=== PATIENT | female | born 1970 | race Caucasian/White ===

== ENCOUNTER 2016-06-03 08:39 | Emergency (ER) | payer OTHER ==
[~2016-06-03] VITALS: Ht 152.4 cm; Wt 54.0 kg
[~2016-06-03 08:39] MED LIST: ANAS1TAB6 PO; CTP/1 PO; CYAN10002; MUPI2OIN9 TOP; ONDA8TAB7 SL; OXYC-57 PO; OXYC20TA50 PO; PANT40TA PO; SALI0.6510; ZOLP10TA PO
[2016-06-03 08:48] VITALS: TEMP 36.5
[2016-06-03] MEDS ORDERED: HYDROmorphone INJ 1 MG/ML SYR IV STA (09:03)
[2016-06-03] MEDS ORDERED: MORP15TA19 PO (09:07)
[2016-06-03 09:31] VITALS: Ht 152.4 cm; Wt 54.0 kg
[2016-06-03 09:32] LABS: BASO % 0.3 %; BASO ABS # 0.02 K/uL (0-0.2); COMPLETE YES; EOS % 3.3 %; HEMATOCRIT 31.1 % (37-47); IG% 0.1 %; LYMPH % 30.5 %; LYMPH ABS # 2.11 K/uL (1.2-3.4); MEAN CELL VOLUME 91.2 fL (80-100); MEAN CORPUSCULAR HEMOGLOBIN 30.5 pg (25-34); MEAN CORPUSCULAR HGB CONC 33.4 g/dl (32-36); MEAN PLATELET VOLUME 9.8 fL (7.4-10.4); MONO % 8.4 %; NEUT % 57.4 %; PLATELET COUNT 196 K/uL (130-400); RED BLOOD COUNT 3.41 M/uL (4.2-5.4); WHITE BLOOD COUNT 6.92 K/uL (4.8-10.8)
[2016-06-03] MEDS ORDERED: ONDANSETRON INJ 2 MG/ML 2 ML VIAL IV STA (09:33)
[2016-06-03] MEDS ORDERED: MAGIC MOUTHWASH PO STA (09:36)
[2016-06-03 09:59] LABS: ALT/SGPT 22 U/L (12-78); BLOOD UREA NITROGEN 18 mg/dl (7-18); BUN/CREATININE RATIO 27.3 (10-20); C-REACTIVE PROTEIN < 0.29 mg/dl (0-0.29); CALCIUM 8.5 mg/dl (8.5-10.1); CARBON DIOXIDE 24 mmol/L (21-32); CHLORIDE 108 mmol/L (98-107); CREATININE 0.64 mg/dl (0.60-1.20); GLUCOSE 96 mg/dl (70-99); POTASSIUM 3.9 mmol/L (3.5-5.1); SODIUM 141 mmol/L (136-145)
[2016-06-03] MEDS ORDERED: DEXAMETHASONE CONC SOLN 0.078 MG, NYSTATIN SUSP 0.625 ML, DiphenhydrAMINE HCL SYRUP 6.2... PO ONE ×5 (10:00)
[2016-06-03 10:09] LABS: ALKALINE PHOSPHATASE 106 U/L (45-117); AST/SGOT 20 U/L (15-37); CKMB/CK RATIO 0.8 (0-3.0)
--- NOTE | 2016-06-03 10:27 | DIAGNOSTIC IMAGING REPORT ---
PA CHEST RADIOGRAPH AND UPRIGHT AND SUPINE AP RADIOGRAPHS OF THE ABDOMEN CLINICAL HISTORY: Abdominal pain. Sore throat. COMPARISON STUDY: Chest radiograph September 24, [address] of the abdomen and pelvis October 20, 2015. FINDINGS: A right sided [id number] is in place. There is no pneumothorax or pleural effusion. No consolidation is identified. A nodular density projecting over the right lower lung likely reflects a nipple shadow. Pulmonary vascularity is normal. Cardiac size is normal. Mediastinal contours are normal. The left breast may be surgically absent. There are cholecystectomy clips. There is no free air. Gas pattern is normal. There is a moderate amount of stool within the colon and rectum. IMPRESSION: 1. No free air or evidence of bowel obstruction. 2. Moderate amount of stool within the colon and rectum. 3. No acute cardiopulmonary findings. Electronically signed by: Radu Cardona M.D. 06/03/2016 10:25 AM Dictated Date/Time: 06/03/2016 10:16 AM
[2016-06-03 11:04] VITALS: O2SAT 100
[2016-06-03] MEDS ORDERED: SODIUM CHLORIDE 0.9% 1000ML 1,000 ML IV STA (11:04)
[2016-06-03 11:15] LABS: INFLUENZA A PCR Neg for Influ A (NEG); INFLUENZA B PCR Neg for Influ B (NEG)
[2016-06-03] MEDS ORDERED: SOAP SUDS ENEMA PR STA (11:24)
[2016-06-03] MEDS ORDERED: MAGNESIUM CITRATE 296 ML/BTL PO STA (11:24)
[2016-06-03] MEDS ORDERED: DiphenhydrAMINE HCL 50 MG/ML VIAL IV STA ×2 (11:24→14:17)
[2016-06-03] MEDS ORDERED: METOCLOPRAMIDE HCL INJ 5 MG/ML 2 ML VIAL IV STA (14:17)
[2016-06-03] MEDS ORDERED: FENTANYL CITRATE INJ 50 MCG/1 ML 2 ML VIAL IV STA (14:17)
--- NOTE | 2016-06-03 14:46 | DIAGNOSTIC IMAGING REPORT ---
CT OF THE ABDOMEN AND PELVIS WITH ORAL CONTRAST CT DOSE: 416.08 mGy.cm CLINICAL HISTORY: Diffuse abdominal pain. TECHNIQUE: Axial images of the abdomen and pelvis were obtained without IV contrast. Oral contrast was administered. COMPARISON STUDY: CT of the abdomen and pelvis October 20, 2015 and abdominal ultrasound May 24, 2015. FINDINGS: There are findings suggestive of a left mastectomy which are partially imaged on this examination. No pneumatosis, free air or portal venous gas is present. There is no biliary ductal dilatation status post cholecystectomy. There is no peripancreatic infiltration. No renal, ureteral or bladder calculi are identified. There is no hydronephrosis. Moderate distention of the bladder is noted. Unenhanced images of liver, spleen, adrenal glands and pancreas are unremarkable. There is a moderate amount of stool within the colon. There is no evidence for a bowel obstruction. The appendix is not visualized. IMPRESSION: 1. No acute process within the abdomen or pelvis on unenhanced exam. 2. No urinary calculi or hydronephrosis. 3. No bowel obstruction. Moderate amount of stool within the colon. 4. Moderate distention of the bladder. Electronically signed by: Radu Cardona M.D. 06/03/2016 2:45 PM Dictated Date/Time: 06/03/2016 2:41 PM
[2016-06-03] MEDS ORDERED: FLUC100T4 PO (15:37)
[2016-06-03 17:06] VITALS: BP 111/80; PULSE 76; O2SAT 98
--- NOTE | 2016-06-04 19:24 | EMERGENCY ROOM VISIT NOTE ---
History Report prepared by Joyce: Shireen Tyson Under the Supervision of: Dr. Bienvenido Houser M.D. First contact with patient: 08:40 Chief Complaint: THROAT PAIN/INJURY Stated Complaint: SORETHROAT History of Present Illness The patient is a 46 year old female who presents to the Emergency Room with complaints of a worsening sore throat over the past 5 days. Currently, she states that the back of her throat feels raw, and she rates her discomfort as a 5/10, which increases with attempts of swallowing. As the patient's throat began hurting, and she also developed diaphoresis and fevers reaching 101F, she visited [facility] 2 days ago and was swabbed for strep throat, but it was negative at that time. She also states that she had her blood pressure taken and she was told that it was low, but she does not note receiving any medications or treatments. Since returning home, the patient's throat pain has become worse, and she states that it has now become consistent with her history of thrush, which she states she usually develops when she gets sick. The patient also states that she passed out two times last evening, collapsing to the floor. She denies hitting her head or suffering injuries secondary to the episodes. However, she does note headache. Patient has a history of breast cancer and recently had a left mastectomy on April 21. She states that she experienced several episodes of diarrhea leading up to the surgery, but she has only been able to move her bowels twice since the surgery was completed. Patient was previously treated with chemotherapy (last treatment in September), but has been in remission since November. Source of History: patient Onset: past 5 days Position: throat Symptom Intensity: 5/10 Quality: other ("Raw") Timing: worsening Modifying Factors (Worsening): other (swallowing) Associated Symptoms: + LOC, + diaphoresis, + fevers, + headache Note: Patient had low BP at her appointment with [facility] Monday. Patient is constipated. Review of Systems See HPI for pertinent positives & negatives. A total of 10 systems reviewed and were otherwise negative. Past Medical & Surgical Medical Problems: (1) Breast cancer (2) Alice esophagitis (3) Diarrhea (4) GI (gastrointestinal bleed) (5) Hypothyroid (6) Hypothyroidism (7) Migraines (8) Pre-syncope (9) Weakness Surgical Problems: (1) History of lumpectomy Family History Diabetes mellitus FHx: cancer FHx: gallbladder disease Hypertension Social History Smoking Status: Never Smoker Alcohol Use: none Drug Use: none Marital Status: Housing Status: lives alone Occupation Status: disabled Current/Historical Medications Scheduled Anastrozole (Anastrozole), 1 MG PO DAILY Cyanocobalamin (Vitamin B-12 Inj), 1 INJ MONTHLY Fluconazole (Diflucan), 1 TAB PO QID Levothyroxine Sodium (Levothyroxine Sodium), 50 MCG PO DAILY Morphine Cont Rel (Ms Contin), 15 MG PO Q12 Pantoprazole (Protonix), 40 MG PO DAILY Saline (Aurelia Nasal Arnot), 2 SPRAYS NA Q3HWA Zolpidem Tartrate (Ambien), 10 MG PO HS Scheduled PRN Ondansetron Tab (Zofran), 8 MG SL Q8 PRN for Nausea Allergies Coded Allergies: Iodinated Diagnostic Agents (Verified Allergy, Severe, Throat swells - IV contrast, 06/03/16) Adhesives (Verified Allergy, Intermediate, TAPE- HIVES, 06/03/16) Cephalexin (Verified Allergy, Intermediate, Hives, 06/03/16) Codeine (Verified Allergy, Intermediate, Hives, 06/03/16) Latex1 -Allergic Contact Dermititis (Verified Allergy, Intermediate, SWELLS AND HIVES, 06/03/16) Penicillins (Verified Allergy, Intermediate, HIVES, 06/03/16) [place] (Verified Allergy, Intermediate, HIVES, 06/03/16) Sulfa Antibiotics (Verified Allergy, Intermediate, Hives, 06/03/16) Vancomycin (Verified Allergy, Intermediate, HIVES, 06/03/16) Loratadine (Verified Allergy, Mild, Hives, 06/03/16) Morphine (Verified Allergy, Mild, Hives, 10/15/15) Tramadol (Verified Allergy, Mild, Hives, 06/03/16) Physical Exam Vital Signs Date Time Temp Pulse Resp B/P Pulse Ox O2 Delivery O2 Flow Rate FiO2 06/03/16 17:06 76 14 111/80 98 06/03/16 15:13 81 12 116/76 100 Room Air 06/03/16 13:46 69 13 110/65 100 Room Air 06/03/16 13:45 74 06/03/16 11:47 88 18 117/78 100 Room Air 06/03/16 11:04 100 Room Air 06/03/16 10:58 84 14 85/61 100 Room Air 94 102/71 105 88/72 06/03/16 09:51 88 19 112/75 96 06/03/16 08:48 96 06/03/16 08:48 36.5 93 20 120/85 96 Room Air 06/03/16 08:45 95 Room Air Physical Exam GENERAL: Patient is a healthy-appearing well-nourished 46 year old female. HEAD: Normocephalic atraumatic EYES: Ocular movements intact pupils equal and react to light OROPHARYNX mucous membranes are moist no exudates present no erythema or edema present NECK: Supple no nuchal rigidity CHEST: Good equal expansion LUNGS: Clear and equal to auscultation CARDIAC: Normal S1 and S2 ABDOMEN: Soft nontender no guarding BACK: No CVA tenderness EXTREMITIES: No pain upon palpation normal muscle strength in all groups no clubbing cyanosis or edema NEURO: Patient is following commands is answering questions appropriately. Alert and oriented x3 Cranial Nerves 2-12 grossly intact Medical Decision & Procedures ER Provider Diagnostic Interpretation: X-ray results as stated below per interpretation by me and the radiologist: CT results as stated below per my review and radiologist interpretation: PA CHEST RADIOGRAPH AND UPRIGHT AND SUPINE AP RADIOGRAPHS OF THE ABDOMEN CLINICAL HISTORY: Abdominal pain. Sore throat. COMPARISON STUDY: Chest radiograph September 24, [address] of the abdomen and pelvis October 20, 2015. FINDINGS: A right sided [id number] is in place. There is no pneumothorax or pleural effusion. No consolidation is identified. A nodular density projecting over the right lower lung likely reflects a nipple shadow. Pulmonary vascularity is normal. Cardiac size is normal. Mediastinal contours are normal. The left breast may be surgically absent. There are cholecystectomy clips. There is no free air. Gas pattern is normal. There is a moderate amount of stool within the colon and rectum. IMPRESSION: 1. No free air or evidence of bowel obstruction. 2. Moderate amount of stool within the colon and rectum. 3. No acute cardiopulmonary findings. Electronically signed by: Radu Cardona M.D. 06/03/2016 10:25 AM Dictated Date/Time: 06/03/2016 10:[address] OF THE ABDOMEN AND PELVIS WITH ORAL CONTRAST CT DOSE: 416.08 mGy.cm CLINICAL HISTORY: Diffuse abdominal pain. TECHNIQUE: Axial images of the abdomen and pelvis were obtained without IV contrast. Oral contrast was administered. COMPARISON STUDY: CT of the abdomen and pelvis October 20, 2015 and abdominal ultrasound May 24, 2015. FINDINGS: There are findings suggestive of a left mastectomy which are partially imaged on this examination. No pneumatosis, free air or portal venous gas is present. There is no biliary ductal dilatation status post cholecystectomy. There is no peripancreatic infiltration. No renal, ureteral or bladder calculi are identified. There is no hydronephrosis. Moderate distention of the bladder is noted. Unenhanced images of liver, spleen, adrenal glands and pancreas are unremarkable. There is a moderate amount of stool within the colon. There is no evidence for a bowel obstruction. The appendix is not visualized. IMPRESSION: 1. No acute process within the abdomen or pelvis on unenhanced exam. 2. No urinary calculi or hydronephrosis. 3. No bowel obstruction. Moderate amount of stool within the colon. 4. Moderate distention of the bladder. Electronically signed by: Radu Cardona M.D. 06/03/2016 2:45 PM Dictated Date/Time: 06/03/2016 2:41 PM Laboratory Results 06/03/16 09:20 Red Blood Count 3.41, Mean Corpuscular Volume 91.2, Mean Corpuscular Hemoglobin 30.5, Mean Corpuscular Hemoglobin Concent 33.4, Mean Platelet Volume 9.8, Neutrophils (%) (Auto) 57.4, Lymphocytes (%) (Auto) 30.5, Monocytes (%) (Auto) 8.4, Eosinophils (%) (Auto) 3.3, Basophils (%) (Auto) 0.3, Neutrophils # (Auto) 3.97, Lymphocytes # (Auto) 2.11, Monocytes # (Auto) 0.58, Eosinophils # (Auto) 0.23, Basophils # (Auto) 0.02 06/03/16 09:20 Test 06/03/16 09:20 06/03/16 09:37 06/03/16 09:40 White Blood Count 6.92 K/uL (4.8-10.8) Red Blood Count 3.41 M/uL (4.2-5.4) Hemoglobin 10.4 g/dL (12.0-16.0) Hematocrit 31.1 % (37-47) Mean Corpuscular Volume 91.2 fL (80-100) Mean Corpuscular Hemoglobin 30.5 pg (25-34) Mean Corpuscular Hemoglobin Concent 33.4 g/dl (32-36) Platelet Count 196 K/uL (130-400) Mean Platelet Volume 9.8 fL (7.4-10.4) Neutrophils (%) (Auto) 57.4 % Lymphocytes (%) (Auto) 30.5 % Monocytes (%) (Auto) 8.4 % Eosinophils (%) (Auto) 3.3 % Basophils (%) (Auto) 0.3 % Neutrophils # (Auto) 3.97 K/uL (1.4-6.5) Lymphocytes # (Auto) 2.11 K/uL (1.2-3.4) Monocytes # (Auto) 0.58 K/uL (0.11-0.59) Eosinophils # (Auto) 0.23 K/uL (0-0.5) Basophils # (Auto) 0.02 K/uL (0-0.2) RDW Standard Deviation 42.8 fL (36.4-46.3) RDW Coefficient of Variation 12.8 % (11.5-14.5) Immature Granulocyte % (Auto) 0.1 % Immature Granulocyte # (Auto) 0.01 K/uL (0.00-0.02) Erythrocyte Sedimentation Rate 2 mm/hr (0-21) Anion Gap 9.0 mmol/L (3-11) Est Creatinine Clear Calc Drug Dose 79.7 ml/min Estimated GFR () 124.9 Estimated GFR (Non- 107.8 BUN/Creatinine Ratio 27.3 (10-20) Calcium Level 8.5 mg/dl (8.5-10.1) Total Bilirubin 0.1 mg/dl (0.2-1) Direct Bilirubin < 0.1 mg/dl (0-0.2) Aspartate Amino Transf (AST/SGOT) 20 U/L (15-37) Alanine Aminotransferase (ALT/SGPT) 22 U/L (12-78) Alkaline Phosphatase 106 U/L (45-117) Total Creatine Kinase 124 U/L (26-192) Creatine Kinase MB 1.0 ng/ml (0.5-3.6) Creatine Kinase MB Ratio 0.8 (0-3.0) Troponin I < 0.015 ng/ml (0-0.045) C-Reactive Protein < 0.29 mg/dl (0-0.29) Total Protein 6.3 gm/dl (6.4-8.2) Albumin 3.4 gm/dl (3.4-5.0) Thyroid Stimulating Hormone (TSH) 1.950 uIu/ml (0.300-4.500) Bedside Glucose 99 mg/dl (70-90) Influenza Type A (RT-PCR) Neg for Influ A (NEG) Influenza Type B (RT-PCR) Neg for Influ B (NEG) Labs reviewed by ED physician. Medications Administered Medications (Trade) Dose Ordered Sig/Landon Route Start Time Stop Time Status Last Admin Dose Admin Hydromorphone HCl (Dilaudid Inj) 1 mg NOW STAT IV 06/03/16 09:03 06/03/16 09:06 DC 06/03/16 09:46 1 MG Ondansetron HCl 4 mg NOW STAT IV 06/03/16 09:33 06/03/16 09:37 DC 06/03/16 09:48 4 MG Dexamethasone 0.078 mg/Nystatin 0.625 ml/ Diphenhydramine HCl 6.25 mg/ Sucrose 0.938 ml/ Microcrystalline Cellulose 0.938 ml/Barcode 1 ea TODAY@1000 ONCE PO 06/03/16 10:00 06/03/16 10:01 DC 06/03/16 10:00 5 ML Sodium Chloride (Nss 1000ml) 1,000 ml @ 999 mls/hr Q1H1M STAT IV 06/03/16 11:04 06/03/16 12:04 DC 06/03/16 11:17 999 MLS/HR Magnesium Citrate (Citrate Of Magnesia Soln) 150 ml NOW STAT PO 06/03/16 11:24 06/03/16 11:26 DC 06/03/16 11:43 150 ML Diphenhydramine HCl (Benadryl Inj) 25 mg NOW STAT IV 06/03/16 11:24 06/03/16 11:26 DC 06/03/16 11:43 25 MG Miscellaneous (Soap Suds Enema) [address] 06/03/16 11:24 06/03/16 11:26 DC 06/03/16 11:24 1 EA Fentanyl Citrate (Fentanyl Inj) 50 mcg NOW STAT IV 06/03/16 14:17 06/03/16 14:18 DC 06/03/16 15:07 50 MCG Diphenhydramine HCl (Benadryl Inj) 25 mg NOW STAT IV 06/03/16 14:17 06/03/16 14:18 DC 06/03/16 15:07 25 MG Metoclopramide HCl (Reglan Inj) 10 mg NOW STAT IV 06/03/16 14:17 06/03/16 14:18 DC 06/03/16 15:09 10 MG Heparin Sodium (Porcine) (Heparin 100 Unit/ml 5ml Flush) 5 ml STK-MED ONCE .ROUTE 06/03/16 16:52 06/03/16 16:53 DC 06/03/16 16:59 5 ML ECG Indication: syncope Rate (beats per minute): 90 Rhythm: normal sinus Findings: no acute ischemic change, no ectopy ED Course 0835: Past medical records reviewed. The patient was evaluated in room B11. A complete history and physical examination was performed. 0903: Dilaudid 1 mg IV was ordered. 0933: Zofran 4 mg IV was ordered. 1000: Dexamethasone/Nystatin/Diphenhydramine HCL/Sucrose/Microcrystalline Cellulose rinse was ordered. 1104: NSS bolus IV was ordered. 1124: Upon reevaluation, the patient was feeling improved, however, she stated that she wants to be admitted because she has not been able to move her bowels, and she thinks that she may be "obstructed". Soap Suds Enema [address], Benadryl 25 mg IV and Magnesium Citrate 150 ml PO was ordered. 1200: Patient did not have relief after given the enema. She will go to CT for further imaging studies. 1417: Patient has returned from CT. The results are pending. She was still unable to move her bowels, and was having increased discomfort. Reglan 10 mg IV , Benadryl 25 mg IV and Fentanyl 50 mcg IV were ordered. 1520: I reevaluated the patient at this time and updated her on the results of her radiology reports and lab tests. Patient is being discharged but is refusing to leave because she states that she doesn't want to leave. I have offered to call a taxi or her family but she refused. Medical Decision Differential diagnosis: Etiologies such as viral syndrome, tonsillitis, streptococcal pharyngitis, mononucleosis, peritonsillar abscess, retropharyngeal abscess, otitis, pneumonia , influenza, as well as others were entertained. This is a 46-year-old female who comes to the emergency Department with a number of complaints. The patient was just seen at [facility] and took an ambulatory [facility] to the emergency department. Upon arrival to the emergency department the patient states that she has a history of thrush and this is what her throat feels like when she gets thrush. For this reason the patient was given Magic mouthwash here in the emergency department. She has a very benign abdominal examination and was originally sent for x-rays of her abdomen and chest read the x-rays are only concerning for constipation. I was going to give the patient magnesium citrate cleanout and she has a normal CBC normal renal profile normal liver profile. However the patient is stating that she cannot be discharged home as she does not have a ride back to [facility]. She wants to be admitted to the hospital as her insurance is covered admissions in the past. I stated to the patient that she does not have any reason to be admitted to the hospital however I would get a CAT scan of the abdomen pelvis as she is had a history of obstruction in the past that did not show up on x-ray. Serial abdominal examinations however were performed on the patient while she was in the emergency department and at no time did she exhibit abdominal tenderness. The patient was requesting pain medication in the emergency department and did receive Dilaudid as well as Benadryl. Repeat examination revealed improvement patient's symptoms. The patient was able swallow the contrast easily for the CAT scan. This again did not show any evidence of bowel obstruction. I then discussed how the patient was able to get home along with case management. Again the patient stated that she did not have a ride home. I offered her both shelters as well as hotels in the [place] area however the patient is refusing to do this. Case management along with the charge nurse were able to convince the patient to call for a ride home. I am going to place patient on a magnesium citrate cleanout. Impression Primary Impression: Throat pain Additional Impression: Constipation Scribe Attestation The scribe's documentation has been prepared under my direction and personally reviewed by me in its entirety. I confirm that the note above accurately reflects all work, treatment, procedures, and medical decision making performed by me. Departure Information Dispostion Home / Self-Care Prescriptions Fluconazole (DIFLUCAN) 100 Mg Tab 1 TAB PO QID for 10 Days, #40 TAB Prov: Bienvenido Houser MD 06/03/16 Forms HOME CARE DOCUMENTATION FORM, IMPORTANT VISIT INFORMATION Patient Instructions My [facility] Additional Instructions Take 1/2 bottle of Mag Citrate Repeat second half in six hours Clear liquid diet for next 48 hours You have been examined and treated today on an emergency basis only. This is not a substitute for, or an effort to provide, complete comprehensive medical care. It is impossible to recognize and treat all injuries or illnesses in a single emergency department visit. It is therefore important that you follow up closely with Dr Jurado. Call as soon as possible for an appointment. Thank you for your time and consideration. I look forward to speaking with you again soon. Please don't hesitate to call us if you have any questions. Problem Qualifiers Additional Impression: Constipation Constipation type: unspecified constipation type Qualified Codes: K59.00 - Constipation, unspecified
[2016-09-06] MEDS ORDERED: LEVO50TA6 PO (02:26)
[2017-01-26] MEDS ORDERED: ALPR1TAB3 PO (10:43)
[2017-01-31] MEDS ORDERED: OXYC-57 PO (08:41)
== END 2016-06-03 17:09 | disposition home or self-care (01) ==
LOC: EDBD 08:39 → C.EDB 08:40
DX: R07.0 Pain in throat (principal); K59.00 Constipation, unspecified; E03.9 Hypothyroidism, unspecified; C50.919 Malignant neoplasm of unspecified site of unspecified female breast; Z79.899 Other long term (current) drug therapy; Z79.811 Long term (current) use of aromatase inhibitors; Z79.891 Long term (current) use of opiate analgesic; Z86.19 Personal history of other infectious and parasitic diseases; Z83.3 Family history of diabetes mellitus; Z82.49 Family history of ischemic heart disease and other diseases of the circulatory system; Z83.79 Family history of other diseases of the digestive system; Z80.9 Family history of malignant neoplasm, unspecified

== ENCOUNTER 2016-09-06 18:26 | Emergency (ER) | payer OTHER ==
[~2016-09-06] VITALS: Ht 154.9 cm; Wt 54.1 kg
[~2016-09-06 18:26] MED LIST changes: -CTP/1 PO; +LEVO50TA6 PO; +MORP15TA19 PO; -MUPI2OIN9 TOP; -OXYC-57 PO; -OXYC20TA50 PO
[2016-09-06 18:29] VITALS: TEMP 36.7; Ht 154.9 cm; Wt 54.1 kg
[2016-09-06] MEDS ORDERED: SODIUM CHLORIDE 0.9% 1000ML 1,000 ML IV STA (18:41)
[2016-09-06] MEDS ORDERED: PROCHLORPERAZINE 5 MG/ML 2 ML VIAL IV STA (18:41)
[2016-09-06] MEDS ORDERED: DiphenhydrAMINE HCL 50 MG/ML VIAL IV STA ×2 (18:41→20:31)
[2016-09-06] MEDS ORDERED: CYNI1000 IM (19:12)
[2016-09-06] MEDS ORDERED: KLN5X PO (19:12)
[2016-09-06] MEDS ORDERED: ZOLP10TA6 PO (19:12)
[2016-09-06] MEDS ORDERED: ROPI0.5T PO (19:12)
[2016-09-06] MEDS ORDERED: ONDA8TAB62 SL (19:12)
[2016-09-06] MEDS ORDERED: MOME6000 NAE (19:12)
[2016-09-06] MEDS ORDERED: MORP1TAB12 PO (19:12)
--- NOTE | 2016-09-06 19:59 | DIAGNOSTIC IMAGING REPORT ---
CT SCAN OF THE BRAIN WITHOUT IV CONTRAST CLINICAL HISTORY: Syncope. Headache. COMPARISON STUDY: CT of the brain dated 09/24/2015. TECHNIQUE: Unenhanced axial CT scan of the brain is performed from the vertex to the skull base. Automated dose control exposure was utilized. CT DOSE: 1422.79 mGy.cm FINDINGS: Brain parenchyma: The brain parenchyma is normal in appearance. There is no hemorrhage, mass effect, or evidence of acute territorial ischemia by CT criteria. Forbes-white matter is preserved. No extra-axial fluid collection is seen. Ventricles, sulci, cisterns: Normal in configuration. Intracranial vasculature: The visualized intracranial vasculature at the skull base is normal in appearance. Calvarium: There is no depressed calvarial fracture. Sinuses and mastoids: The visualized paranasal sinuses are clear. The mastoid air cells are well pneumatized. Orbits: The bony orbits are grossly intact. IMPRESSION: No acute intracranial abnormality. Electronically signed by: Remy Valencia M.D. 09/06/2016 7:57 PM Dictated Date/Time: 09/06/2016 7:55 PM
[2016-09-06 20:00] LABS: BASO % 0.4 %; BASO ABS # 0.03 K/uL (0-0.2); COMPLETE YES; EOS % 0.5 %; HEMATOCRIT 36.8 % (37-47); IG% 0.1 %; LYMPH % 24.4 %; LYMPH ABS # 2.06 K/uL (1.2-3.4); MEAN CELL VOLUME 89.5 fL (80-100); MEAN CORPUSCULAR HEMOGLOBIN 29.2 pg (25-34); MEAN CORPUSCULAR HGB CONC 32.6 g/dl (32-36); NEUT % 68.6 %; PLATELET COUNT 255 K/uL (130-400); RED BLOOD COUNT 4.11 M/uL (4.2-5.4); WHITE BLOOD COUNT 8.45 K/uL (4.8-10.8)
[2016-09-06 20:07] LABS: URINE APPEARANCE CLEAR (CLEAR); URINE BILIRUBIN NEG (NEG); URINE COLOR YELLOW; URINE EPITHELIAL CELL AUTO >30 /lpf (0-5); URINE NITRITE NEG (NEG); URINE SPECIFIC GRAVITY 1.022 (1.000-1.030); UROBILINOGEN NEG (NEG)
--- NOTE | 2016-09-06 20:07 | DIAGNOSTIC IMAGING REPORT ---
CT SCAN OF THE FACIAL BONES WITHOUT IV CONTRAST CLINICAL HISTORY: Syncope. Facial injury. COMPARISON STUDY: CT of the brain performed concurrently on 09/06/2016. TECHNIQUE: High-resolution CT scan of the facial bones is performed. Images are reviewed in the axial, sagittal, and coronal planes. IV contrast was not administered for this examination. CT DOSE: Reported separately under the concurrently performed CT scan of the brain. FINDINGS: The skeletal structures are well mineralized. There is no evidence of facial bone fracture. The bony orbits are intact and the orbital contents are within normal limits. The zygomatic arches, nasal bones, and pterygoid plates are preserved. The maxilla and mandible are intact. There are no layering blood products within the paranasal sinuses. The sinuses and mastoids are clear. The visualized calvarium and upper cervical spine are maintained. Fusion hardware is noted in the cervical spine. Partially imaged brain parenchyma is within normal limits. IMPRESSION: There is no evidence of facial bone fracture. Electronically signed by: Remy Valencia M.D. 09/06/2016 8:05 PM Dictated Date/Time: 09/06/2016 7:55 PM
[2016-09-06 20:10] LABS: MANUAL MICROSCOPIC REQUIRED? NO; REVIEW REQ? NO
[2016-09-06] MEDS ORDERED: METHYLPREDNISOLONE 125 MG VIAL IV STA (20:11)
[2016-09-06 20:17] LABS: ALT/SGPT 29 U/L (12-78); AST/SGOT 17 U/L (15-37); BLOOD UREA NITROGEN 23 mg/dl (7-18); BUN/CREATININE RATIO 27.1 (10-20); CALCIUM 8.8 mg/dl (8.5-10.1); CARBON DIOXIDE 28 mmol/L (21-32); CHLORIDE 108 mmol/L (98-107); CREATININE 0.83 mg/dl (0.60-1.20); GLUCOSE 94 mg/dl (70-99); POTASSIUM 3.7 mmol/L (3.5-5.1); SODIUM 143 mmol/L (136-145)
[2016-09-06 20:21] LABS: PARTIAL THROMBOPLASTIN RATIO 1.7; PROTHROMBIN TIME (PATIENT) 10.3 SECONDS (9.0-12.0)
[2016-09-06 20:28] LABS: ALKALINE PHOSPHATASE 133 U/L (45-117)
[2016-09-06 20:34] LABS: BENZODIAZEPINE, URINE POS (NEG); COCAINE,URINE NEG (NEG); PHENCYCLIDINE, URINE NEG (NEG)
--- NOTE | 2016-09-06 21:04 | DIAGNOSTIC IMAGING REPORT ---
AP CHEST WITH ABDOMINAL SERIES CLINICAL HISTORY: Generalized abdominal pain. FINDINGS: An AP chest radiograph is compared to study dated 06/03/2016. The examination is degraded by patient rotation. A right subclavian central venous infusion port is unchanged in position. The cardiomediastinal silhouette is unremarkable. The lungs and pleural spaces are clear. No pneumothorax is seen. The bony thorax is grossly intact. Supine and decubitus abdominal radiographs are compared to abdominal x-ray and abdominal CT dated 06/03/2016. Cholecystectomy clips are identified in the right upper quadrant. There is a nonobstructed abdominal bowel gas pattern. No evidence of intraperitoneal free air is seen. Large phleboliths are again seen in the right pelvis. The lumbosacral spine and bony pelvis appear intact. IMPRESSION: 1. No active disease in the chest. 2. Nonobstructed abdominal bowel gas pattern. Electronically signed by: Remy Valencia M.D. 09/06/2016 9:02 PM Dictated Date/Time: 09/06/2016 8:59 PM
[2016-09-06] MEDS ORDERED: OPTIRAY 320 IV PRN (21:30)
[2016-09-06] MEDS ORDERED: HYDROmorphone INJ 1 MG/ML SYR IV STA (21:36)
--- NOTE | 2016-09-06 21:48 | DIAGNOSTIC IMAGING REPORT ---
CT ANGIOGRAM OF THE CHEST CLINICAL HISTORY: Atypical chest pain. Syncope. History of breast cancer. COMPARISON STUDY: Chest x-ray dated 09/06/2016. TECHNIQUE: Following the IV administration of 89 cc of Optiray 320, CT angiogram of the chest was performed from the upper abdomen to the thoracic inlet utilizing the pulmonary embolus protocol. Images are reviewed in the axial, sagittal, and coronal planes. 3-D MIPS images are created and assessed. The patient was premedicated for a reported history of contrast allergy. IV contrast was administered without complication. CT DOSE: 177.33 mGy.cm FINDINGS: Thyroid: Imaged portions of the thyroid gland are normal in size and attenuation. Thoracic aorta: The thoracic aorta is normal in caliber and demonstrates standard 3-vessel arch anatomy. No dissection is seen. A right subclavian central venous infusion port is in place. Pulmonary vasculature: The pulmonary trunk is normal in caliber. There are no filling defects identified in main, lobar, or segmental pulmonary branches to suggest pulmonary embolus. Heart: The heart is normal in size and configuration, and without pericardial effusion. Lungs and pleural spaces: Evaluation of the lung parenchyma is degraded by respiratory motion artifact. No airspace consolidation or pleural effusion is seen. The trachea and central airways are clear. Mediastinum: There is no mediastinal lymphadenopathy. Celeste: Clear. Axillae: There is no axillary lymphadenopathy. Upper abdomen: Cholecystectomy clips are noted. A tiny hiatal hernia is observed. Partially visualized upper abdominal viscera is otherwise within normal limits. Skeletal structures: No lytic or blastic bony lesions are seen. Soft tissues: The left breast is surgically absent. IMPRESSION: 1. There is no evidence of pulmonary embolus in the main, lobar, or segmental pulmonary arteries. 2. The lungs are clear. Electronically signed by: Remy Valencia M.D. 09/06/2016 9:46 PM Dictated Date/Time: 09/06/2016 9:42 PM
[2016-09-06 22:24] VITALS: BP 134/98; PULSE 75; O2SAT 99
--- NOTE | 2016-09-07 01:58 | EMERGENCY ROOM VISIT NOTE ---
History Report prepared by Joyce: Dana Diego Under the Supervision of: Dr. Rinku Ramon M.D. First contact with patient: 18:30 Chief Complaint: ABDOMINAL PAIN Stated Complaint: BELLY PAIN, MIGRAINES, BREAST CA, PASSING OUT History of Present Illness The patient is a 46 year old female who presents to the Emergency Room with complaints of worsening migraine beginning a 4 days prior to arrival. The patient has a history of migraine headaches since she was very young. She states that the headaches have gotten worse since she was diagnosed with cancer. She states the headache is diffuse. The other day she noticed tingling in her fingers. She also complains of vomiting and diarrhea for the past several days. She does state that she is placed on Levaquin a week ago but did not take it because of side effects. She does complain of some abdominal pain. She also states that she has been having episodes of passing out. This has been happening since last year. She passes out frequently and noted that she passed out several times at her doctor's office 2 weeks ago. She states that the nurse later down on the bed at the time. She is scheduled for an outpatient MRI. She has seen neurology for these episodes in the past. She does state that she has passed out every day for the past 3 days as well. She thinks she may have hit her head at one point. The patient denies any chance of as she has had a hysterectomy. She has appointment with neurology on October 25. She states that October 2015 was her last chemotherapy for breast cancer and she has a history of mastectomy. 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 Facial pain. Review of Systems See HPI for pertinent positives & negatives. A total of 10 systems reviewed and were otherwise negative. Past Medical & Surgical Medical Problems: (1) Breast cancer (2) Alice esophagitis (3) Diarrhea (4) GI (gastrointestinal bleed) (5) Hypothyroid (6) Hypothyroidism (7) Migraines (8) Pre-syncope (9) Weakness Surgical Problems: (1) History of lumpectomy Family History Diabetes mellitus FHx: cancer FHx: gallbladder disease Hypertension Social History Smoking Status: Never Smoker Alcohol Use: none Drug Use: none Marital Status: Housing Status: lives alone Occupation Status: disabled Current/Historical Medications Scheduled Cyanocobalamin (Cyanocobalamin), 1,000 MCG IM MONTHLY Levothyroxine Sodium (Levothyroxine Sodium), 50 MCG PO DAILY Mometasone Furoate (Nasal) (Mometasone Furoate), 2 SPRAYS ALANIS DAILY Morphine Sulfate (Morphine Sulfate Er), 30 MG PO BID Zolpidem Tartrate (Zolpidem Tartrate), 10 MG PO HS Scheduled PRN Clonazepam (Clonazepam), 0.5 MG PO BID PRN for Anxiety Ondansetron Odt (Zofran Odt), 8 MG SL Q8 PRN for Nausea Ropinirole Hydrochloride (Requip), 0.5 MG PO HS PRN for Restless Leg Allergies Coded Allergies: Iodinated Diagnostic Agents (Verified Allergy, Severe, Throat swells - IV contrast, 06/03/16) Adhesives (Verified Allergy, Intermediate, TAPE- HIVES, 06/03/16) Cephalexin (Verified Allergy, Intermediate, Hives, 06/03/16) Codeine (Verified Allergy, Intermediate, Hives, 06/03/16) Latex1 -Allergic Contact Dermititis (Verified Allergy, Intermediate, SWELLS AND HIVES, 06/03/16) Penicillins (Verified Allergy, Intermediate, HIVES, 06/03/16) [place] (Verified Allergy, Intermediate, HIVES, 06/03/16) Sulfa Antibiotics (Verified Allergy, Intermediate, Hives, 06/03/16) Vancomycin (Verified Allergy, Intermediate, HIVES, 06/03/16) Loratadine (Verified Allergy, Mild, Hives, 06/03/16) Morphine (Verified Allergy, Mild, Hives, 10/15/15) Tramadol (Verified Allergy, Mild, Hives, 06/03/16) Physical Exam Vital Signs Date Time Temp Pulse Resp B/P Pulse Ox O2 Delivery O2 Flow Rate FiO2 09/06/16 22:24 75 18 134/98 99 Room Air 09/06/16 21:22 76 16 146/106 96 Room Air 09/06/16 20:25 75 18 118/74 98 Room Air 09/06/16 19:31 110/79 124/79 119/84 09/06/16 19:23 85 09/06/16 18:29 36.7 104 16 121/87 100 Room Air Physical Exam Constitutional: Vital signs reviewed. Eyes: Pupils are equal round reactive to light. Conjunctiva are noninjected. ENT: Pharynx is clear without erythema or exudate. Mucous membranes are moist. Neck supple without meningeal signs. Respiratory: Clear to auscultation bilaterally. Breath sounds are equal bilaterally. Cardiovascular: Regular rate and rhythm. No rubs or gallops. GI: Soft, nondistended and nontender. Bowel sounds are present. Musculoskeletal: No peripheral edema. No lower extremity tenderness. Integumentary: No cyanosis. Neurologic: The patient is awake and alert. Cranial nerves II-XII are intact. Motor is 5 out of 5 all extremities. Sensation is intact to light touch all extremities. Normal speech. No pronator drift. Psychiatric: Normal affect. Medical Decision & Procedures ER Provider Diagnostic Interpretation: Radiology results as stated below per my review and the radiologist's interpretation: CT SCAN OF THE FACIAL BONES WITHOUT IV CONTRAST CLINICAL HISTORY: Syncope. Facial injury. COMPARISON STUDY: CT of the brain performed concurrently on 09/06/2016. TECHNIQUE: High-resolution CT scan of the facial bones is performed. Images are reviewed in the axial, sagittal, and coronal planes. IV contrast was not administered for this examination. CT DOSE: Reported separately under the concurrently performed CT scan of the brain. FINDINGS: The skeletal structures are well mineralized. There is no evidence of facial bone fracture. The bony orbits are intact and the orbital contents are within normal limits. The zygomatic arches, nasal bones, and pterygoid plates are preserved. The maxilla and mandible are intact. There are no layering blood products within the paranasal sinuses. The sinuses and mastoids are clear. The visualized calvarium and upper cervical spine are maintained. Fusion hardware is noted in the cervical spine. Partially imaged brain parenchyma is within normal limits. IMPRESSION: There is no evidence of facial bone fracture. Electronically signed by: Remy Valencia M.D. 09/06/2016 8:05 PM Dictated Date/Time: 09/06/2016 7:55 PM AP CHEST WITH ABDOMINAL SERIES CLINICAL HISTORY: Generalized abdominal pain. FINDINGS: An AP chest radiograph is compared to study dated 06/03/2016. The examination is degraded by patient rotation. A right subclavian central venous infusion port is unchanged in position. The cardiomediastinal silhouette is unremarkable. The lungs and pleural spaces are clear. No pneumothorax is seen. The bony thorax is grossly intact. Supine and decubitus abdominal radiographs are compared to abdominal x-ray and abdominal CT dated 06/03/2016. Cholecystectomy clips are identified in the right upper quadrant. There is a nonobstructed abdominal bowel gas pattern. No evidence of intraperitoneal free air is seen. Large phleboliths are again seen in the right pelvis. The lumbosacral spine and bony pelvis appear intact. IMPRESSION: 1. No active disease in the chest. 2. Nonobstructed abdominal bowel gas pattern. Electronically signed by: Remy Valencia M.D. 09/06/2016 9:02 PM Dictated Date/Time: 09/06/2016 8:[address] SCAN OF THE BRAIN WITHOUT IV CONTRAST CLINICAL HISTORY: Syncope. Headache. COMPARISON STUDY: CT of the brain dated 09/24/2015. TECHNIQUE: Unenhanced axial CT scan of the brain is performed from the vertex to the skull base. Automated dose control exposure was utilized. CT DOSE: 1422.79 mGy.cm FINDINGS: Brain parenchyma: The brain parenchyma is normal in appearance. There is no hemorrhage, mass effect, or evidence of acute territorial ischemia by CT criteria. Forbes-white matter is preserved. No extra-axial fluid collection is seen. Ventricles, sulci, cisterns: Normal in configuration. Intracranial vasculature: The visualized intracranial vasculature at the skull base is normal in appearance. Calvarium: There is no depressed calvarial fracture. Sinuses and mastoids: The visualized paranasal sinuses are clear. The mastoid air cells are well pneumatized. Orbits: The bony orbits are grossly intact. IMPRESSION: No acute intracranial abnormality. Electronically signed by: Remy Valencia M.D. 09/06/2016 7:57 PM Dictated Date/Time: 09/06/2016 7:[address] ANGIOGRAM OF THE CHEST CLINICAL HISTORY: Atypical chest pain. Syncope. History of breast cancer. COMPARISON STUDY: Chest x-ray dated 09/06/2016. TECHNIQUE: Following the IV administration of 89 cc of Optiray 320, CT angiogram of the chest was performed from the upper abdomen to the thoracic inlet utilizing the pulmonary embolus protocol. Images are reviewed in the axial, sagittal, and coronal planes. 3-D MIPS images are created and assessed. The patient was premedicated for a reported history of contrast allergy. IV contrast was administered without complication. CT DOSE: 177.33 mGy.cm FINDINGS: Thyroid: Imaged portions of the thyroid gland are normal in size and attenuation. Thoracic aorta: The thoracic aorta is normal in caliber and demonstrates standard 3-vessel arch anatomy. No dissection is seen. A right subclavian central venous infusion port is in place. Pulmonary vasculature: The pulmonary trunk is normal in caliber. There are no filling defects identified in main, lobar, or segmental pulmonary branches to suggest pulmonary embolus. Heart: The heart is normal in size and configuration, and without pericardial effusion. Lungs and pleural spaces: Evaluation of the lung parenchyma is degraded by respiratory motion artifact. No airspace consolidation or pleural effusion is seen. The trachea and central airways are clear. Mediastinum: There is no mediastinal lymphadenopathy. Celeste: Clear. Axillae: There is no axillary lymphadenopathy. Upper abdomen: Cholecystectomy clips are noted. A tiny hiatal hernia is observed. Partially visualized upper abdominal viscera is otherwise within normal limits. Skeletal structures: No lytic or blastic bony lesions are seen. Soft tissues: The left breast is surgically absent. IMPRESSION: 1. There is no evidence of pulmonary embolus in the main, lobar, or segmental pulmonary arteries. 2. The lungs are clear. Electronically signed by: Remy Valencia M.D. 09/06/2016 9:46 PM Dictated Date/Time: 09/06/2016 9:42 PM Laboratory Results 09/06/16 19:20 Red Blood Count 4.11, Mean Corpuscular Volume 89.5, Mean Corpuscular Hemoglobin 29.2, Mean Corpuscular Hemoglobin Concent 32.6, Mean Platelet Volume 10.0, Neutrophils (%) (Auto) 68.6, Lymphocytes (%) (Auto) 24.4, Monocytes (%) (Auto) 6.0, Eosinophils (%) (Auto) 0.5, Basophils (%) (Auto) 0.4, Neutrophils # (Auto) 5.80, Lymphocytes # (Auto) 2.06, Monocytes # (Auto) 0.51, Eosinophils # (Auto) 0.04, Basophils # (Auto) 0.03 09/06/16 19:20 Test 09/06/16 19:20 09/06/16 19:27 09/06/16 19:48 White Blood Count 8.45 K/uL (4.8-10.8) Red Blood Count 4.11 M/uL (4.2-5.4) Hemoglobin 12.0 g/dL (12.0-16.0) Hematocrit 36.8 % (37-47) Mean Corpuscular Volume 89.5 fL (80-100) Mean Corpuscular Hemoglobin 29.2 pg (25-34) Mean Corpuscular Hemoglobin Concent 32.6 g/dl (32-36) Platelet Count 255 K/uL (130-400) Mean Platelet Volume 10.0 fL (7.4-10.4) Neutrophils (%) (Auto) 68.6 % Lymphocytes (%) (Auto) 24.4 % Monocytes (%) (Auto) 6.0 % Eosinophils (%) (Auto) 0.5 % Basophils (%) (Auto) 0.4 % Neutrophils # (Auto) 5.80 K/uL (1.4-6.5) Lymphocytes # (Auto) 2.06 K/uL (1.2-3.4) Monocytes # (Auto) 0.51 K/uL (0.11-0.59) Eosinophils # (Auto) 0.04 K/uL (0-0.5) Basophils # (Auto) 0.03 K/uL (0-0.2) RDW Standard Deviation 40.4 fL (36.4-46.3) RDW Coefficient of Variation 12.5 % (11.5-14.5) Immature Granulocyte % (Auto) 0.1 % Immature Granulocyte # (Auto) 0.01 K/uL (0.00-0.02) Prothrombin Time 10.3 SECONDS (9.0-12.0) Prothromb Time International Ratio 1.0 (0.9-1.1) Activated Partial Thromboplast Time 43.7 SECONDS (21.0-31.0) Partial Thromboplastin Ratio 1.7 Anion Gap 7.0 mmol/L (3-11) Est Creatinine Clear Calc Drug Dose 64.5 ml/min Estimated GFR () 98.7 Estimated GFR (Non- 85.2 BUN/Creatinine Ratio 27.1 (10-20) Calcium Level 8.8 mg/dl (8.5-10.1) Total Bilirubin 0.3 mg/dl (0.2-1) Direct Bilirubin < 0.1 mg/dl (0-0.2) Aspartate Amino Transf (AST/SGOT) 17 U/L (15-37) Alanine Aminotransferase (ALT/SGPT) 29 U/L (12-78) Alkaline Phosphatase 133 U/L (45-117) Total Protein 7.4 gm/dl (6.4-8.2) Albumin 4.0 gm/dl (3.4-5.0) Lipase 248 U/L (73-393) Thyroid Stimulating Hormone (TSH) 2.100 uIu/ml (0.300-4.500) Free Thyroxine 1.08 ng/dl (0.80-1.60) Bedside D-Dimer > 450 ng/mlFEU (0-450) Bedside Troponin I 0.000 ng/ml (0-0.045) Urine Color YELLOW Urine Appearance CLEAR (CLEAR) Urine pH 5.0 (4.5-7.5) Urine Specific [place] 1.022 (1.000-1.030) Urine Protein NEG (NEG) Urine Glucose (UA) NEG (NEG) Urine Ketones NEG (NEG) Urine Occult Blood NEG (NEG) Urine Nitrite NEG (NEG) Urine Bilirubin NEG (NEG) Urine Urobilinogen NEG (NEG) Urine Leukocyte Esterase SMALL (NEG) Urine WBC (Auto) 10-30 /hpf (0-5) Urine RBC (Auto) 0-4 /hpf (0-4) Urine Hyaline Casts (Auto) 1-5 /lpf (0-5) Urine Epithelial Cells (Auto) >30 /lpf (0-5) Urine Bacteria (Auto) NEG (NEG) Urine Opiates Screen POS (NEG) Urine Methadone, Qualitative NEG (NEG) Urine Barbiturates NEG (NEG) Urine Phencyclidine (PCP) Level NEG (NEG) Ur Amphetamine/Methamphetamine NEG (NEG) MDMA (Ecstasy) Screen NEG (NEG) Urine Benzodiazepines Screen POS (NEG) Urine Cocaine Metabolite NEG (NEG) Urine Marijuana (THC) NEG (NEG) Laboratory results as reviewed by me. Medications Administered Medications (Trade) Dose Ordered Sig/Landon Route Start Time Stop Time Status Last Admin Dose Admin Sodium Chloride (Nss 1000ml) 1,000 ml @ 999 mls/hr Q1H1M STAT IV 09/06/16 18:41 09/06/16 19:41 DC 09/06/16 19:16 999 MLS/HR Prochlorperazine Edisylate (Compazine Inj) 10 mg NOW STAT IV 09/06/16 18:41 09/06/16 18:45 DC 09/06/16 19:16 10 MG Diphenhydramine HCl (Benadryl Inj) 50 mg NOW STAT IV 09/06/16 18:41 09/06/16 18:45 DC 09/06/16 19:16 50 MG Methylprednisolone Sodium Succinate (Solu-Medrol IV) 125 mg NOW STAT IV 09/06/16 20:11 09/06/16 20:12 DC 09/06/16 20:42 125 MG Diphenhydramine HCl (Benadryl Inj) 25 mg NOW STAT IV 09/06/16 20:31 09/06/16 20:33 DC 09/06/16 20:42 25 MG Hydromorphone HCl (Dilaudid Inj) 0.5 mg NOW STAT IV 09/06/16 21:36 09/06/16 21:37 DC 09/06/16 22:09 0.5 MG Heparin Sodium (Porcine) (Heparin 100 Unit/ml 5ml Flush) 5 ml STK-MED ONCE .ROUTE 09/06/16 22:26 09/06/16 22:27 DC 09/06/16 22:22 5 ML ECG Indication: other (migraine) Rate (beats per minute): 80 Rhythm: normal sinus Findings: RBBB (incomplete), no acute ischemic change, no ectopy ED Course 1832: The patient was evaluated in room A11. A complete history and physical exam was performed. 1840: Benadryl Inj 50 mg IV, Compazine Inj 10 mg IV, Sodium Chloride 1,000 ml @ 999 mls/hr IV. 2007: I discussed test results with the patient. She says she can have CT with dye if given Benadryl before. She already got Benadryl and will be given Solu- Medrol in addition. 2010: Solu-Medrol IV 125 mg IV. 2030: Benadryl Inj 25 mg IV. 2133: The patient is having no allergic reaction symptoms to the contrast. She is still complaining of a headache and is requesting Dilaudid which is what she is normally given. I discussed the draw backs of giving narcotics for a headache. She says that this is the only medication that works to relieve her headache. I discussed the test results with her. 2135: Dilaudid Inj 0.5mg IV. 2207: I discussed the CT results with the patient. 2213: Upon reevaluation, the patient appeared to have improvement of her symptoms. I discussed tonight's findings with her. She verbalized agreement of the treatment plan. She was discharged home. Medical Decision This is a 46-year-old female who presents with headache, vomiting, diarrhea and syncope. Differential diagnosis includes migraine headache, intracranial hemorrhage, gastroenteritis, dehydration, orthostatic hypotension, vasovagal reaction, C. difficile. I did perform a limited focused review of portions of the patient's old chart on the electronic medical record. The patient was seen in the ED June 04 for multiple complaints including abdominal pain. She had an unremarkable CT of the abdomen and pelvis other than constipation. The patient was hospitalized November 2015 for syncope, migraine, and upper GI bleed. Unremarkable MRI of brain at that time. Syncope is thought to be due to orthostasis and dehydration. She was noted to have had a prior history of multiple episodes of syncope. She was also noted to be frequently asking for Dilaudid for migraine. I did evaluate the patient as noted above. On my examination the patient is very well-appearing. Her vital signs are remarkable she appears quite comfortable. She is neurologically intact and has no evidence of trauma despite her multiple episodes of syncope. As noted above she was noted to have had multiple episodes of syncope in the past. This may have been exacerbated by her vomiting and diarrhea. IV access was established. The patient was placed on a continuous athletic monitor. I did treat her with Compazine and Benadryl IV. She was also given normal saline IV. I did order and personally review the patient's 12-lead EKG and abdominal/chest x-rays as described above. I did order and review the patient's blood work as noted in the electronic medical record. Because of her headache and fall, I did order a CT of the head and facial bones. I did review the images myself as well as the radiology report as described above. There is no evidence of fracture or intracranial hemorrhage. The patient's d-dimer came back positive. She states that she is allergic to IV dye but if she gets Benadryl prior to the scan and she is able to tolerate it without any reaction. I did give her an additional dose of 25 mg Benadryl IV and Solu-Medrol IV. She did have a CT of the chest with IV dye and there was no evidence of pulmonary embolism. I did reassess the patient. I did discuss the test results with her. She is complaining of persistent headache and requested Dilaudid for pain. I did treat her with Dilaudid 0.5 mg IV. She was advised follow closely with her doctor for evaluation of her symptoms. She likely had a syncopal episode secondary to her vomiting and diarrhea and dehydration. She was advised to keep herself hydrated as much possible and to call her doctor soon as possible for further workup. She was discharged in good condition. Impression Primary Impression: Headache Additional Impressions: Syncope Vomiting and diarrhea Scribe Attestation The scribe's documentation has been prepared under my direct and personally reviewed by me in its entirety. I confirm that the note above accurately reflects all work, treatment, procedures, and medical decision making performed by me. Departure Information Dispostion Home / Self-Care Referrals Juan Jurado D.O. (PCP) Forms Call Back Authorization, HOME CARE DOCUMENTATION FORM, IMPORTANT VISIT INFORMATION Patient Instructions Headache Pain, My [facility], Syncope Additional Instructions You have been examined and treated today on an emergency basis only. This is not a substitute for, or an effort to provide, complete comprehensive medical care. It is impossible to recognize and treat all injuries or illnesses in a single emergency department visit. It is therefore important that you follow up closely with your physician. Call as soon as possible for an appointment. Return for worsening symptoms or if you develop chest pain, shortness of breath fever, loss of sensation or weakness on one side of your body, difficulties with your speech or walking, or any other concerning symptoms. Do not engage in any activity that may put yourself or others at risk should you pass out again. This includes, but is not limited to, driving, taking a bath, climbing heights, swimming or operating heavy machinery Problem Qualifiers Primary Impression: Headache Headache type: unspecified Headache chronicity pattern: episodic headache Intractability: not intractable Qualified Codes: R51 - Headache Additional Impressions: Syncope Syncope type: unspecified Qualified Codes: R55 - Syncope and collapse
[2016-09-09 11:38] LABS: COD UR NEGATIVE NG/ML (CUTOFF=50); HYDROCOD UR 97 NG/ML (CUTOFF=50); HYDROMOR UR 71 NG/ML (CUTOFF=50); HYDROXYETHYLFLURAZEPAM CONF NEGATIVE NG/ML (CUTOFF=50); HYDROXYMIDAZOLAM NEGATIVE NG/ML (CUTOFF=50); HYDROXYTRIAZOLAM CONF NEGATIVE NG/ML (CUTOFF=50); MORPHINE UR NEGATIVE NG/ML (CUTOFF=50); NORHYDROCODONE CONF UR 815 NG/ML (CUTOFF=50); OXYMORPH UR NEGATIVE NG/ML (CUTOFF=50); TEMAZEPAM CONF NEGATIVE NG/ML (CUTOFF=50)
[2017-01-26] MEDS ORDERED: ALPR1TAB3 PO (10:43)
[2017-01-31] MEDS ORDERED: OXYC-57 PO (08:41)
[2017-03-23] MEDS ORDERED: PANT1TAB48 PO (15:23)
[2017-03-26] MEDS ORDERED: CLC150 PO (13:09)
[2017-03-26] MEDS ORDERED: LCTX PO (13:09)
== END 2016-09-06 22:33 | disposition home or self-care (01) ==
LOC: C.EDB 18:28 → C.EDA 22:33
DX: R51 Headache (principal); R55 Syncope and collapse; R11.10 Vomiting, unspecified; R19.7 Diarrhea, unspecified; E03.9 Hypothyroidism, unspecified; Z83.3 Family history of diabetes mellitus; Z82.49 Family history of ischemic heart disease and other diseases of the circulatory system; Z79.899 Other long term (current) drug therapy

== ENCOUNTER 2016-10-09 07:57 | Emergency (ER) | payer OTHER ==
[~2016-10-09] VITALS: Ht 154.9 cm; Wt 52.5 kg
[~2016-10-09 07:57] MED LIST changes: -ANAS1TAB6 PO; -CYAN10002; +CYNI1000 IM; +KLN5X PO; +MOME6000 NAE; -MORP15TA19 PO; +MORP1TAB12 PO; +ONDA8TAB62 SL; -ONDA8TAB7 SL; -PANT40TA PO; +ROPI0.5T PO; -SALI0.6510; -ZOLP10TA PO; +ZOLP10TA6 PO
[2016-10-09 08:00] VITALS: TEMP 37.1; Ht 154.9 cm; Wt 52.5 kg
[2016-10-09] MEDS ORDERED: PROCHLORPERAZINE 5 MG/ML 2 ML VIAL IV STA (08:14)
[2016-10-09] MEDS ORDERED: SODIUM CHLORIDE 0.9% 1000ML 1,000 ML IV STA (08:14)
[2016-10-09 08:43] LABS: BASO % 0.2 %; BASO ABS # 0.02 K/uL (0-0.2); COMPLETE YES; HEMATOCRIT 40.5 % (37-47); IG% 0.2 %; LYMPH % 14.1 %; LYMPH ABS # 1.54 K/uL (1.2-3.4); MEAN CELL VOLUME 87.1 fL (80-100); MEAN CORPUSCULAR HEMOGLOBIN 28.4 pg (25-34); MEAN CORPUSCULAR HGB CONC 32.6 g/dl (32-36); MEAN PLATELET VOLUME 9.4 fL (7.4-10.4); MONO % 6.4 %; NEUT % 79.1 %; PLATELET COUNT 335 K/uL (130-400); RED BLOOD COUNT 4.65 M/uL (4.2-5.4); WHITE BLOOD COUNT 10.93 K/uL (4.8-10.8)
[2016-10-09 09:00] LABS: BUN/CREATININE RATIO 30.1 (10-20); CREATININE 0.9 mg/dl (0.60-1.20); POTASSIUM 3.9 mmol/L (3.5-5.1)
[2016-10-09] MEDS ORDERED: KETOROLAC TROMETHAMINE 15 MG/ML VIAL IV ONE (09:00)
[2016-10-09 09:01] LABS: CALCIUM 9.4 mg/dl (8.5-10.1)
[2016-10-09] MEDS ORDERED: KETOROLAC TROMETHAMINE 30 MG/ML VIAL ONE (09:02)
[2016-10-09 09:03] LABS: ALB/GLOB RATIO 1.1 (0.9-2)
[2016-10-09 09:37] LABS: MANUAL MICROSCOPIC REQUIRED? YES; URINE APPEARANCE CLEAR (CLEAR); URINE COLOR YELLOW; URINE NITRITE NEG (NEG); URINE PH 5.5 (4.5-7.5); URINE SPECIFIC GRAVITY >= 1.030 (1.000-1.030); UROBILINOGEN NEG (NEG)
[2016-10-09 09:39] LABS: REVIEW REQ? NO
[2016-10-09 09:40] LABS: URINE BILIRUBIN NEG (NEG)
[2016-10-09 09:47] LABS: URINE MUCUS PRESENT (NONE PRSENT); URINE RBC 0-4 /hpf (0-4)
[2016-10-09 09:48] LABS: URINE BACTERIA 1+ (NEG)
[2016-10-09] MEDS ORDERED: DiphenhydrAMINE HCL 50 MG/ML VIAL IV STA (10:03)
[2016-10-09] MEDS ORDERED: SODIUM CHLORIDE 0.9% 500ML 500 ML IV SCH (10:30)
[2016-10-09 11:08] VITALS: BP 124/81; PULSE 105; O2SAT 100
[2016-10-09] MEDS ORDERED: KETOROLAC TROMETHAMINE 15 MG/ML VIAL IV. ONE (11:15)
--- NOTE | 2016-10-09 17:45 | EMERGENCY ROOM VISIT NOTE ---
History First contact with patient: 08:07 Chief Complaint: VOMITING Stated Complaint: VOMITING,DIARRHEA,CHILLS Nursing Triage Summary: Pt states Monday she started vomiting and is also having diarrhea. "I'm weak and I'm probably dehydrated". Pt has port. Hx breast ca (left) History of Present Illness The patient is a 46 year old white female who presents to the Emergency Room with a multitude of complaints. Her primary complaint is of nausea, vomiting, and diarrhea. She thinks she is dehydrated. She is well-known to the ED for dehydration and pain control issues. She complains of some mild burning in her urine. She also complains of cramping in both of her legs. There is a history of breast cancer on the left. She had a mastectomy. She currently has a port. Nausea, vomiting, and diarrhea started on Monday. She and her ate at [employer] on Monday evening and symptoms developed shortly after. She last had diarrhea last night. Nausea and vomiting were present this morning. She denies any fevers, chills, sweats, or back pain. Review of Systems REVIEW OF SYSTEM: HEENT: No visual problems, hearing loss, or tinnitus. There is no difficulty swallowing and no oral lesions are present. LYMPH: No adenopathy. PULMONARY: No cough, shortness of breath, sputum production or hemoptysis. CARDIOVASCULAR: No chest pain, palpitations, shortness of breath or peripheral edema. GASTROINTESTINAL: Positive diarrhea, nausea, vomiting, and lower abdominal discomfort. GENITOURINARY: No dysuria, frequency, urgency or nocturia. NEUROLOGIC: No weakness, muscle tenderness, epilepsy or history of neurological problems. Positive history of chronic headaches. MUSCULOSKELETAL: No history of joint tenderness/swelling. No history of arthritis or arthralgias. SKIN: No rashes or lesions. PSYCHIATRIC: No history of depression or mental illness. ENDOCRINE: No history of diabetes or abnormal hair growth. Past Medical/Surgical History Medical Problems: (1) Breast cancer (2) Alice esophagitis (3) Diarrhea (4) GI (gastrointestinal bleed) (5) Hypothyroid (6) Hypothyroidism (7) Migraines (8) Pre-syncope (9) Weakness Surgical Problems: (1) History of lumpectomy Family History Diabetes mellitus FHx: cancer FHx: gallbladder disease Hypertension Social History Smoking Status: Never Smoker Smokeless Tobacco Use: No Alcohol Use: none Drug Use: none Marital Status: Housing Status: lives alone Occupation Status: disabled Current/Historical Medications Scheduled Cyanocobalamin (Cyanocobalamin), 1,000 MCG IM MONTHLY Levothyroxine Sodium (Levothyroxine Sodium), 50 MCG PO DAILY Mometasone Furoate (Nasal) (Mometasone Furoate), 2 SPRAYS ALANIS DAILY Morphine Sulfate (Morphine Sulfate Er), 30 MG PO BID Zolpidem Tartrate (Zolpidem Tartrate), 10 MG PO HS Scheduled PRN Clonazepam (Clonazepam), 0.5 MG PO BID PRN for Anxiety Ondansetron Odt (Zofran Odt), 8 MG SL Q8 PRN for Nausea Ropinirole Hydrochloride (Requip), 0.5 MG PO HS PRN for Restless Leg Allergies Coded Allergies: Iodinated Diagnostic Agents (Verified Allergy, Severe, Throat swells - IV contrast, 06/03/16) Adhesives (Verified Allergy, Intermediate, TAPE- HIVES, 06/03/16) Cephalexin (Verified Allergy, Intermediate, Hives, 06/03/16) Codeine (Verified Allergy, Intermediate, Hives, 06/03/16) Latex1 -Allergic Contact Dermititis (Verified Allergy, Intermediate, SWELLS AND HIVES, 06/03/16) Penicillins (Verified Allergy, Intermediate, HIVES, 06/03/16) [place] (Verified Allergy, Intermediate, HIVES, 06/03/16) Sulfa Antibiotics (Verified Allergy, Intermediate, Hives, 06/03/16) Vancomycin (Verified Allergy, Intermediate, HIVES, 06/03/16) Loratadine (Verified Allergy, Mild, Hives, 06/03/16) Morphine (Verified Allergy, Mild, Hives, 10/15/15) Tramadol (Verified Allergy, Mild, Hives, 06/03/16) Physical Exam Vital Signs Date Time Temp Pulse Resp B/P Pulse Ox O2 Delivery O2 Flow Rate FiO2 10/09/16 11:08 105 18 124/81 100 Room Air 10/09/16 09:56 95 18 113/95 100 Room Air 10/09/16 08:00 37.1 139 20 114/80 99 Room Air Pain Rating (0-10): 2.0 Physical Exam Gen.: Well-developed, well-nourished, middle-aged white female, in no acute distress. Laying on a bed. Alert and oriented. She is not currently dry heaving and looks quite well. Skin:Warm and dry with good turgor. No rashes or lesions. No ecchymosis or erythema. The patient is not diaphoretic. No abrasions. Multiple tattoos. HEENT: Normocephalic atraumatic. Eyes PERRLA, EOMI. No conjunctiva or scleral injection. Ears TMs intact bilaterally with good light reflexes. No erythema or bulging. No hemotympanum. Canals are patent. Nares patent bilaterally without turbinate enlargement. No significant drainage. No epistaxis. Oropharynx without erythema or exudate. Uvula midline, oral mucosa moist. No lesions present. Lymphatics are palpated without anterior or posterior chain enlargement or tenderness. Heart: Heart tachycardic with a regular rhythm. No MGR. peripheral pulses are 2+. Lungs: Lungs are clear to auscultation. No crackles rhonchi or wheezing. Good air movement. The patient is able to take a deep breath. Abdomen: Abdomen was inspected, auscultated, and palpated. Bowel sounds present x 4. Soft, mild suprapubic discomfort to palpation. No hepato- splenomegaly. No masses noted. No rebound. No CVA tenderness. Musculoskeletal: Gross motor function of the upper and lower extremities is intact and unremarkable. She complains of some discomfort with palpation over her calves diffusely, but there is no peripheral edema. Full range of motion of her knees and ankles. Neurologic: Gross sensation is intact across the upper and lower extremities by soft touch. Medical Decision & Procedures Laboratory Results 10/09/16 08:30 Red Blood Count 4.65, Mean Corpuscular Volume 87.1, Mean Corpuscular Hemoglobin 28.4, Mean Corpuscular Hemoglobin Concent 32.6, Mean Platelet Volume 9.4, Neutrophils (%) (Auto) 79.1, Lymphocytes (%) (Auto) 14.1, Monocytes (%) (Auto) 6.4, Eosinophils (%) (Auto) 0.0, Basophils (%) (Auto) 0.2, Neutrophils # (Auto) 8.65, Lymphocytes # (Auto) 1.54, Monocytes # (Auto) 0.70, Eosinophils # (Auto) 0.00, Basophils # (Auto) 0.02 10/09/16 08:30 Test 10/09/16 08:25 10/09/16 08:30 Urine Color YELLOW Urine Appearance CLEAR (CLEAR) Urine pH 5.5 (4.5-7.5) Urine Specific [place] >= 1.030 (1.000-1.030) Urine Protein 1+ (NEG) Urine Glucose (UA) NEG (NEG) Urine Ketones 3+ (NEG) Urine Occult Blood TRACE (NEG) Urine Nitrite NEG (NEG) Urine Bilirubin NEG (NEG) Urine Urobilinogen NEG (NEG) Urine Leukocyte Esterase NEG (NEG) Urine RBC 0-4 /hpf (0-4) Urine WBC 1-5 /hpf (0-5) Urine Epithelial Cells 10-20 /lpf (0-5) Urine Bacteria 1+ (NEG) Urine Mucus PRESENT (NONE PRSENT) White Blood Count 10.93 K/uL (4.8-10.8) Red Blood Count 4.65 M/uL (4.2-5.4) Hemoglobin 13.2 g/dL (12.0-16.0) Hematocrit 40.5 % (37-47) Mean Corpuscular Volume 87.1 fL (80-100) Mean Corpuscular Hemoglobin 28.4 pg (25-34) Mean Corpuscular Hemoglobin Concent 32.6 g/dl (32-36) Platelet Count 335 K/uL (130-400) Mean Platelet Volume 9.4 fL (7.4-10.4) Neutrophils (%) (Auto) 79.1 % Lymphocytes (%) (Auto) 14.1 % Monocytes (%) (Auto) 6.4 % Eosinophils (%) (Auto) 0.0 % Basophils (%) (Auto) 0.2 % Neutrophils # (Auto) 8.65 K/uL (1.4-6.5) Lymphocytes # (Auto) 1.54 K/uL (1.2-3.4) Monocytes # (Auto) 0.70 K/uL (0.11-0.59) Eosinophils # (Auto) 0.00 K/uL (0-0.5) Basophils # (Auto) 0.02 K/uL (0-0.2) RDW Standard Deviation 40.0 fL (36.4-46.3) RDW Coefficient of Variation 12.5 % (11.5-14.5) Immature Granulocyte % (Auto) 0.2 % Immature Granulocyte # (Auto) 0.02 K/uL (0.00-0.02) Anion Gap 14.0 mmol/L (3-11) Est Creatinine Clear Calc Drug Dose 59.5 ml/min Estimated GFR () 89.5 Estimated GFR (Non- 77.2 BUN/Creatinine Ratio 30.1 (10-20) Calcium Level 9.4 mg/dl (8.5-10.1) Total Bilirubin 0.6 mg/dl (0.2-1) Aspartate Amino Transf (AST/SGOT) 22 U/L (15-37) Alanine Aminotransferase (ALT/SGPT) 23 U/L (12-78) Alkaline Phosphatase 143 U/L (45-117) Total Protein 8.1 gm/dl (6.4-8.2) Albumin 4.3 gm/dl (3.4-5.0) Globulin 3.8 gm/dl (2.5-4.0) Albumin/Globulin Ratio 1.1 (0.9-2) CBC, chem panel, and UA with culture were obtained. BUN is mildly elevated with normal creatinine. Urine has 3+ ketones. Medications Administered Medications (Trade) Dose Ordered Sig/Landon Route Start Time Stop Time Status Last Admin Dose Admin Sodium Chloride (Nss 1000ml) 1,000 ml @ 999 mls/hr Q1H1M STAT IV 10/09/16 08:14 10/09/16 09:14 DC 10/09/16 08:39 999 MLS/HR Prochlorperazine Edisylate (Compazine Inj) 5 mg NOW STAT IV 10/09/16 08:14 10/09/16 08:17 DC 10/09/16 08:39 5 MG Ketorolac Tromethamine (Toradol Inj) 15 mg NOW ONCE IV 10/09/16 09:00 10/09/16 09:01 DC 10/09/16 09:00 15 MG Diphenhydramine HCl 50 mg 50 mg NOW STAT IV 10/09/16 10:03 10/09/16 10:04 DC 10/09/16 10:07 50 MG Sodium Chloride (Nss 500ml) 500 ml @ 999 mls/hr Q31M IV 10/09/16 10:30 10/09/16 11:45 DC 10/09/16 10:30 999 MLS/HR Ketorolac Tromethamine (Toradol Inj) 15 mg NOW ONCE IV. 10/09/16 11:15 10/09/16 11:16 DC 10/09/16 11:07 15 MG Heparin Sodium (Porcine) (Heparin 100 Unit/ml 5ml Flush) 5 ml STK-MED ONCE .ROUTE 10/09/16 11:06 10/09/16 11:07 DC 10/09/16 11:06 5 ML 1.5 L normal sterile saline IV bolus, Toradol 15 mg IV 2, Benadryl 50 mg IV, Compazine 5 mg IV ED Course Patient was educated regarding today's findings. Conservative care measures were discussed. IV was established. Labs were obtained. She was hydrated with 1 L normal sterile saline IV bolus. She was given a second bolus of 500 mL. She was given Compazine 5 mg IV for her nausea and vomiting. She had no further episodes of vomiting while in the ED. She did request Benadryl 50 mg IV to quiet her stomach. This is consistent with previous ER visits. It was ordered. She complained of leg cramping. I suspect this is from her dehydration. She was given Toradol 50 mg IV for the cramping. It improved somewhat. She was given a second dose of 15 mg IV. Patient was able to walk out of the department without difficulty. Importance of maintaining her hydration was discussed with her. She may use Imodium after every loose stool if desired. Return to the ED for any acute changes or worsening of symptoms. Urine will be sent for culture and she'll be notified if it is positive. Medical Decision Possibility of electrolyte abnormality, viral infection, food poisoning, bowel obstruction, UTI, sepsis, and restless legs syndrome were considered among others. Impression Primary Impression: Nausea & vomiting Additional Impression: dehydration Departure Information Dispostion Home / Self-Care Condition GOOD Forms DIET INSTRUCTION CL LIQUIDS, HOME CARE DOCUMENTATION FORM, IMPORTANT VISIT INFORMATION Patient Instructions [facility] Additional Instructions Maintain hydration Continue your usual home medications as needed for pain/nausea Follow-up with your PCP as needed Return to the ED for any other acute concerns Bosque diet-advance as tolerated Problem Qualifiers
[2017-01-26] MEDS ORDERED: ALPR1TAB3 PO (10:43)
[2017-01-31] MEDS ORDERED: OXYC-57 PO (08:41)
[2017-03-23] MEDS ORDERED: PANT1TAB48 PO (15:23)
[2017-03-26] MEDS ORDERED: CLC150 PO (13:09)
[2017-03-26] MEDS ORDERED: LCTX PO (13:09)
== END 2016-10-09 11:20 | disposition home or self-care (01) ==
LOC: C.EDB 07:58
DX: R11.2 Nausea with vomiting, unspecified (principal); E86.0 Dehydration; E03.9 Hypothyroidism, unspecified; B37.81 Candidal esophagitis; Z87.19 Personal history of other diseases of the digestive system; Z85.3 Personal history of malignant neoplasm of breast; Z79.899 Other long term (current) drug therapy; Z88.0 Allergy status to penicillin; Z88.2 Allergy status to sulfonamides; Z88.3 Allergy status to other anti-infective agents; Z88.5 Allergy status to narcotic agent; Z88.8 Allergy status to other drugs, medicaments and biological substances; Z91.040 Latex allergy status; Z91.041 Radiographic dye allergy status; Z91.09 Other allergy status, other than to drugs and biological substances; Z83.3 Family history of diabetes mellitus; Z80.9 Family history of malignant neoplasm, unspecified; Z83.79 Family history of other diseases of the digestive system; Z82.49 Family history of ischemic heart disease and other diseases of the circulatory system

== ENCOUNTER 2016-11-01 00:04 | Emergency (ER) | payer OTHER ==
[~2016-11-01] VITALS: Ht 152.4 cm; Wt 55.6 kg
[2016-11-01 00:09] VITALS: TEMP 37.8; Ht 152.4 cm; Wt 55.6 kg
[2016-11-01] MEDS ORDERED: DiphenhydrAMINE HCL 50 MG/ML VIAL IM STA (00:19)
[2016-11-01] MEDS ORDERED: HYDROmorphone INJ 2 MG/ML SYR/VIAL IM STA (00:19)
[2016-11-01] MEDS ORDERED: PROMETHAZINE HCL INJ 25 MG/ML 1 ML VIAL IM STA (00:19)
--- NOTE | 2016-11-01 00:36 | EMERGENCY ROOM VISIT NOTE ---
History First contact with patient: 00:12 Chief Complaint: HEADACHE Stated Complaint: MIGRAINE FOR 3 DAYS PAIN LEVEL 12 History of Present Illness The patient is a 46 year old female who presents to the Emergency Room with complaints of headache for the past 3 days described as throbbing, ranging in severity 8 at 10 throughout the frontal region similar to prior. Patient has a long-standing history of migraines. Nothing makes it better or worse. Patient denies fever, chills, cough, congestion, chest pain, dyspnea, abdominal pain, numbness, tingling, weakness, localized weakness, confusion, neck stiffness, sore throat. Patient signed by mouth fluids and food. Patient states she's had some loose stool but does not want any workup for this. He states she's an appointment next week with her neurologist. Normal imaging in the past. Patient has a history of breast carcinoma and has had imaging on her brain since then and has all been unremarkable per patient. Review of Systems See HPI for pertinent positives & negatives. A total of 10 systems reviewed and were otherwise negative. Past Medical/Surgical History Medical Problems: (1) Breast cancer (2) Alice esophagitis (3) Diarrhea (4) GI (gastrointestinal bleed) (5) Hypothyroid (6) Hypothyroidism (7) Migraines (8) Pre-syncope (9) Weakness Surgical Problems: (1) History of lumpectomy Family History Diabetes mellitus FHx: cancer FHx: gallbladder disease Hypertension Social History Smoking Status: Never Smoker Alcohol Use: none Drug Use: none Marital Status: Housing Status: lives alone Occupation Status: disabled Current/Historical Medications Scheduled Cyanocobalamin (Cyanocobalamin), 1,000 MCG IM MONTHLY Levothyroxine Sodium (Levothyroxine Sodium), 50 MCG PO DAILY Mometasone Furoate (Nasal) (Mometasone Furoate), 2 SPRAYS ALANIS DAILY Morphine Sulfate (Morphine Sulfate Er), 30 MG PO BID Zolpidem Tartrate (Zolpidem Tartrate), 10 MG PO HS Scheduled PRN Clonazepam (Clonazepam), 0.5 MG PO BID PRN for Anxiety Ondansetron Odt (Zofran Odt), 8 MG SL Q8 PRN for Nausea Ropinirole Hydrochloride (Requip), 0.5 MG PO HS PRN for Restless Leg Allergies Coded Allergies: Iodinated Diagnostic Agents (Verified Allergy, Severe, Throat swells - IV contrast, 06/03/16) Adhesives (Verified Allergy, Intermediate, TAPE- HIVES, 06/03/16) Cephalexin (Verified Allergy, Intermediate, Hives, 06/03/16) Codeine (Verified Allergy, Intermediate, Hives, 06/03/16) Latex1 -Allergic Contact Dermititis (Verified Allergy, Intermediate, SWELLS AND HIVES, 06/03/16) Penicillins (Verified Allergy, Intermediate, HIVES, 06/03/16) [place] (Verified Allergy, Intermediate, HIVES, 06/03/16) Sulfa Antibiotics (Verified Allergy, Intermediate, Hives, 06/03/16) Vancomycin (Verified Allergy, Intermediate, HIVES, 06/03/16) Loratadine (Verified Allergy, Mild, Hives, 06/03/16) Morphine (Verified Allergy, Mild, Hives, 10/15/15) Tramadol (Verified Allergy, Mild, Hives, 06/03/16) Physical Exam Vital Signs Date Time Temp Pulse Resp B/P (MAP) Pulse Ox O2 Delivery O2 Flow Rate FiO2 11/01/16 00:09 37.8 103 18 109/70 97 Room Air Physical Exam VITALS: Vitals are noted on the nurse's note and reviewed by myself. Vital signs stable. GENERAL: Pleasant female, in no acute distress, nondiaphoretic, well-developed well-nourished. SKIN: The skin was without rashes, erythema, edema, or bruising. There is no tenting of the skin. Capillary reflex less than 2 seconds. HEAD: Normocephalic atraumatic. EARS: External auditory canals clear, tympanic membranes pearly aceves without erythema or effusion bilaterally. EYES: Pupils equal round and reactive to light and accommodation. Conjunctivae without injection, sclerae without icterus. Extraocular movements intact. NOSE: Patent, turbinates without inflammation or discharge. No sinus tenderness. MOUTH: Mucous membranes moist. Pharynx without erythema or exudate. Uvula midline. Airway patent. Tongue does not deviate. NECK: Supple without nuchal rigidity. No lymphadenopathy. No thyromegaly. Cervical spine is nontender. No JVD. No meningeal signs HEART: Regular rate and rhythm without murmurs gallops or rubs. LUNGS: Clear to auscultation bilaterally without wheezes, rales or rhonchi. No dullness to percussion. No retractions or accessory muscle use. ABDOMEN: Positive bowel sounds x 4. Normal tympanic percussion. Soft, nontender, without masses or organomegaly. Jaimes sign negative. No guarding or rebound tenderness. MUSCULOSKELETAL: No muscle atrophy, erythema, or edema noted. NEURO: Patient was alert and oriented to person place and time. Normal sensation to light and sharp touch. No focal neurological deficits. Cranial nerves II through XII grossly intact. No pronator drift. Cerebellar exam intact Medical Decision & Procedures ED Course Prior records/ancillary studies reviewed. Triage Nursing notes reviewed. The patient's history was concerning for headache. Differential diagnosis: Etiologies such as migraine headache, meningitis, sinusitis, CO exposure, ICH, SAH, infection, tumor, headache, sinus thrombosis, arterial dissection, as well as others were entertained. Physical examination findings: As above. Non-focal. ER treatment provided: Dilaudid, Phenergan and Benadryl per patient standard protocol On reassessment the patient felt better. Diagnostics interpreted by me: Deferred This appears to be consistent with headache. Patient is a long-standing history of this and symptoms feel similar. No signs of meningitis. No sinus pain. She was not coughing. No sore throat. She is advised to follow-up as scheduled with his neurologist or here in the ER sooner for headache, fevers, neck stiffness, worsening signs or symptoms or as needed. Patient was neurovascularly and neurologic intact. She was well-appearing. She was not septic appearing. She was offered further workup for her loose stool and declined. By the evaluation outlined above emergent etiologies such as meningitis, sinusitis, CO exposure, ICH, SAH, infection, temporal arteritis, tumor, sinus thrombosis, arterial dissection, as well as others were deemed relatively unlikely. The pt informed about the findings as listed above. All questions were answered and pleased with the treatment. Return instructions were outlined and the patient was discharged in stable condition. Referral: The patient was referred back to their primary care physician for follow-up in 2 to 3 days for a recheck of the current condition. Medical Decision As above Impression Primary Impression: Headache Departure Information Dispostion Home / Self-Care Condition GOOD Referrals No Doctor, Assigned (PCP) Forms HOME CARE DOCUMENTATION FORM, IMPORTANT VISIT INFORMATION Patient Instructions [facility] Additional Instructions DO NOT drive, drink alcohol, operate machinery, or perform dangerous activities today. You were given medications in the ER that can affect your ability to safely function or operate a vehicle. Rest today in a quiet, peaceful, dark environment and get a full 8-10 hrs of sleep tonight. Avoid loud noises, smoke/smoking, alcohol, bright lights, stress, or physical exertion today to minimize the chance the headache may return. Continue current medications. Ibuprofen(Motrin, Advil) may be used for fever or pain. Use 600mg every six hours as needed. Take with food. Avoid using more than 2400mg in a 24 hour period. Do not use 2400mg per day for more than three consecutive days without physician direction. Prolonged inappropriate use can lead to stomach upset or ulcers. (AND/OR) Acetaminophen(Tylenol) may be used for fever or pain. Use 1000mg every six hours as needed. Avoid using more than 3000mg in a 24 hour period. Return to the ER for passing out, worsening headache, vision problems, neck stiffness/pain, fevers, vomiting, worsening of your condition, or as needed. Follow up with your primary physician and/or a neurologist in 2-3 days for a recheck of your current condition. Problem Qualifiers Primary Impression: Headache Headache type: unspecified Headache chronicity pattern: episodic headache Intractability: not intractable Qualified Codes: R51 - Headache
[2016-11-01 00:39] VITALS: BP 96/67; PULSE 94; O2SAT 95
[2017-01-26] MEDS ORDERED: ALPR1TAB3 PO (10:43)
[2017-01-31] MEDS ORDERED: OXYC-57 PO (08:41)
[2017-03-23] MEDS ORDERED: PANT1TAB48 PO (15:23)
[2017-03-26] MEDS ORDERED: LCTX PO (13:09)
[2017-03-26] MEDS ORDERED: CLC150 PO (13:09)
== END 2016-11-01 00:48 | disposition home or self-care (01) ==
LOC: C.EDB 00:06 → C.EDA 00:48
DX: R51 Headache (principal); E03.9 Hypothyroidism, unspecified; B37.81 Candidal esophagitis; Z87.19 Personal history of other diseases of the digestive system; Z85.3 Personal history of malignant neoplasm of breast; Z79.899 Other long term (current) drug therapy; Z88.0 Allergy status to penicillin; Z88.2 Allergy status to sulfonamides; Z88.3 Allergy status to other anti-infective agents; Z88.5 Allergy status to narcotic agent; Z88.8 Allergy status to other drugs, medicaments and biological substances; Z91.018 Allergy to other foods; Z91.040 Latex allergy status; Z91.041 Radiographic dye allergy status; Z91.09 Other allergy status, other than to drugs and biological substances; Z83.3 Family history of diabetes mellitus; Z80.9 Family history of malignant neoplasm, unspecified; Z83.79 Family history of other diseases of the digestive system; Z82.49 Family history of ischemic heart disease and other diseases of the circulatory system

== ENCOUNTER 2016-11-17 08:03 | Emergency (ER) | payer OTHER ==
[~2016-11-17] VITALS: Ht 154.9 cm; Wt 51.0 kg
[2016-11-17 08:05] VITALS: TEMP 36.6; Ht 154.9 cm; Wt 51.0 kg
[2016-11-17] MEDS ORDERED: SODIUM CHLORIDE 0.9% 1000ML 1,000 ML IV STA (08:29)
[2016-11-17] MEDS ORDERED: OXYC20TA50 PO (08:38)
[2016-11-17] MEDS ORDERED: PROCHLORPERAZINE 5 MG/ML 2 ML VIAL IV STA (08:39)
[2016-11-17] MEDS ORDERED: DiphenhydrAMINE HCL 50 MG/ML VIAL IV STA (08:39)
[2016-11-17] MEDS ORDERED: KETOROLAC TROMETHAMINE 30 MG/ML VIAL IV STA (08:39)
--- NOTE | 2016-11-17 09:00 | EMERGENCY ROOM VISIT NOTE ---
ED Visit Note First contact with patient: 08:08 Resident Physician Supervision Note: I interviewed and examined the patient. Discussed with Dr. Cuevas and agree with findings and plan as documented in the note. Any exceptions or clarifications are listed here: [None] Documented By: Rajesh Rodriguez
--- NOTE | 2016-11-17 09:39 | EMERGENCY ROOM VISIT NOTE ---
History First contact with patient: 08:08 Chief Complaint: HEADACHE Stated Complaint: MIGRAINE-PAIN SCALE OF 8 History of Present Illness The patient is a 46 year old female who presents to the Emergency Room with complaints of headache. She feels this is the same as her usual migraine and requested her usual regimen of Dilaudid, Benadryl, Phenergan and "something for her stomach". She has had her current headache for the past 3 days. Currently severity 8/10. Starts in the back of her neck and between her shoulder blades and radiates to the front of her head. It is bilateral. It is a sharp and constantly there, not pulsating. She has associated light sensitivity. She is usually on Topamax but says this doesn't work, last took it last night. Review of Systems See HPI for pertinent positives & negatives. A total of 10 systems reviewed and were otherwise negative. Past Medical/Surgical History Medical Problems: (1) Breast cancer (2) [place] esophagitis (3) Diarrhea (4) GI (gastrointestinal bleed) (5) Hypothyroid (6) Hypothyroidism (7) Migraines (8) Pre-syncope (9) Weakness Surgical Problems: (1) History of lumpectomy Family History Diabetes mellitus FHx: cancer FHx: gallbladder disease Hypertension Social History Smoking Status: Never Smoker Alcohol Use: none Drug Use: none Marital Status: Housing Status: lives alone Occupation Status: disabled Current/Historical Medications Scheduled Cyanocobalamin (Cyanocobalamin), 1,000 MCG IM MONTHLY Levothyroxine Sodium (Levothyroxine Sodium), 50 MCG PO DAILY Mometasone Furoate (Nasal) (Mometasone Furoate), 2 SPRAYS ALANIS DAILY Oxycodone Hcl (Oxycontin), 20 MG PO Q12 Zolpidem Tartrate (Zolpidem Tartrate), 10 MG PO HS Scheduled PRN Ondansetron Odt (Zofran Odt), 8 MG SL Q8 PRN for Nausea Ropinirole Hydrochloride (Requip), 0.5 MG PO HS PRN for Restless Leg Allergies Coded Allergies: Iodinated Diagnostic Agents (Verified Allergy, Severe, Throat swells - IV contrast, 11/17/16) Adhesives (Verified Allergy, Intermediate, TAPE- HIVES, 11/17/16) Cephalexin (Verified Allergy, Intermediate, Hives, 11/17/16) Codeine (Verified Allergy, Intermediate, Hives, 11/17/16) Latex1 -Allergic Contact Dermititis (Verified Allergy, Intermediate, SWELLS AND HIVES, 11/17/16) Penicillins (Verified Allergy, Intermediate, HIVES, 11/17/16) [place] (Verified Allergy, Intermediate, HIVES, 11/17/16) Sulfa Antibiotics (Verified Allergy, Intermediate, Hives, 11/17/16) Vancomycin (Verified Allergy, Intermediate, HIVES, 11/17/16) Loratadine (Verified Allergy, Mild, Hives, 11/17/16) Morphine (Verified Allergy, Mild, Hives, 11/17/16) Tramadol (Verified Allergy, Mild, Hives, 11/17/16) Physical Exam Vital Signs Date Time Temp Pulse Resp B/P (MAP) Pulse Ox O2 Delivery O2 Flow Rate FiO2 11/17/16 10:18 89 18 128/90 98 Room Air 11/17/16 08:05 36.6 103 16 117/83 99 Room Air Physical Exam VITAL SIGNS: were reviewed as above GENERAL: sitting on edge of the bed, mild distress from pain SKIN: Warm dry and pink, no rashes HEAD: Normocephalic and atraumatic EYES: extraocular muscles intact (light sensitivity), pupils equal and reactive to light OROPHARYNX: non erythematous, clear and moist NECK: Supple, no adenopathy or meningismus LUNGS: No respiratory distress, clear to auscultation, no accessory muscle use HEART: Regular rate and rhythm, heart sounds 1+2, no murmurs EXTREMITIES: Warm and well perfused, no calf tenderness/swelling, no pedal edema. NEUROLOGICALLY: Awake alert and oriented without acute lateralizing focal motor or sensory deficit (she notes mild generalized right sided upper limb numbness but this is not acute). Cranial nerves 2-12 intact. Cerebellar testing is within normal limits. There is no nystagmus. There is no facial droop. Speech is clear. Vision is grossly normal. MUSCULOSKELETAL: Good muscle tone. No evidence of trauma Medical Decision & Procedures Medications Administered Medications (Trade) Dose Ordered Sig/Landon Route Start Time Stop Time Status Last Admin Dose Admin Sodium Chloride 1,000 ml @ 999 mls/hr Q1H1M STAT IV 11/17/16 08:29 11/17/16 09:29 DC 11/17/16 09:09 999 MLS/HR Diphenhydramine HCl (Benadryl Inj) 50 mg NOW STAT IV 11/17/16 08:39 11/17/16 08:47 DC 11/17/16 09:09 50 MG Prochlorperazine Edisylate (Compazine Inj) 10 mg NOW STAT IV 11/17/16 08:39 11/17/16 08:47 DC 11/17/16 09:09 10 MG Ketorolac Tromethamine (Toradol Inj) 30 mg NOW STAT IV 11/17/16 08:39 11/17/16 08:47 DC 11/17/16 09:09 30 MG Heparin Sodium (Porcine) (Heparin 100 Unit/ml 5ml Flush) 5 ml STK-MED ONCE .ROUTE 11/17/16 10:04 11/17/16 10:05 DC 11/17/16 10:04 5 ML Promethazine HCl (Phenergan Inj) 25 mg NOW STAT IM 11/17/16 10:18 11/17/16 10:21 DC 11/17/16 10:26 25 MG ED Course 8:22 Complete history and physical performed 8:[address] Rodriguez who separately performed history and physical 9:45 The patient was reassessed and her headache had improved from 8/10 to 7/10. Medical Decision Prior records/ancillary studies reviewed. Additional history obtained from the patient. Triage Nursing notes reviewed. The patient's history was concerning for headache. Differential diagnosis: Etiologies such as migraine headache, meningitis, sinusitis, CO exposure, ICH, SAH, infection, tumor, headache, sinus thrombosis, arterial dissection, as well as others were entertained. Physical examination findings: As above. No acute focal findings. ER treatment provided: NSS 1L, Toradol 30mg IV, Compazine 10mg IV (patient refused decadron due to previous bad reactions to this) On reassessment the patient headache severity improved from 8/10 to 7/10. She requested Phenergan and Dilaudid. Given the lack of evidence regarding and chronic opiate use by this patient her request of Dilaudid was not prescribed. She requested her port not be used therefore the Phenergan was prescribed IM. This appears to be consistent with her normal migraine therefore further imaging or lab testing was not deemed appropriate. By the evaluation outlined above emergent etiologies such as meningitis, sinusitis, CO exposure, ICH, SAH, infection, temporal arteritis, tumor, sinus thrombosis, arterial dissection, as well as others were deemed relatively unlikely. The patient informed about the findings as listed above. All questions were answered. Return instructions were outlined and the patient was discharged in stable condition. Referral: The patient was referred back to their primary care physician for follow-up in 2 to 3 days for a recheck of the current condition. Impression Primary Impression: Headache Departure Information Dispostion Home / Self-Care Condition FAIR Referrals No Doctor, Assigned (PCP) Patient Instructions My [facility] Additional Instructions HEADACHE INSTRUCTIONS: DO NOT drive, drink alcohol, operate machinery, or perform dangerous activities today. You were given medications in the ER that can affect your ability to safely function or operate a vehicle. Rest today in a quiet, peaceful, dark environment and get a full 8-10 hrs of sleep tonight. Avoid loud noises, smoke/smoking, alcohol, bright lights, stress, or physical exertion today to minimize the chance the headache may return. Continue current medications. Ibuprofen(Motrin, Advil) may be used for fever or pain. Use 600mg every six hours as needed. Take with food. Avoid using more than 2400mg in a 24 hour period. Do not use 2400mg per day for more than three consecutive days without physician direction. Prolonged inappropriate use can lead to stomach upset or ulcers. This is available over the counter and typically comes in 200mg tablets. (AND/OR) Acetaminophen(Tylenol) may be used for fever or pain. Use 1000mg every eight hours as needed. Avoid using more than 3000mg in a 24 hour period. This is available over the counter. Read all the package inserts or medication information paperwork provided. If you have any questions or concerns call your primary provider, pharmacist or the ER for assistance. Return to the ER for passing out, worsening headache, vision problems, neck stiffness/pain, fevers, vomiting, feeling lethargic, worsening of your condition , or as needed. Follow up with your primary physician in 2-3 days for a recheck of your current condition Resident Tracking Resident Involvement: Resident Care Provided Care Provided: Adult ED Problem Qualifiers Primary Impression: Headache Headache type: unspecified Headache chronicity pattern: episodic headache Intractability: intractable Qualified Codes: R51 - Headache
[2016-11-17 10:18] VITALS: BP 128/90; PULSE 89; O2SAT 98
[2016-11-17] MEDS ORDERED: PROMETHAZINE HCL INJ 25 MG/ML 1 ML VIAL IM STA (10:18)
[2017-01-26] MEDS ORDERED: ALPR1TAB3 PO (10:43)
[2017-01-31] MEDS ORDERED: OXYC-57 PO (08:41)
== END 2016-11-17 10:37 | disposition home or self-care (01) ==
LOC: C.EDB 08:04
DX: G43.909 Migraine, unspecified, not intractable, without status migrainosus (principal); E03.9 Hypothyroidism, unspecified; Z85.3 Personal history of malignant neoplasm of breast; Z83.3 Family history of diabetes mellitus; Z82.49 Family history of ischemic heart disease and other diseases of the circulatory system

== ENCOUNTER → 2017-01-31 | Day surgery (SDC) | payer OTHER ==
[2017-01-26 10:43] VITALS: Ht 154.9 cm; Wt 53.2 kg
[~2017-01-31] VITALS: Ht 154.9 cm; Wt 53.2 kg
[~2017-01-31] MED LIST changes: +ALPR1TAB3 PO; +ATROPINE SULFATE 0.1 MG/ML 5ML SYR IV PRN; +CIPROFLOXACIN 400MG / 200ML D5W IV STA; +CIPROFLOXACIN 400MG / 200ML D5W ONE; +CLINDAMYCIN PHOS 150 MG/ML 2 ML VIAL IV SCH; -CYNI1000 IM; +EpHEDrine SULFATE INJ 50 MG/ML AMP IV PRN; +FENTANYL CITRATE INJ 50 MCG/1 ML 2 ML VIAL ONE; -KLN5X PO; +LACTATED RINGER'S 1000ML 1,000 ML IV SCH; +LIDOCAINE HCL 1% 20 ML VIAL ONE; +LIDOCAINE HCL 2% 2 ML VIAL (20MG/ML) ONE; +MIDAZOLAM HCL 1 MG/ML 2ML VIAL ONE; -MORP1TAB12 PO; +OXYC-57 PO; +OXYCODONE/ACETAMINOPHEN 5-325 TAB ONE; +OXYCODONE/ACETAMINOPHEN 5-325 TAB PO PRN; +PROPOFOL IV EMULSION 10 MG/ML 20 ML VIAL IV ONE; +SODIUM CHLORIDE 0.9% 1000ML 1,000 ML IV SCH
--- NOTE | 2017-01-31 08:33 | History & Physical Bridge - SC ---
H&P Re-Evaluation Bridge Note: I have examined the patient, reviewed the History & Physical and in the interval since the performance of the History & Physical I have noted the following changes of clinical significance: No changes noted
--- NOTE | 2017-01-31 08:35 | Discharge Instructions-SurgCtr ---
Discharge Instructions Date of Service Jan 31, 2017. Visit Reason for Visit: Port A Cath In Place Discharge Discharge Diagnosis / Problem: port in place Discharge Goals Goal(s): Decrease discomfort, Improve function Activity Recommendations Activity Limitations: as noted below Lifting Limitations: no more than 10 pounds (for 2 weeks) Exercise/Sports Limitations: until after follow-up appointment May Resume Sexual Activity: when tolerated Shower/Bathe: tomorrow Driving or Machine Use: resume 1 day after discharge SPECIAL CARE INSTRUCTIONS: * Cover incisions and change daily for comfort/drainage. * May use ibuprofen for pain as tolerated. * Expect some swelling and bruising. Call your doctor if: * Temperature above 101 degrees * Pain not relieved by pain medicine ordered * There is increased drainage or redness from any incision * You have any unanswered questions or concerns [phone]. FOLLOW UP VISIT: If not already scheduled, please call the office for a follow-up visit. for 2 weeks- suture removal OFFICE PHONE NUMBER: Dr. Salmon Office Anesthesia . Post Anesthesia Instructions: If you have had General Anesthesia or IV Sedation: * Do not drive today. * Resume driving when surgeon permits. * Do not make important decisions or sign legal documents today. * Call surgeon for: 1. Temperature elevations greater than 101 degrees F. 2. Uncontrollable pain. 3. Excessive bleeding. 4. Persistent nausea and vomiting. 5. Medication intolerance (nausea, vomiting or rash). * For nausea and vomiting use only clear liquids such as: tea, soda, bouillon until nausea subsides, then gradually increase diet as tolerated. * If you have any concerns or questions, call your surgeon's office. If physician is unavailable and it is an emergency, call 911 or go to the nearest emergency room. . Diet Recommendations Home Diet: resume previous diet Pending Studies Studies pending at discharge: no Medical Emergencies . Who to Call and When: Medical Emergencies: If at any time you feel your situation is an emergency, please call 911 immediately. . Non-Emergent Contact Non-Emergency issues call your: Primary Care Provider, Surgeon . . "Provider Documentation" section prepared by Mal Salmon. .
--- NOTE | 2017-01-31 09:42 | [facility] Operative Report ---
Operative Report Operative Date Jan 31, 2017. Pre-Operative Diagnosis Access Port in place Post-Operative Diagnosis same Procedure(s) Performed Infusaport Removal Surgeon Dr. Diana Salmon Insurance Clerk Surgeon(s) CESARIO Harris Estimated Blood Loss 5cc Findings Rt chest port Specimens A.Infusaport Anesthesia local/ sedation Complication(s) None Disposition Recovery Room / PACU I attest to the content of the Intraoperative Record and any orders documented therein. Any exceptions are noted below.
[2017-01-31 09:46] VITALS: TEMP 36.3
--- NOTE | 2017-01-31 10:05 | OPERATIVE REPORT ---
DATE OF OPERATION: 01/31/2017 PREOPERATIVE DIAGNOSIS: History of breast cancer and port in place. POSTOPERATIVE DIAGNOSIS: Same. NAME OF OPERATION: Port removal. STAFF SURGEON: Dr. Salmon. ANESTHESIA: 1% plain lidocaine with sedation. PROCEDURE: The patient was brought in the operating room and placed on the operating table in supine position. Her right chest was prepped and draped in usual fashion. 1% plain lidocaine was used to anesthetize the scar which was just above the port in the right chest. Incision made carrying dissection down identifying the port, dissecting it from the pocket and then removing the A-port catheter. Tunnel was oversewn using 2-0 chromic catgut suture and then the skin reapproximated using 4-0 nylon suture. Dressing was applied and the patient transferred to recovery room in stable condition. I attest to the content of the Intraoperative Record and any orders documented therein. Any exception s are noted below.
--- NOTE | 2017-01-31 10:12 | Anesthesia Progress Nt - [facility] ---
Anesthesia Post Op Note Date & Time Jan 31, 2017 at 10:11 Vital Signs Pain Intensity: 6.0 Vital Signs Past 12 Hours Date Time Temp Pulse Resp B/P (MAP) Pulse Ox O2 Delivery O2 Flow Rate FiO2 01/31/17 09:46 36.3 77 16 97/65 (76) 98 Room Air 01/31/17 07:55 36.6 91 16 113/79 (90) 98 Room Air Notes Mental Status: alert / awake / arousable, participated in evaluation Pt Amnestic to Procedure: Yes Nausea / Vomiting: adequately controlled Pain: adequately controlled Airway Patency, RR, SpO2: stable & adequate BP & HR: stable & adequate Hydration State: stable & adequate Anesthetic Complications: no major complications apparent
[2017-01-31 10:15] VITALS: BP 114/76; PULSE 76; O2SAT 100
== END | disposition home or self-care (01) ==
LOC: X.SURG 07:46
PROVIDERS: ATTEND Surgery
DX: Z95.828 Presence of other vascular implants and grafts (principal); Z85.3 Personal history of malignant neoplasm of breast; K21.9 Gastro-esophageal reflux disease without esophagitis; E03.9 Hypothyroidism, unspecified; K58.9 Irritable bowel syndrome, unspecified; Z86.61 Personal history of infections of the central nervous system; Z90.89 Acquired absence of other organs; Z90.49 Acquired absence of other specified parts of digestive tract; Z90.710 Acquired absence of both cervix and uterus; Z98.51 Tubal ligation status; Z83.3 Family history of diabetes mellitus; Z82.49 Family history of ischemic heart disease and other diseases of the circulatory system; Z80.49 Family history of malignant neoplasm of other genital organs; Z80.3 Family history of malignant neoplasm of breast; F41.9 Anxiety disorder, unspecified

== ENCOUNTER 2017-03-23 10:10 | Inpatient (IN) | payer OTHER ==
[~2017-03-23] VITALS: Ht 154.9 cm; Wt 53.3 kg
[~2017-03-23 10:10] MED LIST changes: -ATROPINE SULFATE 0.1 MG/ML 5ML SYR IV PRN; -CIPROFLOXACIN 400MG / 200ML D5W IV STA; -CIPROFLOXACIN 400MG / 200ML D5W ONE; -CLINDAMYCIN PHOS 150 MG/ML 2 ML VIAL IV SCH; -EpHEDrine SULFATE INJ 50 MG/ML AMP IV PRN; -FENTANYL CITRATE INJ 50 MCG/1 ML 2 ML VIAL ONE; -LACTATED RINGER'S 1000ML 1,000 ML IV SCH; -LIDOCAINE HCL 1% 20 ML VIAL ONE; -LIDOCAINE HCL 2% 2 ML VIAL (20MG/ML) ONE; -MIDAZOLAM HCL 1 MG/ML 2ML VIAL ONE; -OXYCODONE/ACETAMINOPHEN 5-325 TAB ONE; -OXYCODONE/ACETAMINOPHEN 5-325 TAB PO PRN; -PROPOFOL IV EMULSION 10 MG/ML 20 ML VIAL IV ONE; -SODIUM CHLORIDE 0.9% 1000ML 1,000 ML IV SCH
[2017-03-23] MEDS ORDERED: KETOROLAC TROMETHAMINE 30 MG/ML VIAL IV STA (10:46)
[2017-03-23] MEDS ORDERED: PROCHLORPERAZINE 5 MG/ML 2 ML VIAL IV STA (10:46)
[2017-03-23] MEDS ORDERED: DiphenhydrAMINE HCL 50 MG/ML VIAL IV STA ×2 (10:46→21:31)
[2017-03-23] MEDS ORDERED: SODIUM CHLORIDE 0.9% 1000ML 1,000 ML IV ONE (11:00)
[2017-03-23] MEDS ORDERED: ONDANSETRON INJ 2 MG/ML 2 ML VIAL IV STA (11:34)
[2017-03-23] MEDS ORDERED: ACETAMINOPHEN IV 100 ML IV ONE (11:45)
[2017-03-23 11:52] LABS: BASO % 0.5 %; BASO ABS # 0.03 K/uL (0-0.2); COMPLETE YES; EOS % 2.7 %; HEMATOCRIT 33.9 % (37-47); IG% 0.2 %; LYMPH % 33.2 %; LYMPH ABS # 1.95 K/uL (1.2-3.4); MEAN CELL VOLUME 90.4 fL (80-100); MEAN CORPUSCULAR HEMOGLOBIN 29.9 pg (25-34); MEAN PLATELET VOLUME 10.5 fL (7.4-10.4); NEUT % 54.4 %; PLATELET COUNT 195 K/uL (130-400); RED BLOOD COUNT 3.75 M/uL (4.2-5.4); WHITE BLOOD COUNT 5.88 K/uL (4.8-10.8)
[2017-03-23 12:12] LABS: ALT/SGPT 23 U/L (12-78); AST/SGOT 34 U/L (15-37); BLOOD UREA NITROGEN 20 mg/dl (7-18); BUN/CREATININE RATIO 29.2 (10-20); CARBON DIOXIDE 31 mmol/L (21-32); CHLORIDE 105 mmol/L (98-107); GLUCOSE 85 mg/dl (70-99); POTASSIUM 3.7 mmol/L (3.5-5.1); SODIUM 139 mmol/L (136-145)
[2017-03-23 12:14] LABS: ALKALINE PHOSPHATASE 112 U/L (45-117)
--- NOTE | 2017-03-23 12:16 | DIAGNOSTIC IMAGING REPORT ---
CHEST 2 VIEWS ROUTINE HISTORY: 47 years-old Female R a-port removed, pus like drainage status post removal of right subclavian [id number] catheter COMPARISON: Chest radiograph 09/06/2016 TECHNIQUE: Frontal and lateral views of the chest FINDINGS: Cardiomediastinal and hilar silhouettes are within normal limits. No pneumothorax, pleural effusion, focal airspace consolidation or overt pulmonary edema. There has been interval removal of the previously noted right subclavian Vlvkuo-a-[id number] catheter. Partially imaged fusion hardware of the lower cervical spine. Cholecystectomy clips noted. Bones appear grossly intact. IMPRESSION: Status post removal of previously noted right subclavian [id number]-q-[id number] catheter. No pneumothorax or acute cardiopulmonary process. The above report was generated using voice recognition software. It may contain grammatical, syntax or spelling errors. Electronically signed by: Chung Zuleta M.D. 03/23/2017 12:14 PM Dictated Date/Time: 03/23/2017 12:13 PM
--- NOTE | 2017-03-23 12:24 | DIAGNOSTIC IMAGING REPORT ---
R EXTREMITY NONVASCULAR LIMITED HISTORY: 47 years-old Female R aport drainage swelling of the right upper extremity with recent port removal. COMPARISON: None available TECHNIQUE: Multiple real-time sonographic images of the right upper extremity at area of concern were obtained assessing grayscale appearance and color flow FINDINGS: There is a complex ovoid superficial hypoechoic collection measuring 2.5 x 0.8 x 0.8 cm with a linear hypoechoic portion extending towards the skin surface. No increased vascularity identified. Areas of increased echogenicity centrally within the collection without shadowing may reflect proteinaceous material, or less likely air. IMPRESSION: Complex ovoid hypoechoic collection at the area of concern measures up to 2.5 cm extending towards the skin surface, suspicious for small phlegmon or developing abscess. The above report was generated using voice recognition software. It may contain grammatical, syntax or spelling errors. Electronically signed by: Chung Zuleta M.D. 03/23/2017 12:22 PM Dictated Date/Time: 03/23/2017 12:20 PM
[2017-03-23] MEDS ORDERED: PROMETHAZINE HCL INJ 25 MG in SODIUM CHLORIDE 0.9% 50ML 50 ML IV STA (12:40)
[2017-03-23] MEDS ORDERED: MIRT1TAB27 PO (13:50)
--- NOTE | 2017-03-23 14:20 | Surgery Consultation ---
Consultation Date of Consultation: Mar 23, 2017. Attending Physician: History of Present Illness pt is a 47 year old female who presents to ER for 3 weeks drainage pus on right chest wall, pt had a port removed by other surgeon on 02/01/2017. since then pt had some drainage from right chest wall incision, pt had left breast cancer 2 years ago, pt denies fever, pt had U/S study today- possible with 2.5cm abscess. pt has some diarrhea for last 2 days, Past Medical/Surgical History Medical Problems: (1) Abdominal pain Status: Acute (2) Abdominal pain, diffuse Status: Acute (3) Constipation Status: Acute (4) Dehydration Status: Acute (5) Headache Status: Acute (6) History of breast cancer Status: Acute (7) Intractable pain Status: Acute (8) Migraine Status: Acute (9) Migraine Status: Acute (10) Nausea & vomiting Status: Acute (11) Oral thrush Status: Acute (12) Throat pain Status: Acute (13) Vomiting Status: Acute Social History Problems: (1) Status post chemotherapy Status: Acute Family History Diabetes mellitus FHx: cancer FHx: gallbladder disease Hypertension Social History Smoking Status: Never Smoker Smokeless Tobacco Use: No Alcohol Use: none Drug Use: none Marital Status: Housing Status: lives alone Occupation Status: disabled Allergies Coded Allergies: Iodinated Diagnostic Agents (Verified Allergy, Severe, Throat swells - IV contrast, 03/23/17) Adhesives (Verified Allergy, Intermediate, TAPE- HIVES, 03/23/17) Cephalexin (Verified Allergy, Intermediate, Hives, throat swelling, ) Codeine (Verified Allergy, Intermediate, Hives, 03/23/17) Latex1 -Allergic Contact Dermititis (Verified Allergy, Intermediate, SWELLS AND HIVES, 03/23/17) Penicillins (Verified Allergy, Intermediate, HIVES, THROAT SWELLING, ) [place] (Verified Allergy, Intermediate, HIVES, 03/23/17) Sulfa Antibiotics (Verified Allergy, Intermediate, Hives, 03/23/17) Vancomycin (Verified Allergy, Intermediate, HIVES, 03/23/17) Loratadine (Verified Allergy, Mild, Hives, 03/23/17) Morphine (Verified Allergy, Mild, Hives, 03/23/17) Tramadol (Verified Allergy, Mild, Hives, 03/23/17) Home Medications Scheduled Levothyroxine Sodium (Levothyroxine Sodium), 50 MCG PO QAM Mirtazapine (Mirtazapine), 1 TAB PO PRN Mometasone Furoate (Nasal) (Mometasone Furoate), 2 SPRAYS ALANIS DAILY Zolpidem Tartrate (Zolpidem Tartrate), 10 MG PO HS Scheduled PRN Alprazolam (Xanax), 1 MG PO TID PRN for Anxiety Ondansetron Odt (Zofran Odt), 8 MG SL Q8 PRN for Nausea Current Inpatient Medications Current Inpatient Medications Medications (Trade) Dose Ordered Sig/Landon Route Start Time Stop Time Status Last Admin Dose Admin Sodium Chloride 1,000 ml @ 200 mls/hr Q5H ONCE IV 03/23/17 11:00 03/23/17 15:59 03/23/17 11:34 200 MLS/HR Review of Systems Constitutional: No fever, No chills, No sweats, No weight loss, No weakness, No fatigue, No problem reported Eyes: No worsening of vision, No eye pain, No redness, No discharge, No diplopia, No problem reported ENT: No hearing loss, No unusual epistaxis, No nasal symptoms, No sore throat, No tinnitus, No dental problems, No trouble swallowing, No problem reported Respiratory: No cough, No sputum, No wheezing, No shortness of breath, No dyspnea on exertion, No dyspnea at rest, No hemoptysis, No problem reported Cardiovascular: No chest pain, No orthopnea, No PND, No edema, No claudication , No palpitations, No problem reported Abdomen: + diarrhea, No pain, No nausea, No vomiting, No constipation, No GI bleeding, No problem reported Musculoskeletal: No joint pain, No muscle pain, No swelling, No calf pain, No problem reported Genitourinary - Female: No dysuria, No urinary frequency, No urinary urgency, No urinary incontinence, No urinary retention, No hematuria, No dysmenorrhea, No menorrhagia, No metrorrhagia, No rash, No vaginal bleeding, No vaginal discharge, No vaginal itching, No vulvodynia, No , No problem reported Neurologic: No memory loss, No paralysis, No weakness, No numbness/tingling, No vertigo, No balance problems, No problem reported Psychiatric: No depression symptoms, No anhedonism, No anxiety, No insomnia, No substance abuse, No problem reported Endocrine: No fatigue, No excessive thirst, No excessive urination, No problem reported Hematologic / Lymphatic: + problem reported (Immune deficiency), No abnormal bleeding/bruising, No clotting problems, No swollen lymph nodes, No night sweats Physical Exam Date Time Temp Pulse Resp B/P (MAP) Pulse Ox O2 Delivery O2 Flow Rate FiO2 03/23/17 12:22 54 18 106/73 98 Room Air 03/23/17 10:17 36.5 59 16 117/65 99 Room Air General Appearance: WD/WN, no apparent distress Head: normocephalic Eyes: normal inspection ENT: normal ENT inspection Neck: supple, no adenopathy, no JVD Respiratory/Chest: chest non-tender, lungs clear, normal breath sounds, no respiratory distress (some pus drainage from right chest wall incision, some redmess, tenderness, with edema, ) Cardiovascular: regular rate, rhythm, no edema, no gallop, no JVD, no murmur Abdomen/GI: normal bowel sounds, non tender, soft, no organomegaly Extremities/Musculoskelatal: normal inspection, no calf tenderness, normal capillary refill Neurologic/Psych: no motor/sensory deficits, alert Skin: normal color, warm/dry, no rash Laboratory Results Last 24 Hours Test 03/23/17 11:29 White Blood Count 5.88 K/uL Red Blood Count 3.75 M/uL Hemoglobin 11.2 g/dL Hematocrit 33.9 % Mean Corpuscular Volume 90.4 fL Mean Corpuscular Hemoglobin 29.9 pg Mean Corpuscular Hemoglobin Concent 33.0 g/dl Platelet Count 195 K/uL Mean Platelet Volume 10.5 fL Neutrophils (%) (Auto) 54.4 % Lymphocytes (%) (Auto) 33.2 % Monocytes (%) (Auto) 9.0 % Eosinophils (%) (Auto) 2.7 % Basophils (%) (Auto) 0.5 % Neutrophils # (Auto) 3.20 K/uL Lymphocytes # (Auto) 1.95 K/uL Monocytes # (Auto) 0.53 K/uL Eosinophils # (Auto) 0.16 K/uL Basophils # (Auto) 0.03 K/uL RDW Standard Deviation 41.4 fL RDW Coefficient of Variation 12.5 % Immature Granulocyte % (Auto) 0.2 % Immature Granulocyte # (Auto) 0.01 K/uL Sodium Level 139 mmol/L Potassium Level 3.7 mmol/L Chloride Level 105 mmol/L Carbon Dioxide Level 31 mmol/L Anion Gap 3.0 mmol/L Blood Urea Nitrogen 20 mg/dl Creatinine 0.70 mg/dl Est Creatinine Clear Calc Drug Dose 75.7 ml/min Estimated GFR () 120.4 Estimated GFR (Non- 103.9 BUN/Creatinine Ratio 29.2 Random Glucose 85 mg/dl Calcium Level 9.0 mg/dl Total Bilirubin 0.3 mg/dl Direct Bilirubin < 0.1 mg/dl Aspartate Amino Transf (AST/SGOT) 34 U/L Alanine Aminotransferase (ALT/SGPT) 23 U/L Alkaline Phosphatase 112 U/L Total Protein 7.2 gm/dl Albumin 3.7 gm/dl Assessment & Plan pt is a 47 year old female who had left breast cancer , and port removed by other surgeon on 02/01/2017. since then some drainage from incision, pt had U/S study today- possible 2.5cm abscess, Plan, Hospitalist will admit pt to hospital for diarrhea and dehydration and iv antibiotic, pt will have I/D right side chest wall abscess tomorrow, NPO from [place] D/W benefits, risks and alternatives of the procedure, the risks- infection, bleeding, scar, unhealing wound, pt understood, she agrees with the plan, i answered all questions, D/W ER attending.
[2017-03-23] MEDS ORDERED: DAPTOMYCIN CONSULT ACTIVE PRN ×2 (15:02)
[2017-03-23] MEDS ORDERED: AZTREONAM CONSULT ACTIVE PRN ×2 (15:15)
[2017-03-23] MEDS ORDERED: CLOT10TR PO (15:23)
[2017-03-23] MEDS ORDERED: ROPI1TAB PO (15:23)
[2017-03-23] MEDS ORDERED: MONT1TAB5 PO (15:23)
[2017-03-23] MEDS ORDERED: ESCI1TAB18 PO (15:23)
[2017-03-23] MEDS ORDERED: PANT1TAB3 PO (15:23)
[2017-03-23] MEDS ORDERED: BUTALBITAL/ACETAMIN/CAFFEINE TAB PO PRN (15:45)
[2017-03-23 16:25] VITALS: BP 113/63; PULSE 53; TEMP 36.5; O2SAT 97
[2017-03-23 16:31] VITALS: O2SAT 100; Ht 154.9 cm; Wt 53.3 kg
[2017-03-23] MEDS: ALPRAZOLAM 0.5 MG TAB PO PRN (17:10)
--- NOTE | 2017-03-23 17:46 | History and Physical ---
History & Physical Date & Time of Service: Mar 23, 2017 ~ 14:15 Chief Complaint: Drainage From Previous Port Site Primary Care Physician: Deysi Wynn D.O. History of Present Illness 47 year old female who presents to the ED with drainage from a previous port site. Patient had a right chest port placed about 2 years ago due for treatments for breast cancer. Port was no longer needed so it was removed on . Patient reports sutures were removed about 2 weeks following. Shortly after the sutures were removed, patient reports the incision opened back up and she has had persistent drainage. Patient was seen at [facility] ED as well as per PCPs office however no signs of infection were suspected. Patient reports large amounts of purulent and bloody drainage about twice a day. She has felt chilled but denies fever. She reports diarrhea and a couple of episodes of vomiting the past 2 days. She denies BRBPR, dark tarry stools, hematemesis, or coffee ground emesis. No abdominal pain. She denies chest pain, shortness of breath, lightheadedness, dizziness, diaphoresis, or syncopal events. No urinary symptoms. She reports she gets frequent migraines and has had one for the past two days. In the ED, she received IV Tylenol, IV Benadryl, IV Phenergan, IV Zofran, and IVF. Patient reports headache is still present. Toradol was offered to the patient however she reports that it "makes my throat close shut." Noted that prior to myself walking into the room, the patient was using her cell phone in no acute distress. US was preformed in the ED of the prior port site that showed a 2.5cm abscess. Past Medical/Surgical History Medical Problems: (1) Breast cancer Permanent Comment: STAGING: Left breast, invasive ductal carcinoma, grade 2, ER/ Her2 positive, GA negative, [id number], stage IA TREATMENT: 1. Lumpectom/SLN - 04/03/2015 2. Re-excision to obtain negative margins - 12/11/2015 3. Partial course of chemotherapy - Taxotere/Carboplatin/Herceptin - 5 cycles. Patient has refused further treatment including Herceptin. Status: Chronic (2) Depression with anxiety Status: Chronic (3) Hypothyroidism Status: Chronic (4) Migraines Status: Chronic Surgical Problems: (1) History of lumpectomy Status: Resolved Family History FH: breast cancer MOTHER Social History Smoking Status: Never Smoker Alcohol Use: none Immunizations History of Influenza Vaccine: Yes Influenza Vaccine Date: Mar 07, 2017 History of Tetanus Vaccine?: Yes Tetanus Immunization Date: Mar 07, 2011 History of Pneumococcal: No Pneumococcal Date: May 17, 2013 Allergies Coded Allergies: Iodinated Diagnostic Agents (Verified Allergy, Severe, Throat swells - IV contrast, 03/23/17) Adhesives (Verified Allergy, Intermediate, TAPE- HIVES, 03/23/17) Cephalexin (Verified Allergy, Intermediate, Hives, throat swelling, ) Codeine (Verified Allergy, Intermediate, Hives, 03/23/17) Latex1 -Allergic Contact Dermititis (Verified Allergy, Intermediate, SWELLS AND HIVES, 03/23/17) Penicillins (Verified Allergy, Intermediate, HIVES, THROAT SWELLING, ) [place] (Verified Allergy, Intermediate, HIVES, 03/23/17) Sulfa Antibiotics (Verified Allergy, Intermediate, Hives, 03/23/17) Vancomycin (Verified Allergy, Intermediate, HIVES, 03/23/17) Loratadine (Verified Allergy, Mild, Hives, 03/23/17) Morphine (Verified Allergy, Mild, Hives, 03/23/17) Tramadol (Verified Allergy, Mild, Hives, 03/23/17) Home Medications Scheduled Escitalopram Oxalate (Lexapro), 1 TAB PO DAILY Levothyroxine Sodium (Levothyroxine Sodium), 50 MCG PO QAM Mometasone Furoate (Nasal) (Mometasone Furoate), 2 SPRAYS ALANIS DAILY Pantoprazole (Protonix), 40 MG PO DAILY Ropinirole Hydrochloride (Requip), 1 TAB PO HS Scheduled PRN Alprazolam (Xanax), 1 MG PO TID PRN for Anxiety Clotrimazole (Mycelex), 10 MG PO TID PRN for thrush Montelukast Sodium (Montelukast Sodium), 1 TAB PO DAILY PRN for allergies Ondansetron Odt (Zofran Odt), 8 MG SL Q8 PRN for Nausea Zolpidem Tartrate (Zolpidem Tartrate), 10 MG PO HS PRN for Insomnia Review of Systems ROS per HPI, all other systems reviewed and negative Physical Exam Vital Signs Date Time Temp Pulse Resp B/P (MAP) Pulse Ox O2 Delivery O2 Flow Rate FiO2 03/23/17 16:31 100 Room Air 03/23/17 16:25 36.5 53 18 113/63 (80) 97 Room Air 03/23/17 15:49 60 16 109/75 100 Room Air 03/23/17 14:06 60 18 116/80 100 Room Air 03/23/17 12:22 54 18 106/73 98 Room Air 03/23/17 10:17 36.5 59 16 117/65 99 Room Air General Appearance: WD/WN, no apparent distress Head: normocephalic, atraumatic Eyes: normal inspection, EOMI, sclerae normal ENT: hearing grossly normal, + pertinent finding (mucous membranes moist) Neck: supple, no JVD, trachea midline Respiratory/Chest: lungs clear, normal breath sounds, no respiratory distress Cardiovascular: regular rate, rhythm, no edema, normal peripheral pulses Abdomen/GI: normal bowel sounds, non tender, soft, no organomegaly Extremities/Musculoskelatal: normal inspection, no calf tenderness, normal capillary refill Neurologic/Psych: no motor/sensory deficits, alert, normal mood/affect, oriented x 3 Skin: + pertinent finding (incision site from prior port noted on the right chest; minimal redness noted, no drainage) Diagnostics Laboratory Results Results Past 24 Hours Test 03/23/17 11:29 Range/Units White Blood Count 5.88 4.8-10.8 K/uL Red Blood Count 3.75 4.2-5.4 M/uL Hemoglobin 11.2 12.0-16.0 g/dL Hematocrit 33.9 37-47 % Mean Corpuscular Volume 90.4 80-100 fL Mean Corpuscular Hemoglobin 29.9 25-34 pg Mean Corpuscular Hemoglobin Concent 33.0 32-36 g/dl Platelet Count 195 130-400 K/uL Mean Platelet Volume 10.5 7.4-10.4 fL Neutrophils (%) (Auto) 54.4 % Lymphocytes (%) (Auto) 33.2 % Monocytes (%) (Auto) 9.0 % Eosinophils (%) (Auto) 2.7 % Basophils (%) (Auto) 0.5 % Neutrophils # (Auto) 3.20 1.4-6.5 K/uL Lymphocytes # (Auto) 1.95 1.2-3.4 K/uL Monocytes # (Auto) 0.53 0.11-0.59 K/uL Eosinophils # (Auto) 0.16 0-0.5 K/uL Basophils # (Auto) 0.03 0-0.2 K/uL RDW Standard Deviation 41.4 36.4-46.3 fL RDW Coefficient of Variation 12.5 11.5-14.5 % Immature Granulocyte % (Auto) 0.2 % Immature Granulocyte # (Auto) 0.01 0.00-0.02 K/uL Sodium Level 139 136-145 mmol/L Potassium Level 3.7 3.5-5.1 mmol/L Chloride Level 105 98-107 mmol/L Carbon Dioxide Level 31 21-32 mmol/L Anion Gap 3.0 3-11 mmol/L Blood Urea Nitrogen 20 7-18 mg/dl Creatinine 0.70 0.60-1.20 mg/dl Est Creatinine Clear Calc Drug Dose 75.7 ml/min Estimated GFR () 120.4 Estimated GFR (Non- 103.9 BUN/Creatinine Ratio 29.2 10-20 Random Glucose 85 70-99 mg/dl Calcium Level 9.0 8.5-10.1 mg/dl Total Bilirubin 0.3 0.2-1 mg/dl Direct Bilirubin < 0.1 0-0.2 mg/dl Aspartate Amino Transf (AST/SGOT) 34 15-37 U/L Alanine Aminotransferase (ALT/SGPT) 23 12-78 U/L Alkaline Phosphatase 112 45-117 U/L Total Protein 7.2 6.4-8.2 gm/dl Albumin 3.7 3.4-5.0 gm/dl Microbiology Results 03/23/17 Blood Culture, Received Pending 03/23/17 Blood Culture, Received Pending 03/23/17 Gram Stain, Received Pending 03/23/17 Wound Culture, Received Pending Diagnostic Radiology SOFT TISSUE US IMPRESSION: Complex ovoid hypoechoic collection at the area of concern measures up to 2.5 cm extending towards the skin surface, suspicious for small phlegmon or developing abscess. CXR IMPRESSION: Status post removal of previously noted right subclavian [id number] catheter. No pneumothorax or acute cardiopulmonary process. Impression Assessment and Plan ABSCESS - admit to med/surg - patient presenting with drainage from prior port site; US in the ED showing 2.5cm abscess - port was in place for prior breast cancer treatments which have been completed ; s/p removal 01/31 - no signs of sepsis - surgery consulted; planned for OR tomorrow for I&D - blood and wound cultures - due to patient's several allergies, she will be placed on Daptomycin and Aztreonam for now and adjust per culture results DIARRHEA - check stool studies HEADACHE - patient reports history of migraines - in the ED she received IV Tylenol, IV Benadryl, IV Phenergan, IV Zofran, and IVF - patient requesting narcotics for migraine - discussed with patient that narcotics are not indicated for migraines and can make the headaches worse - offered patient Toradol however she reports anaphylaxis to it in the past; after review of prior records patient has received Toradol in the past without any documented adverse reactions - will try Fioricet HYPOTHYROIDISM - continue levothyroxine ANXIETY, DEPRESSION - continue escitalopram and PRN Xanax DVT PROPHYLAXIS - SCDs in light of planned surgical procedure DISPO - In my clinical judgment this beneficiary meets acute admission criteria, established by [facility], that includes being hospitalized through two midnights. ATTENDING ADDENDUM: pt seen and examined , in agreement with above H&P by Angeline SANTAMARIA 47 yo F , hx of breast CA on remission had rt sided subclavian port removed approx 6 weeks back pt mentions she thinks she is allergic to stitches, after the surgical sutures are removed 14 days post procedure , her wound never healed she will have intermittent pus draining form the incision site was treated with PO Clindamycin by her family physician , no improvement in the ER -noted to have pus drainage form the port removal site USG of chest wall shows abscess pt is afebrile , normal white count , no evidence of sepsis will be admitted to medical floor, surgery evaluated pt , plan for I&D tomorrow pt will be continued with empiric Abx with Daptomycin and Azactam ( allergic to multiple agents ) ID eval requested Shirley Becerril MD Advanced Directives Existing Living Will: No Existing Power of Relief Master: No VTE Prophylaxis VTE Risk Assessment Done? Y/N: Yes Risk Level: Moderate
--- NOTE | 2017-03-23 17:51 | EMERGENCY ROOM VISIT NOTE ---
ED Visit Note First contact with patient: 10:22 Chief Complaint: I think I have a wound infection. History of Present Illness: Ms. Huizar is a 47-year-old white female who ambulates into the ED complaining of a possible infection in the area of a recently removed a port. Patient reports that she had an 8 port removed on January 31 following chemotherapy for breast cancer. 2 weeks after removal of the port she had suture removal from her surgical site on her left breast. She was given prophylactic antibiotic; tetracycline, after removal of the stitches. Patient reports since having her port removed and her stitches removed she is just not been feeling her normal self she reports that she is feeling tired and fatigued, she is having chills but no joselito fevers, she has been having intermittent nausea with 2 episodes of vomiting, she has been having multiple episodes of diarrhea over the last 3 days and just does not feel her normal self. She reports last week she noted that her area where the port was removed started draining blood and purulent material. Since that time she is seen purulent material every day but not blood. She reports she attempted to follow- up with the surgeon who removed the port but has not been able to be seen. Additionally she reports 2 days ago she started developing her normal migraine headache. She describes her headache as a pressure sensation that starts in the occipital area and radiates to the top of the head and into the bifrontal area. She rates this discomfort 8/10. This is similar and not worse than her previous migraines. This is not the worst headache of her life. She has not identified any alleviating factors related to the headache. She has not taken any medications for her headaches prior to arrival at the hospital. Associated with her headache she has noted a mild increase in nausea but she has not vomited. Use previously noted patient denies fevers, sweats, skin eruptions, skin color changes, recent head trauma, recent dental work, upper respiratory tract symptoms, cough, wheezing, shortness of breath, sore throats, nasal congestion, sinus pressure, hearing changes, visual changes, difficulty speaking, difficulty swallowing, difficulty ambulating/coordinating body movements, neck pain/stiffness, back pain, chest pain, shortness of breath, abdominal pain, return of diarrhea, black/tarry stools, urinary symptoms, hematuria, joint pains , extremity weakness/numbness/tingling. Review of Systems: As noted above in history of present illness. All body systems were reviewed and found to be negative as noted above. Past Medical History: (1) Breast cancer (2) Depression with anxiety (3) Hypothyroidism (4) Migraines Surgical Problems: (1) History of lumpectomy Current Medications: Medications Dose Route/Sig Max Daily Dose Days Date Category Requip (Ropinirole Hydrochloride) 1 Mg Tab 1 Tab PO HS 30 03/23/17 Reported Mycelex (Clotrimazole) 10 Mg Tro 10 Mg PO TID PRN 7 03/23/17 Reported Protonix (Pantoprazole) 40 Mg Tab 40 Mg PO DAILY 03/23/17 Reported Montelukast Sodium 10 Mg Tab 1 Tab PO DAILY PRN 30 03/23/17 Reported Lexapro (Escitalopram Oxalate) 20 Mg Tab 1 Tab PO DAILY 90 03/23/17 Reported Xanax (Alprazolam) 1 Mg Tab 1 Mg PO TID PRN 01/26/17 Reported Zolpidem Tartrate 10 Mg Tab 10 Mg PO HS PRN 09/06/16 Reported Mometasone Furoate (Mometasone Furoate (Nasal)) 50 Mcg/Act Spr 2 Sprays ALANIS DAILY 09/06/16 Reported Zofran Odt (Ondansetron HCl) 8 Mg Soltab 8 Mg SL Q8 PRN 09/06/16 Reported Levothyroxine Sodium 50 Mcg Tab 50 Mcg PO QAM 09/24/15 Reported Allergies to Medications: Latex, cephalexin, codeine, morphine, vancomycin, loratadine, tramadol, penicillin, sulfa, IV contrast. Social History: Patient is not currently employed, she is on disability, she feels safe in her home environment; she denies tobacco and alcohol use. Physical Examination: Vital Signs: Date Time Temp Pulse Resp B/P (MAP) Pulse Ox O2 Delivery O2 Flow Rate FiO2 03/23/17 14:06 60 18 116/80 100 Room Air 03/23/17 12:22 54 18 106/73 98 Room Air 03/23/17 10:17 36.5 59 16 117/65 99 Room Air GENERAL: 47-year-old female in mild to moderate distress due to pain, nontoxic- appearing, afebrile and hemodynamically stable. NEUROLOGICAL: Awake, alert and oriented to person, place and time. Answering questions appropriately and following commands. Normal gait. Good hand eye coordination. SKIN: Warm, dry and pink. No soft tissue eruptions or trauma noted. HEENT: Atraumatic and normocephalic. No erythema or tenderness over the frontal Sinuses. External ears are nontender. Auditory canals are pink and patent. Tympanic membranes appear normal without bulging or erythema. PERRLA. EOMI. Sclera white and conjunctiva pink. No drainage from naris. Oral cavity moist and pink. Pharynx is nonerythematous or edematous. Airway is patent. Speech normal. No lymphadenopathy. Trachea midline. No jugular venous distention. BACK: No tenderness over the bony cervical, thoracic and lumbar spine. No nuchal rigidity or meningismus. Full range of motion of the cervical spine. No CVA tenderness. THORAX: Lungs sounds are clear to auscultation and equal bilaterally with symmetrical chest wall. No wheezing, rales or rhonchi. No crepitus, tenderness , subcutaneous air or deformities noted. In the right subclavian area patient' s surgical wound from her a port is clean dry and intact. There is no local erythema or edema. When the area is palpated there is a small amount of purulent material that is expressed. No active bleeding. HEART: Regular rate and rhythm. No gallops, rubs or murmurs are appreciated. ABDOMEN: Flat, soft and nontender. Positive bowel sounds in all quadrants. No guarding, rigidity or organomegaly. EXTREMITIES: Moves all extremities well on command and with purpose. All distal neurovascular statuses are intact and equal bilaterally. No calf tenderness or cords. ED Course: Patient is assessed as noted above. Patient's medication list was reviewed. Laboratory Testing: Test 03/23/17 11:29 Range/Units White Blood Count 5.88 4.8-10.8 K/uL Red Blood Count 3.75 4.2-5.4 M/uL Hemoglobin 11.2 12.0-16.0 g/dL Hematocrit 33.9 37-47 % Mean Corpuscular Volume 90.4 80-100 fL Mean Corpuscular Hemoglobin 29.9 25-34 pg Mean Corpuscular Hemoglobin Concent 33.0 32-36 g/dl Platelet Count 195 130-400 K/uL Mean Platelet Volume 10.5 7.4-10.4 fL Neutrophils (%) (Auto) 54.4 % Lymphocytes (%) (Auto) 33.2 % Monocytes (%) (Auto) 9.0 % Eosinophils (%) (Auto) 2.7 % Basophils (%) (Auto) 0.5 % Neutrophils # (Auto) 3.20 1.4-6.5 K/uL Lymphocytes # (Auto) 1.95 1.2-3.4 K/uL Monocytes # (Auto) 0.53 0.11-0.59 K/uL Eosinophils # (Auto) 0.16 0-0.5 K/uL Basophils # (Auto) 0.03 0-0.2 K/uL RDW Standard Deviation 41.4 36.4-46.3 fL RDW Coefficient of Variation 12.5 11.5-14.5 % Immature Granulocyte % (Auto) 0.2 % Immature Granulocyte # (Auto) 0.01 0.00-0.02 K/uL Sodium Level 139 136-145 mmol/L Potassium Level 3.7 3.5-5.1 mmol/L Chloride Level 105 98-107 mmol/L Carbon Dioxide Level 31 21-32 mmol/L Anion Gap 3.0 3-11 mmol/L Blood Urea Nitrogen 20 7-18 mg/dl Creatinine 0.70 0.60-1.20 mg/dl Est Creatinine Clear Calc Drug Dose 75.7 ml/min Estimated GFR () 120.4 Estimated GFR (Non- 103.9 BUN/Creatinine Ratio 29.2 10-20 Random Glucose 85 70-99 mg/dl Calcium Level 9.0 8.5-10.1 mg/dl Total Bilirubin 0.3 0.2-1 mg/dl Direct Bilirubin < 0.1 0-0.2 mg/dl Aspartate Amino Transf (AST/SGOT) 34 15-37 U/L Alanine Aminotransferase (ALT/SGPT) 23 12-78 U/L Alkaline Phosphatase 112 45-117 U/L Total Protein 7.2 6.4-8.2 gm/dl Albumin 3.7 3.4-5.0 gm/dl Blood Cultures: Pending. Gram Stain and Culture: Pending. Chest X-Rays: Were read by myself and the radiologist showing no acute infiltrates, effusions or pneumothorax. Normal heart silhouette and bony anatomy. Chest Ultrasound: Was reviewed by myself and read by the radiologist showing a complex ovoid hypoechoic collection measuring up to 2.5 cm and extending towards the skin surface suspicious for a small phlegmon or developing abscess. Patient was hydrated with normal saline and she was given 1 g of acetaminophen IV for pain, 4 mg of Zofran IV for nausea and 2 mg of Benadryl for her migraine headache. On reassessment patient reports she was still nauseated and request Phenergan so she was ordered 25 mg of Phenergan IV. Patient was reassessed multiple times during her stay in the emergency department. Patient's case was consulted with case management and Dr. Ordoñez, [facility] surgery; Dr. Ordoñez did come see the patient and he felt she needed surgical drainage of this area and admission to the hospital for antibiotic therapy. At his request I did talk to the [facility] hospitalist, Dr. Bradley, who evaluated patient for hospital observation/admission. Patient's case was reviewed with ; he agreed on diagnostic approach, treatment, disposition and plan per Patient was educated about today's findings. Clinical Impression: Right chest abscess. Migraine headache. Disposition and Plan: Patient be brought into the hospital by the [facility] hospitalist; please see their notes and orders for final disposition and plan.
[2017-03-23] MEDS ORDERED: DiphenhydrAMINE INJ 25 MG in SYRINGE 0 ML IV ONE (18:00)
[2017-03-23] MEDS ORDERED: DiphenhydrAMINE HCL 50 MG/ML VIAL IV ONE (18:15)
[2017-03-23] MEDS: AZTREONAM IV 1,000 MG in DEXTROSE 5% 100ML IV SCH (18:24)
[2017-03-23] MEDS: DAPTOmycin IV 225 MG in SYRINGE 0 ML IV SCH (18:24)
[2017-03-23] MEDS ORDERED: PROMETHAZINE HCL INJ 12.5 MG in SODIUM CHLORIDE 0.9% 50ML 50 ML IV ONE (18:30)
[2017-03-23] MEDS: ROPINIROLE HCL 1 MG TAB PO SCH (21:10)
[2017-03-23 22:32] LABS: URINE APPEARANCE CLEAR (CLEAR); URINE BILIRUBIN NEG (NEG); URINE COLOR YELLOW; URINE NITRITE NEG (NEG); URINE SPECIFIC GRAVITY 1.016 (1.000-1.030); UROBILINOGEN NEG (NEG)
[2017-03-23 22:41] LABS: MANUAL MICROSCOPIC REQUIRED? NO; REVIEW REQ? NO
[2017-03-23 23:12] VITALS: BP 104/65; PULSE 57; TEMP 36.6; O2SAT 98
[2017-03-23] MEDS: SODIUM CHLORIDE 0.9% 1000ML 1,000 ML IV SCH (23:22)
[2017-03-23] MEDS: ACETAMINOPHEN 325 MG TAB PO PRN (23:47)
[2017-03-24] VITALS (8 sets, daily range): BP systolic 82–104; BP diastolic 54–66; PULSE 55–77; TEMP 36.3–36.7; O2SAT 95–99
[2017-03-24] MEDS: ALPRAZOLAM 0.5 MG TAB PO PRN ×2 (01:16→09:54)
[2017-03-24] MEDS: ZOLPIDEM TARTRATE 10 MG TAB PO PRN (01:16)
[2017-03-24] MEDS: AZTREONAM IV 1,000 MG in DEXTROSE 5% 100ML IV SCH ×3 (02:06→17:30)
[2017-03-24] MEDS: ACETAMINOPHEN 325 MG TAB PO PRN (03:59)
[2017-03-24] MEDS: LEVOTHYROXINE 50 MCG TAB PO SCH (05:36)
[2017-03-24 07:42] LABS: HEMATOCRIT 30.9 % (37-47); MEAN CELL VOLUME 91.2 fL (80-100); MEAN CORPUSCULAR HEMOGLOBIN 29.5 pg (25-34); MEAN CORPUSCULAR HGB CONC 32.4 g/dl (32-36); MEAN PLATELET VOLUME 10.1 fL (7.4-10.4); PLATELET COUNT 176 K/uL (130-400); RED BLOOD COUNT 3.39 M/uL (4.2-5.4); WHITE BLOOD COUNT 5.53 K/uL (4.8-10.8)
[2017-03-24 07:55] LABS: INR 0.9 (0.9-1.1); PROTHROMBIN TIME (PATIENT) 9.7 SECONDS (9.0-12.0)
[2017-03-24 08:15] LABS: BUN/CREATININE RATIO 21.5 (10-20); CALCIUM 8.4 mg/dl (8.5-10.1); CREATININE 0.69 mg/dl (0.60-1.20); POTASSIUM 3.8 mmol/L (3.5-5.1)
[2017-03-24] MEDS ORDERED: EpHEDrine SULFATE INJ 50 MG/ML AMP IV PRN (09:45)
[2017-03-24] MEDS ORDERED: ATROPINE SULFATE 0.1 MG/ML 5ML SYR IV PRN (09:45)
[2017-03-24] MEDS ORDERED: FENTANYL CITRATE INJ 50 MCG/1 ML 2 ML VIAL IV PRN (09:45)
[2017-03-24] MEDS: ESCITALOPRAM OXALATE 20 MG TAB PO SCH (09:55)
[2017-03-24] MEDS: PANTOprazole SOD 40 MG TAB PO SCH (09:55)
--- NOTE | 2017-03-24 10:25 | Surgery Progress Note ---
Surgery Progress Note Date of Service Mar 24, 2017. Subjective Post OP Day: HD # 1 + headache, "has had one for the past 4 days" requesting Benadryl and Phenergan still some drainage from incision, no spreading redness or increasing pain. No fevers or chills. Objective Vital Signs: Date Time Temp Pulse Resp B/P (MAP) Pulse Ox O2 Delivery O2 Flow Rate FiO2 03/24/17 08:16 99 Room Air 03/24/17 08:03 36.4 59 14 104/64 (77) 99 Room Air 03/23/17 23:20 Room Air 03/23/17 23:12 36.6 57 16 104/65 (78) 98 Room Air 03/23/17 16:31 100 Room Air 03/23/17 16:25 36.5 53 18 113/63 (80) 97 Room Air 03/23/17 15:49 60 16 109/75 100 Room Air 03/23/17 14:06 60 18 116/80 100 Room Air 03/23/17 12:22 54 18 106/73 98 Room Air General Appearance: WD/WN, no apparent distress Head: normocephalic, atraumatic Neck: trachea midline Respiratory/Chest: no respiratory distress, no accessory muscle use, + pertinent finding (right upper chest incision that is healed and intact, no current drainge, no pain on palpation, no surrounding erythema or fluctuance.) Laboratory Results: Results Past 24 Hours Test 03/23/17 11:29 03/23/17 22:00 03/24/17 07:19 Range/Units White Blood Count 5.88 5.53 4.8-10.8 K/uL Red Blood Count 3.75 3.39 4.2-5.4 M/uL Hemoglobin 11.2 10.0 12.0-16.0 g/dL Hematocrit 33.9 30.9 37-47 % Mean Corpuscular Volume 90.4 91.2 80-100 fL Mean Corpuscular Hemoglobin 29.9 29.5 25-34 pg Mean Corpuscular Hemoglobin Concent 33.0 32.4 32-36 g/dl Platelet Count 195 176 130-400 K/uL Mean Platelet Volume 10.5 10.1 7.4-10.4 fL Neutrophils (%) (Auto) 54.4 % Lymphocytes (%) (Auto) 33.2 % Monocytes (%) (Auto) 9.0 % Eosinophils (%) (Auto) 2.7 % Basophils (%) (Auto) 0.5 % Neutrophils # (Auto) 3.20 1.4-6.5 K/uL Lymphocytes # (Auto) 1.95 1.2-3.4 K/uL Monocytes # (Auto) 0.53 0.11-0.59 K/uL Eosinophils # (Auto) 0.16 0-0.5 K/uL Basophils # (Auto) 0.03 0-0.2 K/uL RDW Standard Deviation 41.4 42.4 36.4-46.3 fL RDW Coefficient of Variation 12.5 12.8 11.5-14.5 % Immature Granulocyte % (Auto) 0.2 % Immature Granulocyte # (Auto) 0.01 0.00-0.02 K/uL Sodium Level 139 142 136-145 mmol/L Potassium Level 3.7 3.8 3.5-5.1 mmol/L Chloride Level 105 110 98-107 mmol/L Carbon Dioxide Level 31 27 21-32 mmol/L Anion Gap 3.0 5.0 3-11 mmol/L Blood Urea Nitrogen 20 15 7-18 mg/dl Creatinine 0.70 0.69 0.60-1.20 mg/dl Est Creatinine Clear Calc Drug Dose 75.7 76.8 ml/min Estimated GFR () 120.4 121.0 Estimated GFR (Non- 103.9 104.4 BUN/Creatinine Ratio 29.2 21.5 10-20 Random Glucose 85 100 70-99 mg/dl Calcium Level 9.0 8.4 8.5-10.1 mg/dl Total Bilirubin 0.3 0.2-1 mg/dl Direct Bilirubin < 0.1 0-0.2 mg/dl Aspartate Amino Transf (AST/SGOT) 34 15-37 U/L Alanine Aminotransferase (ALT/SGPT) 23 12-78 U/L Alkaline Phosphatase 112 45-117 U/L Total Protein 7.2 6.4-8.2 gm/dl Albumin 3.7 3.4-5.0 gm/dl Urine Color YELLOW Urine Appearance CLEAR CLEAR Urine pH 6.0 4.5-7.5 Urine Specific [place] 1.016 1.000-1.030 Urine Protein NEG NEG Urine Glucose (UA) NEG NEG Urine Ketones NEG NEG Urine Occult Blood NEG NEG Urine Nitrite NEG NEG Urine Bilirubin NEG NEG Urine Urobilinogen NEG NEG Urine Leukocyte Esterase NEG NEG Prothrombin Time 9.7 9.0-12.0 SECONDS Prothromb Time International Ratio 0.9 0.9-1.1 Microbiology Results 03/23/17 Blood Culture, Received Pending 03/23/17 Blood Culture, Received Pending 03/23/17 Gram Stain - Final, Resulted 03/23/17 Wound Culture - Preliminary, Resulted Staphylococcus Aureus Coag Neg Staphylococcus Assessment & Plan 47 year-old female with right sided chest wall abscess measuring 2.5 cm s/p aport removal on 01/31/17. History of breast cancer s/p treatment with port. Diarrhea and chills for the past 2 days. No fever. Vital signs stable, no leukocytosis, afebrile, no erythema or streaking to suggest cellulitis. Wound culture showing staph aureus and caog neg staphylococcus Plan: Plan for OR today for incision and drainage Keep NPO Continue IV abx, await sensitivities Continue current medical management
[2017-03-24] MEDS ORDERED: FENTANYL CITRATE INJ 50 MCG/1 ML 2 ML VIAL ONE (10:57)
[2017-03-24] MEDS ORDERED: MIDAZOLAM HCL 1 MG/ML 2ML VIAL ONE ×2 (10:57→11:44)
[2017-03-24] MEDS ORDERED: BUPIVACAINE/EPINEPHRINE 0.5% MPF 1:200,000 30 ML VIAL ONE (11:09)
[2017-03-24] MEDS ORDERED: CIPROFLOXACIN 400MG / 200ML D5W IV SCH (11:30)
[2017-03-24] MEDS ORDERED: LIDOCAINE HCL 1% 20 ML VIAL ONE (11:31)
[2017-03-24] MEDS ORDERED: BUPIVACAINE 0.5 % 5 MG/1 ML MPF 30ML VIAL ONE (11:31)
[2017-03-24] MEDS ORDERED: CIPROFLOXACIN 400MG / 200ML D5W ONE (11:34)
[2017-03-24] MEDS ORDERED: LIDOCAINE HCL 2% 2 ML VIAL (20MG/ML) ONE (11:58)
[2017-03-24] MEDS ORDERED: PROPOFOL IV EMULSION 10 MG/ML 20 ML VIAL IV ONE (11:58)
--- NOTE | 2017-03-24 12:16 | [facility] Post Operative Brief Note ---
Immediate Operative Summary Operative Date Mar 24, 2017. Pre-Operative Diagnosis abscess on right chest wall Post-Operative Diagnosis same Procedure(s) Performed incision and drainage abscess on right chest wall Surgeon Jess Ordoñez MD Web Production Manager Surgeon(s) rn surgical Estimated Blood Loss 5ml Findings abscess on right chest wall Fluids (cc crystalloids) 600ml Specimens abscess with scar Drains yes, Anesthesia sedation + local Complication(s) None Disposition Recovery Room / PACU
[2017-03-24] MEDS ORDERED: OXYCODONE/ACETAMINOPHEN 5-325 TAB PO PRN (12:30)
--- NOTE | 2017-03-24 12:38 | Anesthesiology Progress Note ---
Anesthesia Post Op Note Date & Time Mar 24, 2017 at 12:37 Vital Signs Pain Intensity: 0 Vital Signs Past 12 Hours Date Time Temp Pulse Resp B/P (MAP) Pulse Ox O2 Delivery O2 Flow Rate FiO2 03/24/17 12:30 61 16 102/70 97 Room Air 03/24/17 12:21 36.3 66 18 110/72 99 Room Air 03/24/17 08:16 99 Room Air 03/24/17 08:03 36.4 59 14 104/64 (77) 99 Room Air Notes Mental Status: alert / awake / arousable, participated in evaluation Pt Amnestic to Procedure: Yes Nausea / Vomiting: adequately controlled Pain: adequately controlled Airway Patency, RR, SpO2: stable & adequate BP & HR: stable & adequate Hydration State: stable & adequate Anesthetic Complications: no major complications apparent
[2017-03-24] MEDS: HYDROmorphone INJ 0.5 MG/0.5 ML SYR IV PRN ×3 (12:40→22:12)
[2017-03-24] MEDS: PROMETHAZINE HCL INJ 12.5 MG in SODIUM CHLORIDE 0.9% 50ML 50 ML IV PRN (14:55)
--- NOTE | 2017-03-24 15:19 | Progress Note ---
Progress Note Date of Service Mar 24, 2017. Progress Note ID Consult Dictated #[id number] A/P: 1. Chest wall abscess - S. aureus -Continue dapto for now, multiple allergies -If no gnr found, can stop aztreonam and cipro -Hopefully, can transition to po abx if blood culture negative, pending -Will likely need 14-21days total -thank you
--- NOTE | 2017-03-24 16:22 | Progress Note ---
Internal Med Progress Note Date of Service: Mar 24, 2017. Provider Documentation: SUBJECTIVE: The patient was seen and examined S/P I&D of the right upper anterior port abscess Complains of local pain and Migraine OBJECTIVE: Vital Signs-as noted below Exam: General-NO distress ta brest Eyes-normal ENT-normal Neck-supple Lungs-Clear to ausucltate bilaterally Heart-Regular,no murmur appreciated Abdomen-Benign,no masses,bowel sound present Extremities-NO edema Neuro-AAOx3 Lab data as noted below. ASSESSMENT & PLAN: ABSCESS AT THE RIGHT UPPER ANTERIOR CHEST PORT SITE - patient presenting with drainage from prior port site; US in the ED showing 2.5cm abscess - port was in place for prior breast cancer treatments which have been completed ; s/p removal 01/31 - no signs of sepsis - surgery consulted;APPRECIATE iNPUT -S/P I&D - blood and wound cultures - due to patient's several allergies, she will be placed on Daptomycin and Aztreonam for now and adjust per culture results -ID consulted DIARRHEA - check stool studies -pending -seems improved HEADACHE - patient reports history of migraines - in the ED she received IV Tylenol, IV Benadryl, IV Phenergan, IV Zofran, and IVF - patient requesting narcotics for migraine - discussed with patient that narcotics are not indicated for migraines and can make the headaches worse - offered patient Toradol however she reports anaphylaxis to it in the past; after review of prior records patient has received Toradol in the past without any documented adverse reactions - will try Fioricet -IV Phenergan and Oral Benadryl PRN HYPOTHYROIDISM - continue levothyroxine ANXIETY, DEPRESSION - continue escitalopram and PRN Xanax DVT PROPHYLAXIS - SCDs in light of planned surgical procedure DISPO Await C/S Vital Signs: Date Time Temp Pulse Resp B/P (MAP) Pulse Ox O2 Delivery O2 Flow Rate FiO2 03/24/17 14:00 36.3 65 14 102/66 (78) 96 Room Air 03/24/17 13:34 36.4 62 13 104/59 (74) 95 Room Air 03/24/17 13:00 36.4 59 16 97/64 (75) 95 Room Air 03/24/17 13:00 95 Room Air 03/24/17 13:00 95 Room Air 03/24/17 12:40 36.4 63 19 105/65 96 Room Air 03/24/17 12:30 61 16 102/70 97 Room Air 03/24/17 12:21 36.3 66 18 110/72 99 Room Air 03/24/17 08:16 99 Room Air 03/24/17 08:03 36.4 59 14 104/64 (77) 99 Room Air 03/24/17 08:00 Room Air 03/23/17 23:20 Room Air 03/23/17 23:12 36.6 57 16 104/65 (78) 98 Room Air 03/23/17 16:31 100 Room Air 03/23/17 16:25 36.5 53 18 113/63 (80) 97 Room Air Lab Results: Results Past 24 Hours Test 03/23/17 22:00 03/24/17 07:19 Range/Units Urine Color YELLOW Urine Appearance CLEAR CLEAR Urine pH 6.0 4.5-7.5 Urine Specific [place] 1.016 1.000-1.030 Urine Protein NEG NEG Urine Glucose (UA) NEG NEG Urine Ketones NEG NEG Urine Occult Blood NEG NEG Urine Nitrite NEG NEG Urine Bilirubin NEG NEG Urine Urobilinogen NEG NEG Urine Leukocyte Esterase NEG NEG White Blood Count 5.53 4.8-10.8 K/uL Red Blood Count 3.39 4.2-5.4 M/uL Hemoglobin 10.0 12.0-16.0 g/dL Hematocrit 30.9 37-47 % Mean Corpuscular Volume 91.2 80-100 fL Mean Corpuscular Hemoglobin 29.5 25-34 pg Mean Corpuscular Hemoglobin Concent 32.4 32-36 g/dl RDW Standard Deviation 42.4 36.4-46.3 fL RDW Coefficient of Variation 12.8 11.5-14.5 % Platelet Count 176 130-400 K/uL Mean Platelet Volume 10.1 7.4-10.4 fL Prothrombin Time 9.7 9.0-12.0 SECONDS Prothromb Time International Ratio 0.9 0.9-1.1 Sodium Level 142 136-145 mmol/L Potassium Level 3.8 3.5-5.1 mmol/L Chloride Level 110 98-107 mmol/L Carbon Dioxide Level 27 21-32 mmol/L Anion Gap 5.0 3-11 mmol/L Blood Urea Nitrogen 15 7-18 mg/dl Creatinine 0.69 0.60-1.20 mg/dl Est Creatinine Clear Calc Drug Dose 76.8 ml/min Estimated GFR () 121.0 Estimated GFR (Non- 104.4 BUN/Creatinine Ratio 21.5 10-20 Random Glucose 100 70-99 mg/dl Calcium Level 8.4 8.5-10.1 mg/dl Microbiology Results 03/24/17 MRSA DNA Surveillance Screen, Received Pending 03/24/17 Gram Stain, Received Pending 03/24/17 Bacterial Culture, Received Pending
[2017-03-24] MEDS: DAPTOmycin IV 225 MG in SYRINGE 0 ML IV SCH (17:14)
[2017-03-24] MEDS: SODIUM CHLORIDE 0.9% 1000ML 1,000 ML IV SCH (17:27)
--- NOTE | 2017-03-24 19:05 | INFECT. DISEASE CONSULTATION ---
DATE OF CONSULTATION: 03/24/2017 REQUESTING PHYSICIAN: Dr. Arias. HISTORY OF PRESENT ILLNESS: This is a 47-year-old female who was admitted on the 2nd secondary to persistent drainage from her previous port site. She states that this was placed 2 years ago for chemotherapy for breast cancer. She is in remission for breast cancer, but maintained her port for ease of IV access and occasional need for treatment of migraine headaches. She noticed sometime ago that she was having pain and the catheter had shifted and was subsequently removed. Since she had removal 3 weeks ago, she had a complication of wound dehiscence. She had significant pain in this area and general feeling not well. She denies any specific fevers or chills. She did have her sutures removed 2 weeks ago. After her sutures were removed, she further wound dehiscence and significant purulent drainage. She was seen by her surgeon and primary care physician in the [place] area and was placed on an unknown antibiotic. She is unable to tell me the name for how many days she was on this antibiotic, but she believes it was erythromycin. She had no improvement with her symptoms and subsequently came to [facility] yesterday. At that time, it was noted that she had significant drainage and cultures were obtained. They are growing a Staph species. She was taken to the operating room earlier today for debridement. She tolerated this well. She has been afebrile since admission to the hospital. She was placed on broad spectrum antibiotics consisting of daptomycin, Cipro and aztreonam. She is tolerating these medications well. She is currently afebrile. She denies any pain. Her white blood cell count is within normal limits. Blood cultures were obtained and are pending. All remaining review of systems is reviewed and is unremarkable. PAST MEDICAL HISTORY: Significant for breast cancer. She also has depression, hypothyroidism, and migraine headaches. PAST SURGICAL HISTORY: Significant for lumpectomy. FAMILY HISTORY: Noncontributory. SOCIAL HISTORY: Negative for drug use, alcohol use or tobacco use. ALLERGIES: SHE HAS MULTIPLE ALLERGIES INCLUDING IODINE, ADHESIVE TAPES, CEPHALEXIN, CODEINE, LATEX, PENICILLIN, SULFA, VANCOMYCIN, MORPHINE AND TRAMADOL. CURRENT MEDICATIONS: Benadryl, Dilaudid, Percocet, Cipro, Lexapro, Protonix, Synthroid, Requip, aztreonam, daptomycin, Xanax, Ambien, Fioricet, Tylenol and Zofran. PHYSICAL EXAMINATION: VITAL SIGNS: She is afebrile, pulse 65, respiratory rate is 14, blood pressure 102/66. Oxygen saturation is 96% on room air. GENERAL: She is awake, alert and oriented x3. She is in no acute distress. HEENT: Mucous membranes are moist. Extraocular muscles are intact. HEART: Regular. LUNGS: Clear bilaterally. ABDOMEN: Soft and nondistended. EXTREMITIES: There is no lower extremity edema. SKIN: Without rash. Examination of the surgical site reveals a surgical dressing got minimal drainage. There is minimal surrounding tenderness. There is no erythema, induration, fluctuance or warmth. LABORATORY STUDIES: CBC reveals a white blood cell count of 5.5, hemoglobin 10, platelets are 176. Chemistry panel reveals a sodium of 142, potassium 3.8, chloride 110, bicarbonate 15, creatinine 0.6, and glucose is 100. LFTs were normal. In the ER, UA was negative. Again, cultures are superficial from the chest wall abscess are growing Staph aureus, sensitivities are pending. Blood cultures are pending and OR culture is pending as well. IMAGING DATA: Chest x-ray was within normal limits, an ultrasound done in the ER did show fluid collection measuring 2.5 x 0.8 x 0.8 cm. ASSESSMENT AND PLAN: Chest wall abscess with Staphylococcus aureus, so she will continue on daptomycin if no gram negatives are identified by tomorrow. Aztreonam and Cipro can be discontinued. She has multiple drug allergies and we will await final sensitivities. She likely will need a minimum of 14-21 days of antibiotics post-discharge from the hospital. Blood cultures are pending. We will follow along with you. Thank you for this consultation.
[2017-03-24] MEDS: ROPINIROLE HCL 1 MG TAB PO SCH (20:52)
[2017-03-24] MEDS: ONDANSETRON INJ 2 MG/ML 2 ML VIAL IV PRN (22:12)
[2017-03-25] MEDS: PROMETHAZINE HCL INJ 12.5 MG in SODIUM CHLORIDE 0.9% 50ML 50 ML IV PRN ×2 (00:05→10:23)
[2017-03-25] MEDS: AZTREONAM IV 1,000 MG in DEXTROSE 5% 100ML IV SCH ×3 (01:13→18:05)
[2017-03-25] MEDS: SODIUM CHLORIDE 0.9% 1000ML 1,000 ML IV SCH (01:13)
[2017-03-25] MEDS: HYDROmorphone INJ 0.5 MG/0.5 ML SYR IV PRN ×2 (02:23→07:05)
[2017-03-25] MEDS: LEVOTHYROXINE 50 MCG TAB PO SCH (05:30)
[2017-03-25 07:11] VITALS: BP 99/67; PULSE 55; TEMP 36.5; O2SAT 98
[2017-03-25] MEDS: ALPRAZOLAM 0.5 MG TAB PO PRN ×2 (07:16→18:36)
--- NOTE | 2017-03-25 08:15 | Surgery Progress Note ---
Surgery Progress Note Date of Service Mar 25, 2017. Subjective Post OP Day: 1 + feeling well pt is doing better, the wound is dry, the packing is removed, wound culture- STAPHYLOCOCCUS AUREUS Objective Vital Signs: Date Time Temp Pulse Resp B/P (MAP) Pulse Ox O2 Delivery O2 Flow Rate FiO2 03/25/17 07:25 Room Air 03/25/17 07:11 36.5 55 16 99/67 (78) 98 Room Air 03/24/17 23:50 Room Air 03/24/17 22:50 36.7 55 16 99/65 (76) 96 Room Air 03/24/17 19:00 36.6 58 18 92/60 (71) 96 Room Air 03/24/17 17:00 Room Air 03/24/17 16:14 36.4 77 14 82/54 (63) 99 Room Air 03/24/17 14:00 36.3 65 14 102/66 (78) 96 Room Air 03/24/17 13:34 36.4 62 13 104/59 (74) 95 Room Air 03/24/17 13:00 36.4 59 16 97/64 (75) 95 Room Air 03/24/17 13:00 95 Room Air 03/24/17 13:00 95 Room Air 03/24/17 12:40 36.4 63 19 105/65 96 Room Air 03/24/17 12:30 61 16 102/70 97 Room Air 03/24/17 12:21 36.3 66 18 110/72 99 Room Air 03/24/17 08:16 99 Room Air General Appearance: WD/WN, no apparent distress Head: normocephalic Neck: supple, no JVD Respiratory/Chest: chest non-tender, lungs clear Cardiovascular: regular rate, rhythm, no edema, no gallop, no JVD Incision(s): clean, dry, intact, no erythema Extremities: normal range of motion, non-tender, normal inspection Laboratory Results: Results Past 24 Hours Test 03/25/17 04:44 Range/Units Microbiology Results 03/24/17 MRSA DNA Surveillance Screen - Final, Complete Specimen Negative for MRSA by DNA Probe 03/24/17 Gram Stain, Received Pending 03/24/17 Bacterial Culture, Received Pending Assessment & Plan F/U S/P I/D abscess on right chest wall, pt is doing fine, pt can discharged home today cipro 500mg po BID x 5 days, stop IV dilaudid F/U me on 03/29/2017,
[2017-03-25 08:34] LABS: HEMATOCRIT 30.8 % (37-47); MEAN CELL VOLUME 91.4 fL (80-100); MEAN CORPUSCULAR HEMOGLOBIN 29.1 pg (25-34); MEAN CORPUSCULAR HGB CONC 31.8 g/dl (32-36); MEAN PLATELET VOLUME 10.2 fL (7.4-10.4); PLATELET COUNT 178 K/uL (130-400); RED BLOOD COUNT 3.37 M/uL (4.2-5.4)
[2017-03-25 09:12] LABS: BUN/CREATININE RATIO 14.1 (10-20); CALCIUM 8.5 mg/dl (8.5-10.1); CREATININE 0.75 mg/dl (0.60-1.20); PHOSPHORUS 3.8 mg/dl (2.5-4.9); POTASSIUM 4.1 mmol/L (3.5-5.1)
[2017-03-25] MEDS: PANTOprazole SOD 40 MG TAB PO SCH (09:52)
[2017-03-25] MEDS: ESCITALOPRAM OXALATE 20 MG TAB PO SCH (09:52)
[2017-03-25 11:17] VITALS: BP 75/48; PULSE 61; TEMP 36.6; O2SAT 95
[2017-03-25] MEDS ORDERED: DiphenhydrAMINE INJ 12.5 MG in SYRINGE 0 ML IV SCH (12:30)
[2017-03-25] MEDS ORDERED: DiphenhydrAMINE HCL 50 MG/ML VIAL IV STA (12:43)
--- NOTE | 2017-03-25 12:44 | Progress Note ---
Internal Med Progress Note Date of Service: Mar 25, 2017. Provider Documentation: SUBJECTIVE: The patient was seen and examined S/P I&D of the right upper anterior port abscess Complains of local pain and Migraine Complains of Headache and lack of sleep No Fever,chills No nausea and or vomiting OBJECTIVE: Vital Signs-as noted below Exam: General-NO distress at rest Eyes-normal ENT-normal Neck-supple Lungs-Clear to ausucltate bilaterally Heart-Regular,no murmur appreciated Abdomen-Benign,no masses,bowel sound present Extremities-NO edema Neuro-AAOx3 Lab data as noted below. ASSESSMENT & PLAN: ABSCESS AT THE RIGHT UPPER ANTERIOR CHEST PORT SITE - patient presenting with drainage from prior port site; US in the ED showing 2.5cm abscess - port was in place for prior breast cancer treatments which have been completed ; s/p removal 01/31 - no signs of sepsis - surgery consulted;Appreciate Input -S/P I&D - blood culture-negative MRSA screen-negative Wound cultures-pending - due to patient's several allergies, she will be placed on Daptomycin and Aztreonam for now and adjust per culture results -ID consulted -appreciate input DIARRHEA - check stool studies -pending -seems improved HEADACHE - patient reports history of migraines - in the ED she received IV Tylenol, IV Benadryl, IV Phenergan, IV Zofran, and IVF - patient requesting narcotics for migraine - discussed with patient that narcotics are not indicated for migraines and can make the headaches worse - offered patient Toradol however she reports anaphylaxis to it in the past; after review of prior records patient has received Toradol in the past without any documented adverse reactions - will try Fioricet -IV Phenergan and Oral Benadryl PRN -Headache is worse-karen try small dose of IV Benadryl -No Dilaudid HYPOTHYROIDISM - continue levothyroxine ANXIETY, DEPRESSION - continue escitalopram and PRN Xanax DVT PROPHYLAXIS - SCDs in light of planned surgical procedure DISPO Await C/S Likely discharge tomorrow Vital Signs: Date Time Temp Pulse Resp B/P (MAP) Pulse Ox O2 Delivery O2 Flow Rate FiO2 03/25/17 11:17 36.6 61 18 75/48 (57) 95 Room Air 03/25/17 07:25 Room Air 03/25/17 07:11 36.5 55 16 99/67 (78) 98 Room Air 03/24/17 23:50 Room Air 03/24/17 22:50 36.7 55 16 99/65 (76) 96 Room Air 03/24/17 19:00 36.6 58 18 92/60 (71) 96 Room Air 03/24/17 17:00 Room Air 03/24/17 16:14 36.4 77 14 82/54 (63) 99 Room Air 03/24/17 14:00 36.3 65 14 102/66 (78) 96 Room Air 03/24/17 13:34 36.4 62 13 104/59 (74) 95 Room Air 03/24/17 13:00 36.4 59 16 97/64 (75) 95 Room Air 03/24/17 13:00 95 Room Air 03/24/17 13:00 95 Room Air 03/24/17 12:40 36.4 63 19 105/65 96 Room Air Lab Results: Results Past 24 Hours Test 03/25/17 08:18 Range/Units White Blood Count 5.60 4.8-10.8 K/uL Red Blood Count 3.37 4.2-5.4 M/uL Hemoglobin 9.8 12.0-16.0 g/dL Hematocrit 30.8 37-47 % Mean Corpuscular Volume 91.4 80-100 fL Mean Corpuscular Hemoglobin 29.1 25-34 pg Mean Corpuscular Hemoglobin Concent 31.8 32-36 g/dl RDW Standard Deviation 42.3 36.4-46.3 fL RDW Coefficient of Variation 12.7 11.5-14.5 % Platelet Count 178 130-400 K/uL Mean Platelet Volume 10.2 7.4-10.4 fL Sodium Level 140 136-145 mmol/L Potassium Level 4.1 3.5-5.1 mmol/L Chloride Level 104 98-107 mmol/L Carbon Dioxide Level 29 21-32 mmol/L Anion Gap 7.0 3-11 mmol/L Blood Urea Nitrogen 11 7-18 mg/dl Creatinine 0.75 0.60-1.20 mg/dl Est Creatinine Clear Calc Drug Dose 70.7 ml/min Estimated GFR () 110.8 Estimated GFR (Non- 95.6 BUN/Creatinine Ratio 14.1 10-20 Random Glucose 108 70-99 mg/dl Calcium Level 8.5 8.5-10.1 mg/dl Phosphorus Level 3.8 2.5-4.9 mg/dl Magnesium Level 2.0 1.8-2.4 mg/dl Microbiology Results 03/24/17 MRSA DNA Surveillance Screen - Final, Complete Specimen Negative for MRSA by DNA Probe
[2017-03-25 16:12] VITALS: BP 85/61; PULSE 62; TEMP 36.7; O2SAT 96
[2017-03-25] MEDS: DAPTOmycin IV 225 MG in SYRINGE 0 ML IV SCH (18:04)
[2017-03-25] MEDS: ROPINIROLE HCL 1 MG TAB PO SCH (21:29)
[2017-03-25] MEDS: ZOLPIDEM TARTRATE 10 MG TAB PO PRN (22:41)
[2017-03-25 23:05] VITALS: BP 99/64; PULSE 62; TEMP 36.4; O2SAT 96
[2017-03-26] MEDS: PROMETHAZINE HCL INJ 12.5 MG in SODIUM CHLORIDE 0.9% 50ML 50 ML IV PRN (00:11)
[2017-03-26] MEDS: AZTREONAM IV 1,000 MG in DEXTROSE 5% 100ML IV SCH ×2 (01:30→10:12)
[2017-03-26] MEDS: LEVOTHYROXINE 50 MCG TAB PO SCH (05:32)
[2017-03-26 07:21] VITALS: BP 101/66; PULSE 57; TEMP 36.5; O2SAT 98
[2017-03-26] MEDS: ONDANSETRON INJ 2 MG/ML 2 ML VIAL IV PRN (07:37)
[2017-03-26] MEDS: PANTOprazole SOD 40 MG TAB PO SCH (07:38)
[2017-03-26] MEDS: ESCITALOPRAM OXALATE 20 MG TAB PO SCH (07:38)
--- NOTE | 2017-03-26 11:55 | Progress Note ---
Internal Med Progress Note Date of Service: Mar 26, 2017. Provider Documentation: SUBJECTIVE: The patient was seen and examined S/P I&D of the right upper anterior port abscess Complains of local pain and Migraine Remains stable Generally weak otherwise OK OBJECTIVE: Vital Signs-as noted below Exam: General-No distress at rest Eyes-normal ENT-normal Neck-supple Lungs-Clear to ausucltate bilaterally Heart-Regular,no murmur appreciated Abdomen-Benign,no masses,bowel sound present Extremities-NO edema Neuro-AAOx3 Lab data as noted below. ASSESSMENT & PLAN: ABSCESS AT THE RIGHT UPPER ANTERIOR CHEST PORT SITE - patient presenting with drainage from prior port site; US in the ED showing 2.5cm abscess - port was in place for prior breast cancer treatments which have been completed ; s/p removal 01/31 - no signs of sepsis - surgery consulted;Appreciate Input -S/P I&D - blood culture-negative MRSA screen-negative Wound cultures-Staph Aureus and Coagulase Neg Staph:sensitive to Clinda and Oxacillin - due to patient's several allergies, she will be placed on Daptomycin and Aztreonam for now and adjust per culture results -Discussed with ID and Surgery -will start Clindamycin for 14 days DIARRHEA - check stool studies -pending -seems improved -will give Lactinex HEADACHE - patient reports history of migraines - in the ED she received IV Tylenol, IV Benadryl, IV Phenergan, IV Zofran, and IVF - patient requesting narcotics for migraine - discussed with patient that narcotics are not indicated for migraines and can make the headaches worse - offered patient Toradol however she reports anaphylaxis to it in the past; after review of prior records patient has received Toradol in the past without any documented adverse reactions - will try Fioricet -IV Phenergan and Oral Benadryl PRN -Headache is worse-will try small dose of IV Benadryl -No Dilaudid HYPOTHYROIDISM - continue levothyroxine ANXIETY, DEPRESSION - continue escitalopram and PRN Xanax DVT PROPHYLAXIS - SCDs in light of planned surgical procedure DISPO Await C/S Discharge today Vital Signs: Date Time Temp Pulse Resp B/P (MAP) Pulse Ox O2 Delivery O2 Flow Rate FiO2 03/26/17 07:30 Room Air 03/26/17 07:21 36.5 57 17 101/66 (78) 98 Room Air 03/25/17 23:55 Room Air 03/25/17 23:05 36.4 62 16 99/64 (76) 96 Room Air 03/25/17 16:12 36.7 62 16 85/61 (69) 96 Room Air 03/25/17 15:35 Room Air
[2017-03-26] MEDS ORDERED: CLINDAMYCIN HCL 150 MG CAP PO SCH (12:00)
[2017-03-26] MEDS ORDERED: LACTOBACILLUS ACIDOPHILUS (FLORANEX) TAB PO SCH (12:30)
[2017-03-26] MEDS ORDERED: LCTX PO (13:09)
[2017-03-26] MEDS ORDERED: CLC150 PO (13:09)
--- NOTE | 2017-03-26 13:13 | Discharge Instructions ---
Discharge Instructions Date of Service Mar 26, 2017. Admission Reason for Admission: Abscess Discharge Discharge Diagnosis / Problem: Rt upper ant chest wall (Port)Abscess s/p I&D Discharge Goals Goal(s): Prevent Disease Progression Activity Recommendations Activity Limitations: resume your previous activity . Instructions / Follow-Up Instructions / Follow-Up Dr Wynn on 03/30/17 at 10:25 AM.Keep appointment with the surgeon.Dry dressing ith 4X4 Gauge daily and keep it dry. Current Hospital Diet Patient's current hospital diet: Regular Diet Discharge Diet Recommended Diet: Regular Diet Procedures Procedures Performed: Right Chest Wall Abscess Incision and Drainage Pending Studies Studies pending at discharge: no Medical Emergencies . Who to Call and When: Medical Emergencies: If at any time you feel your situation is an emergency, please call 911 immediately. . Non-Emergent Contact Non-Emergency issues call your: Primary Care Provider . Past History Medical & Surgical History: (1) Chest wall abscess (2) Hypothyroidism (3) Migraines (4) Depression with anxiety (5) Breast cancer (6) History of lumpectomy . "Provider Documentation" section prepared by Juan C Arias. . VTE Core Measure Inpt VTE Proph given/why not?: SCD's
[2017-03-26 13:27] VITALS: BP 101/66; PULSE 57; TEMP 36.5; O2SAT 98
--- NOTE | 2017-03-27 06:58 | OPERATIVE REPORT ---
DATE OF OPERATION: 03/24/2017 PREOPERATIVE DIAGNOSIS: Abscess on the right chest wall. POSTOPERATIVE DIAGNOSIS: Same. PROCEDURE: I&D abscess on the right chest wall. SURGEON: Jess Ordoñez MD. ANESTHESIA: Sedation plus local. ESTIMATED BLOOD LOSS: About 5 mL IV FLUIDS: 600 mL FINDING: Abscess on the right chest wall. COMPLICATIONS: None. INDICATION FOR THE PROCEDURE: This is a 47-year-old female who presented to the ED with 3-week history of right chest wall incision and drainage after the patient had a port removed about 3 weeks ago. The patient had an ultrasound showing possible abscess on the right chest wall. The patient will be required to do I&D abscess on the right chest wall. I did talk to the patient about the benefit and risk, alternate procedure. I indicated the risks may include but not limited such as bleeding, infection, scar, cosmetic deformation, nonhealing wound. The patient understands, she signed informed consent and she agreed to proceed with the procedure. I answered all her questions. DETAILS OF PROCEDURE: We brought the patient to the OR, put the patient in supine position. The patient received SCD on bilateral legs to prevent DVT. Also, the patient received 400 mg of Cipro IV for prophylactic antibiotic. The patient received conscious sedation by anesthesiology. Right-sided chest wall was appropriately prepped in routine fashion, and then we injected local anesthesia around the incision site of the right chest wall by using 1% lidocaine mixed with 0.5% Marcaine. The patient had about a 3 cm incision on the right chest wall. In the center, there was one opening and there was some pus coming out. We did send this for wound culture and also I used a 15 blade and removed the old scar and used Bovie to take down the whole abscess cavity, and based on the patient had 18-month history, port insertion site to form the scar. So we removed the old scar with abscess. Hemostasis was obtained. Then, I put 1 drainage in the wound, and based on the patient had history of immunodeficiency, I closed the wound with interrupted 3-0 Vicryl loosely. We put the dressing on. The patient tolerated the procedure well, and after the procedure, the patient transferred to recovery room in stable condition. After the procedure, I did talk to the patient the OR finding and procedure we did, the patient understood. The patient will stay in the hospital overnight, may send home tomorrow. I attest to the content of the Intraoperative Record and any orders documented therein. Any exceptions are noted below. MTDD
--- NOTE | 2017-03-27 07:42 | Discharge Summary ---
Discharge Summary Date of Service Mar 27, 2017. Discharge Summary Admission Date: Mar 23, 2017 at 14:38 Discharge Date: Mar 26, 2017 Discharge Disposition: Home Principal Diagnosis: Rt upper ant chest wall (Port)Abscess s/p I&D Secondary Diagnoses/Problems: Please see H&P and Hospital progress note Procedures: I&D of Port Abscess Consultations: Surgery Medication Reconciliation New Medications: Clindamycin HCl (Clindamycin HCl) 150 Mg Cap 300 MG PO Q6HWA for 10 Days, #40 CAP Lactobacillus Acidophilus (Floranex) 1 Tab Tab 4 TAB PO TIDM for 10 Days, #120 TAB Continued Medications: Alprazolam (Xanax) 1 Mg Tab 1 MG PO TID PRN for Anxiety, TAB Clotrimazole (Mycelex) 10 Mg Tro 10 MG PO TID PRN for thrush for 7 Days, #35 TAB Escitalopram Oxalate (Lexapro) 20 Mg Tab 1 TAB PO DAILY for 90 Days, #90 TAB 3 Refills Levothyroxine Sodium (Levothyroxine Sodium) 50 Mcg Tab 50 MCG PO QAM, TAB Mometasone Furoate (Nasal) (Mometasone Furoate) 50 Mcg/Act Spr 2 SPRAYS ALANIS DAILY Montelukast Sodium (Montelukast Sodium) 10 Mg Tab 1 TAB PO DAILY PRN for allergies for 30 Days, #30 TAB 5 Refills Ondansetron Odt (Zofran Odt) 8 Mg Soltab 8 MG SL Q8 PRN for Nausea, TAB Pantoprazole (Protonix) 40 Mg Tab 40 MG PO DAILY, #30 TAB Ropinirole Hydrochloride (Requip) 1 Mg Tab 1 TAB PO HS for 30 Days, #30 TAB 2 Refills Zolpidem Tartrate (Zolpidem Tartrate) 10 Mg Tab 10 MG PO HS PRN for Insomnia Admission Information HPI (per Admitting provider): 47 year old female who presents to the ED with drainage from a previous port site. Patient had a right chest port placed about 2 years ago due for treatments for breast cancer. Port was no longer needed so it was removed on . Patient reports sutures were removed about 2 weeks following. Shortly after the sutures were removed, patient reports the incision opened back up and she has had persistent drainage. Patient was seen at [facility] ED as well as per PCPs office however no signs of infection were suspected. Patient reports large amounts of purulent and bloody drainage about twice a day. She has felt chilled but denies fever. She reports diarrhea and a couple of episodes of vomiting the past 2 days. She denies BRBPR, dark tarry stools, hematemesis, or coffee ground emesis. No abdominal pain. She denies chest pain, shortness of breath, lightheadedness, dizziness, diaphoresis, or syncopal events. No urinary symptoms. She reports she gets frequent migraines and has had one for the past two days. In the ED, she received IV Tylenol, IV Benadryl, IV Phenergan, IV Zofran, and IVF. Patient reports headache is still present. Toradol was offered to the patient however she reports that it "makes my throat close shut." Noted that prior to myself walking into the room, the patient was using her cell phone in no acute distress. US was preformed in the ED of the prior port site that showed a 2.5cm abscess. Past Medical/Surgical History Medical Problems: (1) Breast cancer Permanent Comment: STAGING: Left breast, invasive ductal carcinoma, grade 2, ER/ Her2 positive, HI negative, [id number], stage IA TREATMENT: 1. Lumpectom/SLN - 04/03/2015 2. Re-excision to obtain negative margins - 12/11/2015 3. Partial course of chemotherapy - Taxotere/Carboplatin/Herceptin - 5 cycles. Patient has refused further treatment including Herceptin. Status: Chronic (2) Depression with anxiety Status: Chronic (3) Hypothyroidism Status: Chronic (4) Migraines Status: Chronic Surgical Problems: (1) History of lumpectomy Status: Resolved Family History FH: breast cancer MOTHER Social History Smoking Status: Never Smoker Alcohol Use: none Immunizations History of Influenza Vaccine: Yes Influenza Vaccine Date: Mar 07, 2017 History of Tetanus Vaccine?: Yes Tetanus Immunization Date: Mar 07, 2011 History of Pneumococcal: No Pneumococcal Date: May 17, 2013 Allergies Coded Allergies: Iodinated Diagnostic Agents (Verified Allergy, Severe, Throat swells - IV contrast, 03/23/17) Adhesives (Verified Allergy, Intermediate, TAPE- HIVES, 03/23/17) Cephalexin (Verified Allergy, Intermediate, Hives, throat swelling, ) Codeine (Verified Allergy, Intermediate, Hives, 03/23/17) Latex1 -Allergic Contact Dermititis (Verified Allergy, Intermediate, SWELLS AND HIVES, 03/23/17) Penicillins (Verified Allergy, Intermediate, HIVES, THROAT SWELLING, ) [place] (Verified Allergy, Intermediate, HIVES, 03/23/17) Sulfa Antibiotics (Verified Allergy, Intermediate, Hives, 03/23/17) Vancomycin (Verified Allergy, Intermediate, HIVES, 03/23/17) Loratadine (Verified Allergy, Mild, Hives, 03/23/17) Morphine (Verified Allergy, Mild, Hives, 03/23/17) Tramadol (Verified Allergy, Mild, Hives, 03/23/17) Home Medications Scheduled Escitalopram Oxalate (Lexapro), 1 TAB PO DAILY Levothyroxine Sodium (Levothyroxine Sodium), 50 MCG PO QAM Mometasone Furoate (Nasal) (Mometasone Furoate), 2 SPRAYS ALANIS DAILY Pantoprazole (Protonix), 40 MG PO DAILY Ropinirole Hydrochloride (Requip), 1 TAB PO HS Scheduled PRN Alprazolam (Xanax), 1 MG PO TID PRN for Anxiety Clotrimazole (Mycelex), 10 MG PO TID PRN for thrush Montelukast Sodium (Montelukast Sodium), 1 TAB PO DAILY PRN for allergies Ondansetron Odt (Zofran Odt), 8 MG SL Q8 PRN for Nausea Zolpidem Tartrate (Zolpidem Tartrate), 10 MG PO HS PRN for Insomnia Review of Systems ROS per HPI, all other systems reviewed and negative Physical Exam Vital Signs Date Time Temp Pulse Resp B/P (MAP) Pulse Ox O2 Delivery O2 Flow Rate FiO2 03/23/17 16:31 100 Room Air 03/23/17 16:25 36.5 53 18 113/63 (80) 97 Room Air 03/23/17 15:49 60 16 109/75 100 Room Air 03/23/17 14:06 60 18 116/80 100 Room Air 03/23/17 12:22 54 18 106/73 98 Room Air 03/23/17 10:17 36.5 59 16 117/65 99 Room Air General Appearance: WD/WN, no apparent distress Head: normocephalic, atraumatic Eyes: normal inspection, EOMI, sclerae normal ENT: hearing grossly normal, + pertinent finding (mucous membranes moist) Neck: supple, no JVD, trachea midline Respiratory/Chest: lungs clear, normal breath sounds, no respiratory distress Cardiovascular: regular rate, rhythm, no edema, normal peripheral pulses Abdomen/GI: normal bowel sounds, non tender, soft, no organomegaly Extremities/Musculoskelatal: normal inspection, no calf tenderness, normal capillary refill Neurologic/Psych: no motor/sensory deficits, alert, normal mood/affect, oriented x 3 Skin: + pertinent finding (incision site from prior port noted on the right chest; minimal redness noted, no drainage) Diagnostics Laboratory Results Results Past 24 Hours Test 03/23/17 11:29 Range/Units White Blood Count 5.88 4.8-10.8 K/uL Red Blood Count 3.75 4.2-5.4 M/uL Hemoglobin 11.2 12.0-16.0 g/dL Hematocrit 33.9 37-47 % Mean Corpuscular Volume 90.4 80-100 fL Mean Corpuscular Hemoglobin 29.9 25-34 pg Mean Corpuscular Hemoglobin Concent 33.0 32-36 g/dl Platelet Count 195 130-400 K/uL Mean Platelet Volume 10.5 7.4-10.4 fL Neutrophils (%) (Auto) 54.4 % Lymphocytes (%) (Auto) 33.2 % Monocytes (%) (Auto) 9.0 % Eosinophils (%) (Auto) 2.7 % Basophils (%) (Auto) 0.5 % Neutrophils # (Auto) 3.20 1.4-6.5 K/uL Lymphocytes # (Auto) 1.95 1.2-3.4 K/uL Monocytes # (Auto) 0.53 0.11-0.59 K/uL Eosinophils # (Auto) 0.16 0-0.5 K/uL Basophils # (Auto) 0.03 0-0.2 K/uL RDW Standard Deviation 41.4 36.4-46.3 fL RDW Coefficient of Variation 12.5 11.5-14.5 % Immature Granulocyte % (Auto) 0.2 % Immature Granulocyte # (Auto) 0.01 0.00-0.02 K/uL Sodium Level 139 136-145 mmol/L Potassium Level 3.7 3.5-5.1 mmol/L Chloride Level 105 98-107 mmol/L Carbon Dioxide Level 31 21-32 mmol/L Anion Gap 3.0 3-11 mmol/L Blood Urea Nitrogen 20 7-18 mg/dl Creatinine 0.70 0.60-1.20 mg/dl Est Creatinine Clear Calc Drug Dose 75.7 ml/min Estimated GFR () 120.4 Estimated GFR (Non- 103.9 BUN/Creatinine Ratio 29.2 10-20 Random Glucose 85 70-99 mg/dl Calcium Level 9.0 8.5-10.1 mg/dl Total Bilirubin 0.3 0.2-1 mg/dl Direct Bilirubin < 0.1 0-0.2 mg/dl Aspartate Amino Transf (AST/SGOT) 34 15-37 U/L Alanine Aminotransferase (ALT/SGPT) 23 12-78 U/L Alkaline Phosphatase 112 45-117 U/L Total Protein 7.2 6.4-8.2 gm/dl Albumin 3.7 3.4-5.0 gm/dl Microbiology Results 03/23/17 Blood Culture, Received Pending 03/23/17 Blood Culture, Received Pending 03/23/17 Gram Stain, Received Pending 03/23/17 Wound Culture, Received Pending Diagnostic Radiology SOFT TISSUE US IMPRESSION: Complex ovoid hypoechoic collection at the area of concern measures up to 2.5 cm extending towards the skin surface, suspicious for small phlegmon or developing abscess. CXR IMPRESSION: Status post removal of previously noted right subclavian [id number] catheter. No pneumothorax or acute cardiopulmonary process. Impression Assessment and Plan ABSCESS - admit to med/surg - patient presenting with drainage from prior port site; US in the ED showing 2.5cm abscess - port was in place for prior breast cancer treatments which have been completed ; s/p removal 01/31 - no signs of sepsis - surgery consulted; planned for OR tomorrow for I&D - blood and wound cultures - due to patient's several allergies, she will be placed on Daptomycin and Aztreonam for now and adjust per culture results DIARRHEA - check stool studies HEADACHE - patient reports history of migraines - in the ED she received IV Tylenol, IV Benadryl, IV Phenergan, IV Zofran, and IVF - patient requesting narcotics for migraine - discussed with patient that narcotics are not indicated for migraines and can make the headaches worse - offered patient Toradol however she reports anaphylaxis to it in the past; after review of prior records patient has received Toradol in the past without any documented adverse reactions - will try Fioricet HYPOTHYROIDISM - continue levothyroxine ANXIETY, DEPRESSION - continue escitalopram and PRN Xanax DVT PROPHYLAXIS - SCDs in light of planned surgical procedure DISPO - In my clinical judgment this beneficiary meets acute admission criteria, established by [facility], that includes being hospitalized through two midnights. ATTENDING ADDENDUM: pt seen and examined , in agreement with above H&P by Angeline SANTAMARIA 47 yo F , hx of breast CA on remission had rt sided subclavian port removed approx 6 weeks back pt mentions she thinks she is allergic to stitches, after the surgical sutures are removed 14 days post procedure , her wound never healed she will have intermittent pus draining form the incision site was treated with PO Clindamycin by her family physician , no improvement in the ER -noted to have pus drainage form the port removal site USG of chest wall shows abscess pt is afebrile , normal white count , no evidence of sepsis will be admitted to medical floor, surgery evaluated pt , plan for I&D tomorrow pt will be continued with empiric Abx with Daptomycin and Azactam ( allergic to multiple agents ) ID eval requested Shirley Becerril MD Advanced Directives Existing Living Will: No Existing Power of Forensic Medical Examiner: No VTE Prophylaxis VTE Risk Assessment Done? Y/N: Yes Risk Level: Moderate Physical Exam (per Admitting): General Appearance: WD/WN, no apparent distress Head: normocephalic, atraumatic Eyes: normal inspection, EOMI, sclerae normal ENT: hearing grossly normal, + pertinent finding (mucous membranes moist) Neck: supple, no JVD, trachea midline Respiratory/Chest: lungs clear, normal breath sounds, no respiratory distress Cardiovascular: regular rate, rhythm, no edema, normal peripheral pulses Abdomen/GI: normal bowel sounds, non tender, soft, no organomegaly Extremities/Musculoskelatal: normal inspection, no calf tenderness, normal capillary refill Neurologic/Psych: no motor/sensory deficits, alert, normal mood/affect, oriented x 3 Skin: + pertinent finding (incision site from prior port noted on the right chest; minimal redness noted, no drainage) Hospital Course ABSCESS AT THE RIGHT UPPER ANTERIOR CHEST PORT SITE - patient presenting with drainage from prior port site; US in the ED showing 2.5cm abscess - port was in place for prior breast cancer treatments which have been completed ; s/p removal 01/31 - no signs of sepsis - surgery consulted;Appreciate Input -S/P I&D - blood culture-negative MRSA screen-negative Wound cultures-Staph Aureus and Coagulase Neg Staph:sensitive to Clinda and Oxacillin - due to patient's several allergies, she will be placed on Daptomycin and Aztreonam for now and adjust per culture results -Discussed with ID and Surgery -will start Clindamycin for 14 days DIARRHEA - check stool studies -pending -seems improved -will give Lactinex HEADACHE - patient reports history of migraines - in the ED she received IV Tylenol, IV Benadryl, IV Phenergan, IV Zofran, and IVF - patient requesting narcotics for migraine - discussed with patient that narcotics are not indicated for migraines and can make the headaches worse - offered patient Toradol however she reports anaphylaxis to it in the past; after review of prior records patient has received Toradol in the past without any documented adverse reactions - will try Fioricet -IV Phenergan and Oral Benadryl PRN -Headache is worse-will try small dose of IV Benadryl -No Dilaudid HYPOTHYROIDISM - continue levothyroxine ANXIETY, DEPRESSION - continue escitalopram and PRN Xanax DVT PROPHYLAXIS - SCDs in light of planned surgical procedure DISPO Await C/S Discharge today Total time spent on discharge = 35 minutes This includes examination of the patient, discharge planning, medication reconciliation, and communication with other providers. Discharge Instructions Date of Service Mar 26, 2017. Admission Reason for Admission: Abscess Discharge Discharge Diagnosis / Problem: Rt upper ant chest wall (Port)Abscess s/p I&D Discharge Goals Goal(s): Prevent Disease Progression Activity Recommendations Activity Limitations: resume your previous activity . Instructions / Follow-Up Instructions / Follow-Up Dr Wynn on 03/30/17 at 10:25 AM.Keep appointment with the surgeon.Dry dressing ith 4X4 Gauge daily and keep it dry. Current Hospital Diet Patient's current hospital diet: Regular Diet Discharge Diet Recommended Diet: Regular Diet Procedures Procedures Performed: Right Chest Wall Abscess Incision and Drainage Pending Studies Studies pending at discharge: no Medical Emergencies . Who to Call and When: Medical Emergencies: If at any time you feel your situation is an emergency, please call 911 immediately. . Non-Emergent Contact Non-Emergency issues call your: Primary Care Provider . Past History Medical & Surgical History: (1) Chest wall abscess (2) Hypothyroidism (3) Migraines (4) Depression with anxiety (5) Breast cancer (6) History of lumpectomy . "Provider Documentation" section prepared by Juan C Arias. . VTE Core Measure Inpt VTE Proph given/why not?: SCD's <Electronically signed by Juan C Arias M.D.> Signed: 03/26/17 1313 Additional Copies To Deysi Wynn D.O.
== END 2017-03-26 13:48 | disposition home or self-care (01) | DRG 863 ==
LOC: C.EDB 10:12 → C.MSN 14:38 → ENRESERV 15:28
PROVIDERS: ADMIT Hospitalist; ATTEND Internal Medicine
PROC: 0J963ZZ Drainage of Chest Subcutaneous Tissue and Fascia, Percutaneous Approach (ICD-10-PCS; principal; 2017-03-24 12:30)
DX: T81.4XXA Infection following a procedure, initial encounter (principal); L02.213 Cutaneous abscess of chest wall; B95.61 Methicillin susceptible Staphylococcus aureus infection as the cause of diseases classified elsewhere; E03.9 Hypothyroidism, unspecified; F32.9 Major depressive disorder, single episode, unspecified; F41.9 Anxiety disorder, unspecified; R19.7 Diarrhea, unspecified; R51 Headache; Z79.899 Other long term (current) drug therapy; Y83.8 Other surgical procedures as the cause of abnormal reaction of the patient, or of later complication, without mention of misadventure at the time of the procedure

== ENCOUNTER 2017-04-18 18:41 | Emergency (ER) | payer OTHER ==
[~2017-04-18] VITALS: Ht 157.5 cm; Wt 51.3 kg
[~2017-04-18 18:41] MED LIST changes: +CLC150 PO; +CLOT10TR PO; +ESCI1TAB18 PO; +LCTX PO; +MONT1TAB5 PO; -OXYC-57 PO; +PANT1TAB48 PO; -ROPI0.5T PO; +ROPI1TAB PO
[2017-04-18 18:51] VITALS: TEMP 36.3; Ht 157.5 cm; Wt 51.3 kg
--- NOTE | 2017-04-18 19:12 | EMERGENCY ROOM VISIT NOTE ---
History Report prepared by Joyce: Sachin Mckeon Under the Supervision of: Dr. Danny Karimi D.O. First contact with patient: 18:55 Chief Complaint: INFECTION Stated Complaint: WAS HERE FOR WOUND INFECTION ON 03/24 History of Present Illness The patient is a 47 year old female who presents to the Emergency Room with complaints of a persistent wound infection that began a couple months ago. The patient has a history of breast cancer that is now in remission. She had a port in her right upper chest to receive medications and treatments. She had this port removed in January. At the end of the month, she had her stitches removed. Since then, she has been having these issues. 25 days ago, she was seen in this hospital to clean the area. At this time, they found that the patient had a Staph infection. Since then, her wound has still not healed and has been draining fluid. She states that when she woke up this morning, her wound was open and draining blood. She is having pain and swelling to the area. She denies any fevers. Source of History: patient Onset: a couple months ago Position: chest (right upper) Symptom Intensity: mild Quality: other (Possible infection) Timing: constant Associated Symptoms: No fevers Note: She is having some pain and swelling to the area. Review of Systems See HPI for pertinent positives & negatives. A total of 10 systems reviewed and were otherwise negative. Past Medical & Surgical Medical Problems: (1) Breast cancer (2) Chest wall abscess (3) Depression with anxiety (4) Hypothyroidism (5) Migraines Surgical Problems: (1) History of lumpectomy Family History FH: breast cancer MOTHER Social History Smoking Status: Never Smoker Smokeless Tobacco Use: No Alcohol Use: none Housing Status: lives alone Current/Historical Medications Scheduled Escitalopram Oxalate (Lexapro), 1 TAB PO DAILY Lactobacillus Acidophilus (Floranex), 4 TAB PO TIDM Levothyroxine Sodium (Levothyroxine Sodium), 50 MCG PO QAM Mometasone Furoate (Nasal) (Mometasone Furoate), 2 SPRAYS ALANIS DAILY Pantoprazole (Protonix), 40 MG PO DAILY Ropinirole Hydrochloride (Requip), 1 TAB PO HS Scheduled PRN Alprazolam (Xanax), 1 MG PO TID PRN for Anxiety Clotrimazole (Mycelex), 10 MG PO TID PRN for thrush Montelukast Sodium (Montelukast Sodium), 1 TAB PO DAILY PRN for allergies Ondansetron Odt (Zofran Odt), 8 MG SL Q8 PRN for Nausea Zolpidem Tartrate (Zolpidem Tartrate), 10 MG PO HS PRN for Insomnia Allergies Coded Allergies: Iodinated Diagnostic Agents (Verified Allergy, Severe, Throat swells - IV contrast, 03/23/17) Adhesives (Verified Allergy, Intermediate, TAPE- HIVES, 03/23/17) Cephalexin (Verified Allergy, Intermediate, Hives, throat swelling, ) Codeine (Verified Allergy, Intermediate, Hives, 03/23/17) Latex1 -Allergic Contact Dermititis (Verified Allergy, Intermediate, SWELLS AND HIVES, 03/23/17) Penicillins (Verified Allergy, Intermediate, HIVES, THROAT SWELLING, ) [place] (Verified Allergy, Intermediate, HIVES, 03/23/17) Sulfa Antibiotics (Verified Allergy, Intermediate, Hives, 03/23/17) Vancomycin (Verified Allergy, Intermediate, HIVES, 03/23/17) Loratadine (Verified Allergy, Mild, Hives, 03/23/17) Morphine (Verified Allergy, Mild, Hives, 03/23/17) Tramadol (Verified Allergy, Mild, Hives, 03/23/17) Physical Exam Vital Signs Date Time Temp Pulse Resp B/P (MAP) Pulse Ox O2 Delivery O2 Flow Rate FiO2 04/18/17 21:59 72 18 104/71 98 04/18/17 21:46 70 17 100 04/18/17 21:31 61 16 104/65 04/18/17 21:16 65 20 100 04/18/17 21:01 71 21 97/74 04/18/17 20:48 96/73 04/18/17 20:46 70 20 100 04/18/17 20:31 67 20 97/63 04/18/17 20:21 91/69 04/18/17 20:16 70 18 100 04/18/17 20:11 65 16 100 04/18/17 20:01 87/66 04/18/17 19:56 68 23 100 04/18/17 19:41 80 19 109/78 100 Room Air 04/18/17 19:26 74 20 04/18/17 19:24 68 04/18/17 18:51 36.3 80 16 107/77 100 Room Air Physical Exam GENERAL: Patient is awake, alert, and in no acute distress. Patient is resting comfortably and showing no signs of anxiety EYES: The conjunctivae are clear. The pupils are round and reactive. EARS, NOSE, MOUTH AND THROAT: The nose is without any evidence of any deformity. Mucous membranes are moist tongue is midline NECK: The neck is nontender and supple. RESPIRATORY: Normal respiratory effort is noted there is no evidence of wheezing rhonchi or rales CARDIOVASCULAR: Regular rate and rhythm noted there no murmurs rubs or gallops normal S1 normal S2 GASTROINTESTINAL: The abdomen is soft. Bowel sounds are present in all quadrants. Abdomen is nontender MUSCULOSKELETAL/EXTREMITIES: There is no evidence of gross deformity full range of motion is noted in the hips and shoulders SKIN: There was a non-healed surgical site on right upper chest wall consistent with a recent port removal and abscess I&D without erythema, drainage, or swelling. There is no obvious evidence of any rash. There are no petechiae, pallor or cyanosis noted. NEUROLOGIC: Patient is awake alert and oriented x3. Medical Decision & Procedures ER Provider Diagnostic Interpretation: Radiology results as stated below per my review and radiologist interpretation: CHEST ONE VIEW PORTABLE CLINICAL HISTORY: infection, RU chest wall pain COMPARISON STUDY: 03/23/2017 FINDINGS: The bones soft tissues and hemidiaphragms are normal. The cardiomediastinal silhouette is normal. The lungs are clear. The pulmonary vasculature is normal. IMPRESSION: Negative chest. The above report was generated using voice recognition software. It may contain grammatical, syntax or spelling errors. Electronically signed by: Blas Gomez M.D. 04/18/2017 8:52 PM Dictated Date/Time: 04/18/2017 8:52 PM Laboratory Results 04/18/17 19:35 Red Blood Count 3.96, Mean Corpuscular Volume 91.7, Mean Corpuscular Hemoglobin 30.1, Mean Corpuscular Hemoglobin Concent 32.8, Mean Platelet Volume 10.1, Neutrophils (%) (Auto) 56.5, Lymphocytes (%) (Auto) 34.4, Monocytes (%) (Auto) 5.7, Eosinophils (%) (Auto) 2.9, Basophils (%) (Auto) 0.4, Neutrophils # (Auto) 4.22, Lymphocytes # (Auto) 2.58, Monocytes # (Auto) 0.43, Eosinophils # (Auto) 0.22, Basophils # (Auto) 0.03 04/18/17 19:35 Test 04/18/17 19:35 White Blood Count 7.49 K/uL (4.8-10.8) Red Blood Count 3.96 M/uL (4.2-5.4) Hemoglobin 11.9 g/dL (12.0-16.0) Hematocrit 36.3 % (37-47) Mean Corpuscular Volume 91.7 fL (80-100) Mean Corpuscular Hemoglobin 30.1 pg (25-34) Mean Corpuscular Hemoglobin Concent 32.8 g/dl (32-36) Platelet Count 250 K/uL (130-400) Mean Platelet Volume 10.1 fL (7.4-10.4) Neutrophils (%) (Auto) 56.5 % Lymphocytes (%) (Auto) 34.4 % Monocytes (%) (Auto) 5.7 % Eosinophils (%) (Auto) 2.9 % Basophils (%) (Auto) 0.4 % Neutrophils # (Auto) 4.22 K/uL (1.4-6.5) Lymphocytes # (Auto) 2.58 K/uL (1.2-3.4) Monocytes # (Auto) 0.43 K/uL (0.11-0.59) Eosinophils # (Auto) 0.22 K/uL (0-0.5) Basophils # (Auto) 0.03 K/uL (0-0.2) RDW Standard Deviation 43.2 fL (36.4-46.3) RDW Coefficient of Variation 12.9 % (11.5-14.5) Immature Granulocyte % (Auto) 0.1 % Immature Granulocyte # (Auto) 0.01 K/uL (0.00-0.02) Erythrocyte Sedimentation Rate 10 mm/hr (0-21) Prothrombin Time 9.4 SECONDS (9.0-12.0) Prothromb Time International Ratio 0.9 (0.9-1.1) Activated Partial Thromboplast Time 25.4 SECONDS (21.0-31.0) Partial Thromboplastin Ratio 1.0 Anion Gap 7.0 mmol/L (3-11) Est Creatinine Clear Calc Drug Dose 61.1 ml/min Estimated GFR () 87.7 Estimated GFR (Non- 75.7 BUN/Creatinine Ratio 25.0 (10-20) Calcium Level 9.0 mg/dl (8.5-10.1) Total Bilirubin 0.2 mg/dl (0.2-1) Direct Bilirubin mg/dl (0-0.2) Aspartate Amino Transf (AST/SGOT) 17 U/L (15-37) Alanine Aminotransferase (ALT/SGPT) 17 U/L (12-78) Alkaline Phosphatase 122 U/L (45-117) C-Reactive Protein < 0.29 mg/dl (0-0.29) Total Protein 7.8 gm/dl (6.4-8.2) Albumin 4.0 gm/dl (3.4-5.0) Chemistry Specimen Hemolysis Laboratory results per my review. Medications Administered Medications (Trade) Dose Ordered Sig/Landon Route Start Time Stop Time Status Last Admin Dose Admin Promethazine HCl 12.5 mg/Sodium Chloride 50.5 ml @ 204 mls/hr NOW STAT IV 04/18/17 19:45 04/18/17 19:59 DC 04/18/17 20:34 204 MLS/HR Sodium Chloride 500 ml @ 999 mls/hr Q31M STAT IV 04/18/17 20:24 04/18/17 20:54 DC 04/18/17 20:34 999 MLS/HR Oxycodone HCl (Roxicodone Immediate Rel 5MG Home Pack) 1 homepack UD ONCE PO 04/18/17 21:15 04/18/17 21:16 DC 04/18/17 21:55 1 HOMEPACK ED Course 1855: The patient was evaluated in room C1. A complete history and physical examination were performed. 1944: Ordered Promethazine HCl 12.5 mg/Sodium Chloride 50.5 ml @ 204 mls/hr IV 2023: Ordered NSS 500 ml @ 999 mls/hr IV 2099: Case management is going to try to get her an appointment with the [facility]. 2114: Ordered Oxycodone HCl 1 homepack PO 2129: Upon reevaluation, the patient is resting. I discussed the results and treatment plan with her. She verbalized agreement of the treatment plan. She was discharged home. Medical Decision Differential diagnosis: Etiologies such as cellulitis, abscess, MRSA infection, DVT, necrotizing fasciitis, dermatitis, drug eruption, as well as others were entertained.. Nursing notes reviewed. Patient's previous electronic medical records were also reviewed. The patient is a 47-year-old female who presented to emergency department for evaluation of a nonhealing postoperative site. The patient had a port in the right side of her chest which was placed for chemotherapy for breast cancer. The patient in the port removed last January. She developed a postoperative wound infection which was treated with incision and drainage at our facility with a general surgeon. Patient returns today with dehiscence of the surgical site. She states that there was some bleeding previously but this time there is no signs of discharge or erythema. I discussed patient's laboratory results with her. I discussed her case with the family caseworker's. They've agreed to attempt to get the patient a follow-up appointment with the wound care center for further management of this wound dehiscence. She was encouraged to return to the emergency department immediately if symptoms change worsen or the need arises otherwise she was encouraged to follow-up with wound care center as soon as possible. Medication Reconcilliation Current Medication List: was personally reviewed by me Blood Pressure Screening Patient's blood pressure: Normal blood pressure Blood pressure disposition: Did not require urgent referral Impression Primary Impression: Wound dehiscence Additional Impression: Status post incision and drainage Scribe Attestation The scribe's documentation has been prepared under my direction and personally reviewed by me in its entirety. I confirm that the note above accurately reflects all work, treatment, procedures, and medical decision making performed by me. Departure Information Dispostion Home / Self-Care Referrals Deysi Wynn D.O. (PCP) Forms HOME CARE DOCUMENTATION FORM, IMPORTANT VISIT INFORMATION, WORK / SCHOOL INSTRUCTIONS Patient Instructions ED Wound Check Post Op No Infec, [facility] L[facility] Additional Instructions Continue all medications as prescribed. Continue to keep the area covered with Band-Aids and triple antibiotic ointment 2-3 times a day. Follow-up with the wound care center soon as possible. Problem Qualifiers
[2017-04-18] MEDS ORDERED: MIRT1TAB27 PO (19:17)
[2017-04-18] MEDS ORDERED: PROMETHAZINE HCL INJ 12.5 MG in SODIUM CHLORIDE 0.9% 50ML 50 ML IV STA (19:45)
[2017-04-18 19:53] LABS: BASO % 0.4 %; BASO ABS # 0.03 K/uL (0-0.2); COMPLETE YES; EOS % 2.9 %; HEMATOCRIT 36.3 % (37-47); IG% 0.1 %; LYMPH % 34.4 %; LYMPH ABS # 2.58 K/uL (1.2-3.4); MEAN CELL VOLUME 91.7 fL (80-100); MEAN CORPUSCULAR HEMOGLOBIN 30.1 pg (25-34); MEAN CORPUSCULAR HGB CONC 32.8 g/dl (32-36); MEAN PLATELET VOLUME 10.1 fL (7.4-10.4); MONO % 5.7 %; NEUT % 56.5 %; PLATELET COUNT 250 K/uL (130-400); RED BLOOD COUNT 3.96 M/uL (4.2-5.4); WHITE BLOOD COUNT 7.49 K/uL (4.8-10.8)
[2017-04-18 20:10] LABS: INR 0.9 (0.9-1.1); PROTHROMBIN TIME (PATIENT) 9.4 SECONDS (9.0-12.0)
[2017-04-18] MEDS ORDERED: SODIUM CHLORIDE 0.9% 500ML 500 ML IV STA (20:24)
[2017-04-18 20:52] LABS: ALKALINE PHOSPHATASE 122 U/L (45-117); ALT/SGPT 17 U/L (12-78); AST/SGOT 17 U/L (15-37); BLOOD UREA NITROGEN 23 mg/dl (7-18); C-REACTIVE PROTEIN < 0.29 mg/dl (0-0.29); CARBON DIOXIDE 28 mmol/L (21-32); CHLORIDE 105 mmol/L (98-107); CREATININE 0.91 mg/dl (0.60-1.20); GLUCOSE 83 mg/dl (70-99); POTASSIUM 4.1 mmol/L (3.5-5.1); SODIUM 140 mmol/L (136-145)
--- NOTE | 2017-04-18 20:54 | DIAGNOSTIC IMAGING REPORT ---
CHEST ONE VIEW PORTABLE CLINICAL HISTORY: infection, RU chest wall pain COMPARISON STUDY: 03/23/2017 FINDINGS: The bones soft tissues and hemidiaphragms are normal. The cardiomediastinal silhouette is normal. The lungs are clear. The pulmonary vasculature is normal. IMPRESSION: Negative chest. The above report was generated using voice recognition software. It may contain grammatical, syntax or spelling errors. Electronically signed by: Blas Gomez M.D. 04/18/2017 8:52 PM Dictated Date/Time: 04/18/2017 8:52 PM
[2017-04-18] MEDS ORDERED: OXYCODONE IR HOME PACK PO ONE (21:15)
[2017-04-18 21:59] VITALS: BP 104/71; PULSE 72; O2SAT 98
== END 2017-04-18 22:03 | disposition home or self-care (01) ==
LOC: C.EDB 18:42 → C.EDC 22:03
DX: T81.30XD Disruption of wound, unspecified, subsequent encounter (principal); X58.XXXA Exposure to other specified factors, initial encounter; Z98.890 Other specified postprocedural states; Z85.3 Personal history of malignant neoplasm of breast; E03.9 Hypothyroidism, unspecified; Z80.3 Family history of malignant neoplasm of breast

== ENCOUNTER 2017-07-31 11:33 | Emergency (ER) | payer OTHER ==
[~2017-07-31] VITALS: Ht 154.9 cm; Wt 56.7 kg
[~2017-07-31 11:33] MED LIST changes: -CLC150 PO; -CLOT10TR PO; -MOME6000 NAE; -MONT1TAB5 PO; -ONDA8TAB62 SL; +PANT1TAB3 PO; -PANT1TAB48 PO; -ROPI1TAB PO; -ZOLP10TA6 PO
[2017-07-31 11:39] VITALS: TEMP 36.7; Ht 154.9 cm; Wt 56.7 kg
[2017-07-31] MEDS ORDERED: SODIUM CHLORIDE 0.9% 1000ML 1,000 ML IV STA (12:09)
[2017-07-31 12:12] VITALS: O2SAT 100
--- NOTE | 2017-07-31 12:13 | EMERGENCY ROOM VISIT NOTE ---
History Report prepared by Joyce: Romina Woods Under the Supervision of: Dr. Danny Karimi D.O. First contact with patient: 12:03 Chief Complaint: HEADACHE Stated Complaint: MIGRAINE SINCE LAST MONTH, VOMITING AND BLOODY NOS History of Present Illness The patient is a 47 year old female who presents to the Emergency Room with complaints of persistent headache for seven days. She notes that she passed out three days ago from the pain. She reports a bloody nose, which has since resolved. She states that she does not normally pass out. She notes chest pain radiating to both arms. She states that she has been eating and drinking well. She has a history of migraines since age 11. She notes this migraine is worse than prior ones. She has history of MRSA. She had a port in her chest that was removed. She was on antibiotics, though she feels that they do not work. She has a history of hysterectomy due to ectopic . Source of History: patient Onset: seven days Position: head Quality: ache Timing: other (persistent) Associated Symptoms: + chest pain Note: She notes passing out and bloody nose. She notes pain in both arms. Review of Systems See HPI for pertinent positives & negatives. A total of 10 systems reviewed and were otherwise negative. Past Medical & Surgical Medical Problems: (1) Breast cancer (2) Chest wall abscess (3) Depression with anxiety (4) Hypothyroidism (5) Migraines Surgical Problems: (1) History of lumpectomy Family History FH: breast cancer MOTHER Social History Smoking Status: Never Smoker Smokeless Tobacco Use: No Alcohol Use: none Drug Use: none Housing Status: lives alone Current/Historical Medications Scheduled Lactobacillus Acidophilus (Floranex), 4 TAB PO TIDM Levothyroxine Sodium (Levothyroxine Sodium), 50 MCG PO QAM Mometasone Furoate (Nasal) (Mometasone Furoate), 2 SPRAYS ALANIS DAILY Ropinirole Hydrochloride (Requip), 1 TAB PO HS Scheduled PRN Alprazolam (Xanax), 1 MG PO TID PRN for Anxiety Clotrimazole (Mycelex), 10 MG PO TID PRN for thrush Montelukast Sodium (Montelukast Sodium), 1 TAB PO DAILY PRN for allergies Ondansetron Odt (Zofran Odt), 8 MG SL Q8 PRN for Nausea Zolpidem Tartrate (Zolpidem Tartrate), 10 MG PO HS PRN for Insomnia Allergies Coded Allergies: Iodinated Diagnostic Agents (Verified Allergy, Severe, Throat swells - IV contrast, 07/31/17) Adhesives (Verified Allergy, Intermediate, TAPE- HIVES, 07/31/17) Cephalexin (Verified Allergy, Intermediate, Hives, throat swelling, ) Codeine (Verified Allergy, Intermediate, Hives, 07/31/17) Latex1 -Allergic Contact Dermititis (Verified Allergy, Intermediate, SWELLS AND HIVES, 07/31/17) Penicillins (Verified Allergy, Intermediate, HIVES, THROAT SWELLING, ) Wann (Verified Allergy, Intermediate, HIVES, 07/31/17) Sulfa Antibiotics (Verified Allergy, Intermediate, Hives, 07/31/17) Vancomycin (Verified Allergy, Intermediate, HIVES, 07/31/17) Loratadine (Verified Allergy, Mild, Hives, 07/31/17) Morphine (Verified Allergy, Mild, Hives, 07/31/17) Tramadol (Verified Allergy, Mild, Hives, 07/31/17) Physical Exam Vital Signs Date Time Temp Pulse Resp B/P (MAP) Pulse Ox O2 Delivery O2 Flow Rate FiO2 07/31/17 15:30 74 16 110/77 100 Room Air 07/31/17 14:30 59 16 98/60 98 Room Air 07/31/17 13:38 60 16 103/66 100 Room Air 07/31/17 13:04 66 18 100/71 99 Room Air 71 109/70 70 105/68 07/31/17 12:46 64 07/31/17 12:12 100 Room Air 07/31/17 11:39 36.7 75 18 102/74 99 Room Air Physical Exam GENERAL: Patient is awake, alert, and in no acute distress. Patient is resting comfortably and showing no signs of anxiety EYES: The conjunctivae are clear. The pupils are round and reactive. EARS, NOSE, MOUTH AND THROAT: The nose is without any evidence of any deformity. Mucous membranes are moist tongue is midline NECK: The neck is nontender and supple. RESPIRATORY: Normal respiratory effort is noted there is no evidence of wheezing rhonchi or rales CARDIOVASCULAR: Regular rate and rhythm noted there no murmurs rubs or gallops normal S1 normal S2 GASTROINTESTINAL: The abdomen is soft. Bowel sounds are present in all quadrants. Abdomen is nontender MUSCULOSKELETAL/EXTREMITIES: There is no evidence of gross deformity full range of motion is noted in the hips and shoulders SKIN: There is no obvious evidence of any rash. There are no petechiae, pallor or cyanosis noted. NEUROLOGIC: Patient is awake alert and oriented x3 strength is symmetric patellar reflexes are 2+ bilaterally Medical Decision & Procedures ER Provider Diagnostic Interpretation: Radiology results as stated below per my review and radiologist interpretation: CHEST ONE VIEW PORTABLE CLINICAL HISTORY: EVALUATE ALTERED MENTAL STATUS/WEAKNESS dyspnea COMPARISON STUDY: 04/18/2017 FINDINGS: The bones soft tissues and hemidiaphragms are normal. The cardiomediastinal silhouette is normal. The lungs are clear. The pulmonary vasculature is normal. IMPRESSION: Negative chest. The above report was generated using voice recognition software. It may contain grammatical, syntax or spelling errors. Electronically signed by: Blas Gomez M.D. 07/31/2017 12:39 PM Dictated Date/Time: 07/31/2017 12:37 PM HEAD WITHOUT CONTRAST (CT) CT DOSE: 537.48 mGy.cm HISTORY: Syncope EVALUATE ALTERED MENTAL STATUS/WEAKNESS TECHNIQUE: Multiaxial CT images of the head were performed without the use of intravenous contrast. A dose lowering technique was utilized adhering to the principles of ALARA. Comparison: 09/06/2016 Findings: The paranasal sinuses and mastoid air cells are clear. The calvarium and skull base are intact. The ventricles and sulci are within normal limits. There is no mass, hematoma, midline shift, or acute infarct. Impression: No acute intracranial abnormality. The above report was generated using voice recognition software. It may contain grammatical, syntax or spelling errors. Electronically signed by: Blas Gomez M.D. 07/31/2017 1:27 PM Dictated Date/Time: 07/31/2017 1:26 PM Laboratory Results 07/31/17 13:15 Red Blood Count 4.24, Mean Corpuscular Volume 89.6, Mean Corpuscular Hemoglobin 30.2, Mean Corpuscular Hemoglobin Concent 33.7, Mean Platelet Volume 9.8, Neutrophils (%) (Auto) 52.7, Lymphocytes (%) (Auto) 34.2, Monocytes (%) (Auto) 9.0, Eosinophils (%) (Auto) 3.3, Basophils (%) (Auto) 0.4, Neutrophils # (Auto) 3.00, Lymphocytes # (Auto) 1.94, Monocytes # (Auto) 0.51, Eosinophils # (Auto) 0.19, Basophils # (Auto) 0.02 07/31/17 13:15 Test 07/31/17 12:30 07/31/17 13:15 07/31/17 13:19 Urine Color YELLOW Urine Appearance CLEAR (CLEAR) Urine pH 5.0 (4.5-7.5) Urine Specific [place] 1.024 (1.000-1.030) Urine Protein NEG (NEG) Urine Glucose (UA) NEG (NEG) Urine Ketones NEG (NEG) Urine Occult Blood NEG (NEG) Urine Nitrite NEG (NEG) Urine Bilirubin NEG (NEG) Urine Urobilinogen NEG (NEG) Urine Leukocyte Esterase SMALL (NEG) Urine WBC (Auto) 5-10 /hpf (0-5) Urine RBC (Auto) 0-4 /hpf (0-4) Urine Hyaline Casts (Auto) 1-5 /lpf (0-5) Urine Epithelial Cells (Auto) 10-20 /lpf (0-5) Urine Bacteria (Auto) NEG (NEG) White Blood Count 5.68 K/uL (4.8-10.8) Red Blood Count 4.24 M/uL (4.2-5.4) Hemoglobin 12.8 g/dL (12.0-16.0) Hematocrit 38.0 % (37-47) Mean Corpuscular Volume 89.6 fL (80-100) Mean Corpuscular Hemoglobin 30.2 pg (25-34) Mean Corpuscular Hemoglobin Concent 33.7 g/dl (32-36) Platelet Count 214 K/uL (130-400) Mean Platelet Volume 9.8 fL (7.4-10.4) Neutrophils (%) (Auto) 52.7 % Lymphocytes (%) (Auto) 34.2 % Monocytes (%) (Auto) 9.0 % Eosinophils (%) (Auto) 3.3 % Basophils (%) (Auto) 0.4 % Neutrophils # (Auto) 3.00 K/uL (1.4-6.5) Lymphocytes # (Auto) 1.94 K/uL (1.2-3.4) Monocytes # (Auto) 0.51 K/uL (0.11-0.59) Eosinophils # (Auto) 0.19 K/uL (0-0.5) Basophils # (Auto) 0.02 K/uL (0-0.2) RDW Standard Deviation 41.4 fL (36.4-46.3) RDW Coefficient of Variation 12.7 % (11.5-14.5) Immature Granulocyte % (Auto) 0.4 % Immature Granulocyte # (Auto) 0.02 K/uL (0.00-0.02) Prothrombin Time 9.1 SECONDS (9.0-12.0) Prothromb Time International Ratio 0.9 (0.9-1.1) Activated Partial Thromboplast Time 24.3 SECONDS (21.0-31.0) Partial Thromboplastin Ratio 0.9 Anion Gap 6.0 mmol/L (3-11) Est Creatinine Clear Calc Drug Dose 66.3 ml/min Estimated GFR () 102.5 Estimated GFR (Non- 88.4 BUN/Creatinine Ratio 23.0 (10-20) Calcium Level 9.1 mg/dl (8.5-10.1) Magnesium Level 2.2 mg/dl (1.8-2.4) Total Bilirubin 0.3 mg/dl (0.2-1) Direct Bilirubin < 0.1 mg/dl (0-0.2) Aspartate Amino Transf (AST/SGOT) 40 U/L (15-37) Alanine Aminotransferase (ALT/SGPT) 22 U/L (12-78) Alkaline Phosphatase 121 U/L (45-117) Troponin I < 0.015 ng/ml (0-0.045) Total Protein 8.0 gm/dl (6.4-8.2) Albumin 4.1 gm/dl (3.4-5.0) Thyroid Stimulating Hormone (TSH) 2.010 uIu/ml (0.300-4.500) Bedside D-Dimer 263 ng/mlFEU (0-450) Laboratory results per my review. Medications Administered Medications (Trade) Dose Ordered Sig/Landon Route Start Time Stop Time Status Last Admin Dose Admin Sodium Chloride 1,000 ml @ 999 mls/hr Q1H1M STAT IV 07/31/17 12:09 07/31/17 13:09 DC 07/31/17 13:01 999 MLS/HR Promethazine HCl 12.5 mg/Sodium Chloride 50.5 ml @ 204 mls/hr NOW STAT IV 07/31/17 14:47 07/31/17 15:01 DC 07/31/17 14:47 204 MLS/HR Diphenhydramine HCl (Benadryl Inj) 25 mg NOW STAT IV 07/31/17 14:47 07/31/17 14:48 DC 07/31/17 14:47 25 MG ECG Per My Interpretation Indication: chest pain Rate (beats per minute): 69 Rhythm: normal sinus Findings: no acute ischemic change, no ectopy (No PVCs) Change: no significant change (when compared to 09/06/2016) ED Course 1208: The patient was evaluated in room B3B. A complete history and physical examination were performed. 1209: Ordered NSS 1,000 ml @ 999 mls/hr IV 1445: I reassessed the patient at this time. She is resting comfortably. I discussed the results and treatment plan with the patient. I answered all pertaining questions that she had. She expressed understanding and verbalized agreement. The patient will be discharged home. 1447: Ordered Benadryl 25 mg IV and Promethazine HCl 12.5 mg/NSS 50.5 ml @ 204 mls/hr IV Medical Decision Prior records/ancillary studies reviewed. Triage Nursing notes reviewed. The patient's history was concerning for headache. Differential diagnosis: Etiologies such as migraine headache, meningitis, sinusitis, CO exposure, ICH, SAH, infection, tumor, headache, sinus thrombosis, arterial dissection, as well as others were entertained. The patient is a 47-year-old female who presented to the emergency department for an evaluation of multiple complaints including syncope chest pain and migraine headache. The patient has had ongoing symptoms for quite some time. The patient had a normal neurologic exam. I discussed the patient's laboratory and radiographic studies with her. I also discussed the limitations of the emergency department workup for chest pain with her. She was encouraged to follow-up with her primary care physician for further evaluation. She was treated with medication for migraine. She was also encouraged to return to the emergency department immediately if symptoms change worsen or the need arises. [place] Drug Monitoring Program Search Results: patient reviewed within database Drug Monitoring Findings: multiple prescriptions, multiple providers Medication Reconcilliation Current Medication List: was personally reviewed by me Blood Pressure Screening Patient's blood pressure: Normal blood pressure Impression Primary Impression: Migraine Additional Impressions: Syncope Chest pain Scribe Attestation The scribe's documentation has been prepared under my direction and personally reviewed by me in its entirety. I confirm that the note above accurately reflects all work, treatment, procedures, and medical decision making performed by me. Departure Information Dispostion Home / Self-Care Referrals No Doctor, Assigned (PCP) Forms HOME CARE DOCUMENTATION FORM, IMPORTANT VISIT INFORMATION Patient Instructions Headache Pain, [facility], Syncope Additional Instructions Continue all medications as prescribed. Call your family doctor to schedule a follow-up appointment. You may require further study such as an echocardiogram or a Holter monitor to further evaluate the cause your symptoms. Problem Qualifiers Primary Impression: Migraine Migraine type: unspecified Status migrainosus presence: without status migrainosus Intractability: not intractable Qualified Codes: G43.909 - Migraine, unspecified, not intractable, without status migrainosus Additional Impressions: Syncope Syncope type: unspecified Qualified Codes: R55 - Syncope and collapse Chest pain Chest pain type: unspecified Qualified Codes: R07.9 - Chest pain, unspecified
--- NOTE | 2017-07-31 12:40 | DIAGNOSTIC IMAGING REPORT ---
CHEST ONE VIEW PORTABLE CLINICAL HISTORY: EVALUATE ALTERED MENTAL STATUS/WEAKNESS dyspnea COMPARISON STUDY: 04/18/2017 FINDINGS: The bones soft tissues and hemidiaphragms are normal. The cardiomediastinal silhouette is normal. The lungs are clear. The pulmonary vasculature is normal. IMPRESSION: Negative chest. The above report was generated using voice recognition software. It may contain grammatical, syntax or spelling errors. Electronically signed by: Blas Gomez M.D. 07/31/2017 12:39 PM Dictated Date/Time: 07/31/2017 12:37 PM
[2017-07-31 13:24] LABS: BASO % 0.4 %; BASO ABS # 0.02 K/uL (0-0.2); EOS % 3.3 %; EOS ABS # 0.19 K/uL (0-0.5); HEMOGLOBIN 12.8 g/dL (12.0-16.0); IG# 0.02 K/uL (0.00-0.02); LYMPH % 34.2 %; LYMPH ABS # 1.94 K/uL (1.2-3.4); MEAN CELL VOLUME 89.6 fL (80-100); MEAN CORPUSCULAR HEMOGLOBIN 30.2 pg (25-34); MEAN CORPUSCULAR HGB CONC 33.7 g/dl (32-36); MEAN PLATELET VOLUME 9.8 fL (7.4-10.4); MONO ABS # 0.51 K/uL (0.11-0.59); NEUT % 52.7 %; PLATELET COUNT 214 K/uL (130-400); RED CELL DISTRIBUTION WIDTH CV 12.7 % (11.5-14.5); RED CELL DISTRIBUTION WIDTH SD 41.4 fL (36.4-46.3); WHITE BLOOD COUNT 5.68 K/uL (4.8-10.8)
--- NOTE | 2017-07-31 13:29 | DIAGNOSTIC IMAGING REPORT ---
HEAD WITHOUT CONTRAST (CT) CT DOSE: 537.48 mGy.cm HISTORY: Syncope EVALUATE ALTERED MENTAL STATUS/WEAKNESS TECHNIQUE: Multiaxial CT images of the head were performed without the use of intravenous contrast. A dose lowering technique was utilized adhering to the principles of ALARA. Comparison: 09/06/2016 Findings: The paranasal sinuses and mastoid air cells are clear. The calvarium and skull base are intact. The ventricles and sulci are within normal limits. There is no mass, hematoma, midline shift, or acute infarct. Impression: No acute intracranial abnormality. The above report was generated using voice recognition software. It may contain grammatical, syntax or spelling errors. Electronically signed by: Blas Gomez M.D. 07/31/2017 1:27 PM Dictated Date/Time: 07/31/2017 1:26 PM
[2017-07-31 13:34] LABS: INR 0.9 (0.9-1.1); PTT PATIENT 24.3 SECONDS (21.0-31.0)
[2017-07-31 13:45] LABS: ALBUMIN 4.1 gm/dl (3.4-5.0); ALT/SGPT 22 U/L (12-78); AST/SGOT 40 U/L (15-37); BLOOD UREA NITROGEN 18 mg/dl (7-18); CALCIUM 9.1 mg/dl (8.5-10.1); CARBON DIOXIDE 27 mmol/L (21-32); GLUCOSE 88 mg/dl (70-99); POTASSIUM 3.9 mmol/L (3.5-5.1); SODIUM 139 mmol/L (136-145)
[2017-07-31 13:56] LABS: ALKALINE PHOSPHATASE 121 U/L (45-117)
[2017-07-31] MEDS ORDERED: PROMETHAZINE HCL INJ 12.5 MG in SODIUM CHLORIDE 0.9% 50ML 50 ML IV STA (14:47)
[2017-07-31] MEDS ORDERED: DiphenhydrAMINE HCL 50 MG/ML VIAL IV STA (14:47)
[2017-07-31] MEDS ORDERED: MONT1TAB5 PO (15:23)
[2017-07-31] MEDS ORDERED: CLOT10TR PO (15:23)
[2017-07-31] MEDS ORDERED: ROPI1TAB PO (15:23)
[2017-07-31 15:30] VITALS: BP 110/77; PULSE 74; O2SAT 100
[2017-07-31] MEDS ORDERED: ZOLP10TA6 PO (19:12)
[2017-07-31] MEDS ORDERED: MOME6000 NAE (19:12)
[2017-07-31] MEDS ORDERED: ONDA8TAB62 SL (19:12)
== END 2017-07-31 15:50 | disposition home or self-care (01) ==
LOC: C.EDB 11:36
DX: G43.909 Migraine, unspecified, not intractable, without status migrainosus (principal); R55 Syncope and collapse; R07.9 Chest pain, unspecified; E03.9 Hypothyroidism, unspecified; Z85.3 Personal history of malignant neoplasm of breast; Z86.59 Personal history of other mental and behavioral disorders; Z80.3 Family history of malignant neoplasm of breast; Z91.041 Radiographic dye allergy status; Z91.048 Other nonmedicinal substance allergy status; Z88.1 Allergy status to other antibiotic agents; Z88.6 Allergy status to analgesic agent; Z91.040 Latex allergy status; Z88.0 Allergy status to penicillin; Z91.018 Allergy to other foods; Z88.2 Allergy status to sulfonamides; Z88.8 Allergy status to other drugs, medicaments and biological substances

== ENCOUNTER 2017-08-31 09:43 | Emergency (ER) | payer OTHER ==
[~2017-08-31] VITALS: Ht 152.4 cm; Wt 57.2 kg
[~2017-08-31 09:43] MED LIST changes: +CLOT10TR PO; -ESCI1TAB18 PO; +MOME6000 NAE; +MONT1TAB5 PO; +ONDA8TAB62 SL; -PANT1TAB3 PO; +ROPI1TAB PO; +ZOLP10TA6 PO
[2017-08-31 09:55] VITALS: TEMP 36.7
[2017-08-31] MEDS: DiphenhydrAMINE HCL 50 MG/ML VIAL IV STA ×2 (10:59→12:09)
[2017-08-31] MEDS ORDERED: SODIUM CHLORIDE 0.9% 1000ML 1,000 ML IV STA (10:59)
[2017-08-31] MEDS ORDERED: PROMETHAZINE HCL INJ 25 MG in SODIUM CHLORIDE 0.9% 50ML 50 ML IV STA ×2 (10:59→12:39)
[2017-08-31] MEDS ORDERED: KETOROLAC TROMETHAMINE 30 MG/ML VIAL IV STA (10:59)
--- NOTE | 2017-08-31 11:29 | DIAGNOSTIC IMAGING REPORT ---
SINGLE VIEW CHEST CLINICAL HISTORY: Atypical chest pain. FINDINGS: An AP, portable, upright chest radiograph is compared to study dated 07/31/2017. The cardiomediastinal silhouette is unremarkable. The lungs and pleural spaces are clear. No pneumothorax is seen. The bony thorax is grossly intact. IMPRESSION: No active disease in the chest. Electronically signed by: Rmey Valencia M.D. 08/31/2017 11:28 AM Dictated Date/Time: 08/31/2017 11:28 AM
[2017-08-31] MEDS ORDERED: MAGNESIUM SULFATE 1GM / D5W 1 GM BAG IV STA (11:31)
[2017-08-31 11:42] VITALS: O2SAT 100
[2017-08-31 11:43] VITALS: Ht 152.4 cm; Wt 57.2 kg
[2017-08-31 11:45] LABS: BASO % 0.3 %; BASO ABS # 0.02 K/uL (0-0.2); EOS % 2.4 %; EOS ABS # 0.14 K/uL (0-0.5); HEMATOCRIT 36.7 % (37-47); HEMOGLOBIN 12.2 g/dL (12.0-16.0); IG# 0.01 K/uL (0.00-0.02); LYMPH % 35.5 %; MEAN CELL VOLUME 89.1 fL (80-100); MEAN CORPUSCULAR HEMOGLOBIN 29.6 pg (25-34); MEAN CORPUSCULAR HGB CONC 33.2 g/dl (32-36); MEAN PLATELET VOLUME 9.8 fL (7.4-10.4); MONO % 9.6 %; MONO ABS # 0.57 K/uL (0.11-0.59); NEUT ABS # 3.08 K/uL (1.4-6.5); PLATELET COUNT 272 K/uL (130-400); RED CELL DISTRIBUTION WIDTH CV 12.9 % (11.5-14.5); RED CELL DISTRIBUTION WIDTH SD 41.9 fL (36.4-46.3); WHITE BLOOD COUNT 5.92 K/uL (4.8-10.8)
--- NOTE | 2017-08-31 11:52 | EMERGENCY ROOM VISIT NOTE ---
History Report prepared by Joyce: Niki Evans Under the Supervision of: Dr. Bienvenido Houser M.D. First contact with patient: 10:32 Chief Complaint: HEADACHE Stated Complaint: HEADACHE, PASSING OUT History of Present Illness The patient is a 47 year old female who presents to the Emergency Room with complaints of a constant headache for the past 3-4 days. The patient states that she has been feeling generally unwell for the past week. She has been passing out intermittently. She reports "trembling" in her extremities and pain in her extremities. She reports chest pain radiating into her arms and legs for the past week. She reports neck pain that is worsened with movement. The patient rates her current pain as an 8/10 in severity. She denies any significant cardiac history. She does have a history of headaches and typically gets Phenergan and Benadryl for her headaches. She also has a history of breast cancer. Source of History: patient Onset: 3-4 days ago Position: head Symptom Intensity: 8/10 Quality: ache Timing: constant Modifying Factors (Worsening): movement Associated Symptoms: + LOC, + neck pain, + chest pain Note: Pt reports "trembling" in extremities. Review of Systems See HPI for pertinent positives & negatives. A total of 10 systems reviewed and were otherwise negative. Past Medical & Surgical Medical Problems: (1) Breast cancer (2) Chest wall abscess (3) Depression with anxiety (4) Hypothyroidism (5) Migraines Surgical Problems: (1) History of lumpectomy Family History FH: breast cancer MOTHER Social History Smoking Status: Never Smoker Alcohol Use: none Drug Use: none Housing Status: lives alone Occupation Status: unemployed Current/Historical Medications Scheduled Levothyroxine Sodium (Levothyroxine Sodium), 1 TAB PO QAM Scheduled PRN Alprazolam (Xanax), 1 MG PO TID PRN for Anxiety Ondansetron Odt (Zofran Odt), 8 MG SL Q8 PRN for Nausea Zolpidem Tartrate (Zolpidem Tartrate), 10 MG PO HS PRN for Insomnia Allergies Coded Allergies: Iodinated Diagnostic Agents (Verified Allergy, Severe, Throat swells - IV contrast, 08/31/17) Adhesives (Verified Allergy, Intermediate, TAPE- HIVES, 08/31/17) Cephalexin (Verified Allergy, Intermediate, Hives, throat swelling, ) Codeine (Verified Allergy, Intermediate, Hives, 08/31/17) Latex1 -Allergic Contact Dermititis (Verified Allergy, Intermediate, SWELLS AND HIVES, 08/31/17) Penicillins (Verified Allergy, Intermediate, HIVES, THROAT SWELLING, ) [place] (Verified Allergy, Intermediate, HIVES, 08/31/17) Sulfa Antibiotics (Verified Allergy, Intermediate, Hives, 08/31/17) Vancomycin (Verified Allergy, Intermediate, HIVES, 08/31/17) Loratadine (Verified Allergy, Mild, Hives, 08/31/17) Morphine (Verified Allergy, Mild, Hives, 08/31/17) Tramadol (Verified Allergy, Mild, Hives, 08/31/17) Physical Exam Vital Signs Date Time Temp Pulse Resp B/P (MAP) Pulse Ox O2 Delivery O2 Flow Rate FiO2 08/31/17 15:44 72 20 121/84 100 Room Air 08/31/17 14:00 71 18 118/79 100 Room Air 08/31/17 12:00 124/85 08/31/17 11:46 112/89 08/31/17 11:45 119/80 112/80 08/31/17 11:45 66 18 119/80 100 Room Air 08/31/17 11:45 119/80 08/31/17 11:43 66 16 118/89 100 08/31/17 11:43 66 08/31/17 11:42 100 Room Air 08/31/17 11:42 100 Room Air 08/31/17 09:55 36.7 91 17 110/79 93 Room Air Physical Exam GENERAL: Awake, alert, well-appearing, in no acute distress HENT: Normocephalic, atraumatic. Oropharynx unremarkable. EYES: Normal conjunctiva. Sclera non-icteric. NECK: Supple. No nuchal rigidity. FROM. No JVD. No evidenced of meningitis or encephalitis on exam. RESPIRATORY: Clear to auscultation. CARDIAC: Regular rate, normal rhythm. Extremities warm and well perfused. Pulses equal. ABDOMEN: Soft, non-distended. No tenderness to palpation. No rebound or guarding. No masses. RECTAL: Deferred. MUSCULOSKELETAL: Chest examination reveals no tenderness. The back is symmetrical on inspection without obvious abnormality. There is no CVA tenderness to palpation. No joint edema. LOWER EXTREMITIES: Calves are equal size bilaterally and non-tender. No edema. Contusion to left knee. NEURO: Normal sensorium. No sensory or motor deficits noted. SKIN: No rash or jaundice noted. Medical Decision & Procedures ER Provider Diagnostic Interpretation: Radiology results as stated below per my review and radiologist interpretation: HEAD WITHOUT CONTRAST (CT) CLINICAL HISTORY: 47 years-old Female with Pt c/o headache. Acute headaches with confusion TECHNIQUE: Multiple axial CT images of the head were obtained without contrast. A dose lowering technique was utilized adhering to the principles of ALARA. CT DOSE: 537.48 mGy.cm COMPARISON: CT head 07/31/2017. FINDINGS: No acute intracranial hemorrhage, midline shift, intracranial mass, hydrocephalus, territorial ischemia or abnormal extra-axial collection. Mild bifrontal cerebral atrophy appears unchanged. The calvarium is intact. The paranasal sinuses, mastoid air cells, and middle ear cavities are clear. Hypoplasia of the frontal sinuses. IMPRESSION: No acute intracranial abnormality. The above report was generated using voice recognition software. It may contain grammatical, syntax or spelling errors. Electronically signed by: Chung Zuleta M.D. 08/31/2017 1:41 PM Dictated Date/Time: 08/31/2017 1:38 PM SINGLE VIEW CHEST CLINICAL HISTORY: Atypical chest pain. FINDINGS: An AP, portable, upright chest radiograph is compared to study dated 07/31/2017. The cardiomediastinal silhouette is unremarkable. The lungs and pleural spaces are clear. No pneumothorax is seen. The bony thorax is grossly intact. IMPRESSION: No active disease in the chest. Electronically signed by: Remy Valencia M.D. 08/31/2017 11:28 AM Dictated Date/Time: 08/31/2017 11:28 AM Laboratory Results 08/31/17 11:36 Red Blood Count 4.12, Mean Corpuscular Volume 89.1, Mean Corpuscular Hemoglobin 29.6, Mean Corpuscular Hemoglobin Concent 33.2, Mean Platelet Volume 9.8, Neutrophils (%) (Auto) 52.0, Lymphocytes (%) (Auto) 35.5, Monocytes (%) (Auto) 9.6, Eosinophils (%) (Auto) 2.4, Basophils (%) (Auto) 0.3, Neutrophils # (Auto) 3.08, Lymphocytes # (Auto) 2.10, Monocytes # (Auto) 0.57, Eosinophils # (Auto) 0.14, Basophils # (Auto) 0.02 08/31/17 11:36 Test 08/31/17 11:36 08/31/17 12:00 08/31/17 12:05 White Blood Count 5.92 K/uL (4.8-10.8) Red Blood Count 4.12 M/uL (4.2-5.4) Hemoglobin 12.2 g/dL (12.0-16.0) Hematocrit 36.7 % (37-47) Mean Corpuscular Volume 89.1 fL (80-100) Mean Corpuscular Hemoglobin 29.6 pg (25-34) Mean Corpuscular Hemoglobin Concent 33.2 g/dl (32-36) Platelet Count 272 K/uL (130-400) Mean Platelet Volume 9.8 fL (7.4-10.4) Neutrophils (%) (Auto) 52.0 % Lymphocytes (%) (Auto) 35.5 % Monocytes (%) (Auto) 9.6 % Eosinophils (%) (Auto) 2.4 % Basophils (%) (Auto) 0.3 % Neutrophils # (Auto) 3.08 K/uL (1.4-6.5) Lymphocytes # (Auto) 2.10 K/uL (1.2-3.4) Monocytes # (Auto) 0.57 K/uL (0.11-0.59) Eosinophils # (Auto) 0.14 K/uL (0-0.5) Basophils # (Auto) 0.02 K/uL (0-0.2) RDW Standard Deviation 41.9 fL (36.4-46.3) RDW Coefficient of Variation 12.9 % (11.5-14.5) Immature Granulocyte % (Auto) 0.2 % Immature Granulocyte # (Auto) 0.01 K/uL (0.00-0.02) Anion Gap 4.0 mmol/L (3-11) Est Creatinine Clear Calc Drug Dose 64.0 ml/min Estimated GFR () 92.6 Estimated GFR (Non- 79.9 BUN/Creatinine Ratio 24.2 (10-20) Calcium Level 9.1 mg/dl (8.5-10.1) Total Bilirubin 0.2 mg/dl (0.2-1) Direct Bilirubin < 0.1 mg/dl (0-0.2) Aspartate Amino Transf (AST/SGOT) 22 U/L (15-37) Alanine Aminotransferase (ALT/SGPT) 26 U/L (12-78) Alkaline Phosphatase 139 U/L (45-117) Total Creatine Kinase 87 U/L (26-192) Creatine Kinase MB 1.0 ng/ml (0.5-3.6) Creatine Kinase MB Ratio 1.1 (0-3.0) Troponin I < 0.015 ng/ml (0-0.045) Total Protein 7.7 gm/dl (6.4-8.2) Albumin 3.7 gm/dl (3.4-5.0) Thyroid Stimulating Hormone (TSH) 3.620 uIu/ml (0.300-4.500) Urine Color DK YELLOW Urine Appearance TURBID (CLEAR) Urine pH 5.0 (4.5-7.5) Urine Specific [place] 1.036 (1.000-1.030) Urine Protein NEG (NEG) Urine Glucose (UA) NEG (NEG) Urine Ketones NEG (NEG) Urine Occult Blood NEG (NEG) Urine Nitrite NEG (NEG) Urine Bilirubin NEG (NEG) Urine Urobilinogen NEG (NEG) Urine Leukocyte Esterase SMALL (NEG) Urine WBC (Auto) 5-10 /hpf (0-5) Urine RBC (Auto) 0-4 /hpf (0-4) Urine Hyaline Casts (Auto) 10-30 /lpf (0-5) Urine Epithelial Cells (Auto) >30 /lpf (0-5) Urine Bacteria (Auto) NEG (NEG) Urine Mucus PRESENT (NONE PRSENT) Influenza Type A Antigen Neg for Influ A (NEG) Influenza Type B Antigen Neg for Influ B (NEG) Labs reviewed by ED physician. Medications Administered Medications (Trade) Dose Ordered Sig/[place] Route Start Time Stop Time Status Last Admin Dose Admin Sodium Chloride 1,000 ml @ 999 mls/hr Q1H1M STAT IV 08/31/17 10:59 08/31/17 11:59 DC 08/31/17 12:10 999 MLS/HR Promethazine HCl 25 mg/Sodium Chloride 51 ml @ 204 mls/hr NOW STAT IV 08/31/17 10:59 4/12/18 11:13 DC 08/31/17 12:09 204 MLS/HR Diphenhydramine HCl (Benadryl Inj) 50 mg NOW STAT IV 08/31/17 10:59 08/31/17 11:07 DC 08/31/17 12:09 50 MG Magnesium Sulfate (Magnesium Sulfate) 1 gm NOW STAT IV 08/31/17 11:31 08/31/17 11:32 DC 08/31/17 12:10 1 GM Valproate Sodium 500 mg/Dextrose 55 ml @ 55 mls/hr NOW STAT IV 08/31/17 12:39 08/31/17 13:38 DC 08/31/17 13:17 55 MLS/HR Promethazine HCl 25 mg/Sodium Chloride 51 ml @ 204 mls/hr NOW STAT IV 08/31/17 12:39 08/31/17 12:53 DC 08/31/17 13:16 204 MLS/HR Ciprofloxacin (Cipro Tab) 500 mg NOW STAT PO 08/31/17 12:47 08/31/17 12:49 DC 08/31/17 13:22 500 MG Ondansetron HCl (Zofran Inj) 4 mg NOW STAT IV 08/31/17 14:13 08/31/17 14:14 DC 08/31/17 14:41 4 MG Acetaminophen 100 ml @ 400 mls/hr NOW STAT IV 08/31/17 14:51 08/31/17 15:12 DC 08/31/17 15:40 400 MLS/HR Dihydroergotamine Mesylate 0.25 mg/ Syringe 0.25 ml @ 0.004 mls/ sec ONE ONCE SQ 08/31/17 15:15 08/31/17 15:16 DC 08/31/17 15:38 0.004 MLS/SEC ED Course 1042: Past medical records reviewed. The patient was evaluated in room B7. A complete history and physical examination was performed. 1059: Benadryl 50 mg IV, Promethazine HCl 25 mg/Sodium Chloride 51 ml @ 204 mls /hr IV, Toradol 30 mg IV, NSS 1000 ml @ 999 mls/hr IV 1131: Magnesium Sulfate 1 gm IV 1236: I updated the patient. She is still complaining of a headache. 1239: Promethazine HCl 25 mg/Sodium Chloride 51 ml @ 204 mls/hr IV, Valproate Sodium 500 mg/Dextrose 55 ml @ 55mls/hr IV 1247: Cipro 500 mg PO 1409: Upon reevaluation the patient was still complaining of a headache. 1411: Sumatriptan Succinate 6 mg SQ Medical Decision Differential diagnosis: Etiologies such as migraine headache, meningitis, sinusitis, CO exposure, ICH, SAH, infection, tumor, headache, sinus thrombosis, arterial dissection, as well as others were entertained. This is a 47-year-old female who presents emergency department with a headache as well as passing out. The patient does not have any evidence of meningitis or encephalitis on examination. She is afebrile and does not have an elevation in her white blood cell count. She was sent for CAT scan of the head which does not show any acute processes sinusitis. The patient is requesting Dilaudid for her headache however I explained to the patient that we no longer treat headaches with narcotics. The patient refused about half of the medications I offered including Toradol saying that Toradol causes her throat to close however reviewing her chart I will note multiple instances in this hospital where the patient received Toradol without having a reaction. The patient also refused Decadron, she also refused triptan. A PDMP surgery reveals the patient to have a very large prescription for Ultram as well as multiple scripts for Xanax. Her doctors appear to be all over the community health including [place] and [place]. I confronted the patient about this, the patient says she received the ultram from a pain management doctor here. I noted that Ultram can cause a sensation of feeling like you are going to pass out and recommended she not mix her narcotics and benzodiazepine medication. The patient says she is not taking Ultram. I am going to recommend this patient for the no narcotics treatment list. She did receive magnesium as well as IV Tylenol, Phenergan and Benadryl. She reports her pain as a 4 on a scale of 1-10. [place] Drug Monitoring Program Search Results: patient reviewed within database, see additional documentation Drug Monitoring Findings: Large amount of Ultram prescribed in past month Large amount of Xanax and Zolpidem Multiple doctors from multiple locations in community health ([facility]) Medication Reconcilliation Current Medication List: was personally reviewed by me Blood Pressure Screening Patient's blood pressure: Normal blood pressure Impression Primary Impression: Headache Scribe Attestation The scribe's documentation has been prepared under my direction and personally reviewed by me in its entirety. I confirm that the note above accurately reflects all work, treatment, procedures, and medical decision making performed by me. Departure Information Dispostion Home / Self-Care Referrals Deysi Wynn D.O. (PCP) Patient Instructions My [facility] Problem Qualifiers Primary Impression: Headache Headache type: unspecified Headache chronicity pattern: unspecified pattern Intractability: not intractable Qualified Codes: R51 - Headache
[2017-08-31 12:03] LABS: ALBUMIN 3.7 gm/dl (3.4-5.0); ALT/SGPT 26 U/L (12-78); AST/SGOT 22 U/L (15-37); BLOOD UREA NITROGEN 21 mg/dl (7-18); CALCIUM 9.1 mg/dl (8.5-10.1); CARBON DIOXIDE 27 mmol/L (21-32); CREATININE 0.87 mg/dl (0.60-1.20); GLUCOSE 100 mg/dl (70-99); POTASSIUM 3.7 mmol/L (3.5-5.1); SODIUM 136 mmol/L (136-145)
[2017-08-31 12:14] LABS: ALKALINE PHOSPHATASE 139 U/L (45-117); TOTAL PROTEIN 7.7 gm/dl (6.4-8.2)
[2017-08-31] MEDS ORDERED: VALPROATE SOD IV 500 MG in DEXTROSE 5% 50ML 50 ML IV STA (12:39)
[2017-08-31] MEDS ORDERED: CIPROFLOXACIN 500 MG TAB PO STA (12:47)
[2017-08-31 12:59] LABS: INFLUENZA B ANTIGEN Neg for Influ B (NEG)
--- NOTE | 2017-08-31 13:42 | DIAGNOSTIC IMAGING REPORT ---
HEAD WITHOUT CONTRAST (CT) CLINICAL HISTORY: 47 years-old Female with Pt c/o headache. Acute headaches with confusion TECHNIQUE: Multiple axial CT images of the head were obtained without contrast. A dose lowering technique was utilized adhering to the principles of ALARA. CT DOSE: 537.48 mGy.cm COMPARISON: CT head 07/31/2017. FINDINGS: No acute intracranial hemorrhage, midline shift, intracranial mass, hydrocephalus, territorial ischemia or abnormal extra-axial collection. Mild bifrontal cerebral atrophy appears unchanged. The calvarium is intact. The paranasal sinuses, mastoid air cells, and middle ear cavities are clear. Hypoplasia of the frontal sinuses. IMPRESSION: No acute intracranial abnormality. The above report was generated using voice recognition software. It may contain grammatical, syntax or spelling errors. Electronically signed by: Chung Zuleta M.D. 08/31/2017 1:41 PM Dictated Date/Time: 08/31/2017 1:38 PM
[2017-08-31] MEDS ORDERED: SUMATRIPTAN SUCCINATE 6 MG/0.5 ML VIAL SQ STA (14:11)
[2017-08-31] MEDS ORDERED: ONDANSETRON INJ 2 MG/ML 2 ML VIAL IV STA (14:13)
[2017-08-31] MEDS ORDERED: ACETAMINOPHEN IV 100 ML IV STA (14:51)
[2017-08-31] MEDS ORDERED: DIHYDROERGOTAMINE MESYLATE SQ ONE (15:15)
[2017-08-31 15:44] VITALS: BP 121/84; PULSE 72; O2SAT 100
== END 2017-08-31 16:22 | disposition home or self-care (01) ==
LOC: C.EDB 09:44
DX: R51 Headache (principal); R55 Syncope and collapse; S80.02XA Contusion of left knee, initial encounter; X58.XXXA Exposure to other specified factors, initial encounter; E03.9 Hypothyroidism, unspecified; Z86.69 Personal history of other diseases of the nervous system and sense organs; Z85.3 Personal history of malignant neoplasm of breast; Z91.041 Radiographic dye allergy status; Z91.048 Other nonmedicinal substance allergy status; Z88.1 Allergy status to other antibiotic agents; Z88.6 Allergy status to analgesic agent; Z91.040 Latex allergy status; Z88.0 Allergy status to penicillin; Z91.018 Allergy to other foods; Z88.2 Allergy status to sulfonamides; Z88.8 Allergy status to other drugs, medicaments and biological substances; Z88.5 Allergy status to narcotic agent

== ENCOUNTER 2017-09-23 07:25 | Emergency (ER) | payer OTHER ==
[~2017-09-23] VITALS: Ht 152.4 cm; Wt 56.6 kg
[~2017-09-23 07:25] MED LIST changes: -CLOT10TR PO; -LCTX PO; -MOME6000 NAE; -MONT1TAB5 PO; -ROPI1TAB PO
[2017-09-23 07:30] VITALS: TEMP 36.6; Ht 152.4 cm; Wt 56.6 kg
[2017-09-23] MEDS ORDERED: DiphenhydrAMINE HCL 50 MG/ML VIAL IV STA (07:39)
[2017-09-23] MEDS ORDERED: SODIUM CHLORIDE 0.9% 1000ML 1,000 ML IV STA (07:39)
[2017-09-23] MEDS ORDERED: ONDANSETRON INJ 2 MG/ML 2 ML VIAL IV STA (07:39)
[2017-09-23] MEDS ORDERED: OPTIRAY 320 IV PRN (07:45)
--- NOTE | 2017-09-23 07:55 | EMERGENCY ROOM VISIT NOTE ---
History Report prepared by Joyce: Rinku Smith Under the Supervision of: Dr. Danny Karimi D.O. First contact with patient: 07:33 Chief Complaint: ILLNESS Stated Complaint: JUST GOT OPERATED ON,NAUSEA History of Present Illness The patient is a 47 year old female who presents to the Emergency Room with complaints of worsening nausea that began last night. Patient states that she had surgery on her right clavicle area yesterday to "cut out a couple pieces" of scar tissue. She states that the surgery was performed by Dr. Oliver in [place]. Patient states that she has not talked to Dr. Oliver about her current symptoms because he is not in the office today. Patient adds that the clavicle area is "really bloody, swollen, and sore". She states that the port was taken out in December. She states that she has multiple revisions to the port site since. She states the hole started out as a "pinhole and got bigger and bigger". Patient states that last night she had a "full blown seizure" and woke up on the floor. She states that had another seizure this morning and woke up shaking. Patient does not know if she has a history of seizures. She adds that she feels weak and has a headache. Patient denies using any blood thinners. She states that she can have contrast dye if she is given Benadryl. Pertinent past surgical history includes a hysterectomy. Patient states that she does not drive or have a license. Source of History: patient Onset: Last night Position: other (Right clavicle area) Timing: worsening Modifying Factors (Relieving): other (None) Associated Symptoms: + headache, + weakness Review of Systems See HPI for pertinent positives & negatives. A total of 10 systems reviewed and were otherwise negative. Past Medical & Surgical Medical Problems: (1) Breast cancer (2) Chest wall abscess (3) Depression with anxiety (4) Hypothyroidism (5) Migraines Surgical Problems: (1) History of lumpectomy Family History FH: breast cancer MOTHER Social History Smoking Status: Never Smoker Alcohol Use: none Drug Use: none Housing Status: lives alone Occupation Status: unemployed Current/Historical Medications Scheduled Levothyroxine Sodium (Levothyroxine Sodium), 25 MCG PO DAILY Promethazine (Phenergan ), 1 TABS PO Q6 Sulfa/Trimethoprim (Bactrim Ds 800MG/160MG), 1 TAB PO BID Scheduled PRN Alprazolam (Xanax), 1 MG PO TID PRN for Anxiety Ondansetron Odt (Zofran Odt), 8 MG SL Q8 PRN for Nausea Zolpidem Tartrate (Zolpidem Tartrate), 10 MG PO HS PRN for Insomnia Allergies Coded Allergies: Iodinated Diagnostic Agents (Verified Allergy, Severe, Throat swells - IV contrast, 09/23/17) Adhesives (Verified Allergy, Intermediate, TAPE- HIVES, 09/23/17) Cephalexin (Verified Allergy, Intermediate, Hives, throat swelling, 09/23/17 ) Codeine (Verified Allergy, Intermediate, Hives, 09/23/17) Latex1 -Allergic Contact Dermititis (Verified Allergy, Intermediate, SWELLS AND HIVES, 09/23/17) Penicillins (Verified Allergy, Intermediate, HIVES, THROAT SWELLING, ) [place] (Verified Allergy, Intermediate, HIVES, 09/23/17) Sulfa Antibiotics (Verified Allergy, Intermediate, Hives, 09/23/17) Vancomycin (Verified Allergy, Intermediate, HIVES, 09/23/17) Loratadine (Verified Allergy, Mild, Hives, 09/23/17) Morphine (Verified Allergy, Mild, Hives, 09/23/17) Tramadol (Verified Allergy, Mild, Hives, 09/23/17) Physical Exam Vital Signs Date Time Temp Pulse Resp B/P (MAP) Pulse Ox O2 Delivery O2 Flow Rate FiO2 09/23/17 11:26 67 18 110/73 100 09/23/17 09:31 127/91 100 09/23/17 09:29 73 16 139/110 100 Room Air 09/23/17 08:44 61 16 111/86 100 09/23/17 08:13 100 Room Air 09/23/17 08:11 57 102/71 100 Room Air 71 111/80 72 111/86 09/23/17 08:10 100 Room Air 09/23/17 08:09 59 09/23/17 07:30 36.6 62 20 114/76 100 Room Air Physical Exam GENERAL: Patient is awake, alert, and in no acute distress. Patient is resting comfortably and showing no signs of anxiety EYES: The conjunctivae are clear. The pupils are round and reactive. EARS, NOSE, MOUTH AND THROAT: The nose is without any evidence of any deformity. Mucous membranes are moist tongue is midline NECK: The neck is nontender and supple. RESPIRATORY: Normal respiratory effort is noted there is no evidence of wheezing rhonchi or rales CARDIOVASCULAR: Regular rate and rhythm noted there no murmurs rubs or gallops normal S1 normal S2 GASTROINTESTINAL: The abdomen is soft. Bowel sounds are present in all quadrants. Abdomen is nontender MUSCULOSKELETAL/EXTREMITIES: There is no evidence of gross deformity full range of motion is noted in the hips and shoulders SKIN: No pedal edema noted. Recent surgical site over right upper chest wall. Wound dressing in place. No active bleeding noted. There is no obvious evidence of any rash. There are no petechiae, pallor or cyanosis noted. NEUROLOGIC: Patient is awake alert and oriented x3 strength is symmetric patellar reflexes are 2+ bilaterally Medical Decision & Procedures ER Provider Diagnostic Interpretation: Radiology results as stated below per my review and radiologist interpretation: CT (CHEST) THORAX WITH CLINICAL HISTORY: 47 years-old Female presenting with right chest wall swelling, recent port removal. TECHNIQUE: Multidetector CT imaging of the chest was performed without the use of intravenous contrast. IV contrast: 81 mL of Optiray 320. A dose lowering technique was used consistent with the principles of ALARA (as low as reasonably achievable). COMPARISON: 09/06/2016. CT DOSE (mGy.cm): The estimated cumulative dose is 202.37 mGy.cm. 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 On soft tissue windows, normal thyroid and thoracic inlet. Along the right anterolateral chest wall is skin thickening and subcutaneous infiltration with a focal irregular fluid collection likely representing the port pocket. This measures 3 cm in diameter. Few foci of gas also noted. Postsurgical changes of left mastectomy. No axillary, supraclavicular, hilar, or mediastinal lymphadenopathy. Normal aorta. Intravascular gas within the left internal jugular vein likely relates to injection technique. Normal heart size. No pericardial or pleural effusion. Mild esophageal wall thickening suggested in the mid to distal esophagus. Upper abdomen normal. On lung windows, minimal dependent changes likely atelectasis. No other focal nodule or infiltrate. Airways patent. On bone windows, normal osseous structures. No destructive osseous lesion. IMPRESSION: 1. Evidence of port removal with inflammatory changes in the right anterolateral chest wall. Fluid within the port pocket could been expected postprocedural finding. Cellulitis and/or superimposed infection cannot be excluded. Correlate clinically. 2. No lymphadenopathy or evidence of intrathoracic metastatic disease. 3. Postsurgical changes of left mastectomy. 4. Mild esophageal wall thickening could suggest esophagitis. Electronically signed by: Alexis Lyon M.D. 09/23/2017 9:40 AM CHEST ONE VIEW PORTABLE CLINICAL HISTORY: 47 years-old Female presenting with EVALUATE ALTERED MENTAL STATUS/WEAKNESS, nausea, surgery yesterday. TECHNIQUE: Portable upright AP view of the chest was obtained. COMPARISON: . FINDINGS: Cardiomediastinal silhouette normal. No focal opacity. No large effusion or pneumothorax. Osseous structures normal. Cholecystectomy clips noted. IMPRESSION: 1. No acute cardiopulmonary disease. Electronically signed by: Alexis Lyon M.D. 09/23/2017 7:59 AM Laboratory Results 09/23/17 08:24 Red Blood Count 3.70, Mean Corpuscular Volume 88.4, Mean Corpuscular Hemoglobin 29.5, Mean Corpuscular Hemoglobin Concent 33.3, Mean Platelet Volume 9.5, Neutrophils (%) (Auto) 55.7, Lymphocytes (%) (Auto) 31.5, Monocytes (%) (Auto) 6.6, Eosinophils (%) (Auto) 5.5, Basophils (%) (Auto) 0.5, Neutrophils # (Auto) 3.54, Lymphocytes # (Auto) 2.00, Monocytes # (Auto) 0.42, Eosinophils # (Auto) 0.35, Basophils # (Auto) 0.03 09/23/17 08:24 Test 09/23/17 07:50 09/23/17 08:24 09/23/17 08:33 Urine Color YELLOW Urine Appearance CLEAR (CLEAR) Urine pH 5.5 (4.5-7.5) Urine Specific [place] 1.023 (1.000-1.030) Urine Protein NEG (NEG) Urine Glucose (UA) NEG (NEG) Urine Ketones NEG (NEG) Urine Occult Blood NEG (NEG) Urine Nitrite NEG (NEG) Urine Bilirubin NEG (NEG) Urine Urobilinogen NEG (NEG) Urine Leukocyte Esterase MODERATE (NEG) Urine WBC (Auto) 10-30 /hpf (0-5) Urine RBC (Auto) 0-4 /hpf (0-4) Urine Hyaline Casts (Auto) 1-5 /lpf (0-5) Urine Epithelial Cells (Auto) >30 /lpf (0-5) Urine Bacteria (Auto) NEG (NEG) Urine Renal Epithelial Cells /lpf (0-5) Urine Mucus PRESENT (NONE PRSENT) White Blood Count 6.35 K/uL (4.8-10.8) Red Blood Count 3.70 M/uL (4.2-5.4) Hemoglobin 10.9 g/dL (12.0-16.0) Hematocrit 32.7 % (37-47) Mean Corpuscular Volume 88.4 fL (80-100) Mean Corpuscular Hemoglobin 29.5 pg (25-34) Mean Corpuscular Hemoglobin Concent 33.3 g/dl (32-36) Platelet Count 291 K/uL (130-400) Mean Platelet Volume 9.5 fL (7.4-10.4) Neutrophils (%) (Auto) 55.7 % Lymphocytes (%) (Auto) 31.5 % Monocytes (%) (Auto) 6.6 % Eosinophils (%) (Auto) 5.5 % Basophils (%) (Auto) 0.5 % Neutrophils # (Auto) 3.54 K/uL (1.4-6.5) Lymphocytes # (Auto) 2.00 K/uL (1.2-3.4) Monocytes # (Auto) 0.42 K/uL (0.11-0.59) Eosinophils # (Auto) 0.35 K/uL (0-0.5) Basophils # (Auto) 0.03 K/uL (0-0.2) RDW Standard Deviation 42.2 fL (36.4-46.3) RDW Coefficient of Variation 13.0 % (11.5-14.5) Immature Granulocyte % (Auto) 0.2 % Immature Granulocyte # (Auto) 0.01 K/uL (0.00-0.02) Prothrombin Time 9.4 SECONDS (9.0-12.0) Prothromb Time International Ratio 0.9 (0.9-1.1) Activated Partial Thromboplast Time 25.5 SECONDS (21.0-31.0) Partial Thromboplastin Ratio 1.0 Est Creatinine Clear Calc Drug Dose 67.6 ml/min Estimated GFR () 99.5 Estimated GFR (Non- 85.8 BUN/Creatinine Ratio 22.7 (10-20) Calcium Level 8.6 mg/dl (8.5-10.1) Magnesium Level 2.1 mg/dl (1.8-2.4) Total Bilirubin 0.2 mg/dl (0.2-1) Direct Bilirubin 0.1 mg/dl (0-0.2) Aspartate Amino Transf (AST/SGOT) 20 U/L (15-37) Alanine Aminotransferase (ALT/SGPT) 16 U/L (12-78) Alkaline Phosphatase 124 U/L (45-117) Total Protein 7.7 gm/dl (6.4-8.2) Albumin 4.0 gm/dl (3.4-5.0) Thyroid Stimulating Hormone (TSH) 1.140 uIu/ml (0.300-4.500) Bedside Hemoglobin 10.5 g/dl (12.0-16.0) Bedside Hematocrit 31 % (37-47) Bedside Sodium 142 mEq/L (135-144) Bedside Potassium 3.7 mEq/L (3.3-5.0) Bedside Chloride 104 mEq/L (101-112) Bedside Total CO2 27 mEq/l (24-31) Anion Gap 15.0 mmol/L (16-25) Bedside Blood Urea Nitrogen 19 mg/dl (7-18) Bedside Creatinine 0.7 mg/dl (0.6-1.3) Bedside Glucose (other) 89 mg/dl (70-99) Bedside Ionized Calcium (Martin) 1.21 mmol/l (1.12-1.32) Medications Administered Medications (Trade) Dose Ordered Sig/Landon Route Start Time Stop Time Status Last Admin Dose Admin Sodium Chloride 1,000 ml @ 999 mls/hr Q1H1M STAT IV 09/23/17 07:39 09/23/17 08:39 DC 09/23/17 08:39 999 MLS/HR Diphenhydramine HCl (Benadryl Inj) 25 mg NOW STAT IV 09/23/17 07:39 09/23/17 07:42 DC 09/23/17 08:40 25 MG Promethazine HCl 25 mg/Sodium Chloride 51 ml @ 204 mls/hr NOW STAT IV 09/23/17 08:44 09/23/17 08:58 DC 09/23/17 08:44 204 MLS/HR ED Course 0734: The patient was evaluated in room B3B. A complete history and physical examination were performed. 0736: Head CT was cancelled because patient has had multiple ones recently. 0739: Benadryl Inj 25mg IV, NSS 1,000 ml @ 999 mls/hr IV, and Zofran Inj 4mg IV. 0745: Ioversol 100ml IV 0844: Promethazine HCl 25mg/NSS 51 ml @ 204 mls/hr IV 0959: I reassessed the patient who is resting comfortably. 1020: Upon reevaluation, the patient is resting comfortably. I discussed the results and treatment plan with her. She verbalized agreement of the treatment plan. She was discharged home. Medical Decision Prior records/ancillary studies reviewed. Triage Nursing notes reviewed. The patient's history was concerning for syncope. Differential diagnosis: Etiologies such as vasovagal event, infection, hypoglycemia, electrolyte abnormalities, cardiac sources, intracerebral event, toxicologic, neurologic, as well as others were entertained. The patient is a 47-year-old female who presented to the emergency department with right-sided chest wall pain. The patient had a recent procedure. She had a history of a port that was placed for chemotherapy. The patient had removal of this port recently but has had problems with swelling and bleeding. The area did not appear to be infected. The patient did not have a fever or high white blood cell count. She was treated with IV fluids and IV anti-medics in the emergency department. She also complained of syncope. I discussed patient' s laboratory and radiographic studies with her. I reviewed the patient's previous electronic medical records. She did appear to have a recent CT the head. The patient's primary surgeon is not here however I discussed her case with the on-call thoracic surgeon. He has reviewed her CT. The patient was encouraged to continue all medications as prescribed and follow-up with her primary surgeon. She was also encouraged to return to the emergency department immediately if symptoms change worsen or the need arises. Medication Reconcilliation Current Medication List: was personally reviewed by me Blood Pressure Screening Patient's blood pressure: Elevated blood pressure Blood pressure disposition: Elevated BP felt to be situational Consults Time Called: 1010 Consulting Physician: Dr. Ortiz - Thoracic Surgery Returned Call: [phone] I discussed the patient's case with Dr. Ortiz. He advises the patient to follow up with their primary surgeon. Impression Primary Impression: Postoperative pain Additional Impressions: Postoperative swellng Nausea & vomiting Syncope Scribe Attestation The scribe's documentation has been prepared under my direction and personally reviewed by me in its entirety. I confirm that the note above accurately reflects all work, treatment, procedures, and medical decision making performed by me. Departure Information Dispostion Home / Self-Care Prescriptions Promethazine (Phenergan ) 12.5 Mg Tab 1 TABS PO Q6, #20 TAB Prov: Danny Karimi, DO 09/23/17 Sulfa/Trimethoprim (Bactrim Ds 800MG/160MG) Tab 1 TAB PO BID, #14 TAB Prov: Danny Karimi, DO 09/23/17 Referrals No Doctor, Assigned (PCP) Forms HOME CARE DOCUMENTATION FORM, IMPORTANT VISIT INFORMATION, WORK / SCHOOL INSTRUCTIONS Patient Instructions My [facility], Post Op Pain Manage Home Meds Additional Instructions Call your primary surgeon to schedule a follow-up appointment. Continue all medications as prescribed. Drink plenty clear liquids. Rest and avoid any strenuous activity. Continue dressing changes as described. Problem Qualifiers Additional Impressions: Nausea & vomiting Vomiting type: unspecified Vomiting Intractability: non-intractable Qualified Codes: R11.2 - Nausea with vomiting, unspecified Syncope Syncope type: unspecified Qualified Codes: R55 - Syncope and collapse
--- NOTE | 2017-09-23 08:01 | DIAGNOSTIC IMAGING REPORT ---
CHEST ONE VIEW PORTABLE CLINICAL HISTORY: 47 years-old Female presenting with EVALUATE ALTERED MENTAL STATUS/WEAKNESS, nausea, surgery yesterday. TECHNIQUE: Portable upright AP view of the chest was obtained. COMPARISON: . FINDINGS: Cardiomediastinal silhouette normal. No focal opacity. No large effusion or pneumothorax. Osseous structures normal. Cholecystectomy clips noted. IMPRESSION: 1. No acute cardiopulmonary disease. Electronically signed by: Alexis Lyon M.D. 09/23/2017 7:59 AM Dictated Date/Time: 09/23/2017 7:59 AM
[2017-09-23 08:13] VITALS: O2SAT 100
[2017-09-23 08:36] LABS: BASO % 0.5 %; BASO ABS # 0.03 K/uL (0-0.2); EOS % 5.5 %; EOS ABS # 0.35 K/uL (0-0.5); HEMATOCRIT 32.7 % (37-47); HEMOGLOBIN 10.9 g/dL (12.0-16.0); IG# 0.01 K/uL (0.00-0.02); LYMPH % 31.5 %; MEAN CELL VOLUME 88.4 fL (80-100); MEAN CORPUSCULAR HEMOGLOBIN 29.5 pg (25-34); MEAN CORPUSCULAR HGB CONC 33.3 g/dl (32-36); MEAN PLATELET VOLUME 9.5 fL (7.4-10.4); MONO % 6.6 %; MONO ABS # 0.42 K/uL (0.11-0.59); NEUT % 55.7 %; NEUT ABS # 3.54 K/uL (1.4-6.5); PLATELET COUNT 291 K/uL (130-400); RED CELL DISTRIBUTION WIDTH SD 42.2 fL (36.4-46.3); WHITE BLOOD COUNT 6.35 K/uL (4.8-10.8)
[2017-09-23] MEDS ORDERED: PROMETHAZINE HCL INJ 25 MG in SODIUM CHLORIDE 0.9% 50ML 50 ML IV STA (08:44)
[2017-09-23 08:47] LABS: ISTAT CREATININE 0.7 mg/dl (0.6-1.3); ISTAT IONIZED CALCIUM 1.21 mmol/l (1.12-1.32); ISTAT POTASSIUM 3.7 mEq/L (3.3-5.0)
[2017-09-23 08:50] LABS: INR 0.9 (0.9-1.1); PTT PATIENT 25.5 SECONDS (21.0-31.0)
[2017-09-23 08:52] LABS: CALCIUM 8.6 mg/dl (8.5-10.1); CREATININE 0.82 mg/dl (0.60-1.20); POTASSIUM 3.6 mmol/L (3.5-5.1)
[2017-09-23] MEDS ORDERED: LEVO25TA5 PO (08:52)
[2017-09-23 09:03] LABS: TOTAL PROTEIN 7.7 gm/dl (6.4-8.2)
--- NOTE | 2017-09-23 09:41 | DIAGNOSTIC IMAGING REPORT ---
CT (CHEST) THORAX WITH CLINICAL HISTORY: 47 years-old Female presenting with right chest wall swelling, recent port removal. TECHNIQUE: Multidetector CT imaging of the chest was performed without the use of intravenous contrast. IV contrast: 81 mL of Optiray 320. A dose lowering technique was used consistent with the principles of ALARA (as low as reasonably achievable). COMPARISON: 09/06/2016. CT DOSE (mGy.cm): The estimated cumulative dose is 202.37 mGy.cm. 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 On soft tissue windows, normal thyroid and thoracic inlet. Along the right anterolateral chest wall is skin thickening and subcutaneous infiltration with a focal irregular fluid collection likely representing the port pocket. This measures 3 cm in diameter. Few foci of gas also noted. Postsurgical changes of left mastectomy. No axillary, supraclavicular, hilar, or mediastinal lymphadenopathy. Normal aorta. Intravascular gas within the left internal jugular vein likely relates to injection technique. Normal heart size. No pericardial or pleural effusion. Mild esophageal wall thickening suggested in the mid to distal esophagus. Upper abdomen normal. On lung windows, minimal dependent changes likely atelectasis. No other focal nodule or infiltrate. Airways patent. On bone windows, normal osseous structures. No destructive osseous lesion. IMPRESSION: 1. Evidence of port removal with inflammatory changes in the right anterolateral chest wall. Fluid within the port pocket could been expected postprocedural finding. Cellulitis and/or superimposed infection cannot be excluded. Correlate clinically. 2. No lymphadenopathy or evidence of intrathoracic metastatic disease. 3. Postsurgical changes of left mastectomy. 4. Mild esophageal wall thickening could suggest esophagitis. Electronically signed by: Alexis Lyon M.D. 09/23/2017 9:40 AM Dictated Date/Time: 09/23/2017 9:34 AM
[2017-09-23] MEDS ORDERED: PROM12.57 PO (10:16)
[2017-09-23] MEDS ORDERED: SULF800T23 PO (10:16)
[2017-09-23 11:26] VITALS: BP 110/73; PULSE 67; O2SAT 100
== END 2017-09-23 11:28 | disposition home or self-care (01) ==
LOC: C.EDB 07:26
DX: G89.18 Other acute postprocedural pain (principal); T81.89XA Other complications of procedures, not elsewhere classified, initial encounter; Y84.8 Other medical procedures as the cause of abnormal reaction of the patient, or of later complication, without mention of misadventure at the time of the procedure; R11.2 Nausea with vomiting, unspecified; R55 Syncope and collapse; R51 Headache; R53.1 Weakness; E03.9 Hypothyroidism, unspecified; Z85.3 Personal history of malignant neoplasm of breast; Z91.041 Radiographic dye allergy status; Z79.899 Other long term (current) drug therapy; Z88.1 Allergy status to other antibiotic agents; Z91.040 Latex allergy status; Z88.0 Allergy status to penicillin; Z80.3 Family history of malignant neoplasm of breast; Z88.8 Allergy status to other drugs, medicaments and biological substances

== ENCOUNTER 2017-09-25 12:30 | Observation (INO) | payer OTHER ==
[~2017-09-25] VITALS: Ht 154.9 cm; Wt 57.4 kg
[~2017-09-25 12:30] MED LIST changes: +LEVO25TA5 PO; -LEVO50TA6 PO; +PROM12.57 PO; +SULF800T23 PO
[2017-09-25] MEDS ORDERED: SODIUM CHLORIDE 0.9% 1000ML 1,000 ML IV STA (12:52)
[2017-09-25] MEDS ORDERED: PROMETHAZINE HCL INJ 25 MG in SODIUM CHLORIDE 0.9% 50ML 50 ML IV STA (12:59)
[2017-09-25] MEDS ORDERED: DiphenhydrAMINE HCL 50 MG/ML VIAL IV STA (12:59)
--- NOTE | 2017-09-25 13:06 | EMERGENCY ROOM VISIT NOTE ---
History Report prepared by Joyce: Bernard Mitchell Under the Supervision of: Dr. Remy Monet M.D. First contact with patient: 12:46 Chief Complaint: SEIZURE Stated Complaint: SEIZURES, THROWING UP, HEADACHE History of Present Illness The patient is a 47 year old female who presents to the Emergency Room with complaints of intermittent seizures for the past 2-3 weeks. The patient notes that this past week she had a seizure last night, 4 nights ago, and 5 nights ago that last for around 2-3 minutes each. The patient states that she can feel them coming on, and she tries to sit on the ground, and then she will have shaking activity for 2-3 minutes. She states that she is able to stand after them, though sometimes she will have another seizure right afterwards. The patient denies any incontinence, tongue biting, urinary symptoms, and diarrhea. She notes that her legs feel tingly, she feels like she is going to pass out, and she has a headache. The patient additionally reports that she vomited last night and the night before. She notes that she has a history of breast cancer, and she stopped treatment for it in September two years ago, though she notes that a few days ago she had an operation to remove her port. The patient states that she is not currently on any new medications or antibiotics, and she states that nothing really triggers her seizures. She reports that she has not seen a neurologist or been worked up for her seizures, and she called her PCP who told her to come to the ED for evaluation. She has no family history of seizures. The patient states that she additionally has a history of a cholecystectomy, appendectomy, and a total hysterectomy. She reports that she is still on thyroid medications. Source of History: patient Onset: the past 2-3 weeks Position: other (generalized) Quality: other (seizure) Timing: intermittent Associated Symptoms: + headache, + vomiting, No diarrhea, No urinary symptoms Note: Associated symptoms: her legs are tingly Review of Systems See HPI for pertinent positives & negatives. A total of 10 systems reviewed and were otherwise negative. Past Medical & Surgical Medical Problems: (1) Allergic rhinitis (2) Breast cancer (3) Chest wall abscess (4) Depression with anxiety (5) Fibromyalgia (6) GERD (gastroesophageal reflux disease) (7) Hypothyroidism (8) Insomnia (9) Migraines (10) Nausea & vomiting (11) Postoperative pain (12) Syncope Surgical Problems: (1) History of lumpectomy (2) Hx of appendectomy (3) Hx of cholecystectomy (4) Hx of hysterectomy Family History FH: breast cancer MOTHER Social History Smoking Status: Never Smoker Alcohol Use: none Drug Use: none Housing Status: lives alone Occupation Status: unemployed Current/Historical Medications Scheduled Fexofenadine Hcl (Ofelia Allergy), 1 TAB PO DAILY Fluticasone Propionate (Nasal) (Flonase Allergy Relief), 2 SPRAYS ALANIS DAILY Levothyroxine Sodium (Levothyroxine Sodium), 25 MCG PO DAILY Montelukast Sodium (Singulair), 10 MG PO HS Pantoprazole Sodium (Protonix), 40 MG PO DAILY Promethazine (Phenergan ), 1 TABS PO Q6 Ropinirole (Requip), 1 MG PO HS Scheduled PRN Alprazolam (Xanax), 1 MG PO TID PRN for Anxiety Ondansetron Odt (Zofran Odt), 8 MG SL Q8 PRN for Nausea Zolpidem Tartrate (Zolpidem Tartrate), 10 MG PO HS PRN for Insomnia Allergies Coded Allergies: Iodinated Diagnostic Agents (Verified Allergy, Severe, Throat swells - IV contrast, 09/25/17) Adhesives (Verified Allergy, Intermediate, TAPE- HIVES, 09/25/17) Cephalexin (Verified Allergy, Intermediate, Hives, throat swelling, 09/25/17 ) Codeine (Verified Allergy, Intermediate, Hives, 09/25/17) Latex1 -Allergic Contact Dermititis (Verified Allergy, Intermediate, SWELLS AND HIVES, 09/25/17) Penicillins (Verified Allergy, Intermediate, HIVES, THROAT SWELLING, ) [place] (Verified Allergy, Intermediate, HIVES, 09/25/17) Sulfa Antibiotics (Verified Allergy, Intermediate, Hives, 09/25/17) Vancomycin (Verified Allergy, Intermediate, HIVES, 09/25/17) Loratadine (Verified Allergy, Mild, Hives, 09/25/17) Morphine (Verified Allergy, Mild, Hives, 09/25/17) Tramadol (Verified Allergy, Mild, Hives, 09/25/17) Physical Exam Vital Signs Date Time Temp Pulse Resp B/P (MAP) Pulse Ox O2 Delivery O2 Flow Rate FiO2 09/25/17 15:03 65 18 131/90 100 09/25/17 14:57 100 Room Air 09/25/17 12:32 36.5 58 18 122/79 100 Room Air Physical Exam GENERAL: Patient is in no acute distress. HEENT: No acute trauma, normocephalic atraumatic, mucous membranes moist, no nasal congestion, no scleral icterus. NECK: No stridor, no adenopathy, no meningismus, trachea is midline. LUNGS: Clear to auscultation bilaterally, no wheeze, no rhonchi, breath sounds equal. HEART: Without murmurs gallops or rubs, regular rate and rhythm. CHEST: Incision healing well across the right chest wall consistent with port removal. Sutures in place. ABDOMEN: Soft, nontender, bowel sounds positive, no hernias, no peritonitis. EXTREMITIES: No cyanosis or edema, full range of motion of all the joints without pain or difficulty, no signs for acute trauma. NEUROLOGIC: Oriented x 3, no acute motor or sensory deficits, no focal weakness. SKIN: No rash, no jaundice, no diaphoresis. Medical Decision & Procedures ER Provider Diagnostic Interpretation: Radiology results as stated below per my review and radiologist interpretation: CHEST ONE VIEW PORTABLE CLINICAL HISTORY: Altered mental status. Weakness. COMPARISON STUDY: No previous studies for comparison. FINDINGS: The cardiac and mediastinal contours are normal. There is no evidence of focal pulmonary consolidation. There is no evidence of failure. No pleural effusions are visualized.[ Postsurgical changes are again evident within the cervical spine. IMPRESSION: No active disease in the chest. Electronically signed by: Myles Lu M.D. 09/25/2017 1:36 PM Dictated Date/Time: 09/25/2017 1:36 PM Laboratory Results 09/25/17 14:35 Red Blood Count 3.85, Mean Corpuscular Volume 88.1, Mean Corpuscular Hemoglobin 29.1, Mean Corpuscular Hemoglobin Concent 33.0, Mean Platelet Volume 9.4, Neutrophils (%) (Auto) 47.6, Lymphocytes (%) (Auto) 39.3, Monocytes (%) (Auto) 5.6, Eosinophils (%) (Auto) 7.1, Basophils (%) (Auto) 0.4, Neutrophils # (Auto) 2.62, Lymphocytes # (Auto) 2.16, Monocytes # (Auto) 0.31, Eosinophils # (Auto) 0.39, Basophils # (Auto) 0.02 09/25/17 14:35 Test 09/25/17 14:35 09/25/17 14:40 White Blood Count 5.50 K/uL (4.8-10.8) Red Blood Count 3.85 M/uL (4.2-5.4) Hemoglobin 11.2 g/dL (12.0-16.0) Hematocrit 33.9 % (37-47) Mean Corpuscular Volume 88.1 fL (80-100) Mean Corpuscular Hemoglobin 29.1 pg (25-34) Mean Corpuscular Hemoglobin Concent 33.0 g/dl (32-36) Platelet Count 291 K/uL (130-400) Mean Platelet Volume 9.4 fL (7.4-10.4) Neutrophils (%) (Auto) 47.6 % Lymphocytes (%) (Auto) 39.3 % Monocytes (%) (Auto) 5.6 % Eosinophils (%) (Auto) 7.1 % Basophils (%) (Auto) 0.4 % Neutrophils # (Auto) 2.62 K/uL (1.4-6.5) Lymphocytes # (Auto) 2.16 K/uL (1.2-3.4) Monocytes # (Auto) 0.31 K/uL (0.11-0.59) Eosinophils # (Auto) 0.39 K/uL (0-0.5) Basophils # (Auto) 0.02 K/uL (0-0.2) RDW Standard Deviation 42.3 fL (36.4-46.3) RDW Coefficient of Variation 13.1 % (11.5-14.5) Immature Granulocyte % (Auto) 0.0 % Immature Granulocyte # (Auto) 0.00 K/uL (0.00-0.02) Anion Gap 5.0 mmol/L (3-11) Est Creatinine Clear Calc Drug Dose 66.3 ml/min Estimated GFR () 102.5 Estimated GFR (Non- 88.4 BUN/Creatinine Ratio 15.9 (10-20) Calcium Level 8.8 mg/dl (8.5-10.1) Magnesium Level 2.1 mg/dl (1.8-2.4) Total Bilirubin 0.2 mg/dl (0.2-1) Aspartate Amino Transf (AST/SGOT) 17 U/L (15-37) Alanine Aminotransferase (ALT/SGPT) 17 U/L (12-78) Alkaline Phosphatase 112 U/L (45-117) Total Creatine Kinase 123 U/L (26-192) Troponin I < 0.015 ng/ml (0-0.045) Total Protein 7.5 gm/dl (6.4-8.2) Albumin 4.0 gm/dl (3.4-5.0) Globulin 3.5 gm/dl (2.5-4.0) Albumin/Globulin Ratio 1.1 (0.9-2) Thyroid Stimulating Hormone (TSH) 1.300 uIu/ml (0.300-4.500) Free Thyroxine 1.01 ng/dl (0.80-1.60) Prothrombin Time 9.8 SECONDS (9.0-12.0) Prothromb Time International Ratio 0.9 (0.9-1.1) Activated Partial Thromboplast Time 26.1 SECONDS (21.0-31.0) Partial Thromboplastin Ratio 1.0 Laboratory results reviewed by me. Medications Administered Medications (Trade) Dose Ordered Sig/Landon Route Start Time Stop Time Status Last Admin Dose Admin Sodium Chloride 1,000 ml @ 999 mls/hr Q1H1M STAT IV 09/25/17 12:52 09/25/17 13:52 DC 09/25/17 14:52 999 MLS/HR Diphenhydramine HCl (Benadryl Inj) 50 mg NOW STAT IV 09/25/17 12:59 09/25/17 13:01 DC 09/25/17 14:56 50 MG Promethazine HCl 25 mg/Sodium Chloride 51 ml @ 204 mls/hr NOW STAT IV 09/25/17 12:59 09/25/17 13:13 DC 09/25/17 14:53 204 MLS/HR ECG Per My Interpretation Indication: other (seizure) Rate (beats per minute): 54 Rhythm: sinus bradycardia Findings: no ectopy, other (No ST elevation or PVCs) ED Course 1246: The patient was evaluated in room C8. A complete history and physical exam was performed. 1252: Sodium Chloride 1000 ml @ 999 mls/hr IV 1259: Promethazine HCl 25mg/ Sodium Chloride 51ml @ 204mls/hr IV, Benadryl 50mg IV 1553: I discussed the patient's case with Dr. Oleg Vizcarra, and she states that the best thing for the patient is to be evaluated by the hospitalist. 1559: I reevaluated the patient, and she is feeling better after getting the medications for her migraine. I discussed the treatment plan with her, and she was agreeable. She will be evaluated by the hospitalist. 1605: Discussed the patient's case with Rochelle Peres PA-C [facility] Hospitalist. The patient will be evaluated for further management. Medical Decision Differential diagnoses include: pseudoseizure, syncope, dehydration, seizures, electrolyte imbalance, anemia, infection, UTI, and dysrhythmia. There is no leukocytosis or concerning anemia. No significant electrolyte abnormality, kidney failure or hepatitis. The patient appears to be in a euthyroid state. Chest film does not show pneumonia, cardiomegaly or pneumothorax. EKG shows a sinus rhythm, no acute ischemia. Cardiac enzyme testing 1 is not consistent with acute cardiac injury. On exam, there were no focal neurologic deficits. The patient was not febrile or toxic. Patient received IV saline, IV Benadryl and IV Phenergan. The Benadryl and Phenergan were given for complaints of headache. Patient presents with described seizure-like activity. She has had multiple episodes in the last few weeks. I discussed the case with neurology. A hospital stay for further workup was felt warranted. At this point, the cause for the presentation is unclear. I am not sure if this is true seizure activity, if this is syncopal seizure-like activity, if this is pseudoseizure. I did speak with case management. The on-call hospitalist was consulted. The patient is aware of her findings, she is resting comfortably. Medication Reconcilliation Current Medication List: was personally reviewed by me Blood Pressure Screening Patient's blood pressure: Normal blood pressure Consults Time Called: 154 Consulting Physician: Dr. Oleg Vizcarra Returned Call: [phone] I discussed the patient's case with Dr. Oleg Vizcarra, and she states that the best thing for the patient is to be evaluated by the hospitalist. Additional Consults: Time Called: 1557 Consulted Physician: Rochelle Vega Hospitalist Returned Call: [phone] Additional Comments: Discussed the patient's case with Rochelle Vega Hospitalist. The patient will be evaluated for further management. Impression Primary Impression: Seizure-like activity Scribe Attestation The scribe's documentation has been prepared under my direction and personally reviewed by me in its entirety. I confirm that the note above accurately reflects all work, treatment, procedures, and medical decision making performed by me. Departure Information Dispostion Being Evaluated By Hospitalist Referrals No Doctor, Assigned (PCP) Patient Instructions [facility]
--- NOTE | 2017-09-25 13:37 | DIAGNOSTIC IMAGING REPORT ---
CHEST ONE VIEW PORTABLE CLINICAL HISTORY: Altered mental status. Weakness. COMPARISON STUDY: No previous studies for comparison. FINDINGS: The cardiac and mediastinal contours are normal. There is no evidence of focal pulmonary consolidation. There is no evidence of failure. No pleural effusions are visualized.[ Postsurgical changes are again evident within the cervical spine. IMPRESSION: No active disease in the chest. Electronically signed by: Myles Lu M.D. 09/25/2017 1:36 PM Dictated Date/Time: 09/25/2017 1:36 PM
[2017-09-25 14:45] LABS: BASO % 0.4 %; BASO ABS # 0.02 K/uL (0-0.2); EOS % 7.1 %; EOS ABS # 0.39 K/uL (0-0.5); HEMATOCRIT 33.9 % (37-47); HEMOGLOBIN 11.2 g/dL (12.0-16.0); LYMPH % 39.3 %; LYMPH ABS # 2.16 K/uL (1.2-3.4); MEAN CELL VOLUME 88.1 fL (80-100); MEAN CORPUSCULAR HEMOGLOBIN 29.1 pg (25-34); MEAN PLATELET VOLUME 9.4 fL (7.4-10.4); MONO % 5.6 %; MONO ABS # 0.31 K/uL (0.11-0.59); NEUT % 47.6 %; NEUT ABS # 2.62 K/uL (1.4-6.5); PLATELET COUNT 291 K/uL (130-400); RED CELL DISTRIBUTION WIDTH CV 13.1 % (11.5-14.5); RED CELL DISTRIBUTION WIDTH SD 42.3 fL (36.4-46.3)
[2017-09-25 15:03] LABS: ALT/SGPT 17 U/L (12-78); AST/SGOT 17 U/L (15-37); BLOOD UREA NITROGEN 13 mg/dl (7-18); CALCIUM 8.8 mg/dl (8.5-10.1); CARBON DIOXIDE 30 mmol/L (21-32); GLUCOSE 80 mg/dl (70-99); POTASSIUM 3.8 mmol/L (3.5-5.1); SODIUM 141 mmol/L (136-145)
[2017-09-25 15:12] LABS: ALKALINE PHOSPHATASE 112 U/L (45-117); TOTAL PROTEIN 7.5 gm/dl (6.4-8.2)
[2017-09-25] MEDS ORDERED: SODIUM CHLORIDE 0.9% 1000ML 1,000 ML IV SCH (16:44)
[2017-09-25] MEDS ORDERED: POLYETHYLENE (MIRALAX) 17 GM PACK PO PRN (16:45)
[2017-09-25] MEDS ORDERED: MAGNESIUM HYDROXIDE SUSP 30 ML UDC PO PRN (16:45)
[2017-09-25] MEDS ORDERED: NITROGLYCERIN 0.4 MG SL PER TAB CHARGE SL PRN (16:45)
[2017-09-25] MEDS ORDERED: ONDANSETRON INJ 2 MG/ML 2 ML VIAL IV PRN (16:45)
[2017-09-25] MEDS ORDERED: ACETAMINOPHEN 325 MG TAB PO PRN (16:45)
[2017-09-25] MEDS ORDERED: ALUMINUM/MAGNESIUM/SIMETH (MAALOX MAX) 30 ML UDC PO PRN (16:45)
[2017-09-25] MEDS ORDERED: FEXO1TAB49 PO (16:59)
[2017-09-25] MEDS ORDERED: MONT1TAB3 PO (16:59)
[2017-09-25] MEDS ORDERED: PANT40TA PO (16:59)
[2017-09-25] MEDS ORDERED: LORAZEPAM 2 MG/ML 1 ML VIAL IV PRN (16:59)
[2017-09-25] MEDS ORDERED: FLUT0.15 NAE (16:59)
[2017-09-25] MEDS ORDERED: ROPI1TAB PO (16:59)
[2017-09-25] MEDS ORDERED: ONDANSETRON 8MG OD TAB SL PRN (17:00)
[2017-09-25 17:11] LABS: INR 0.9 (0.9-1.1); PTT PATIENT 26.1 SECONDS (21.0-31.0)
--- NOTE | 2017-09-25 17:42 | History and Physical ---
History & Physical Date & Time of Service: September 25, 2017 at 17:02 Chief Complaint: Seizures, Throwing Up, Headache Primary Care Physician: Deysi Wynn D.O. History of Present Illness Source: patient, clinic records, hospital records, friend Pt is 47 y/o F with PMH left breast CA S/P left mastectomy, anxiety, insomnia, fibromyalgia, GERD, hypothyroidism, recurrent headaches resented to ER with complaint of possible seizure. Patient initially states that symptoms have been going on for the past 5-6 months however then states symptoms were going on prior to breast cancer diagnosed in 2015. Of note patient with pseudoseizures listed under PMH on outpatient records from 2012. States on a daily basis will have episode of "not feeling right" in which she will need to sit down if she does not sit down she will follow. Patient states that is followed by generalized shaking and then blank stairs. Symptoms have occurred with walking , standing or sitting. Patient states sometimes feels like her heart is racing prior to these episodes and continues after the episodes. She states swelling down and then symptoms resolved. Reports sometimes remembers these episodes and sometimes does not. Denies any tongue biting, loss control of bowels or bladder. Patient reports today her friend witnessed episode. Feels has increased episodes if she is tired or anxious. Patient has not been taking Lexapro. Follows with psychiatrist. Takes Xanax twice daily most days and Ambien and Requip at at bedtime. Denies any other recent changes in her medications. Patient reports history of migraine headaches. States gets diffuse headache with associated photophobia, nausea, vomiting which occurs daily. Patient has had multiple ER visits to [facility] & [facility] ERs for migraines. Patient reports has not followed up with neurology in past. States was on Topamax and possible has not been taking secondary to it being ineffective. Reports history right chest port removed 01/2017. "Scar removal" to right chest on 09/21/17 and still has stitches in place. Denies any surrounding erythema or edema. Patient does not drive and does not work. Patient denies any illicit drug use. Denies fever/chills, diaphoresis, diarrhea , constipation, melena, hematochezia, hematemesis, dizziness, diplopia, vision loss, other vision changes, neck pain, CP, SOB, orthopnea, cough, sore throat, choking, otalgia, rhinorrhea, abdominal pain, paresthesias, weakness, extremity weakness, extremity edema, rashes, urinary symptoms, weight loss. Past Medical/Surgical History Medical Problems: (1) Allergic rhinitis Status: Chronic (2) Breast cancer Permanent Comment: STAGING: Left breast, invasive ductal carcinoma, grade 2, ER/ Her2 positive, UT negative, [id number], stage IA TREATMENT: 1. Lumpectom/SLN - 04/03/2015 2. Re-excision to obtain negative margins - 12/11/2015 3. Partial course of chemotherapy - Taxotere/Carboplatin/Herceptin - 5 cycles. Patient has refused further treatment including Herceptin. Status: Chronic (3) Chest wall abscess Status: Resolved (4) Depression with anxiety Status: Chronic (5) Fibromyalgia Status: Chronic (6) GERD (gastroesophageal reflux disease) Status: Chronic (7) Hypothyroidism Status: Chronic (8) Insomnia Status: Chronic (9) Migraines Status: Chronic (10) Nausea & vomiting Status: Resolved (11) Postoperative pain Status: Resolved (12) Syncope Status: Resolved Surgical Problems: (1) History of lumpectomy Status: Resolved (2) Hx of appendectomy Status: Resolved (3) Hx of cholecystectomy Status: Resolved (4) Hx of hysterectomy Status: Resolved Family History FH: CAD (coronary artery disease) FH: breast cancer Social History Smoking Status: Never Smoker Smokeless Tobacco Use: No Alcohol Use: none Drug Use: none Marital Status: single Housing status: lives alone Occupational Status: unemployed Immunizations History of Influenza Vaccine: Yes Influenza Vaccine Date: Mar 07, 2017 History of Tetanus Vaccine?: Yes Tetanus Immunization Date: Mar 07, 2011 History of Pneumococcal: No Pneumococcal Date: May 17, 2013 Allergies Coded Allergies: Iodinated Diagnostic Agents (Verified Allergy, Severe, Throat swells - IV contrast, 09/25/17) Adhesives (Verified Allergy, Intermediate, TAPE- HIVES, 09/25/17) Cephalexin (Verified Allergy, Intermediate, Hives, throat swelling, 09/25/17 ) Codeine (Verified Allergy, Intermediate, Hives, 09/25/17) Latex1 -Allergic Contact Dermititis (Verified Allergy, Intermediate, SWELLS AND HIVES, 09/25/17) Penicillins (Verified Allergy, Intermediate, HIVES, THROAT SWELLING, ) [place] (Verified Allergy, Intermediate, HIVES, 09/25/17) Sulfa Antibiotics (Verified Allergy, Intermediate, Hives, 09/25/17) Vancomycin (Verified Allergy, Intermediate, HIVES, 09/25/17) Loratadine (Verified Allergy, Mild, Hives, 09/25/17) Morphine (Verified Allergy, Mild, Hives, 09/25/17) Tramadol (Verified Allergy, Mild, Hives, 09/25/17) Home Medications Scheduled Fexofenadine Hcl (Ofelia Allergy), 1 TAB PO DAILY Fluticasone Propionate (Nasal) (Flonase Allergy Relief), 2 SPRAYS ALANIS DAILY Levothyroxine Sodium (Levothyroxine Sodium), 25 MCG PO DAILY Montelukast Sodium (Singulair), 10 MG PO HS Pantoprazole Sodium (Protonix), 40 MG PO DAILY Promethazine (Phenergan ), 1 TABS PO Q6 Ropinirole (Requip), 1 MG PO HS Scheduled PRN Alprazolam (Xanax), 1 MG PO TID PRN for Anxiety Ondansetron Odt (Zofran Odt), 8 MG SL Q8 PRN for Nausea Zolpidem Tartrate (Zolpidem Tartrate), 10 MG PO HS PRN for Insomnia Review of Systems See HPI for pertinent positives & negatives. All other systems reviewed and were otherwise negative Physical Exam Vital Signs Date Time Temp Pulse Resp B/P (MAP) Pulse Ox O2 Delivery O2 Flow Rate FiO2 09/25/17 15:03 65 18 131/90 100 09/25/17 14:57 100 Room Air 09/25/17 12:32 36.5 58 18 122/79 100 Room Air General Appearance: WD/WN, no apparent distress Head: normocephalic, atraumatic Eyes: normal inspection, PERRL, EOMI, sclerae normal ENT: hearing grossly normal, pharynx normal, + pertinent finding (mucous membranes moist, no tongue lacerations noted) Neck: supple, no JVD, trachea midline, + pertinent finding (non-tender, active ROM intact) Respiratory/Chest: lungs clear, normal breath sounds, no respiratory distress Cardiovascular: regular rate, rhythm, no murmur, normal peripheral pulses Abdomen/GI: normal bowel sounds, non tender, soft Back: no CVA tenderness Extremities/Musculoskelatal: no calf tenderness, normal capillary refill, no pedal edema, non-tender, + pertinent finding (bilateral upper and lower extremity active ROM intact and bilateral strength intact) Neurologic/Psych: no motor/sensory deficits, alert, normal mood/affect, oriented x 3, + pertinent finding (During my exam pt states "see there I just had 2 shaking episodes", there was no shaking or abnormal movements or changing in mentation during my entire assessment.) Skin: warm/dry, + pertinent finding (Right upper chest with sutures in place without surrounding erythema or edema) Diagnostics Laboratory Results Results Past 24 Hours Test 09/25/17 14:35 09/25/17 16:56 Range/Units White Blood Count 5.50 4.8-10.8 K/uL Red Blood Count 3.85 4.2-5.4 M/uL Hemoglobin 11.2 12.0-16.0 g/dL Hematocrit 33.9 37-47 % Mean Corpuscular Volume 88.1 80-100 fL Mean Corpuscular Hemoglobin 29.1 25-34 pg Mean Corpuscular Hemoglobin Concent 33.0 32-36 g/dl Platelet Count 291 130-400 K/uL Mean Platelet Volume 9.4 7.4-10.4 fL Neutrophils (%) (Auto) 47.6 % Lymphocytes (%) (Auto) 39.3 % Monocytes (%) (Auto) 5.6 % Eosinophils (%) (Auto) 7.1 % Basophils (%) (Auto) 0.4 % Neutrophils # (Auto) 2.62 1.4-6.5 K/uL Lymphocytes # (Auto) 2.16 1.2-3.4 K/uL Monocytes # (Auto) 0.31 0.11-0.59 K/uL Eosinophils # (Auto) 0.39 0-0.5 K/uL Basophils # (Auto) 0.02 0-0.2 K/uL RDW Standard Deviation 42.3 36.4-46.3 fL RDW Coefficient of Variation 13.1 11.5-14.5 % Immature Granulocyte % (Auto) 0.0 % Immature Granulocyte # (Auto) 0.00 0.00-0.02 K/uL Sodium Level 141 136-145 mmol/L Potassium Level 3.8 3.5-5.1 mmol/L Chloride Level 106 98-107 mmol/L Carbon Dioxide Level 30 21-32 mmol/L Anion Gap 5.0 3-11 mmol/L Blood Urea Nitrogen 13 7-18 mg/dl Creatinine 0.80 0.60-1.20 mg/dl Est Creatinine Clear Calc Drug Dose 66.3 ml/min Estimated GFR () 102.5 Estimated GFR (Non- 88.4 BUN/Creatinine Ratio 15.9 10-20 Random Glucose 80 70-99 mg/dl Calcium Level 8.8 8.5-10.1 mg/dl Magnesium Level 2.1 1.8-2.4 mg/dl Total Bilirubin 0.2 0.2-1 mg/dl Aspartate Amino Transf (AST/SGOT) 17 15-37 U/L Alanine Aminotransferase (ALT/SGPT) 17 12-78 U/L Alkaline Phosphatase 112 45-117 U/L Total Creatine Kinase 123 26-192 U/L Troponin I < 0.015 0-0.045 ng/ml Total Protein 7.5 6.4-8.2 gm/dl Albumin 4.0 3.4-5.0 gm/dl Globulin 3.5 2.5-4.0 gm/dl Albumin/Globulin Ratio 1.1 0.9-2 Thyroid Stimulating Hormone (TSH) 1.300 0.300-4.500 uIu/ml Free Thyroxine 1.01 0.80-1.60 ng/dl Diagnostic Radiology CXR: IMPRESSION: No active disease in the chest. EKG EKG: sinus bradycardia, rate 54, no acute ST changes noted Impression Assessment and Plan POSSIBLE SEIZURE ACTIVITY DDX: seizure, psychogenic seizures, cardiogenic syncope, orthostatic syncope, atypical migraine, drug intoxication/withdrawal Pt with reported hx daily occurrences of fall or near falls followed by reported shaking, blank stares. Denies loss control of bowel/bladder or tongue biting. Evaluated in ER today. Patient reports headache and was given 1 L NSS, Phenergan 25 mg IV, Benadryl 50 mg IV. Reports headache has improved after medication. History CT head on 08/31 is negative. History CTA chest on 09/23/17 negative for PE. Today CXR negative, vitals stable, negative troponin, no leukocytosis, no electrolyte abnormality. EKG: sinus bradycardia rate [address] changes. -tele to monitor for any cardiac arrhythmias -pending UA and urine tox screen -seizure precautions -ativan prn seizure -EEG -orthostatics -repeat cbc, prp in am RECURRENT MORELOS's Pt reports chronic daily MORELOS's with associated photophobia, N/V. Denies other vision changes. Reports hx Topamax use in past, not used for "awhile" secondary to reported ineffective. -will hold on narcotic pain medication use for MORELOS's -neuro consult HYPOTHYROIDISM TSH: 1.3 -continue levothyroxine ANXIETY/INSOMNIA/FIBROMYALGIA -continue requip, ambien GERD -continue PPI ALLERGIC RHINITIS -continue Singulair, Ofelia, Flonase and ProAir prn Hx L BREAST CA S/P L lumpectomy and chemo 2015 DVT Prophylaxis -Lovenox SQ Disposition admit tele Full code Follows with Dr Deysi Wynn for routine care Pt was seen with Dr Becerril. See addendum ATTENDING ADDENDUM Patient seen and examined care coordinated with Mercedez Peres PA-C This is a 47-year-old female with past medical history of breast cancer status post chemo treatment/history of migraine headache came to the ER with report of seizure-like activity CT head without contrast negative for any acute change Patient will be observed in telemetry Order for EEG Neurology evaluation Please refer to Mercedez Peres documentation for further discussion of other chronic issue Shirley Becerril MD Resuscitation Status VTE Prophylaxis Will order VTE Prophylaxis: Yes Additional Copies To Deysi Wynn D.O.
--- NOTE | 2017-09-25 18:39 | DIAGNOSTIC IMAGING REPORT ---
HEAD WITHOUT CONTRAST (CT) CLINICAL HISTORY: 47 years-old Female with sz /hx of breast ca r/o mets. Acute seizure with history of breast cancer. Acute headache TECHNIQUE: Multiple axial CT images of the head were obtained without contrast. A dose lowering technique was utilized adhering to the principles of ALARA. CT DOSE: 537.48 mGy.cm COMPARISON: CT head 08/31/2017. FINDINGS: No acute intracranial hemorrhage, midline shift, intracranial mass, hydrocephalus, territorial ischemia or abnormal extra-axial collection. Mild bifrontal cerebral atrophy. The calvarium is intact. Hypoplasia of the frontal sinuses. The paranasal sinuses, mastoid air cells, and middle ear cavities are clear. IMPRESSION: No acute intracranial abnormality. The above report was generated using voice recognition software. It may contain grammatical, syntax or spelling errors. Electronically signed by: Chung Zuleta M.D. 09/25/2017 6:38 PM Dictated Date/Time: 09/25/2017 6:35 PM
[2017-09-25 18:47] VITALS: BP 125/81; PULSE 53; TEMP 36.8; O2SAT 100
[2017-09-25] MEDS ORDERED: IV FLUIDS COMPLETED PRN (19:30)
[2017-09-25 20:00] VITALS: Ht 154.9 cm; Wt 57.4 kg
[2017-09-25 20:07] VITALS: BP 147/99; PULSE 55; TEMP 36.8; O2SAT 100
[2017-09-25] MEDS ORDERED: hydrOXYzine HCL 10 MG TAB PO ONE (21:15)
[2017-09-25] MEDS: ROPINIROLE HCL 1 MG TAB PO SCH (21:25)
[2017-09-25] MEDS: MONTELUKAST SOD 10 MG TAB PO SCH (21:26)
[2017-09-25] MEDS: KETOROLAC TROMETHAMINE 30 MG/ML VIAL IV. PRN (21:27)
[2017-09-25] MEDS: ENOXAPARIN 30 MG/0.3 ML SYR SC SCH (21:27)
[2017-09-25] MEDS: ZOLPIDEM TARTRATE 10 MG TAB PO PRN (22:43)
[2017-09-25] MEDS: PROMETHAZINE HCL 25 MG TAB PO PRN (22:43)
[2017-09-26] VITALS (12 sets, daily range): BP systolic 92–120; BP diastolic 59–74; PULSE 53–75; TEMP 36.4–37; O2SAT 95–100
[2017-09-26] MEDS: LEVOTHYROXINE 25 MCG TAB PO SCH (05:22)
[2017-09-26] MEDS: PROMETHAZINE HCL 25 MG TAB PO PRN ×2 (05:24→12:34)
[2017-09-26] MEDS: KETOROLAC TROMETHAMINE 30 MG/ML VIAL IV. PRN ×2 (05:24→12:35)
[2017-09-26] MEDS: FEXOFENADINE HCL 180 MG TAB PO SCH (07:37)
[2017-09-26] MEDS: PANTOprazole SOD 40 MG TAB PO SCH (07:37)
[2017-09-26] MEDS: FLUTICASONE PROPIONATE NA SPR 16 GM BTL NAE SCH (07:38)
--- NOTE | 2017-09-26 08:58 | EEG Procedure Note ---
EEG Procedure Note Date of Service September 26, 2017. Start / End Times Start Time: 8:19 AM End Time: 8:39 AM Referring Physician AMARA Terry History This is a 47-year-old female who is presenting with seizure-like activity. EEG for further evaluation of possible seizure etiology Home Medication List Scheduled Fexofenadine Hcl (Ofelia Allergy), 1 TAB PO DAILY Fluticasone Propionate (Nasal) (Flonase Allergy Relief), 2 SPRAYS ALANIS DAILY Levothyroxine Sodium (Levothyroxine Sodium), 25 MCG PO DAILY Montelukast Sodium (Singulair), 10 MG PO HS Pantoprazole Sodium (Protonix), 40 MG PO DAILY Promethazine (Phenergan ), 1 TABS PO Q6 Ropinirole (Requip), 1 MG PO HS Scheduled PRN Alprazolam (Xanax), 1 MG PO TID PRN for Anxiety Ondansetron Odt (Zofran Odt), 8 MG SL Q8 PRN for Nausea Zolpidem Tartrate (Zolpidem Tartrate), 10 MG PO HS PRN for Insomnia Inpatient Medication List Current Inpatient Medications Medications (Trade) Dose Ordered Sig/Landon Route Start Time Stop Time Status Last Admin Dose Admin Enoxaparin Sodium (Lovenox Inj) 30 mg Q24H SC 09/25/17 21:00 10/25/17 20:59 09/25/17 21:27 30 MG Acetaminophen (Tylenol Tab) 650 mg Q4H PRN PO 09/25/17 16:45 10/25/17 16:44 Al Hydrox/Mg Hydrox/Simethicone (Maalox Max Susp) 15 ml Q4H PRN PO 09/25/17 16:45 10/25/17 16:44 Magnesium Hydroxide (Milk Of Magnesia Susp) 30 ml Q12H PRN PO 09/25/17 16:45 10/25/17 16:44 Ondansetron HCl (Zofran Inj) 4 mg Q6H PRN IV 09/25/17 16:45 10/25/17 16:44 Nitroglycerin (Nitrostat Tab) 0.4 mg UD PRN SL 09/25/17 16:45 10/25/17 16:44 Polyethylene (Miralax Powder Packet) 17 gm DAILY PRN PO 09/25/17 16:45 10/25/17 16:44 Lorazepam (Ativan Inj) 1 mg Q5M PRN IV 09/25/17 16:59 10/25/17 16:58 Levothyroxine Sodium (Synthroid Tab) 25 mcg DAILYBB PO 09/26/17 06:00 10/26/17 06:59 09/26/17 05:22 25 MCG Ondansetron HCl (Zofran Odt) 8 mg Q8 PRN SL 09/25/17 17:00 10/25/17 16:59 Promethazine HCl (Phenergan Tab) 12.5 mg Q6 PRN PO 09/25/17 18:00 10/25/17 17:59 09/26/17 05:24 12.5 MG Zolpidem Tartrate (Ambien Tab) 10 mg HS PRN PO 09/25/17 17:00 10/25/17 16:59 09/25/17 22:43 10 MG Fexofenadine HCl (Ofelia Tab) 180 mg DAILY PO 09/26/17 09:00 10/26/17 08:59 09/26/17 07:37 180 MG Fluticasone Propionate (Flonase Nasal Pierce) 2 sprays DAILY ALANIS 09/26/17 09:00 10/26/17 08:59 09/26/17 07:38 2 SPRAYS Montelukast Sodium (Singulair Tab) 10 mg HS PO 09/25/17 21:00 10/25/17 20:59 09/25/17 21:26 10 MG Pantoprazole Sodium (Protonix Tab) 40 mg DAILY PO 09/26/17 09:00 10/26/17 08:59 09/26/17 07:37 40 MG Ropinirole HCl (Requip Tab) 1 mg HS PO 09/25/17 21:00 10/25/17 20:59 09/25/17 21:25 1 MG Miscellaneous (Iv Fluids Completed) 1 ea PRN PRN N/A 09/25/17 19:30 09/25/18 19:29 Ketorolac Tromethamine (Toradol Inj) 30 mg Q6H PRN IV. 09/25/17 20:15 09/27/17 08:00 09/26/17 05:24 30 MG Description This is a 21 electrode EEG with a single channel dedicated to limited EKG. The electrodes were placed in accordance with the International 10-20 system. At the start of this recording the patient was in an awake state. Background was well organized with a well formed anterior to posterior gradient. Background was composed of moderate amplitude symmetric alpha and mild excess beta frequencies. There was moderate amplitude symmetric posterior dominant rhythm of 11-12 Hz that was reactive to eye opening and closure. Hyperventilation was not done. Photic stimulation at various frequencies did not produce any abnormalities. There was no state changes or sleep transients Interpretation This is a normal awake only routine EEG. There was no electrographic seizures or epileptiform discharges. Clinical Correlation A normal EEG does not rule out epilepsy if there is a strong clinical suspicion.
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
[2017-09-26] MEDS ORDERED: DiphenhydrAMINE HCL 50 MG/ML VIAL IV ONE (15:00)
[2017-09-26] MEDS: PROMETHAZINE HCL INJ 12.5 MG in SODIUM CHLORIDE 0.9% 50ML 50 ML IV PRN ×2 (15:33→23:54)
--- NOTE | 2017-09-26 15:59 | Progress Note ---
Medicine Progress Note Date & Time of Visit: September 26, 2017 at 14:37. Subjective 47-year-old female presents with recurrent syncope and possible seizure activity. She reports having seizure activity since her cancer diagnosis 3 years ago and reports 2 episodes per month where she passes out or has a seizure. She states to me that she has never seen a neurologist. She reports that her primary care doctor placed her on Topamax and gives her Maxalt for an abortive which works for her when she can get it. She states that she has been sent with to the pain clinic in the past for chronic migraines and was put on OxyContin at one point but weaned herself off of this. She reports a severe migraine 2-3 times per week and in the last couple of weeks has noticed an increased frequency of her migraines and seizures. She reports having a surgery on 1 week ago where she had a port wound debridement. The port had evidently been taken out late last year and she has had multiple episodes of dehiscence. She denies ever being on antiseizure medicines in the past. She denies any medication changes, denies any herbal supplementation or woun-ecl-hqhxwuh use of meds. She reports 1 dose of clindamycin was given to her preoperatively and she did take some Bactrim approximately 2 months ago. Since admission she is undergone an EEG that was not and her urine tox screen was positive for benzos which is consistent with her Xanax use per home medication list. Objective Last 8 Hrs Date Time Temp Pulse Resp B/P (MAP) Pulse Ox O2 Delivery O2 Flow Rate FiO2 09/26/17 12:00 100 Room Air 09/26/17 11:49 37.0 69 16 107/73 (84) 95 09/26/17 08:00 100 Room Air Physical Exam: GEN: WNWD, in no acute distress, alert and appropriate HEENT: NC/AT, PERRL, normal sclerae, EOMI CARDIO: reg rate, S1/2 heard without m/g/r LUNGS: CTA bilaterally, no crackles, rales or wheezes, good diaphragmatic excursion ABD: soft, non-tender, non-distended, no rebound or guarding, +BS EXTREMITY: RP and DP palpable 2+ bilat, no LE swelling or edema, extremities are warm and well-perfused NEURO: CN 2-12 intact, sensation intact throughout, no gross focal deficits. MUSC: 5/5 strength throughout, no gross focal deficits SKIN: warm and dry Laboratory Results: 09/25/17 14:35 Red Blood Count 3.85, Mean Corpuscular Volume 88.1, Mean Corpuscular Hemoglobin 29.1, Mean Corpuscular Hemoglobin Concent 33.0, Mean Platelet Volume 9.4, Neutrophils (%) (Auto) 47.6, Lymphocytes (%) (Auto) 39.3, Monocytes (%) (Auto) 5.6, Eosinophils (%) (Auto) 7.1, Basophils (%) (Auto) 0.4, Neutrophils # (Auto) 2.62, Lymphocytes # (Auto) 2.16, Monocytes # (Auto) 0.31, Eosinophils # (Auto) 0.39, Basophils # (Auto) 0.02 09/25/17 14:35 Test 09/25/17 14:35 09/25/17 14:40 09/25/17 21:50 White Blood Count 5.50 K/uL (4.8-10.8) Red Blood Count 3.85 M/uL (4.2-5.4) Hemoglobin 11.2 g/dL (12.0-16.0) Hematocrit 33.9 % (37-47) Mean Corpuscular Volume 88.1 fL (80-100) Mean Corpuscular Hemoglobin 29.1 pg (25-34) Mean Corpuscular Hemoglobin Concent 33.0 g/dl (32-36) Platelet Count 291 K/uL (130-400) Mean Platelet Volume 9.4 fL (7.4-10.4) Neutrophils (%) (Auto) 47.6 % Lymphocytes (%) (Auto) 39.3 % Monocytes (%) (Auto) 5.6 % Eosinophils (%) (Auto) 7.1 % Basophils (%) (Auto) 0.4 % Neutrophils # (Auto) 2.62 K/uL (1.4-6.5) Lymphocytes # (Auto) 2.16 K/uL (1.2-3.4) Monocytes # (Auto) 0.31 K/uL (0.11-0.59) Eosinophils # (Auto) 0.39 K/uL (0-0.5) Basophils # (Auto) 0.02 K/uL (0-0.2) RDW Standard Deviation 42.3 fL (36.4-46.3) RDW Coefficient of Variation 13.1 % (11.5-14.5) Immature Granulocyte % (Auto) 0.0 % Immature Granulocyte # (Auto) 0.00 K/uL (0.00-0.02) Anion Gap 5.0 mmol/L (3-11) Est Creatinine Clear Calc Drug Dose 66.3 ml/min Estimated GFR () 102.5 Estimated GFR (Non- 88.4 BUN/Creatinine Ratio 15.9 (10-20) Calcium Level 8.8 mg/dl (8.5-10.1) Magnesium Level 2.1 mg/dl (1.8-2.4) Total Bilirubin 0.2 mg/dl (0.2-1) Aspartate Amino Transf (AST/SGOT) 17 U/L (15-37) Alanine Aminotransferase (ALT/SGPT) 17 U/L (12-78) Alkaline Phosphatase 112 U/L (45-117) Total Creatine Kinase 123 U/L (26-192) Troponin I < 0.015 ng/ml (0-0.045) Total Protein 7.5 gm/dl (6.4-8.2) Albumin 4.0 gm/dl (3.4-5.0) Globulin 3.5 gm/dl (2.5-4.0) Albumin/Globulin Ratio 1.1 (0.9-2) Thyroid Stimulating Hormone (TSH) 1.300 uIu/ml (0.300-4.500) Free Thyroxine 1.01 ng/dl (0.80-1.60) Prothrombin Time 9.8 SECONDS (9.0-12.0) Prothromb Time International Ratio 0.9 (0.9-1.1) Activated Partial Thromboplast Time 26.1 SECONDS (21.0-31.0) Partial Thromboplastin Ratio 1.0 Urine Color YELLOW Urine Appearance CLEAR (CLEAR) Urine pH 5.5 (4.5-7.5) Urine Specific [place] 1.008 (1.000-1.030) Urine Protein NEG (NEG) Urine Glucose (UA) NEG (NEG) Urine Ketones NEG (NEG) Urine Occult Blood NEG (NEG) Urine Nitrite NEG (NEG) Urine Bilirubin NEG (NEG) Urine Urobilinogen NEG (NEG) Urine Leukocyte Esterase TRACE (NEG) Urine WBC (Auto) 1-5 /hpf (0-5) Urine RBC (Auto) 0-4 /hpf (0-4) Urine Hyaline Casts (Auto) 0 /lpf (0-5) Urine Epithelial Cells (Auto) 5-10 /lpf (0-5) Urine Bacteria (Auto) NEG (NEG) Urine Opiates Screen NEG (NEG) Urine Methadone, Qualitative NEG (NEG) Urine Barbiturates NEG (NEG) Urine Phencyclidine (PCP) Level NEG (NEG) Ur Amphetamine/Methamphetamine NEG (NEG) MDMA (Ecstasy) Screen NEG (NEG) Urine Benzodiazepines Screen POS (NEG) Urine Cocaine Metabolite NEG (NEG) Urine Marijuana (THC) NEG (NEG) Last 24 Hours Test 09/25/17 14:40 09/25/17 21:50 Prothrombin Time 9.8 SECONDS Prothromb Time International Ratio 0.9 Activated Partial Thromboplast Time 26.1 SECONDS Partial Thromboplastin Ratio 1.0 Urine Color YELLOW Urine Appearance CLEAR Urine pH 5.5 Urine Specific [place] 1.008 Urine Protein NEG Urine Glucose (UA) NEG Urine Ketones NEG Urine Occult Blood NEG Urine Nitrite NEG Urine Bilirubin NEG Urine Urobilinogen NEG Urine Leukocyte Esterase TRACE Urine WBC (Auto) 1-5 /hpf Urine RBC (Auto) 0-4 /hpf Urine Hyaline Casts (Auto) 0 /lpf Urine Epithelial Cells (Auto) 5-10 /lpf Urine Bacteria (Auto) NEG Urine Opiates Screen NEG Urine Methadone, Qualitative NEG Urine Barbiturates NEG Urine Phencyclidine (PCP) Level NEG Ur Amphetamine/Methamphetamine NEG MDMA (Ecstasy) Screen NEG Urine Benzodiazepines Screen POS Urine Cocaine Metabolite NEG Urine Marijuana (THC) NEG Assessment & Plan 47-year-old female presents with recurrent syncope and possible seizure activity. She reports having seizure activity since her cancer diagnosis 3 years ago and reports 2 episodes per month where she passes out or has a seizure. She states to me that she has never seen a neurologist. She reports that her primary care doctor placed her on Topamax and gives her Maxalt for an abortive which works for her when she can get it. She states that she has been sent with to the pain clinic in the past for chronic migraines and was put on OxyContin at one point but weaned herself off of this. She reports a severe migraine 2-3 times per week and in the last couple of weeks has noticed an increased frequency of her migraines and seizures. She reports having a surgery on 1 week ago where she had a port wound debridement. The port had evidently been taken out late last year and she has had multiple episodes of dehiscence. She denies ever being on antiseizure medicines in the past. She denies any medication changes, denies any herbal supplementation or [id number]-[id number] use of meds. She reports 1 dose of clindamycin was given to her preoperatively and she did take some Bactrim approximately 2 months ago. Since admission she is undergone an EEG that was not and her urine tox screen was positive for benzos which is consistent with her Xanax use per home medication list. 1. Syncope-differential diagnosis includes but is not limited to seizures, orthostasis, pain from migraine or other. She currently does not drive. She denies any loss of control of her bowel or bladder and denies any tongue biting. She states to me that she intermittently remembers these episodes but for the most part does not. Appreciate neurology recommendations. 2. Migraine headaches-chronic issue, patient denies any outpatient neurology follow-up. She takes Maxalt ODT as an abortive which she says works. She states she is supposed to be on Topamax but has not taken it in a while because it was discontinued for some reason. She currently has a headache and is requesting IV Benadryl as this has worked for her in the past. She also states that she has been up all night and this is contributing to her current migraine. 3. Hypothyroidism-levo thyroxine 4. Restless leg syndrome-Requip 5. Allergic rhinitis continue Ofelia and Singulair 6. History of breast cancer-remission for the past 3 years. Patient has recently had difficulties with port where it was removed and there have been episodes of wound dehiscence since last fall. Currently stitches are not placed from surgery 1 week ago. DVT prophylaxis-Lovenox Full code Disposition uncertain at this time, pending neurology recommendations. Rhoda Gibson DO [facility] hospitalist Consultants: Neuro-Dr. Madonna Dejesus Current Inpatient Medications: Current Inpatient Medications Medications (Trade) Dose Ordered Sig/Landon Route Start Time Stop Time Status Last Admin Dose Admin Enoxaparin Sodium (Lovenox Inj) 30 mg Q24H SC 09/25/17 21:00 10/25/17 20:59 09/25/17 21:27 30 MG Acetaminophen (Tylenol Tab) 650 mg Q4H PRN PO 09/25/17 16:45 10/25/17 16:44 Al Hydrox/Mg Hydrox/Simethicone (Maalox Max Susp) 15 ml Q4H PRN PO 09/25/17 16:45 10/25/17 16:44 Magnesium Hydroxide (Milk Of Magnesia Susp) 30 ml Q12H PRN PO 09/25/17 16:45 10/25/17 16:44 Ondansetron HCl (Zofran Inj) 4 mg Q6H PRN IV 09/25/17 16:45 10/25/17 16:44 Nitroglycerin (Nitrostat Tab) 0.4 mg UD PRN SL 09/25/17 16:45 10/25/17 16:44 Polyethylene (Miralax Powder Packet) 17 gm DAILY PRN PO 09/25/17 16:45 10/25/17 16:44 Lorazepam (Ativan Inj) 1 mg Q5M PRN IV 09/25/17 16:59 10/25/17 16:58 Levothyroxine Sodium (Synthroid Tab) 25 mcg DAILYBB PO 09/26/17 06:00 10/26/17 06:59 09/26/17 05:22 25 MCG Ondansetron HCl (Zofran Odt) 8 mg Q8 PRN SL 09/25/17 17:00 10/25/17 16:59 Promethazine HCl (Phenergan Tab) 12.5 mg Q6 PRN PO 09/25/17 18:00 10/25/17 17:59 09/26/17 12:34 12.5 MG Zolpidem Tartrate (Ambien Tab) 10 mg HS PRN PO 09/25/17 17:00 10/25/17 16:59 09/25/17 22:43 10 MG Fexofenadine HCl (Ofelia Tab) 180 mg DAILY PO 09/26/17 09:00 10/26/17 08:59 09/26/17 07:37 180 MG Fluticasone Propionate (Flonase Nasal [place]) 2 sprays DAILY ALANIS 09/26/17 09:00 10/26/17 08:59 09/26/17 07:38 2 SPRAYS Montelukast Sodium (Singulair Tab) 10 mg HS PO 09/25/17 21:00 10/25/17 20:59 09/25/17 21:26 10 MG Pantoprazole Sodium (Protonix Tab) 40 mg DAILY PO 09/26/17 09:00 10/26/17 08:59 09/26/17 07:37 40 MG Ropinirole HCl (Requip Tab) 1 mg HS PO 09/25/17 21:00 10/25/17 20:59 09/25/17 21:25 1 MG Miscellaneous (Iv Fluids Completed) 1 ea PRN PRN N/A 09/25/17 19:30 09/25/18 19:29 Ketorolac Tromethamine (Toradol Inj) 30 mg Q6H PRN IV. 09/25/17 20:15 09/27/17 08:00 09/26/17 12:35 30 MG
[2017-09-26] MEDS: DiphenhydrAMINE HCL 50 MG/ML VIAL IV PRN (19:30)
[2017-09-26] MEDS: MONTELUKAST SOD 10 MG TAB PO SCH (21:34)
[2017-09-26] MEDS: ROPINIROLE HCL 1 MG TAB PO SCH (21:34)
[2017-09-26] MEDS: ENOXAPARIN 30 MG/0.3 ML SYR SC SCH (21:38)
[2017-09-27] VITALS (8 sets, daily range): BP systolic 100–128; BP diastolic 59–88; PULSE 58–75; TEMP 36.4–36.8; O2SAT 98–100
[2017-09-27] MEDS: ZOLPIDEM TARTRATE 10 MG TAB PO PRN (00:01)
[2017-09-27] MEDS: DiphenhydrAMINE HCL 50 MG/ML VIAL IV PRN ×2 (01:21→07:30)
[2017-09-27] MEDS: LEVOTHYROXINE 25 MCG TAB PO SCH (06:01)
[2017-09-27] MEDS: PROMETHAZINE HCL INJ 12.5 MG in SODIUM CHLORIDE 0.9% 50ML 50 ML IV PRN (06:16)
[2017-09-27] MEDS: KETOROLAC TROMETHAMINE 30 MG/ML VIAL IV. PRN (06:37)
[2017-09-27] MEDS: FLUTICASONE PROPIONATE NA SPR 16 GM BTL NAE SCH (07:31)
[2017-09-27] MEDS: PANTOprazole SOD 40 MG TAB PO SCH (07:31)
[2017-09-27] MEDS: FEXOFENADINE HCL 180 MG TAB PO SCH (07:31)
--- NOTE | 2017-09-27 08:55 | ECHOCARDIOGRAM REPORT ---
*NOTICE TO RECEIVING [employer] This information is strictly Confidential and protected under [place] law. [place] law prohibits you from making any further disclosure of this information unless further disclosure is expressly permitted by the written consent of the person to whom it pertains or is authorized by law. A general authorization for the release of medical or other information is not sufficient for this purpose. Hospital accepts no responsibility if the information is made available to any other person, INCLUDING THE PATIENT. Interpretation Summary * Name: JERSON JOHNSON Study Date: 09/27/2017 06:46 AM BP: 120/74 mmHg * Patient Location: .2E\S\E211\S\1 HR: 75 * : 1970 (M/d/yyyy) Gender: Female Height: 60 in * Age: 47 yrs Ethnicity: CA Weight: 126 lb * Ordering Physician: Rhoda Gibson * Referring Physician: Self, Referred * Performed By: Macey Guerrero RDCS * * Reason For Study: Syncope * BSA: 1.5 m2 * -- Conclusions -- * Normal LV chamber size and wall thickness. * Normal LV systolic function, EF 60-65%. * No segmental left ventricular wall motion abnormalities are noted. * Normal diastolic function. * No significant valvular pathology. Procedure Details * A complete two-dimensional transthoracic echocardiogram was performed (2D, M-mode, Doppler and color flow Doppler). * A contrast injection of Definity was performed to improve assessment of LV function. * Contrast was injected into an intravenous site in the right arm. * One vial of Definity ultrasound contrast was diluted in normal saline to a total volume of 10 ml. A total of '2' ml of solution was administered during imaging. * Lot # [id number] of Definity utilized for procedure. * Expiration date SEP 07. * The attending nurse who injected the contrast agent was Rosy Roca RN. Left Ventricle * The left ventricle is normal in size. * There is normal left ventricular wall thickness. * Ejection Fraction = 60-65%. * Left ventricular systolic function is normal. * No segmental left ventricular wall motion abnormalities are noted. * The left ventricular wall motion is normal. Right Ventricle * The right ventricular cavity size is normal (basal dimension <4.2 cm in right ventricular apical 4-chamber view). * The right ventricular systolic function is normal as assessed by tricuspid annular plane systolic excursion (TAPSE) (normal >1.5 cm). Atria * The left atrial size is normal. * Right atrial size is normal. * No ASD detected; PFO is not assessed. Mitral Valve * The mitral valve is normal in structure and function. Tricuspid Valve * The tricuspid valve is normal in structure and function. Aortic Valve * The aortic valve is normal in structure and function. Pulmonic Valve * The pulmonary valve is not well seen, but the Doppler examination is normal without significant regurgitation or stenosis. Great Vessels * The aortic root and proximal ascending aorta are normal sized. Pericardium/Pleural * There is no pericardial effusion. Left Ventricular Diastolic Function * Pulse wave TDI of the anterior and posterior mitral annulas demonstrates normal LV relaxation MMode 2D Measurements and Calculations IVSd 0.67 cm LVIDd 3.5 cm LVIDs 2.4 cm LVPWd 0.77 cm IVS/LVPW 0.87 FS 30.1 % EDV(Teich) 50.1 ml ESV(Teich) 20.8 ml EF(Teich) 58.4 % EDV(cubed) 42.0 ml ESV(cubed) 14.4 ml EF(cubed) 65.8 % LV mass(C)d 64.7 grams LV mass(C)dI 42.2 grams/m\S\2 SV(Teich) 29.2 ml SI(Teich) 19.1 ml/m\S\2 SV(cubed) 27.7 ml SI(cubed) 18.0 ml/m\S\2 ACS 1.5 cm LA dimension 2.4 cm asc Aorta Diam 2.3 cm LVAd ap4 23.1 cm\S\2 LVLd ap4 7.3 cm EDV(MOD-sp4) 59.0 ml EDV(sp4-el) 62.5 ml LVAs ap4 12.8 cm\S\2 LVLs ap4 5.7 cm ESV(MOD-sp4) 23.7 ml ESV(sp4-el) 24.5 ml EF(MOD-sp4) 59.8 % EF(sp4-el) 60.8 % LVAd ap2 25.5 cm\S\2 LVLd ap2 7.2 cm EDV(MOD-sp2) 73.6 ml EDV(sp2-el) 76.3 ml LVAs ap2 14.6 cm\S\2 LVLs ap2 6.2 cm ESV(MOD-sp2) 29.7 ml ESV(sp2-el) 28.9 ml EF(MOD-sp2) 59.7 % EF(sp2-el) 62.2 % LVLd %diff -0.24 % EDV(MOD-bp) 66.6 ml LVLs %diff 9.0 % ESV(MOD-bp) 27.3 ml EF(MOD-bp) 59.1 % SV(MOD-sp4) 35.2 ml SI(MOD-sp4) 23.0 ml/m\S\2 SV(MOD-sp2) 43.9 ml SI(MOD-sp2) 28.6 ml/m\S\2 SV(MOD-bp) 39.3 ml SI(MOD-bp) 25.6 ml/m\S\2 SV(sp4-el) 37.9 ml SI(sp4-el) 24.7 ml/m\S\2 SV(sp2-el) 47.4 ml SI(sp2-el) 30.9 ml/m\S\2 Doppler Measurements and Calculations MV E max beti 82.9 cm/sec MV A max beti 43.2 cm/sec MV E/A 1.9 MV dec time 0.27 sec Ao V2 max 98.9 cm/sec Ao max PG 3.9 mmHg Ao max PG (full) 0.30 mmHg LV V1 max PG 3.6 mmHg LV V1 max 95.1 cm/sec MR max beti 469.1 cm/sec MR max PG 88.0 mmHg MR mean beti 367.8 cm/sec MR mean PG 60.4 mmHg MR VTI 110.1 cm PA acc slope 261.7 cm/sec\S\2 PA acc time 0.21 sec PI max beti 126.2 cm/sec PI max PG 6.4 mmHg PI dec slope 92.5 cm/sec\S\2 PI P1/2t 399.6 msec TR max beti 167.7 cm/sec PA pr(Accel) -16.07 mmHg
--- NOTE | 2017-09-27 09:57 | Discharge Instructions ---
Discharge Instructions Date of Service September 27, 2017. Admission Reason for Admission: Breast Cancer, Seizure-Like Activity Discharge Discharge Diagnosis / Problem: Seizure-like activity Discharge Goals Goal(s): Improve function, Increase independence, Improve disease control, Prevent Disease Progression Activity Recommendations Activity Limitations: per Instructions/Follow-up section Driving or Machine Use: . Instructions / Follow-Up Instructions / Follow-Up Please continue all medications as instructed. Some of the medications to be stopped may be contributing to your current episodes. Please follow-up with the [facility] for further diagnostic testing and evaluation. It is recommended that you see your primary care physician within one week of discharge from this hospital. It was a pleasure taking care of you! Call if you have any questions or problems. You can reach a [facility] 24 hours a day by calling [phone]. Take care of yourself. Rhoda Gibson, [facility] Hospitalist Current Hospital Diet Patient's current hospital diet: Regular Diet, Vegetarian Diet Discharge Diet Recommended Diet: Regular Diet, Vegetarian Diet Procedures Procedures Performed: Echocardiogram Electroencephalogram Pending Studies Studies pending at discharge: no Medical Emergencies . Who to Call and When: Medical Emergencies: If at any time you feel your situation is an emergency, please call 911 immediately. . Non-Emergent Contact Non-Emergency issues call your: Primary Care Provider . . "Provider Documentation" section prepared by Rhoda Gibson. .
[2017-09-27] MEDS: PROMETHAZINE HCL 25 MG TAB PO PRN (10:42)
--- NOTE | 2017-10-02 13:22 | Discharge Summary ---
Discharge Summary Date of Service October 02, 2017. Discharge Summary Admission Date: September 25, 2017 at 16:44 Discharge Date: September 27, 2017 Discharge Disposition: Home Principal Diagnosis: Syncope Pseudoseizures Chronic migraines Hypothyroidism h/o breast cancer allergic rhinitis RLS Procedures: EEG, TTE Vaccinations: None. Consultations: Neuro-Dr. Madonna Dejesus Pending Studies/Follow-Up: see instructions below. Medication Reconciliation Continued Medications: Fluticasone Propionate (Nasal) (Flonase Allergy Relief) 50 Mcg/Act Spr 2 SPRAYS ALANIS DAILY Levothyroxine Sodium (Levothyroxine Sodium) 25 Mcg Tab 25 MCG PO DAILY Montelukast Sodium (Singulair) 10 Mg Tab 10 MG PO HS, TAB Ondansetron Odt (Zofran Odt) 8 Mg Soltab 8 MG SL Q8 PRN for Nausea, TAB Pantoprazole Sodium (Protonix) 40 Mg Tab 40 MG PO DAILY, #30 TAB Promethazine (Phenergan ) 12.5 Mg Tab 1 TABS PO Q6, #20 TAB Discontinued Medications: Alprazolam (Xanax) 1 Mg Tab 1 MG PO TID PRN for Anxiety, TAB Fexofenadine Hcl (Ofelia Allergy) 180 Mg Tab 1 TAB PO DAILY for 30 Days, #30 TAB 2 Refills Ropinirole (Requip) 1 Mg Tab 1 MG PO HS, TAB Zolpidem Tartrate (Zolpidem Tartrate) 10 Mg Tab 10 MG PO HS PRN for Insomnia Admission Information HPI (per Admitting provider): Pt is 47 y/o F with PMH left breast CA S/P left mastectomy, anxiety, insomnia, fibromyalgia, GERD, hypothyroidism, recurrent headaches resented to ER with complaint of possible seizure. Patient initially states that symptoms have been going on for the past 5-6 months however then states symptoms were going on prior to breast cancer diagnosed in 2016. Of note patient with pseudoseizures listed under PMH on outpatient records from 2012. States on a daily basis will have episode of "not feeling right" in which she will need to sit down if she does not sit down she will follow. Patient states that is followed by generalized shaking and then blank stairs. Symptoms have occurred with walking , standing or sitting. Patient states sometimes feels like her heart is racing prior to these episodes and continues after the episodes. She states swelling down and then symptoms resolved. Reports sometimes remembers these episodes and sometimes does not. Denies any tongue biting, loss control of bowels or bladder. Patient reports today her friend witnessed episode. Feels has increased episodes if she is tired or anxious. Patient has not been taking Lexapro. Follows with psychiatrist. Takes Xanax twice daily most days and Ambien and Requip at at bedtime. Denies any other recent changes in her medications. Patient reports history of migraine headaches. States gets diffuse headache with associated photophobia, nausea, vomiting which occurs daily. Patient has had multiple ER visits to [facility] ERs for migraines. Patient reports has not followed up with neurology in past. States was on Topamax and possible has not been taking secondary to it being ineffective. Reports history right chest port removed 01/2017. "Scar removal" to right chest on 09/21/17 and still has stitches in place. Denies any surrounding erythema or edema. Patient does not drive and does not work. Patient denies any illicit drug use. Denies fever/chills, diaphoresis, diarrhea , constipation, melena, hematochezia, hematemesis, dizziness, diplopia, vision loss, other vision changes, neck pain, CP, SOB, orthopnea, cough, sore throat, choking, otalgia, rhinorrhea, abdominal pain, paresthesias, weakness, extremity weakness, extremity edema, rashes, urinary symptoms, weight loss. Physical Exam (per Admitting): General Appearance: WD/WN, no apparent distress Head: normocephalic, atraumatic Eyes: normal inspection, PERRL, EOMI, sclerae normal ENT: hearing grossly normal, pharynx normal, + pertinent finding (mucous membranes moist, no tongue lacerations noted) Neck: supple, no JVD, trachea midline, + pertinent finding (non-tender, active ROM intact) Respiratory/Chest: lungs clear, normal breath sounds, no respiratory distress Cardiovascular: regular rate, rhythm, no murmur, normal peripheral pulses Abdomen/GI: normal bowel sounds, non tender, soft Back: no CVA tenderness Extremities/Musculoskelatal: no calf tenderness, normal capillary refill, no pedal edema, non-tender, + pertinent finding (bilateral upper and lower extremity active ROM intact and bilateral strength intact) Neurologic/Psych: no motor/sensory deficits, alert, normal mood/affect, oriented x 3, + pertinent finding (During my exam pt states "see there I just had 2 shaking episodes", there was no shaking or abnormal movements or changing in mentation during my entire assessment.) Skin: warm/dry, + pertinent finding (Right upper chest with sutures in place without surrounding erythema or edema) Hospital Course 47-year-old female presents with recurrent syncope and possible seizure activity. She reports having seizure activity since her cancer diagnosis 3 years ago and reports 2 episodes per month where she passes out or has a seizure. She has not established care consistently with a neurologist as outpatient for workup of this issue. She reports that her primary care doctor placed her on Topamax and gives her Maxalt for an abortive which works for her when she can get it. She states that she has been sent with to the pain clinic in the past for chronic migraines and was put on OxyContin at one point but weaned herself off of this. She reports a severe migraine 2-3 times per week and in the last couple of weeks has noticed an increased frequency of her migraines and "seizures." She reports having a surgery on 1 week ago where she had a port wound debridement. The port had evidently been taken out late last year and she has had multiple episodes of dehiscence requiring three surgeries. She denies ever being on antiseizure medicines in the past. She denies any medication changes, denies any herbal supplementation or over-the- counter use of medications. She reports 1 dose of clindamycin was given to her preoperatively and she did take some Bactrim approximately 2 months ago. Since admission she is undergone an EEG that was not and her urine tox screen was positive for benzos which is consistent with her Xanax use per home medication list. The EEG was normal. Neurology was consulted and does not believe these spells to be consistent with seizures. They recommend further workup as outpatient. She did not have any spells while admitted and her telemetry review consistently remained sinus rhythm without arrythmias. An echocardiogram was normal. Multiple medications were stopped as these may be contributing to her spells including Xanax, Ofelia, Requip and Ambien. She was honest with me and reported that she was unsure she could come off of these completely, but would work with her primary care physician on this issue. Additionally, she reported severe anxiety after the of her brother who was going through cancer the same time she was--she survived her jack but he did not, and she has recognized difficulty with this even now. She will work with her PCP on this issue, also. At time of discharge she was mentating and ambulating at baseline, her migraine headache pain was controlled, and she was tolerating PO. She was afebrile and hemodynamically stable and was sent home in stable condition. 1. Syncope-differential diagnosis includes but is not limited to seizures, orthostasis, pain from migraine or other. She currently does not drive. She denies any loss of control of her bowel or bladder and denies any tongue biting. She states to me that she intermittently remembers these episodes but for the most part does not. Appreciate neurology recommendations. 2. Migraine headaches-chronic issue, patient denies any outpatient neurology follow-up. She takes Maxalt ODT as an abortive which she says works. She states she is supposed to be on Topamax but has not taken it in a while because it was discontinued for some reason. She currently has a headache and is requesting IV Benadryl as this has worked for her in the past. She also states that she has been up all night and this is contributing to her current migraine. Follow-up with Neurology as outpatient and consider Botox injections with Pain Management as discussed. 3. Hypothyroidism-levothyroxine 4. Restless leg syndrome-Requip stopped. Would work this up further, likely severe anxiety and insomnia contributing to this symptom. 5. Allergic rhinitis continue Singulair, hold any antihistamines in setting of recurrent syncope without cause. 6. History of breast cancer-remission for the past 3 years. Patient has recently had difficulties with port where it was removed and there have been episodes of wound dehiscence since last fall. Currently stitches are not placed from surgery 1 week ago. DVT prophylaxis-Lovenox Full code Disposition to home. Rhoda Gibson DO [facility] hospitalist Total time spent on discharge = 60 minutes This includes examination of the patient, discharge planning, medication reconciliation, and communication with other providers. Discharge Instructions [facility] [address] [place] [address] Discharge Medical Patient Name: Yvonne Huizar Unit Number: [id number] Date of : 1970 Patient Status: Discharged Inpatient (obs) Attending Doctor: Rhoda Gibson DO DI: Medical v5 Discharge Instructions Date of Service September 27, 2017. Admission Reason for Admission: Breast Cancer, Seizure-Like Activity Discharge Discharge Diagnosis / Problem: Seizure-like activity Discharge Goals Goal(s): Improve function, Increase independence, Improve disease control, Prevent Disease Progression Activity Recommendations Activity Limitations: per Instructions/Follow-up section Driving or Machine Use: . Instructions / Follow-Up Instructions / Follow-Up Please continue all medications as instructed. Some of the medications to be stopped may be contributing to your current episodes. Please follow-up with the [facility] for further diagnostic testing and evaluation. It is recommended that you see your primary care physician within one week of discharge from this hospital. It was a pleasure taking care of you! Call if you have any questions or problems. You can reach a [facility] Hospitalist on duty at [facility] 24 hours a day by calling [phone]. Take care of yourself. Rhoda Gibson DO [facility] Diet Patient's current hospital diet: Regular Diet, Vegetarian Diet Discharge Diet Recommended Diet: Regular Diet, Vegetarian Diet Procedures Procedures Performed: Echocardiogram Electroencephalogram Pending Studies Studies pending at discharge: no Medical Emergencies . Who to Call and When: Medical Emergencies: If at any time you feel your situation is an emergency, please call 911 immediately. . Non-Emergent Contact Non-Emergency issues call your: Primary Care Provider . . "Provider Documentation" section prepared by Rhoda Gibson. . Additional Copies To Deysi Wynn D.O.
== END 2017-09-27 15:09 | disposition home or self-care (01) ==
LOC: C.EDB 12:32 → C.2E 16:44 → ENRESERV 17:07
PROVIDERS: ADMIT Hospitalist; ATTEND Hospitalist
DX: R55 Syncope and collapse (principal); R56.9 Unspecified convulsions; Z85.3 Personal history of malignant neoplasm of breast; K21.9 Gastro-esophageal reflux disease without esophagitis; E03.9 Hypothyroidism, unspecified; G25.81 Restless legs syndrome; Z90.89 Acquired absence of other organs; Z90.49 Acquired absence of other specified parts of digestive tract; Z90.710 Acquired absence of both cervix and uterus; Z79.899 Other long term (current) drug therapy; Z91.041 Radiographic dye allergy status; Z88.5 Allergy status to narcotic agent; Z88.0 Allergy status to penicillin; Z88.2 Allergy status to sulfonamides; Z88.1 Allergy status to other antibiotic agents

== ENCOUNTER 2017-10-14 10:44 | Emergency (ER) | payer OTHER ==
[~2017-10-14] VITALS: Ht 154.9 cm; Wt 56.9 kg
[~2017-10-14 10:44] MED LIST changes: -ALPR1TAB3 PO; +FLUT0.15 NAE; +MONT1TAB3 PO; +PANT40TA PO; -SULF800T23 PO; -ZOLP10TA6 PO
[2017-10-14 10:58] VITALS: TEMP 36.9; Ht 154.9 cm; Wt 56.9 kg
[2017-10-14] MEDS ORDERED: SODIUM CHLORIDE 0.9% 500ML 500 ML IV STA (11:07)
[2017-10-14] MEDS ORDERED: PROMETHAZINE HCL INJ 25 MG in SODIUM CHLORIDE 0.9% 50ML 50 ML IV STA (11:07)
[2017-10-14] MEDS ORDERED: DiphenhydrAMINE HCL 50 MG/ML VIAL IV STA (11:07)
[2017-10-14] MEDS ORDERED: SULFAMETHOXAZOLE/TRIMETHOPRIM DS 800/160MG TAB PO STA (11:23)
[2017-10-14] MEDS ORDERED: KETOROLAC TROMETHAMINE 30 MG/ML VIAL IV STA (11:52)
--- NOTE | 2017-10-14 12:01 | EMERGENCY ROOM VISIT NOTE ---
History Report prepared by Connieibanselmo: [place] Retana Under the Supervision of: Dr. Bienvenido Hudson D.O. First contact with patient: 11:01 Chief Complaint: HEADACHE Stated Complaint: BAD MIGRAINE, X 4 DAYS History of Present Illness The patient is a 47 year old female who presents to the Emergency Room with complaints of constant generalized headache beginning 3-4 days ago. She has a history of migraines. She rates her current pain as a 9/10 in severity. The patient states that she passed out last night, and this morning as well. She notes that she was admitted to the hospital for possible seizure-like activity a few weeks ago. She also complains of pain and tingling to her legs. The patient denies fevers. She notes that she has surgical stitches in place for over 20 days due to removal of a port (history of breast cancer) which are bothering her. Source of History: patient Onset: 3-4 days ago Position: head (generalized) Symptom Intensity: 9/10 Quality: ache Timing: constant Associated Symptoms: No fevers Note: The patient also complains of pain and tingling to her legs. Review of Systems See HPI for pertinent positives & negatives. A total of 10 systems reviewed and were otherwise negative. Past Medical & Surgical Medical Problems: (1) Allergic rhinitis (2) Breast cancer (3) Chest wall abscess (4) Depression with anxiety (5) Fibromyalgia (6) GERD (gastroesophageal reflux disease) (7) Hypothyroidism (8) Insomnia (9) Migraines (10) Nausea & vomiting (11) Postoperative pain (12) Syncope Surgical Problems: (1) History of lumpectomy (2) Hx of appendectomy (3) Hx of cholecystectomy (4) Hx of hysterectomy Family History FH: CAD (coronary artery disease) FH: breast cancer Social History Smoking Status: Never Smoker Alcohol Use: none Drug Use: none Marital Status: in relationship Housing Status: lives alone Occupation Status: unemployed, disabled Current/Historical Medications Scheduled Fluticasone Propionate (Nasal) (Flonase Allergy Relief), 2 SPRAYS ALANIS DAILY Levothyroxine Sodium (Levothyroxine Sodium), 25 MCG PO DAILY Montelukast Sodium (Singulair), 10 MG PO HS Pantoprazole Sodium (Protonix), 40 MG PO DAILY Zolpidem Tartrate (Zolpidem Tartrate), 10 MG PO HS Scheduled PRN Alprazolam (Xanax), 1 MG PO TID PRN for Anxiety Ondansetron Odt (Zofran Odt), 8 MG SL Q8 PRN for Nausea Allergies Coded Allergies: Iodinated Diagnostic Agents (Verified Allergy, Severe, Throat swells - IV contrast, 10/14/17) Adhesives (Verified Allergy, Intermediate, TAPE- HIVES, 10/14/17) Cephalexin (Verified Allergy, Intermediate, Hives, throat swelling, ) Codeine (Verified Allergy, Intermediate, Hives, 10/14/17) Latex1 -Allergic Contact Dermititis (Verified Allergy, Intermediate, SWELLS AND HIVES, 10/14/17) Penicillins (Verified Allergy, Intermediate, HIVES, THROAT SWELLING, ) [place] (Verified Allergy, Intermediate, HIVES, 10/14/17) Sulfa Antibiotics (Verified Allergy, Intermediate, Hives, 10/14/17) Vancomycin (Verified Allergy, Intermediate, HIVES, 10/14/17) Loratadine (Verified Allergy, Mild, Hives, 10/14/17) Morphine (Verified Allergy, Mild, Hives, 10/14/17) Tramadol (Verified Allergy, Mild, Hives, 10/14/17) Physical Exam Vital Signs Date Time Temp Pulse Resp B/P (MAP) Pulse Ox O2 Delivery O2 Flow Rate FiO2 10/14/17 10:58 36.9 95 20 128/74 97 Room Air Physical Exam CONSTITUTIONAL/VITAL SIGNS: Reviewed / noted above. GENERAL: Non-toxic in appearance. INTEGUMENTARY: Warm, dry, and [place]. HEAD: Normocephalic. EYES: without scleral icterus or trauma. ENT/OROPHARYNX: clear and moist. LYMPHADENOPATHY/NECK: Is supple without lymphadenopathy or meningismus. RESPIRATORY: Lungs clear and equal. CARDIOVASCULAR: Regular rate and rhythm. GI/ABDOMEN: Soft and nontender. No organomegaly or pulsatile mass. No rebound or guarding. Normal bowel sounds. EXTREMITIES: Warm and well perfused. BACK: No CVA tenderness. NEUROLOGICAL: Intact without focal deficits. PSYCHIATRIC: normal affect. MUSCULOSKELETAL: Normally developed with good muscle tone. Medical Decision & Procedures Medications Administered Medications (Trade) Dose Ordered Sig/Landon Route Start Time Stop Time Status Last Admin Dose Admin Diphenhydramine HCl (Benadryl Inj) 50 mg NOW STAT IV 10/14/17 11:07 10/14/17 11:11 DC 10/14/17 11:17 50 MG Promethazine HCl 25 mg/Sodium Chloride 51 ml @ 204 mls/hr NOW STAT IV 10/14/17 11:07 10/14/17 11:21 DC 10/14/17 11:31 204 MLS/HR Sodium Chloride 500 ml @ 999 mls/hr Q31M STAT IV 10/14/17 11:07 10/14/17 11:37 DC 10/14/17 11:17 999 MLS/HR Trimethoprim/ Sulfamethoxazole (Septra Ds 800/ 160MG Tab) 1 tab NOW STAT PO 10/14/17 11:23 10/14/17 11:24 DC 10/14/17 11:33 1 TAB ED Course 1104: Previous medical records were reviewed. The patient was evaluated in room A10. A complete history and physical examination was performed. Sutures were removed from the right upper chest wall. Small amount of purulent discharge from the middle of the incision site. Expressed until cleared. No evidence of dehiscence. No obvious cellulitis. 1107: Ordered Sodium Chloride 500 ml @ 999 mls/hr IV, Promethazine HCl 25 mg/ Sodium Chloride 51 ml @ 204 mls/hr IV, Benadryl Inj 50 mg IV. 1123: Ordered Septra Ds 800/160 mg Tab PO. 1152: Ordered Toradol Inj 30 mg IV. 1205: On reevaluation, the patient is resting comfortably. I discussed the results and findings with the patient. She verbalized agreement of the treatment plan. She was discharged home. Medical Decision Differential includes: Acute intracranial bleed, trauma, meningitis, encephalitis, increased intracranial pressure, mass or mass effect, facial or dental infection, temporal arteritis, CVA, TIA, acute hypertensive emergency, sinusitis, carbon monoxide exposure. This is a 47-year-old female who presents to the ED with a chief complaint of a migraine headache. The patient states that she has had it for several days. She has been here previously for the same. The patient also requested some sutures to be removed from her right anterior chest wall that is been in for about 20 days. The sutures were removed. It appears as though there is a small infection in the center of the lower suture site. This was from a previous infection related to a permacatheter. The pus was expressed from this after sutures removed. It is just a small infection. The patient was started on some Bactrim to prevent additional infection as she has history of MRSA. There is no obvious cellulitis. She was treated in the ED with IV Phenergan, IV Compazine as well as IV Benadryl and IV fluids. She was given IV Toradol for pain. A prescription for Bactrim was sent to her pharmacy. She was discharged. She does have follow-up with her surgeon and for 5 days. Medication Reconcilliation Current Medication List: was personally reviewed by me Blood Pressure Screening Patient's blood pressure: Normal blood pressure Blood pressure disposition: Did not require urgent referral Impression Primary Impression: Migraine Scribe Attestation The scribe's documentation has been prepared under my direction and personally reviewed by me in its entirety. I confirm that the note above accurately reflects all work, treatment, procedures, and medical decision making performed by me. Departure Information Dispostion Home / Self-Care Prescriptions Sulfa/Trimethoprim (Bactrim Ds 800MG/160MG) Tab 1 TAB PO BID, #14 TAB Prov: Bienvenido Hudson D.O. 10/14/17 Referrals Deysi Wynn D.O. (PCP) Patient Instructions My [facility] Additional Instructions Bactrim as prescribed. Follow-up with your doctor for further care and evaluation in 4 days as scheduled. Return to the emergency department for worsening or new symptoms or any concerns. You have been examined and treated today on an emergency basis only. This is not a substitute for, or an effort to provide, complete comprehensive medical care. It is impossible to recognize and treat all injuries or illnesses in a single emergency department visit. It is therefore important that you follow up closely with your doctor. Call as soon as possible for an appointment.
[2017-10-14] MEDS ORDERED: ZOLP10TA6 PO (12:08)
[2017-10-14] MEDS ORDERED: ALPR-385 PO (12:08)
[2017-10-14] MEDS ORDERED: PROCHLORPERAZINE 5 MG/ML 2 ML VIAL IV STA (12:17)
[2017-10-14] MEDS ORDERED: SULF800T23 PO (12:21)
[2017-10-14 12:36] VITALS: BP 122/88; PULSE 66; O2SAT 98
== END 2017-10-14 12:37 | disposition home or self-care (01) ==
LOC: C.EDB 10:45 → C.EDA 12:37
DX: G43.909 Migraine, unspecified, not intractable, without status migrainosus (principal); Z85.3 Personal history of malignant neoplasm of breast; M79.7 Fibromyalgia; K21.9 Gastro-esophageal reflux disease without esophagitis; F32.9 Major depressive disorder, single episode, unspecified; F41.9 Anxiety disorder, unspecified; E03.9 Hypothyroidism, unspecified; G47.00 Insomnia, unspecified; Z79.899 Other long term (current) drug therapy; Z91.041 Radiographic dye allergy status; Z91.048 Other nonmedicinal substance allergy status; Z88.2 Allergy status to sulfonamides; Z88.1 Allergy status to other antibiotic agents; Z88.5 Allergy status to narcotic agent; Z88.8 Allergy status to other drugs, medicaments and biological substances; Z91.018 Allergy to other foods

== ENCOUNTER 2017-12-18 18:03 | Emergency (ER) | payer OTHER ==
[~2017-12-18] VITALS: Ht 152.4 cm; Wt 58.5 kg
[~2017-12-18 18:03] MED LIST changes: +ALPR-385 PO; -PROM12.57 PO; +ZOLP10TA6 PO
[2017-12-18 18:22] VITALS: TEMP 36.4; Ht 152.4 cm; Wt 58.5 kg
[2017-12-18] MEDS ORDERED: SODIUM CHLORIDE 0.9% 1000ML 1,000 ML IV STA ×2 (18:31→21:04)
[2017-12-18] MEDS ORDERED: DiphenhydrAMINE HCL 50 MG/ML VIAL IV STA ×2 (18:39→21:04)
[2017-12-18] MEDS ORDERED: PROCHLORPERAZINE 5 MG/ML 2 ML VIAL IV STA (18:39)
--- NOTE | 2017-12-18 19:13 | EMERGENCY ROOM VISIT NOTE ---
History Report prepared by Joyce: Zaid Banegas Under the Supervision of: Dr. Donna Estrella M.D. First contact with patient: 18:31 Chief Complaint: HEADACHE Stated Complaint: PASED OUT LAST NIGHT,SEIZURE,GOT A BAD MIGRAINE History of Present Illness The patient is a 47 year old female who presents to the Emergency Room with complaints of intermittent syncopal episodes that began yesterday. She rates her discomfort as an 8/10 in severity. The patient states that for the last four days she has been experiencing a headache. She notes it is located near her eyes and face. The patient states her headache is similar to her typical migraines. The patient states that last night she did develop an increased temperature of 100.1 and was diaphoretic. She reports that starting last night she has been experiencing intermittent episodes of syncope. The patient states she had one last night and two today. The patient states that today she was doing dishes when she experienced another syncopal episode. She reports she remembers going down but does not remember the rest. The patient states she did not hit her head and she fell on her buttocks. She states she was alone during the episode. The patient states it was "jack like a seizure. I was flopping around". She reports she experienced another episode on her way to the ED. The patient reports she does have a history of seizures.The patient states that she currently has an aching sensation on the inner part of her leg. She reports she is worried about a DVT. The patient also notes she feels generally weak. The patient denies any injury, possible , recent trauma, history of blood clots, and a smoking history. Source of History: patient Onset: last night Position: other (generalized) Symptom Intensity: 8/10 Quality: other (syncopal episodes) Timing: intermittent Associated Symptoms: + fevers, + headache, + diaphoresis, + weakness Review of Systems See HPI for pertinent positives & negatives. A total of 10 systems reviewed and were otherwise negative. Past Medical & Surgical Medical Problems: (1) Allergic rhinitis (2) Breast cancer (3) Chest wall abscess (4) Depression with anxiety (5) Fibromyalgia (6) GERD (gastroesophageal reflux disease) (7) Hypothyroidism (8) Insomnia (9) Migraines (10) Nausea & vomiting (11) Postoperative pain (12) Syncope Surgical Problems: (1) History of lumpectomy (2) Hx of appendectomy (3) Hx of cholecystectomy (4) Hx of hysterectomy Family History FH: CAD (coronary artery disease) FH: breast cancer Social History Smoking Status: Never Smoker Alcohol Use: none Drug Use: none Marital Status: in relationship Housing Status: lives alone Occupation Status: unemployed, disabled Current/Historical Medications Scheduled Escitalopram Oxalate (Escitalopram Oxalate), 20 MG PO HS Levothyroxine Sodium (Levothyroxine Sodium), 25 MCG PO DAILY Zolpidem Tartrate (Ambien), 10 MG PO HS Scheduled PRN Alprazolam (Xanax), 1 MG PO TID PRN for Anxiety Doxepin (Sinequan), 50 MG PO HS PRN for Anxiety Fluticasone Propionate (Fluticasone Propionate), 2 SPRAYS ALANIS DAILY PRN for Allergy Symptoms Montelukast Sod (Montelukast Sodium), 10 MG PO DAILY PRN for Nasal Congestion Allergies Coded Allergies: Iodinated Diagnostic Agents (Verified Allergy, Severe, Throat swells - IV contrast, 10/20/17) Adhesives (Verified Allergy, Intermediate, TAPE- HIVES, 10/20/17) Cephalexin (Verified Allergy, Intermediate, Hives, throat swelling, 10/20/17 ) Codeine (Verified Allergy, Intermediate, Hives, 10/20/17) Latex1 -Allergic Contact Dermititis (Verified Allergy, Intermediate, SWELLS AND HIVES, 10/20/17) Penicillins (Verified Allergy, Intermediate, HIVES, THROAT SWELLING, ) [place] (Verified Allergy, Intermediate, HIVES, 10/20/17) Sulfa Antibiotics (Verified Allergy, Intermediate, Hives, 10/20/17) Vancomycin (Verified Allergy, Intermediate, HIVES, 10/20/17) Loratadine (Verified Allergy, Mild, Hives, 10/20/17) Morphine (Verified Allergy, Mild, Hives, 10/20/17) Tramadol (Verified Allergy, Mild, Hives, 10/20/17) Physical Exam Vital Signs Date Time Temp Pulse Resp B/P (MAP) Pulse Ox O2 Delivery O2 Flow Rate FiO2 12/18/17 23:06 55 16 122/79 95 12/18/17 22:17 55 16 98 Room Air 12/18/17 21:51 62 16 137/81 100 Room Air 12/18/17 21:45 64 16 121/81 100 12/18/17 21:42 64 16 121/81 100 72 117/78 76 110/75 12/18/17 21:18 64 12/18/17 21:00 63 16 123/83 100 Room Air 12/18/17 19:16 63 12/18/17 18:22 36.4 67 20 109/69 100 Room Air Physical Exam Vital signs reviewed. General: Chronically ill-appearing 47 year old female, in no significant distress. HEENT: No scleral icterus, PERRLA, neck supple. Atraumatic. No meningeal signs. Cardiovascular: Regular rate and rhythm, no extra sounds. Pulmonary: Clear to auscultation bilaterally, normal work of breathing. Abdomen: Soft, nontender, nondistended, positive bowel sounds. Musculoskeletal: Atraumatic, no peripheral edema. Neurologic: Patient awake alert and oriented x 3, full strength in all 4 extremities. Cranial nerves 2 through 12 grossly intact. Skin: Warm, dry, no rash Medical Decision & Procedures ER Provider Diagnostic Interpretation: Radiology results as stated below per my review and radiologist interpretation: RIGHT LOWER EXTREMITY VENOUS DOPPLER HISTORY: right lower leg pain, DVT COMPARISON STUDY: None. FINDINGS: There is normal compressibility, flow, and augmentation within the right lower extremity deep venous system. IMPRESSION: No DVT within the right lower extremity Electronically signed by: Bryant Day M.D. 12/18/2017 9:57 PM Dictated Date/Time: 12/18/2017 9:56 PM Laboratory Results 12/18/17 20:49 Red Blood Count 3.88, Mean Corpuscular Volume 86.9, Mean Corpuscular Hemoglobin 28.6, Mean Corpuscular Hemoglobin Concent 32.9, Mean Platelet Volume 10.0, Neutrophils (%) (Auto) 65.8, Lymphocytes (%) (Auto) 23.5, Monocytes (%) (Auto) 7.4, Eosinophils (%) (Auto) 2.5, Basophils (%) (Auto) 0.4, Neutrophils # (Auto) 5.09, Lymphocytes # (Auto) 1.82, Monocytes # (Auto) 0.57, Eosinophils # (Auto) 0.19, Basophils # (Auto) 0.03 12/18/17 20:49 Test 7/30/18 20:49 White Blood Count 7.73 K/uL (4.8-10.8) Red Blood Count 3.88 M/uL (4.2-5.4) Hemoglobin 11.1 g/dL (12.0-16.0) Hematocrit 33.7 % (37-47) Mean Corpuscular Volume 86.9 fL (80-100) Mean Corpuscular Hemoglobin 28.6 pg (25-34) Mean Corpuscular Hemoglobin Concent 32.9 g/dl (32-36) Platelet Count 223 K/uL (130-400) Mean Platelet Volume 10.0 fL (7.4-10.4) Neutrophils (%) (Auto) 65.8 % Lymphocytes (%) (Auto) 23.5 % Monocytes (%) (Auto) 7.4 % Eosinophils (%) (Auto) 2.5 % Basophils (%) (Auto) 0.4 % Neutrophils # (Auto) 5.09 K/uL (1.4-6.5) Lymphocytes # (Auto) 1.82 K/uL (1.2-3.4) Monocytes # (Auto) 0.57 K/uL (0.11-0.59) Eosinophils # (Auto) 0.19 K/uL (0-0.5) Basophils # (Auto) 0.03 K/uL (0-0.2) RDW Standard Deviation 40.5 fL (36.4-46.3) RDW Coefficient of Variation 12.6 % (11.5-14.5) Immature Granulocyte % (Auto) 0.4 % Immature Granulocyte # (Auto) 0.03 K/uL (0.00-0.02) Anion Gap 7.0 mmol/L (3-11) Est Creatinine Clear Calc Drug Dose 66.2 ml/min Estimated GFR () 95.2 Estimated GFR (Non- 82.2 BUN/Creatinine Ratio 20.1 (10-20) Calcium Level 9.0 mg/dl (8.5-10.1) Total Bilirubin 0.2 mg/dl (0.2-1) Direct Bilirubin < 0.1 mg/dl (0-0.2) Aspartate Amino Transf (AST/SGOT) 16 U/L (15-37) Alanine Aminotransferase (ALT/SGPT) 14 U/L (12-78) Alkaline Phosphatase 100 U/L (45-117) Total Protein 6.7 gm/dl (6.4-8.2) Albumin 3.5 gm/dl (3.4-5.0) Laboratory results per my review. Medications Administered Medications (Trade) Dose Ordered Sig/Landon Route Start Time Stop Time Status Last Admin Dose Admin Prochlorperazine Edisylate (Compazine Inj) 10 mg NOW STAT IV 12/18/17 18:39 12/18/17 20:19 DC 12/18/17 18:39 10 MG Promethazine HCl 12.5 mg/Sodium Chloride 50.5 ml @ 204 mls/hr NOW STAT IV 12/18/17 21:04 12/18/17 21:18 DC 12/18/17 21:04 204 MLS/HR Diphenhydramine HCl (Benadryl Inj) 25 mg NOW STAT IV 12/18/17 21:04 12/18/17 21:06 DC 12/18/17 21:10 25 MG Sodium Chloride 1,000 ml @ 999 mls/hr Q1H1M STAT IV 12/18/17 21:04 12/18/17 22:04 DC 12/18/17 21:09 999 MLS/HR ECG Per My Interpretation Indication: syncope Rate (beats per minute): 57 Rhythm: sinus bradycardia Findings: no acute ischemic change, no ectopy, other (QTC 408) ED Course 1830: Ordered Sodium Chloride 1000 ml @ 999 mls/hr IV. 1833: Past medical records reviewed. The patient was evaluated in room C04. A complete history and physical examination was performed. 1838: Ordered Benadryl Injection 25 mg IV, Compazine Injection 10 mg IV. 2006: I reevaluated the patient. We are going to try to evaluate the patient without any blood work due to the difficulty of sticking the patient. An ultrasound with be performed. 2103: Ordered Sodium Chloride 1000 ml @ 999 mls/hr IV, Benadryl Injection 24 mg IV, Promethazine HCl 12.5 mg/ Sodium Chloride 50.5 ml @ 204 mls/hr IV. 2227: Upon reevaluation, the patient appeared to have improvement of her symptoms. I discussed findings with the patient. She verbalized agreement of the treatment plan. The patient was discharged home. Medical Decision Differential diagnosis: Intracranial hemorrhage, intracranial mass, migraine headache, tension headache , sinusitis, meningitis This patient was evaluated and appeared to be in no significant distress. IV access was ordered however there was significant difficulty and delay in obtaining IV access. After several hours, and IV was established. Orthostatic vital signs are negative. Patient was hydrated with 1 L of normal saline solution. Patient was given IV Phenergan per her request and IV Benadryl for her headache. Patient has a normal white blood cell count. EKG reveals no evidence of dysrhythmia or ectopy. D-dimer was canceled as we do not have a large enough for IV to perform a CT scan. Right lower extremity ultrasound was performed and is negative for DVT. Patient's vital signs have remained stable. Patient felt comfortable with the plan for discharge. She will follow-up with her primary care physician for reevaluation and return to the ED for worsening of symptoms or any medical concerns. Medication Reconcilliation Current Medication List: was personally reviewed by me Blood Pressure Screening Patient's blood pressure: Normal blood pressure Impression Primary Impression: Migraine Additional Impressions: Syncope Right thigh pain Scribe Attestation The scribe's documentation has been prepared under my direction and personally reviewed by me in its entirety. I confirm that the note above accurately reflects all work, treatment, procedures, and medical decision making performed by me. Departure Information Dispostion Home / Self-Care Referrals No Doctor, Assigned (PCP) Forms HOME CARE DOCUMENTATION FORM, IMPORTANT VISIT INFORMATION Patient Instructions My [facility] Additional Instructions Diagnosis: Migraine, syncope Continue your medications as prescribed. Drink plenty of clear fluids. Follow-up with your primary care physician this week for reevaluation. Return to the ED for worsening symptoms or any medical concerns. Problem Qualifiers
[2017-12-18] MEDS ORDERED: LXP/20 PO (19:47)
[2017-12-18] MEDS ORDERED: ZOLP10TA PO (19:47)
[2017-12-18] MEDS ORDERED: ALPR1TAB2 PO (19:47)
[2017-12-18] MEDS ORDERED: DOXE50CA3 PO (19:47)
[2017-12-18] MEDS ORDERED: SNG10 PO (19:49)
[2017-12-18] MEDS ORDERED: FLNIN/ NAE (19:49)
[2017-12-18] MEDS ORDERED: DiphenhydrAMINE HCL 50 MG/ML VIAL IM STA (20:17)
[2017-12-18] MEDS ORDERED: PROMETHAZINE HCL INJ 25 MG/ML 1 ML VIAL IM STA (20:17)
[2017-12-18 20:57] LABS: BASO % 0.4 %; BASO ABS # 0.03 K/uL (0-0.2); EOS % 2.5 %; EOS ABS # 0.19 K/uL (0-0.5); HEMATOCRIT 33.7 % (37-47); HEMOGLOBIN 11.1 g/dL (12.0-16.0); IG# 0.03 K/uL (0.00-0.02); LYMPH % 23.5 %; LYMPH ABS # 1.82 K/uL (1.2-3.4); MEAN CELL VOLUME 86.9 fL (80-100); MEAN CORPUSCULAR HEMOGLOBIN 28.6 pg (25-34); MEAN CORPUSCULAR HGB CONC 32.9 g/dl (32-36); MONO % 7.4 %; MONO ABS # 0.57 K/uL (0.11-0.59); NEUT % 65.8 %; NEUT ABS # 5.09 K/uL (1.4-6.5); PLATELET COUNT 223 K/uL (130-400); RED CELL DISTRIBUTION WIDTH CV 12.6 % (11.5-14.5); RED CELL DISTRIBUTION WIDTH SD 40.5 fL (36.4-46.3); WHITE BLOOD COUNT 7.73 K/uL (4.8-10.8)
[2017-12-18] MEDS ORDERED: PROMETHAZINE HCL INJ 12.5 MG in SODIUM CHLORIDE 0.9% 50ML 50 ML IV STA (21:04)
[2017-12-18 21:30] LABS: ALBUMIN 3.5 gm/dl (3.4-5.0); ALKALINE PHOSPHATASE 100 U/L (45-117); ALT/SGPT 14 U/L (12-78); AST/SGOT 16 U/L (15-37); BLOOD UREA NITROGEN 17 mg/dl (7-18); CARBON DIOXIDE 31 mmol/L (21-32); CREATININE 0.85 mg/dl (0.60-1.20); GLUCOSE 86 mg/dl (70-99); POTASSIUM 3.7 mmol/L (3.5-5.1); SODIUM 142 mmol/L (136-145); TOTAL PROTEIN 6.7 gm/dl (6.4-8.2)
--- NOTE | 2017-12-18 21:58 | DIAGNOSTIC IMAGING REPORT ---
RIGHT LOWER EXTREMITY VENOUS DOPPLER HISTORY: right lower leg pain, DVT COMPARISON STUDY: None. FINDINGS: There is normal compressibility, flow, and augmentation within the right lower extremity deep venous system. IMPRESSION: No DVT within the right lower extremity Electronically signed by: Bryant Day M.D. 12/18/2017 9:57 PM Dictated Date/Time: 12/18/2017 9:56 PM
[2017-12-18 23:06] VITALS: BP 122/79; PULSE 55; O2SAT 95
== END 2017-12-18 23:08 | disposition home or self-care (01) ==
LOC: C.EDB 18:05 → C.EDC 23:08
DX: G43.909 Migraine, unspecified, not intractable, without status migrainosus (principal); R55 Syncope and collapse; M79.651 Pain in right thigh; F32.9 Major depressive disorder, single episode, unspecified; F41.9 Anxiety disorder, unspecified; E03.9 Hypothyroidism, unspecified; Z91.041 Radiographic dye allergy status; Z91.040 Latex allergy status; Z91.048 Other nonmedicinal substance allergy status; Z88.0 Allergy status to penicillin; Z88.1 Allergy status to other antibiotic agents; Z88.2 Allergy status to sulfonamides; Z88.5 Allergy status to narcotic agent; Z91.018 Allergy to other foods

== ENCOUNTER 2018-01-15 19:04 | Emergency (ER) | payer OTHER ==
[~2018-01-15] VITALS: Ht 152.4 cm; Wt 60.7 kg
[~2018-01-15 19:04] MED LIST changes: -ALPR-385 PO; +ALPR1TAB2 PO; +DOXE50CA3 PO; +FLNIN/ NAE; -FLUT0.15 NAE; +LXP/20 PO; -MONT1TAB3 PO; -ONDA8TAB62 SL; -PANT40TA PO; +SNG10 PO; +ZOLP10TA PO; -ZOLP10TA6 PO
[2018-01-15 19:10] VITALS: TEMP 37.1; Ht 152.4 cm; Wt 60.7 kg
[2018-01-15] MEDS ORDERED: METOCLOPRAMIDE HCL INJ 5 MG/ML 2 ML VIAL IV STA (19:54)
[2018-01-15] MEDS ORDERED: DiphenhydrAMINE HCL 50 MG/ML VIAL IV STA (19:54)
[2018-01-15] MEDS ORDERED: SODIUM CHLORIDE 0.9% 1000ML 2,000 ML IV STA (19:54)
[2018-01-15] MEDS ORDERED: [UNRECOGNIZED DRUG - CODE] PO (19:56)
[2018-01-15 20:31] LABS: BASO % 0.3 %; BASO ABS # 0.02 K/uL (0-0.2); EOS % 2.2 %; EOS ABS # 0.15 K/uL (0-0.5); HEMATOCRIT 31.4 % (37-47); HEMOGLOBIN 10.2 g/dL (12.0-16.0); IG# 0.01 K/uL (0.00-0.02); LYMPH % 24.6 %; LYMPH ABS # 1.68 K/uL (1.2-3.4); MEAN CELL VOLUME 88.2 fL (80-100); MEAN CORPUSCULAR HEMOGLOBIN 28.7 pg (25-34); MEAN CORPUSCULAR HGB CONC 32.5 g/dl (32-36); MEAN PLATELET VOLUME 10.1 fL (7.4-10.4); MONO % 6.9 %; MONO ABS # 0.47 K/uL (0.11-0.59); NEUT % 65.9 %; PLATELET COUNT 219 K/uL (130-400); RED CELL DISTRIBUTION WIDTH SD 41.9 fL (36.4-46.3); WHITE BLOOD COUNT 6.83 K/uL (4.8-10.8)
--- NOTE | 2018-01-15 20:33 | DIAGNOSTIC IMAGING REPORT ---
CHEST ONE VIEW PORTABLE CLINICAL HISTORY: Chest pain. COMPARISON STUDY: Chest CT September 24, 2007 13 and chest radiograph September 25, 2017. FINDINGS: The patient is status post left mastectomy and lower cervical spine fusion. Lung volumes are normal. No pneumothorax or pleural effusion is noted. There is no consolidation or evidence for pulmonary edema. Cardiac size is normal. Mediastinal contours are normal. The appearance of the chest is unchanged. IMPRESSION: No acute cardiopulmonary findings. Electronically signed by: Radu Cardona M.D. 01/15/2018 8:31 PM Dictated Date/Time: 01/15/2018 8:30 PM
[2018-01-15 20:52] LABS: ALBUMIN 3.3 gm/dl (3.4-5.0); ALKALINE PHOSPHATASE 115 U/L (45-117); ALT/SGPT 18 U/L (12-78); AST/SGOT 14 U/L (15-37); BLOOD UREA NITROGEN 14 mg/dl (7-18); CALCIUM 8.5 mg/dl (8.5-10.1); CARBON DIOXIDE 27 mmol/L (21-32); CREATININE 0.92 mg/dl (0.60-1.20); GLUCOSE 107 mg/dl (70-99); LIPASE 115 U/L (73-393); POTASSIUM 3.7 mmol/L (3.5-5.1); SODIUM 142 mmol/L (136-145)
--- NOTE | 2018-01-15 20:53 | DIAGNOSTIC IMAGING REPORT ---
CT OF THE HEAD WITHOUT CONTRAST CLINICAL HISTORY: Syncope. COMPARISON STUDY: Head CT September 25, 2017. CT DOSE: 537.48 mGy.cm TECHNIQUE: Helical axial images of the head were obtained without IV contrast. Automated exposure control was utilized for the study. A dose lowering technique was utilized adhering to the principles of ALARA. FINDINGS: No acute intracranial hemorrhage, midline shift or mass effect is present. Brain volume is normal. Ventricular system is normal. Basilar cisterns are patent. There are no extra-axial collections. Forbes-white differentiation is maintained. There is no calvarial fracture. Visualized portions of the sinuses and mastoid air cells are clear. IMPRESSION: No acute intracranial findings. Electronically signed by: Radu Cardona M.D. 01/15/2018 8:51 PM Dictated Date/Time: 01/15/2018 8:49 PM
--- NOTE | 2018-01-15 21:15 | EMERGENCY ROOM VISIT NOTE ---
History Report prepared by Joyce: Kourtney Crowder Under the Supervision of: Dr. James Street M.D. First contact with patient: 19:34 Chief Complaint: SYNCOPE Stated Complaint: MIGRAINE, SYNCOPE, BRUISE ON LEFT LEG History of Present Illness The patient is a 48 year old female who presents to the Emergency Room with complaints of a constant severe migraine beginning 3 days ago. She rates her pain an 8/10 in severity, and notes Excedrin did not relieve her symptoms. The patient states her pain is both in the front and the back of her head. She reports she passed out yesterday and again today, and believes she had a seizure today as she dropped to the floor, hitting her leg. The patient notes pain where she fell on her leg, and bruising of the area. She denies fevers, chills, cough, congestion, nausea, vomiting, diarrhea, or burning with urination. The patient reports she has been "soaked in sweat" while sleeping the past 2 weeks, which is unusual for her. She notes she does not have a neurologist as she has been unable to get an appointment. The patient was seen in the ED a few months ago for seizure-like incidents, but was not diagnosed with seizures at that time. She denies blood thinner use. Source of History: patient Onset: yesterday Position: head Symptom Intensity: 8/10 Quality: other (migraine) Timing: constant Modifying Factors (Relieving): other (not relieved by Excedrin) Associated Symptoms: + LOC (multiple episodes), No nausea, No vomiting, No diarrhea Note: Associated symptom: pain in leg, sweating during sleep. Denies: congestion. Review of Systems See HPI for pertinent positives and negatives. A total of ten systems were reviewed and were otherwise negative. Past Medical & Surgical Medical Problems: (1) Allergic rhinitis (2) Breast cancer (3) Chest wall abscess (4) Depression with anxiety (5) Fibromyalgia (6) GERD (gastroesophageal reflux disease) (7) Hypothyroidism (8) Insomnia (9) Migraines (10) Nausea & vomiting (11) Postoperative pain (12) Syncope Surgical Problems: (1) History of lumpectomy (2) Hx of appendectomy (3) Hx of cholecystectomy (4) Hx of hysterectomy Family History FH: CAD (coronary artery disease) FH: breast cancer Social History Smoking Status: Never Smoker Alcohol Use: none Drug Use: none Marital Status: Housing Status: lives alone Occupation Status: unemployed, disabled Current/Historical Medications Scheduled Levothyroxine Sodium (Levothyroxine Sodium), 25 MCG PO DAILY Zolpidem Tartrate (Ambien), 10 MG PO HS Scheduled PRN Alprazolam (Xanax), 1 MG PO TID PRN for Anxiety Doxepin HCl (Doxepin HCl), 75 MG PO QPM PRN for Fluticasone Propionate (Fluticasone Propionate), 2 SPRAYS ALANIS DAILY PRN for Allergy Symptoms Montelukast Sod (Montelukast Sodium), 10 MG PO DAILY PRN for Nasal Congestion Allergies Coded Allergies: Iodinated Diagnostic Agents (Verified Allergy, Severe, Throat swells - IV contrast, 10/20/17) Adhesives (Verified Allergy, Intermediate, TAPE- HIVES, 10/20/17) Cephalexin (Verified Allergy, Intermediate, Hives, throat swelling, 10/20/17 ) Codeine (Verified Allergy, Intermediate, Hives, 10/20/17) Latex1 -Allergic Contact Dermititis (Verified Allergy, Intermediate, SWELLS AND HIVES, 10/20/17) Penicillins (Verified Allergy, Intermediate, HIVES, THROAT SWELLING, ) Capron (Verified Allergy, Intermediate, HIVES, 10/20/17) Sulfa Antibiotics (Verified Allergy, Intermediate, Hives, 10/20/17) Vancomycin (Verified Allergy, Intermediate, HIVES, 10/20/17) Loratadine (Verified Allergy, Mild, Hives, 10/20/17) Morphine (Verified Allergy, Mild, Hives, 10/20/17) Tramadol (Verified Allergy, Mild, Hives, 10/20/17) Physical Exam Vital Signs Date Time Temp Pulse Resp B/P (MAP) Pulse Ox O2 Delivery O2 Flow Rate FiO2 01/15/18 23:18 78 18 99/68 99 01/15/18 22:12 87 18 96/65 98 Room Air 01/15/18 20:23 75 18 105/47 98 Room Air 01/15/18 19:26 91 102/67 96 105/67 102 105/47 01/15/18 19:10 37.1 99 18 100/67 97 Room Air Physical Exam GENERAL: Awake, alert, well-appearing, in no distress HENT: Normocephalic, atraumatic. Oropharynx unremarkable. EYES: Normal conjunctiva. Sclera non-icteric. NECK: Supple. No nuchal rigidity. FROM. No JVD. RESPIRATORY: Clear to auscultation. CARDIAC: Regular rate, normal rhythm. Extremities warm and well perfused. Pulses equal. ABDOMEN: Soft, non-distended. No tenderness to palpation. No rebound or guarding. No masses. RECTAL: Deferred. MUSCULOSKELETAL: Chest examination reveals no tenderness. The back is symmetrical on inspection without obvious abnormality. There is no CVA tenderness to palpation. No joint edema. LOWER EXTREMITIES: Calves are equal size bilaterally and non-tender. No edema. 5cm left lateral thigh ecchymosis c/w resolving contusion. No underlying flucuance. No ttp. NEURO: Normal sensorium. No sensory or motor deficits noted. Normal cerebellar function with [id number], alternating palms, [id number]. SKIN: No rash or jaundice noted. Right CW prior port site c/d/i without erythema , warmth, fluctuance or ttp. Medical Decision & Procedures ER Provider Diagnostic Interpretation: Radiology results as stated below per my review and radiologist interpretation: CT OF THE HEAD WITHOUT CONTRAST CLINICAL HISTORY: Syncope. COMPARISON STUDY: Head CT September 25, 2017. CT DOSE: 537.48 mGy.cm TECHNIQUE: Helical axial images of the head were obtained without IV contrast. Automated exposure control was utilized for the study. A dose lowering technique was utilized adhering to the principles of ALARA. FINDINGS: No acute intracranial hemorrhage, midline shift or mass effect is present. Brain volume is normal. Ventricular system is normal. Basilar cisterns are patent. There are no extra-axial collections. Forbes-white differentiation is maintained. There is no calvarial fracture. Visualized portions of the sinuses and mastoid air cells are clear. IMPRESSION: No acute intracranial findings. Electronically signed by: Radu Cardona M.D. 01/15/2018 8:51 PM Dictated Date/Time: 01/15/2018 8:49 PM CHEST ONE VIEW PORTABLE CLINICAL HISTORY: Chest pain. COMPARISON STUDY: Chest CT September 24, 2007 13 and chest radiograph September 25, 2017. FINDINGS: The patient is status post left mastectomy and lower cervical spine fusion. Lung volumes are normal. No pneumothorax or pleural effusion is noted. There is no consolidation or evidence for pulmonary edema. Cardiac size is normal. Mediastinal contours are normal. The appearance of the chest is unchanged. IMPRESSION: No acute cardiopulmonary findings. Electronically signed by: Radu Cardona M.D. 01/15/2018 8:31 PM Dictated Date/Time: 01/15/2018 8:30 PM Laboratory Results 01/15/18 20:16 Red Blood Count 3.56, Mean Corpuscular Volume 88.2, Mean Corpuscular Hemoglobin 28.7, Mean Corpuscular Hemoglobin Concent 32.5, Mean Platelet Volume 10.1, Neutrophils (%) (Auto) 65.9, Lymphocytes (%) (Auto) 24.6, Monocytes (%) (Auto) 6.9, Eosinophils (%) (Auto) 2.2, Basophils (%) (Auto) 0.3, Neutrophils # (Auto) 4.50, Lymphocytes # (Auto) 1.68, Monocytes # (Auto) 0.47, Eosinophils # (Auto) 0.15, Basophils # (Auto) 0.02 01/15/18 20:16 Test 01/15/18 20:16 White Blood Count 6.83 K/uL (4.8-10.8) Red Blood Count 3.56 M/uL (4.2-5.4) Hemoglobin 10.2 g/dL (12.0-16.0) Hematocrit 31.4 % (37-47) Mean Corpuscular Volume 88.2 fL (80-100) Mean Corpuscular Hemoglobin 28.7 pg (25-34) Mean Corpuscular Hemoglobin Concent 32.5 g/dl (32-36) Platelet Count 219 K/uL (130-400) Mean Platelet Volume 10.1 fL (7.4-10.4) Neutrophils (%) (Auto) 65.9 % Lymphocytes (%) (Auto) 24.6 % Monocytes (%) (Auto) 6.9 % Eosinophils (%) (Auto) 2.2 % Basophils (%) (Auto) 0.3 % Neutrophils # (Auto) 4.50 K/uL (1.4-6.5) Lymphocytes # (Auto) 1.68 K/uL (1.2-3.4) Monocytes # (Auto) 0.47 K/uL (0.11-0.59) Eosinophils # (Auto) 0.15 K/uL (0-0.5) Basophils # (Auto) 0.02 K/uL (0-0.2) RDW Standard Deviation 41.9 fL (36.4-46.3) RDW Coefficient of Variation 13.0 % (11.5-14.5) Immature Granulocyte % (Auto) 0.1 % Immature Granulocyte # (Auto) 0.01 K/uL (0.00-0.02) Anion Gap 7.0 mmol/L (3-11) Est Creatinine Clear Calc Drug Dose 61.6 ml/min Estimated GFR () 85.9 Estimated GFR (Non- 74.2 BUN/Creatinine Ratio 15.7 (10-20) Calcium Level 8.5 mg/dl (8.5-10.1) Phosphorus Level 3.0 mg/dl (2.5-4.9) Magnesium Level 1.8 mg/dl (1.8-2.4) Total Bilirubin 0.2 mg/dl (0.2-1) Direct Bilirubin < 0.1 mg/dl (0-0.2) Aspartate Amino Transf (AST/SGOT) 14 U/L (15-37) Alanine Aminotransferase (ALT/SGPT) 18 U/L (12-78) Alkaline Phosphatase 115 U/L (45-117) Troponin I < 0.015 ng/ml (0-0.045) Total Protein 7.0 gm/dl (6.4-8.2) Albumin 3.3 gm/dl (3.4-5.0) Lipase 115 U/L (73-393) Human Chorionic Gonadotropin, Qual NEG (NEG) Laboratory results reviewed by me Medications Administered Medications (Trade) Dose Ordered Sig/Landon Route Start Time Stop Time Status Last Admin Dose Admin Sodium Chloride 2,000 ml @ 999 mls/hr Q2H1M STAT IV 01/15/18 19:54 01/15/18 21:54 DC 01/15/18 20:20 999 MLS/HR Metoclopramide HCl (Reglan Inj) 10 mg NOW STAT IV 01/15/18 19:54 01/15/18 20:05 DC 01/15/18 20:20 10 MG Diphenhydramine HCl (Benadryl Inj) 50 mg NOW STAT IV 01/15/18 19:54 01/15/18 20:05 DC 01/15/18 20:20 50 MG Ketorolac Tromethamine (Toradol Inj) 15 mg NOW STAT IV 01/15/18 21:52 01/15/18 21:55 DC 01/15/18 22:08 15 MG Haloperidol Lactate 5 mg/ Dextrose 501 ml @ 999 mls/hr NOW ONCE IV 01/15/18 22:15 01/15/18 22:45 DC 01/15/18 22:07 999 MLS/HR Dexamethasone Sodium Phosphate (Decadron Inj) 10 mg STK-MED ONCE .ROUTE 01/15/18 22:03 01/15/18 22:04 DC 01/15/18 22:08 10 MG ED Course 1952: The patient was evaluated in room C2. A complete history and physical exam was performed. 2149: I reevaluated and updated the patient. 2313: I reevaluated the patient. Discussed results and discharge instructions: she verbalized understanding and agreement. The patient is ready for discharge. Medical Decision I reviewed the patient's past medical history, medications, and the nursing notes as described above. Differential diagnosis: Etiologies such as migraine headache, meningitis, sinusitis, CO exposure, ICH, SAH, infection, tumor, headache, sinus thrombosis, arterial dissection, as well as others were entertained. 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 Patient was supposed to f/u outpatient for long-term EEG evaluation but has yet to do so. On arrival the patient is in NAD, AFVSS. She appears clinically dry. Neuro intact including normal cerebellar function with [id number]-[id number]-caqy, alternating palms, gynl-[id number]-[id number]. EKG unremarkable. CXR negative. CT head negative. Labs unremarkable including WBC and troponin wnl. Patient treated with IVF, Regaln, Benadryl with some improved. Additionally treated with dexamethasone and Haldol with good effect and patient feeling significantly improved and requested discharge. Plan for pcp and neuro f/u. Findings and plan for follow-up reviewed with patient. Patient agreeable and d/c'd per discharge instructions. Medication Reconcilliation Current Medication List: was personally reviewed by me Blood Pressure Screening Patient's blood pressure: Normal blood pressure Blood pressure disposition: Did not require urgent referral Impression Primary Impression: Migraine Additional Impression: Syncope Scribe Attestation The scribe's documentation has been prepared under my direction and personally reviewed by me in its entirety. I confirm that the note above accurately reflects all work, treatment, procedures, and medical decision making performed by me. Departure Information Dispostion Home / Self-Care Referrals No Doctor, Assigned (PCP) Forms HOME CARE DOCUMENTATION FORM, IMPORTANT VISIT INFORMATION Patient Instructions ED Headache Migraine, ED Syncope Vasovagal, My [facility] Additional Instructions Please follow up with your primary care physician and your neurologist in the next 1-3 days for re-evaluation. Your symptoms are likely related to your known migraine headaches. Otherwise, your exam, EKG, chest xray, lab results, and CT scan of your head did not show signs of an emergent condition at this time. Continue your current medications as prescribed. Drink plenty of fluids to ensure hydration. Return to the emergency department for worsening symptoms as described in the accompanying instructions. Problem Qualifiers
[2018-01-15] MEDS ORDERED: KETOROLAC TROMETHAMINE 30 MG/ML VIAL IV STA (21:52)
[2018-01-15] MEDS ORDERED: NON-FORMULARY MEDICATION STA (21:52)
[2018-01-15] MEDS ORDERED: DEXAMETHASONE **PF** INJ 10 MG/ML VIAL IV ONE (22:00)
[2018-01-15] MEDS ORDERED: DEXAMETHASONE SOD INJ 10 MG/ML VIAL ONE (22:03)
[2018-01-15] MEDS ORDERED: HALOPERIDOL LACTATE 5 MG/ML 1 ML VIAL ONE (22:04)
[2018-01-15] MEDS ORDERED: DEXTROSE 5% IV ONE (22:15)
[2018-01-15] MEDS ORDERED: HALOPERIDOL IV ONE (22:15)
[2018-01-15 23:18] VITALS: BP 99/68; PULSE 78; O2SAT 99
== END 2018-01-15 23:18 | disposition home or self-care (01) ==
LOC: C.EDB 19:05 → C.EDC 23:18
DX: G43.909 Migraine, unspecified, not intractable, without status migrainosus (principal); R55 Syncope and collapse; Z85.3 Personal history of malignant neoplasm of breast; E03.9 Hypothyroidism, unspecified; G47.00 Insomnia, unspecified; Z80.3 Family history of malignant neoplasm of breast; Z91.041 Radiographic dye allergy status; Z91.048 Other nonmedicinal substance allergy status; Z88.1 Allergy status to other antibiotic agents; Z88.5 Allergy status to narcotic agent; Z91.040 Latex allergy status; Z91.018 Allergy to other foods; Z88.6 Allergy status to analgesic agent; Z88.8 Allergy status to other drugs, medicaments and biological substances

== ENCOUNTER 2023-06-15 14:59 | Inpatient (IN) ==
[2023-06-15] MEDS ORDERED: ONDANSETRON INJ 2 MG/ML 2 ML VIAL IV STA (15:34)
[2023-06-15] MEDS ORDERED: SODIUM CHLORIDE 0.9% 1,000 ML IV ONE ×2 (15:34→21:08)
--- NOTE | 2023-06-15 15:34 | ED Triage Note ---
Date of Service June 15, 2023 Provider in Triage Author: Zahraa Scales History of Present Illness This patient was briefly evaluated while in triage. An abbreviated physical exam was performed. This patient is a 53-year-old Female who presents to the ED for evaluation of vomiting since Monday. Notes fevers, sinus congestion. Notes left sided abd pain and diarrhea. Denies urinary symptoms. Been around a friend with similar symptoms. Physical Exam Constitutional: alert and oriented x3. no acute distress. HEENT: normocephalic, atraumatic. normal conjunctiva.PERRLA. EOM's grossly intact. Respiratory: equal chest rise. normal respiratory effort, no accessory muscle use. Cardiovascular: normal heart sounds without murmur. regular rate and rhythm. MSK: moves all 4 extremities spontaneously Psych:appropriate mood and affect. Initial orders for labs and / or imaging were placed and patient was placed in the waiting area until a bed is available. Please see further documentation for the full ED course.
[2023-06-15 16:57] LABS: Adenovirus PCR Not Detected (NotDetected); Bordetella parapertussis PCR Not Detected (NotDetected); Bordetella pertussis PCR Not Detected (NotDetected); Chlamydia pneumoniae PCR Not Detected (NotDetected); Coronavirus 229E PCR Not Detected (NotDetected); Coronavirus CoV-2 (COVID19)PCR Not Detected (NotDetected); Coronavirus HKU1 PCR Not Detected (NotDetected); Coronavirus NL63 PCR Not Detected (NotDetected); Coronavirus OC43PCR Not Detected (NotDetected); Human Metapneumovirus PCR Not Detected (NotDetected); Influenza A PCR Not Detected (NotDetected); Influenza B PCR Not Detected (NotDetected); Mycoplasma pneumoniae PCR Not Detected (NotDetected); Parainfluenza Virus 1 PCR Not Detected (NotDetected); Parainfluenza Virus 2 PCR Not Detected (NotDetected); Parainfluenza Virus 3 PCR Not Detected (NotDetected); Parainfluenza Virus 4 PCR Not Detected (NotDetected); Respiratory Syncytial VirusPCR Not Detected (NotDetected); Rhinovirus/Enterovirus PCR Not Detected (NotDetected)
[2023-06-15 17:17] LABS: Basophils # (auto) 0.02 K/uL (0.00-0.20); Basophils % (auto) 0.3 %; Eosinophils # (auto) 0.04 K/uL (0.00-0.50); Eosinophils % (auto) 0.6 %; Hematocrit (blood only) 37.7 % (37.0-47.0); Hemoglobin 12.9 g/dl (12.0-16.0); Immature Granulocytes # (auto) 0.02 K/uL (0.01-0.20); Immature Granulocytes % (auto) 0.3 %; Lymphocytes # (auto) 1.06 K/uL (1.20-3.40); Mean Corpuscular Hemoglobin 29.7 pg (25.0-34.0); Mean Corpuscular Hgb Conc 34.2 g/dL (32.0-36.0); Mean Corpuscular Volume 86.9 fL (80.0-100.0); Mean Platelet Volume 10.1 fL (9.4-12.4); Monocytes # (auto) 0.66 K/uL (0.11-0.59); Monocytes % (auto) 10.6 %; Neutrophils # (auto) 4.45 K/uL (1.40-6.50); Neutrophils % (auto) 71.2 %; Platelet Count 288 K/uL (130-400); RDW Coefficient of Variation 12.6 % (11.5-14.5); RDW Standard Deviation 40.2 fL (36.4-46.3); Red Blood Count 4.34 M/uL (4.20-5.40); White Blood Count 6.25 K/ul (4.8-10.8)
[2023-06-15 17:26] LABS: Creatinine Clr Calc Pharmacy 78.5 ml/min; Est GFR (Non-African American) 100.1 ml/min; Potassium 3.6 mmol/L (3.5-5.1)
[2023-06-15] MEDS ORDERED: ONDANSETRON INJ 2 MG/ML 2 ML VIAL ONE (17:37)
[2023-06-15 17:43] LABS: Albumin Globulin Ratio 1.4 (0.9-2); Albumin Level 4.6 gm/dl (3.4-5.0); Bilirubin,Total 0.9 mg/dl (0.2-1.0); Globulin 3.3 gm/dl (2.5-4.0); Total Protein 7.9 gm/dl (6.0-8.3)
--- NOTE | 2023-06-15 18:23 | Emergency Department Note ---
Impression & Plan Transaminitis ADMIT ED Provider Note HPI: History obtained from patient. The patient is a 53-year-old female who presents emergency department with a chief complaint of abdominal pain and vomiting. Patient states that she has had symptoms now for about the past 5 days. Patient states she has had a diminished appetite and has had multiple episodes of vomiting each day over the past 5 days. Patient states that she has a surgical history of a cholecystectomy and an appendectomy. Patient states she is also had myalgias and a mild headache. On arrival here to the ED, the patient is tachycardic but otherwise hemodynamically stable. She is otherwise in no acute distress on my initial assessment. Patient was initially seen in the [facility] area, secondary to lack of ED bed availability. ROS: - Per HPI Differential Diagnosis: COVID-19 infection, influenza A infection, acute cholecystitis, choledocholithiasis, small bowel obstruction, diverticulitis, viral gastroenteritis, amongst other potential pathologies. *Outpatient medications and allergy history reviewed. PE: General: Alert HEENT: Normocephalic, trachea midline Eyes: Extraocular eye movement is intact, no scleral erythema Pulmonary: Clear to auscultation bilaterally, no wheezing Cardio: Regular rate and rhythm GI: Abdomen is soft to palpation, moderate abdominal pain to palpation in the mid abdomen without guarding or rigidity : No suprapubic tenderness MSK: No evidence of trauma or malformation of the extremities, no edema Skin: No evidence of rash Neuro: Alert, no focal deficits Psychiatric: Cooperative INDEPENDENT INTERPRETATIONS: air sampling and monitoring: (As interpreted by myself): - An order was placed for continuous cardiac monitoring - Patient was noted to be in sinus rhythm with a rate of 112 Interventions provided in ED: -IV fluid bolus, IV Zofran Medical Decision Making: IV was established and lab work obtained, patient was placed on patient monitor. Lab work shows no leukocytosis, hemoglobin is normal, platelet count is normal. CMP shows mild hyponatremia 134, potassium is normal, renal function is normal. There is a transaminitis that is new, AST is 325, ALT is 641, alk phos is 533. Bilirubin is noted to be normal. Lipase is also normal. Urinalysis shows 2+ ketones without evidence of infection. Given the patient's transaminitis, ultrasound imaging of the liver was obtained that shows evidence of hepatic steatosis without obstructive pattern. Patient notes a history of a cholecystectomy. Acute hepatitis panel was ordered, on my reassessment patient states that she still feels unwell, still feels nauseated, she does not feel comfortable with discharge home. Given her new onset transaminitis I believe she may require further workup and therefore [facility] hospitalist service was consulted. Case was discussed with Dr. Miguel. Patient was placed for admission in stable condition. Consultants/Discussions held with other healthcare providers: -Hospitalist, Dr. Miguel Disposition discussion held by myself with: -Patient Diagnosis: 1. Transaminitis, acute, nonspecific 2. Nausea and vomiting, acute 3. Ketonuria, acute 4. Hyponatremia, acute, mild Disposition: Admission Blas Robertson, DO Emergency Medicine Past Med/Surg History Medical History Lupus Depression Anxiety GERD (gastroesophageal reflux disease) Fibromyalgia Breast cancer "STAGING: Left breast, invasive ductal carcinoma, grade 2, ER/Her2 positive, OH negative, [id number], stage IA TREATMENT: 1. Lumpectom/SLN - 04/03/2015 2. Re-excision to obtain negative margins - 12/11/2015 3. Partial course of chemotherapy - Taxotere/Carboplatin/Herceptin - 5 cycles. Patient has refused further treatment including Herceptin. " Migraines Hypothyroidism Surgical History S/P CARRIE (total abdominal hysterectomy) H/O mastectomy Hx of neck surgery History of cholecystectomy S/P appy Family History Other Breast cancer Heart disease Social History Smoking Status: Never smoker Hx Alcohol Use: No Hx Substance Use: No Preferred Language: Greek Communication Ability: Effective Nuclear Medicine Medical Director Required: No Beliefs That Will Affect Care: None Current Living Situation: Alone Feels Safe at Home: Yes Assistive Devices: None Allergies Allergies Allergy/AdvReac Type Severity Reaction Status Date / Time cephalexin Allergy Severe Hives, Verified 04/22/23 18:43 throat swelling Iodinated Contrast Media Allergy Severe Throat Verified 04/22/23 18:43 swells - IV contrast Penicillins Allergy Severe HIVES, Verified 04/22/23 18:43 THROAT SWELLING adhesive Allergy Intermediate TAPE- HIVES Verified 04/22/23 18:43 codeine Allergy Intermediate Hives Verified 04/22/23 18:43 gentamicin Allergy Intermediate Hives Verified 04/22/23 18:43 latex Allergy Intermediate SWELLS AND Verified 04/22/23 18:43 HIVES loratadine Allergy Intermediate Hives Verified 04/22/23 18:43 morphine Allergy Intermediate Hives Verified 04/22/23 18:43 strawberry Allergy Intermediate HIVES Verified 04/22/23 18:43 Sulfa (Sulfonamide Allergy Intermediate Hives Verified 04/22/23 18:43 Antibiotics) tramadol Allergy Intermediate Hives Verified 04/22/23 18:43 vancomycin Allergy Intermediate HIVES Verified 04/22/23 18:43 Home Meds Home Medications Medication Instructions Recorded Confirmed levothyroxine 50 mcg tablet 50 mcg PO DAILYBB 09/01/19 06/15/23 atorvastatin 20 mg tablet 20 mg PO HS 12/10/21 06/15/23 ibuprofen 600 mg tablet 600 mg PO TID PRN Pain 12/10/21 06/15/23 promethazine 25 mg tablet 25 mg PO BID PRN NAUSEA/VOMITING 12/10/21 06/15/23 omeprazole 20 mg capsule,delayed 20 mg PO HS 01/02/22 06/15/23 release zolpidem 10 mg tablet 10 mg PO HS 02/26/22 06/15/23 clonazepam 0.5 mg tablet 0.5 mg PO TID PRN Anxiety 01/30/23 06/15/23 ubrogepant 50 mg tablet (Ubrelvy) 50 mg PO DAILY PRN migraines 04/22/23 06/15/23 cyclobenzaprine 5 mg tablet 5 mg PO TID PRN Muscle Spasm 06/15/23 06/15/23 loratadine 10 mg tablet 10 mg PO HS 06/15/23 06/15/23 ondansetron HCl 8 mg tablet 8 mg PO Q8 PRN Nausea And Vomiting 06/15/23 06/15/23 Previous Rx's Medication Instructions Recorded ondansetron 4 mg disintegrating 4 mg PO Q6H PRN nausea and 05/04/23 tablet vomiting #14 tabs Results & Data (ED) Vital Signs Vital Signs - 24 hr 06/15/23 15:32 Temperature 36.6 C Temperature Source Temporal Artery Scan Pulse Rate 130 H Respiratory Rate 21 Blood Pressure 101/82 Blood Pressure Mean 88 Pulse Oximetry 98 Oxygen Delivery Method Room Air Sepsis Recent Fever Within 48 Hours No Sepsis New/Unexplained Change in Mental Status N/A Sepsis Action Taken by Nursing Physician Notified Laboratory Data 06/15/23 16:51 06/15/23 16:51 Lab Results 06/15/23 06/15/23 Range/Units 15:37 16:51 WBC 6.25 (4.8-10.8) K/ul RBC 4.34 (4.20-5.40) M/uL Hgb 12.9 (12.0-16.0) g/dl Hct 37.7 (37.0-47.0) % MCV 86.9 (80.0-100.0) fL MCH 29.7 (25.0-34.0) pg MCHC 34.2 (32.0-36.0) g/dL RDW Std Deviation 40.2 (36.4-46.3) fL RDW Coeff of Jovi 12.6 (11.5-14.5) % Plt Count 288 (130-400) K/uL MPV 10.1 (9.4-12.4) fL Immature Gran % (Auto) 0.3 % Neut % (Auto) 71.2 % Lymph % (Auto) 17.0 % [place] % (Auto) 10.6 % Eos % (Auto) 0.6 % Baso % (Auto) 0.3 % Neut # (Auto) 4.45 (1.40-6.50) K/uL Lymph # (Auto) 1.06 L (1.20-3.40) K/uL [place] # (Auto) 0.66 H (0.11-0.59) K/uL Eos # (Auto) 0.04 (0.00-0.50) K/uL Baso # (Auto) 0.02 (0.00-0.20) K/uL Immature Gran # (Auto) 0.02 (0.01-0.20) K/uL Sodium 134 L (136-145) mmol/L Potassium 3.6 (3.5-5.1) mmol/L Chloride 100 (98-107) mmol/L Carbon Dioxide 22 (21-32) mmol/L Anion Gap 12 H (3-11) BUN 20 (6-23) mg/dl Creatinine 0.69 (0.6-1.2) mg/dl Est Cr Clr Drug Dosing 78.5 ml/min Est GFR ( Amer) 116.0 ml/min Est GFR (Non-Af Amer) 100.1 ml/min BUN/Creatinine Ratio 29.0 H (10-20) Glucose 107 H (70-99(Fasting)) mg/dl Calcium 9.0 (8.6-10.3) mg/dl Total Bilirubin 0.9 (0.2-1.0) mg/dl AST 325 H (13-39) U/L ALT 641 H (7-52) U/L Alkaline Phosphatase 533 H (34-104) U/L Total Protein 7.9 (6.0-8.3) gm/dl Albumin 4.6 (3.4-5.0) gm/dl Globulin 3.3 (2.5-4.0) gm/dl Albumin/Globulin Ratio 1.4 (0.9-2) Lipase 31 (11-82) U/L TSH 0.858 (0.300-4.500) uIu/ml Adenovirus (PCR) Not Detected (NotDetected) Anaplasma Smear See Comment Babesia Smear See Comment B. pertussis DNA (PCR) Not Detected (NotDetected) B.parapertussis DNA PCR Not Detected (NotDetected) Lyme Disease IgG Ab Negative (Negative) Lyme Disease IgM Ab Positive A (Negative) C. pneumoniae DNA (PCR) Not Detected (NotDetected) Coronavirus OC43 (PCR) Not Detected (NotDetected) Coronavirus HKU1 (PCR) Not Detected (NotDetected) Coronavirus 229E (PCR) Not Detected (NotDetected) SARS-CoV-2 (PCR) Not Detected (NotDetected) Coronavirus NL63 (PCR) Not Detected (NotDetected) Monoscreen Negative (Negative) Human Metapneumovir PCR Not Detected (NotDetected) Influenza Type A (PCR) Not Detected (NotDetected) Influenza Type B (PCR) Not Detected (NotDetected) M. pneumoniae (PCR) Not Detected (NotDetected) Parainfluenza 1 (PCR) Not Detected (NotDetected) Parainfluenza 2 (PCR) Not Detected (NotDetected) Parainfluenza 3 (PCR) Not Detected (NotDetected) Parainfluenza 4 (PCR) Not Detected (NotDetected) RSV (PCR) Not Detected (NotDetected) Entero/Rhino (PCR) Not Detected (NotDetected) Administered Medications Discontinued Medications Diphenhydramine HCl (Diphenhydramine Capsule 25 Mg Cap) 25 mg PO NOW ONE Stop: 06/15/23 23:22 Last Admin: 06/15/23 23:31 Dose: Not Given Documented By: CHRISSY Sodium Chloride (Nss) 1,000 mls @ 999 mls/hr IV .Q1H1M ONE Stop: 06/15/23 16:34 Last Infusion: 06/15/23 18:45 Dose: Infused Documented By: Admin: 06/15/23 17:45 Dose: 999 mls/hr Documented By: TAMERA Sodium Chloride (Nss) 1,000 mls @ 999 mls/hr IV .Q1H1M ONE Stop: 06/15/23 22:08 Last Infusion: 06/16/23 00:06 Dose: Infused Documented By: Admin: 06/15/23 22:19 Dose: 999 mls/hr Documented By: PATY Lorazepam 0.5 mg/ Syringe 0.5 mls @ 2 mls/min IV NOW STA Stop: 06/15/23 21:22 Last Admin: 06/15/23 22:19 Dose: 2 mls/min Documented By: PATY Pantoprazole Sodium 40 mg/ (Syringe) 10 mls @ 5 mls/min IV NOW ONE Stop: 06/15/23 21:31 Last Admin: 06/15/23 22:19 Dose: 5 mls/min Documented By: PATY Ondansetron HCl (Ondansetron Inj 2 Mg/Ml 2 Ml Vial) 4 mg IV NOW STA Stop: 06/15/23 15:35 Last Admin: 06/15/23 17:41 Dose: 4 mg Documented By: TAMERA Ondansetron HCl (Ondansetron Inj 2 Mg/Ml 2 Ml Vial) Confirm Administered Dose 4 mg .ROUTE .STK-MED ONE Stop: 06/15/23 17:38 Last Admin: 06/15/23 17:41 Dose: Not Given Documented By: TAMERA Imaging Data Radiologist's Impression: Liver Ultrasound 06/15/23 18:14 Exam(s): US LIVER EXAM: US Abdomen Limited CLINICAL HISTORY: Reason for exam: transaminitis. TECHNIQUE: Real-time ultrasound of the abdomen with image documentation. COMPARISON: No relevant prior studies available. FINDINGS: Liver: Hepatic steatosis. Gallbladder: Cholecystectomy. Common bile duct: 5 mm common bile duct. IMPRESSION: 1. Hepatic steatosis. 2. Cholecystectomy. Electronically signed by: Ellis Wyatt MD 06/15/23 19:59 PM Abdomen/Pelvis CT 06/15/23 21:07 Exam(s): CT ABDOMEN + PELVIS Without Contrast EXAM: CT Abdomen and Pelvis Without Intravenous Contrast CLINICAL HISTORY: Reason for exam: abdominal pain. TECHNIQUE: Axial computed tomography images of the abdomen and pelvis without intravenous contrast. CTDI is 10.34 mGy and DLP is 484.05 mGy-cm. Automated exposure control was utilized for the study. A dose lowering technique was utilized adhering to the principles of ALARA. COMPARISON: CT abdomen and pelvis February 22, 2018. FINDINGS: Lung bases: Unremarkable. No mass. No consolidation. ABDOMEN: Liver: Unremarkable. Gallbladder and bile ducts: Cholecystectomy. No ductal dilation. Pancreas: Unremarkable. No ductal dilation. Spleen: Unremarkable. No splenomegaly. Adrenals: Unremarkable. No mass. Kidneys and ureters: Unremarkable. No hydronephrosis or nephrolithiasis. Stomach and bowel: Mild-moderate fecal retention, correlate for constipation. No small bowel obstruction. No free air. No mucosal thickening. PELVIS: Appendix: No findings to suggest acute appendicitis. Bladder: Unremarkable. No stones. Reproductive: Hysterectomy. ABDOMEN and PELVIS: Intraperitoneal space: See above. Bones/joints: No acute fracture. No dislocation. Soft tissues: Unremarkable. Vasculature: Unremarkable. No abdominal aortic aneurysm. Lymph nodes: Unremarkable. No enlarged lymph nodes. IMPRESSION: 1. No hydronephrosis or nephrolithiasis. 2. Cholecystectomy. 3. Mild-moderate fecal retention, correlate for constipation. No small bowel obstruction. No free air. 4. Hysterectomy. Electronically signed by: Ellis Wyatt MD 06/15/23 21:50 PM Discharge Plan Visit Data Chief Complaint: Vomiting Stated Complaint: VOMITING SINCE MONDAY ED Provider: Blas Robertson Discharge Problem: Transaminitis Patient Disposition: Admitted As Inpatient Discharge Instructions Interventions: ED Discharge Assessment Last Done: 06/15/23 22:50
--- NOTE | 2023-06-15 19:59 | Ultrasound Report ---
Exam(s): US LIVER EXAM: US Abdomen Limited CLINICAL HISTORY: Reason for exam: transaminitis. TECHNIQUE: Real-time ultrasound of the abdomen with image documentation. COMPARISON: No relevant prior studies available. FINDINGS: Liver: Hepatic steatosis. Gallbladder: Cholecystectomy. Common bile duct: 5 mm common bile duct. IMPRESSION: 1. Hepatic steatosis. 2. Cholecystectomy. Electronically signed by: Ellis Wyatt MD 06/15/23 19:59 PM
[2023-06-15] MEDS ORDERED: LORazepam 0.5 MG in SYRINGE 0.25 ML IV STA (21:21)
--- NOTE | 2023-06-15 21:24 | History & Physical Report ---
Date of Service June 15, 2023 Assessment & Plan (1) Nausea & vomiting: Plan: 53 yo female with PMHx of lupus, GERD, breast cancer s/p mastectomy, migraine, anxiety, depression, insomnia, fibromyalgia, HLD, and hypothyroidism presents with abdominal pain. #Nausea, Vomiting #Elevated LFTs -5 days ongoing symptoms. On admission moderately elevated LFTs. Unknown etiology. H/o cholecystectomy. Denies alcohol/drug use. -Liver US: hepatic steatosis -CT A/P: no acute abnormality -Labs pending: hepatitis panel, monospot, UA, UDS, lyme, anaplasmosis/babesia, TSH -MRCP ordered - NPO, IVF, protonix, anti-emetics -consider GI consult -resume home meds when no longer NPO #Constipation -CT A/P: mild to moderate fecal retention -consider bowel regimen although likely not cause of above #GERD -IV protonix #Anxiety -IV ativan prn DVT ppx: SCDs, ambulation FEN/GI: NPO, IVF Code Status: full Dispo: med tele (2) Lupus: (3) GERD (gastroesophageal reflux disease): (4) Fibromyalgia: (5) Breast cancer: (6) Migraines: (7) Hypothyroidism: (8) Depression with anxiety: (9) Insomnia: History of Present Illness Chief Complaint: abd pain, N/V Primary Care Provider: Louann Corralse, 53 yo female with PMHx of lupus, GERD, breast cancer s/p mastectomy, migraine, anxiety, depression, insomnia, fibromyalgia, HLD, and hypothyroidism presents with abdominal pain. 5 days ago patient started developing left upper quadrant pain, feeling warm (no recorded fever), chills, fatigue, fast heart rate, mild shortness of breath, nausea, yellow vomiting, muscle aches. She has been trying to stay hydrated but unable to keep much food down. Denies alcohol use. Denies tobacco or recreational substance abuse. Denies recent travel. Denies tick bites. Last tattoo was 5 years ago. She has had multiple abdominal surgeries including cholecystectomy, appendectomy, abdominal hysterectomy. Allergies Allergy/AdvReac Type Severity Reaction Status Date / Time cephalexin Allergy Severe Hives, Verified 04/22/23 18:43 throat swelling Iodinated Contrast Media Allergy Severe Throat Verified 04/22/23 18:43 swells - IV contrast Penicillins Allergy Severe HIVES, Verified 04/22/23 18:43 THROAT SWELLING adhesive Allergy Intermediate TAPE- HIVES Verified 04/22/23 18:43 codeine Allergy Intermediate Hives Verified 04/22/23 18:43 gentamicin Allergy Intermediate Hives Verified 04/22/23 18:43 latex Allergy Intermediate SWELLS AND Verified 04/22/23 18:43 HIVES loratadine Allergy Intermediate Hives Verified 04/22/23 18:43 morphine Allergy Intermediate Hives Verified 04/22/23 18:43 strawberry Allergy Intermediate HIVES Verified 04/22/23 18:43 Sulfa (Sulfonamide Allergy Intermediate Hives Verified 04/22/23 18:43 Antibiotics) tramadol Allergy Intermediate Hives Verified 04/22/23 18:43 vancomycin Allergy Intermediate HIVES Verified 04/22/23 18:43 Home Medications Medication Instructions Recorded Confirmed Type levothyroxine 50 mcg tablet 50 mcg PO DAILYBB 09/01/19 06/15/23 History atorvastatin 20 mg tablet 20 mg PO HS 12/10/21 06/15/23 History ibuprofen 600 mg tablet 600 mg PO TID PRN Pain 12/10/21 06/15/23 History promethazine 25 mg tablet 25 mg PO BID PRN NAUSEA/VOMITING 12/10/21 06/15/23 History omeprazole 20 mg capsule,delayed 20 mg PO HS 01/02/22 06/15/23 History release zolpidem 10 mg tablet 10 mg PO HS 02/26/22 06/15/23 History clonazepam 0.5 mg tablet 0.5 mg PO TID PRN Anxiety 01/30/23 06/15/23 History ubrogepant 50 mg tablet (Ubrelvy) 50 mg PO DAILY PRN migraines 04/22/23 06/15/23 History ondansetron 4 mg disintegrating 4 mg PO Q6H PRN nausea and 05/04/23 06/15/23 Rx tablet vomiting #14 tabs cyclobenzaprine 5 mg tablet 5 mg PO TID PRN Muscle Spasm 06/15/23 06/15/23 History loratadine 10 mg tablet 10 mg PO HS 06/15/23 06/15/23 History ondansetron HCl 8 mg tablet 8 mg PO Q8 PRN Nausea And Vomiting 06/15/23 06/15/23 History Past Med/Surg History Medical History Lupus Depression Anxiety GERD (gastroesophageal reflux disease) Fibromyalgia Breast cancer "STAGING: Left breast, invasive ductal carcinoma, grade 2, ER/Her2 positive, MI negative, [id number], stage IA TREATMENT: 1. Lumpectom/SLN - 04/03/2015 2. Re-excision to obtain negative margins - 12/11/2015 3. Partial course of chemotherapy - Taxotere/Carboplatin/Herceptin - 5 cycles. Patient has refused further treatment including Herceptin. " Migraines Hypothyroidism Surgical History S/P CARRIE (total abdominal hysterectomy) H/O mastectomy Hx of neck surgery History of cholecystectomy S/P appy Family History Other Breast cancer Heart disease Social History Smoking Status: Never smoker Hx Alcohol Use: No Hx Substance Use: No Preferred Language: Slovenian Communication Ability: Effective Leather Carver Required: No Beliefs That Will Affect Care: None Current Living Situation: Alone Feels Safe at Home: Yes Assistive Devices: None Review of Systems Review of Systems: All systems reviewed & are unremarkable except as noted in HPI & below Physical Exam Physical Exam: Constitutional: in no acute distress, pleasant and normal affect, intact memory. AOx3. Vitals as above. HEENT: No scleral injection or discharge.Moist mucous membranes. Clear oropharynx without exudate. Neck: Supple without lymphadenopathy or thyromegaly. Trachea midline. Lungs: Clear to auscultation bilaterally with good effort. No wheeze/rales/rhonchi. Cardiac: Regular rate and rhythm.No murmurs.No lower extremity edema. 2+ distal peripheral pulses. Abdomen: Hypoactive BS. Soft and nondistended.Mild discomfort LUQ. No guarding. No hepatosplenomegaly. MSK: No cyanosis or clubbing. Extremities motor strength 5/5. Skin: No rashes, warm, dry. Neurologic: no focal deficits Results & Data Results & Data Vital Signs (Past 12 Hours) Vital Signs Temp Pulse Resp BP Pulse Ox O2 Del Method 06/15/23 15:32 36.6 C 130 H 21 101/82 98 Room Air Laboratory Results Laboratory Results WBC 6.25 K/ul (4.8-10.8) 06/15/23 16:51 RBC 4.34 M/uL (4.20-5.40) 06/15/23 16:51 Hgb 12.9 g/dl (12.0-16.0) 06/15/23 16:51 Hct 37.7 % (37.0-47.0) 06/15/23 16:51 MCV 86.9 fL (80.0-100.0) 06/15/23 16:51 MCH 29.7 pg (25.0-34.0) 06/15/23 16:51 MCHC 34.2 g/dL (32.0-36.0) 06/15/23 16:51 RDW Std Deviation 40.2 fL (36.4-46.3) 06/15/23 16:51 RDW Coeff of Jovi 12.6 % (11.5-14.5) 06/15/23 16:51 Plt Count 288 K/uL (130-400) 06/15/23 16:51 MPV 10.1 fL (9.4-12.4) 06/15/23 16:51 Immature Gran % (Auto) 0.3 % 06/15/23 16:51 Neut % (Auto) 71.2 % 06/15/23 16:51 Lymph % (Auto) 17.0 % 06/15/23 16:51 [place] % (Auto) 10.6 % 06/15/23 16:51 Eos % (Auto) 0.6 % 06/15/23 16:51 Baso % (Auto) 0.3 % 06/15/23 16:51 Neut # (Auto) 4.45 K/uL (1.40-6.50) 06/15/23 16:51 Lymph # (Auto) 1.06 K/uL (1.20-3.40) L 06/15/23 16:51 [place] # (Auto) 0.66 K/uL (0.11-0.59) H 06/15/23 16:51 Eos # (Auto) 0.04 K/uL (0.00-0.50) 06/15/23 16:51 Baso # (Auto) 0.02 K/uL (0.00-0.20) 06/15/23 16:51 Immature Gran # (Auto) 0.02 K/uL (0.01-0.20) 06/15/23 16:51 Sodium 134 mmol/L (136-145) L 06/15/23 16:51 Potassium 3.6 mmol/L (3.5-5.1) 06/15/23 16:51 Chloride 100 mmol/L (98-107) 06/15/23 16:51 Carbon Dioxide 22 mmol/L (21-32) 06/15/23 16:51 Anion Gap 12 (3-11) H 06/15/23 16:51 BUN 20 mg/dl (6-23) 06/15/23 16:51 Creatinine 0.69 mg/dl (0.6-1.2) 06/15/23 16:51 Est Cr Clr Drug Dosing 78.5 ml/min 06/15/23 16:51 Est GFR ( Amer) 116.0 ml/min 06/15/23 16:51 Est GFR (Non-Af Amer) 100.1 ml/min 06/15/23 16:51 BUN/Creatinine Ratio 29.0 (10-20) H 06/15/23 16:51 Glucose 107 mg/dl (70-99(Fasting)) H 06/15/23 16:51 Calcium 9.0 mg/dl (8.6-10.3) 06/15/23 16:51 Total Bilirubin 0.9 mg/dl (0.2-1.0) 06/15/23 16:51 AST 325 U/L (13-39) H 06/15/23 16:51 ALT 641 U/L (7-52) H 06/15/23 16:51 Alkaline Phosphatase 533 U/L (34-104) H 06/15/23 16:51 Total Protein 7.9 gm/dl (6.0-8.3) 06/15/23 16:51 Albumin 4.6 gm/dl (3.4-5.0) 06/15/23 16:51 Globulin 3.3 gm/dl (2.5-4.0) 06/15/23 16:51 Albumin/Globulin Ratio 1.4 (0.9-2) 06/15/23 16:51 Lipase 31 U/L (11-82) 06/15/23 16:51 Adenovirus (PCR) Not Detected (NotDetected) 06/15/23 15:37 B. pertussis DNA (PCR) Not Detected (NotDetected) 06/15/23 15:37 B.parapertussis DNA PCR Not Detected (NotDetected) 06/15/23 15:37 C. pneumoniae DNA (PCR) Not Detected (NotDetected) 06/15/23 15:37 Coronavirus OC43 (PCR) Not Detected (NotDetected) 06/15/23 15:37 Coronavirus HKU1 (PCR) Not Detected (NotDetected) 06/15/23 15:37 Coronavirus 229E (PCR) Not Detected (NotDetected) 06/15/23 15:37 SARS-CoV-2 (PCR) Not Detected (NotDetected) 06/15/23 15:37 Coronavirus NL63 (PCR) Not Detected (NotDetected) 06/15/23 15:37 Human Metapneumovir PCR Not Detected (NotDetected) 06/15/23 15:37 Influenza Type A (PCR) Not Detected (NotDetected) 06/15/23 15:37 Influenza Type B (PCR) Not Detected (NotDetected) 06/15/23 15:37 M. pneumoniae (PCR) Not Detected (NotDetected) 06/15/23 15:37 Parainfluenza 1 (PCR) Not Detected (NotDetected) 06/15/23 15:37 Parainfluenza 2 (PCR) Not Detected (NotDetected) 06/15/23 15:37 Parainfluenza 3 (PCR) Not Detected (NotDetected) 06/15/23 15:37 Parainfluenza 4 (PCR) Not Detected (NotDetected) 06/15/23 15:37 RSV (PCR) Not Detected (NotDetected) 06/15/23 15:37 Entero/Rhino (PCR) Not Detected (NotDetected) 06/15/23 15:37 Impressions Liver Ultrasound 06/15/23 18:14 Exam(s): US LIVER EXAM: US Abdomen Limited CLINICAL HISTORY: Reason for exam: transaminitis. TECHNIQUE: Real-time ultrasound of the abdomen with image documentation. COMPARISON: No relevant prior studies available. FINDINGS: Liver: Hepatic steatosis. Gallbladder: Cholecystectomy. Common bile duct: 5 mm common bile duct. IMPRESSION: 1. Hepatic steatosis. 2. Cholecystectomy. Electronically signed by: Ellis Wyatt MD 06/15/23 19:59 PM Code Status & VTE Plan VTE Prophylaxis Plan VTE Prophylaxis will be ordered: Yes Supervising Physician Co-Signing Physician Notes Attending addendum: I have physically seen this patient, have supervised the medical residents activities, and agree with the H&P unless as otherwise noted. Assessment and Plan: Abnormal LFTs- AST 325, ALT 641, alkaline phosphatase 533, to follow serially BioFire test negative Acute hepatitis panel pending Urine drug screen negative Liver ultrasound shows hepatic steatosis CT abdomen pelvis showed no acute abnormalities Anaplasmosis/babesiosis smear negative with antibodies pending Lyme IgM positive, IgG negative, with Western blot pending Lyme IgM positive/IgG negative Start empiric treatment with doxycycline 100 mg IV every 12 hours Western blot pending and will need to be followed Nausea/vomiting- CT does note mild to moderate fecal retention Will try to passively improve process by placing on IV fluids and rehydrating Patient will be n.p.o. at this time Hypoglycemia- Morning laboratories showing a glucose of 69 She did receive a total of 2 L normal saline prior to that Placed on D5 1/2 NSS + KCl 20 mill equivalents at 100 mL/h x 1 L Placed on Accu-Cheks every 4 hours, primarily to follow for hypoglycemia GERD- Pantoprazole 40 mg IV daily Resident Activity Tracking Resident Involvement: Resident Care Provided Care Provided: Adult Hospital Medicine
[2023-06-15] MEDS ORDERED: PANTOprazole 40 MG in SYRINGE 0 ML IV ONE (21:30)
--- NOTE | 2023-06-15 21:51 | CT Scan Report ---
Exam(s): CT ABDOMEN + PELVIS Without Contrast EXAM: CT Abdomen and Pelvis Without Intravenous Contrast CLINICAL HISTORY: Reason for exam: abdominal pain. TECHNIQUE: Axial computed tomography images of the abdomen and pelvis without intravenous contrast. CTDI is 10.34 mGy and DLP is 484.05 mGy-cm. Automated exposure control was utilized for the study. A dose lowering technique was utilized adhering to the principles of ALARA. COMPARISON: CT abdomen and pelvis February 22, 2018. FINDINGS: Lung bases: Unremarkable. No mass. No consolidation. ABDOMEN: Liver: Unremarkable. Gallbladder and bile ducts: Cholecystectomy. No ductal dilation. Pancreas: Unremarkable. No ductal dilation. Spleen: Unremarkable. No splenomegaly. Adrenals: Unremarkable. No mass. Kidneys and ureters: Unremarkable. No hydronephrosis or nephrolithiasis. Stomach and bowel: Mild-moderate fecal retention, correlate for constipation. No small bowel obstruction. No free air. No mucosal thickening. PELVIS: Appendix: No findings to suggest acute appendicitis. Bladder: Unremarkable. No stones. Reproductive: Hysterectomy. ABDOMEN and PELVIS: Intraperitoneal space: See above. Bones/joints: No acute fracture. No dislocation. Soft tissues: Unremarkable. Vasculature: Unremarkable. No abdominal aortic aneurysm. Lymph nodes: Unremarkable. No enlarged lymph nodes. IMPRESSION: 1. No hydronephrosis or nephrolithiasis. 2. Cholecystectomy. 3. Mild-moderate fecal retention, correlate for constipation. No small bowel obstruction. No free air. 4. Hysterectomy. Electronically signed by: Ellis Wyatt MD 06/15/23 21:50 PM
[2023-06-15 22:28] LABS: Monotest Negative (Negative)
[2023-06-15] MEDS ORDERED: SODIUM CHLORIDE 0.9% 1,000 ML IV SCH (22:50)
[2023-06-15] MEDS ORDERED: PROMETHAZINE HCL 12.5 MG in SODIUM CHLORIDE 0.9% 50 ML IV PRN (22:50)
[2023-06-15] MEDS ORDERED: ONDANSETRON INJ 2 MG/ML 2 ML VIAL IV PRN (22:50)
[2023-06-15 23:04] LABS: Lyme Ab IgG w/WB Rflx Negative (Negative)
[2023-06-15] MEDS ORDERED: diphenhydrAMINE Capsule 25 MG CAP PO ONE (23:21)
[2023-06-15] MEDS ORDERED: diphenhydrAMINE 50 MG/ML VIAL IV ONE (23:22)
[2023-06-15 23:36] LABS: Lyme Ab IgM w/WB Rflx Positive (Negative)
[2023-06-15 23:37] LABS: Appearance Urine Clear (Clear); Bilirubin Urine Negative (Negative); Blood Urine Negative (Negative); Color Urine Yellow; Glucose Urine UA Negative (Negative); Ketones Urine 2+ (Negative); Leukocyte Esterase Urine Negative (Negative); Nitrite Urine Negative (Negative); Protein Urine Negative (Negative); Specific Gravity Urine 1.011 (1.000-1.030); Urobilinogen Urine Negative (Negative)
[2023-06-15 23:58] LABS: Amphetamines+Metham, Urine Neg (Neg); Barbiturates, Urine Neg (Neg); Benzodiazepine, Urine Neg (Neg); Cocaine, Urine Neg (Neg); MDMA (Ecstacy), Urine Neg (Neg); Marijuana, Urine Neg (Neg); Methadone, Urine Neg (Neg); Opiate, Urine Neg (Neg); Phencyclidine, Urine Neg (Neg)
[2023-06-16 00:05] LABS: Thyroid Stimulating Hormone 0.858 uIu/ml (0.300-4.500)
[2023-06-16] MEDS ORDERED: KETOROLAC TROMETHAMINE 15 MG/ML VIAL IV ONE (00:28)
[2023-06-16] MEDS ORDERED: MoRPHine SULFATE 2 MG/ML CARP IV ONE ×2 (00:43→04:34)
--- OUTSIDE RECORDS SUMMARY | 2023-06-16 01:08 | External Medical Summary | Continuity of Care Document ---
Author Name Unknown Organization [facility] [address] [facility] [address] [phone] Care Team Providers Care Teller Manager Name Role Phone Louann Corrales Primary Care Physician [phone] [id number] Date(s): 05/09/23 - 05/09/23 [facility] [address] [facility] 207 [facility] [address] [address] [phone] Encounter Diagnosis B12 deficiency(Discharge Diagnosis) - 05/10/23 Lupus(Discharge Diagnosis) - 05/10/23 Migraine(Discharge Diagnosis) - 05/10/23 History of fusion of cervical spine(Discharge Diagnosis) - 05/10/23 Discharge Disposition: Home or Self Care Attending Physician: DO Blanca Gretchen Elizabeth Allergies, Adverse Reactions, Alerts Substance Reaction Severity Status penicillin Rash Severe Active vancomycin Swelling Severe Active Toradol Swelling Severe Active IVP dye Swelling Severe Active sulfa drugs Rash Severe Active Latex Rash Severe Active Immunizations Given and Recorded Vaccine Date Status Refusal Reason zoster vaccine, inactivated 1 02/11/22 Recorded zoster vaccine, inactivated 2 08/13/21 Recorded SARS-CoV-2 (COVID-19) mRNA-1273 vaccine 3 06/17/21 Recorded SARS-CoV-2 (COVID-19) mRNA-1273 vaccine 4 12/15/20 Recorded SARS-CoV-2 (COVID-19) mRNA-1273 vaccine 5 11/17/20 Recorded pneumococcal 23-valent vaccine 6 05/17/13 Recorded tetanus/diphtheria/pertuss, acel (Tdap) 7 03/07/11 Recorded 1Result Comment: 2023-03-27: Historical information-source unspecified 2Result Comment: 2023-03-27: Historical information-source unspecified 3Result Comment: 2023-03-27: Historical information-source unspecified 4Result Comment: 2023-03-27: Historical information-source unspecified 5Result Comment: 2023-03-27: Historical information-source unspecified 6Result Comment: 2023-03-27: Historical information-source unspecified 7Result Comment: 2023-03-27: Historical information-source unspecified Medications Ambien 10 mg oral tablet Start: 03/23/19 16:45:00 EDT, 10 Unknown, By Mouth Start Date: 03/23/19 Status: Ordered atorvastatin 20 mg oral tablet Start: 03/27/23 8:55:00 EST, 1 tab, PO, Daily Start Date: 03/27/23 Status: Ordered Claritin 10 mg oral tablet Start: 03/23/19 16:45:00 EDT, 10 Unknown, By Mouth Start Date: 03/23/19 Status: Ordered clonazePAM 0.5 mg oral tablet Start: 03/27/23 9:02:00 EST, 1 tab, PO, tid Start Date: 03/27/23 Status: Ordered cyanocobalamin 1000 mcg/mL injectable solution Start: 03/27/23 8:59:00 EST, 1,000 mcg =, IM, qmonth (30 days) Start Date: 03/27/23 Status: Ordered EpiPen 2-Patel Start: 03/27/23 8:59:00 EST Start Date: 03/27/23 Status: Ordered Flexeril 5 mg oral tablet Start: 05/09/23 14:00:00 EST, 1 tab, PO, tid, Disp# 60 tab, Refills: 1, PRN: as needed for spasm, Pharmacy: [facility] #[id number] Start Date: 05/09/23 Stop Date: 07/08/23 Status: Ordered fluticasone 50 mcg/inh nasal spray Start: 03/27/23 9:07:00 EST, 1 spray, each nostril, Daily Start Date: 03/27/23 Status: Ordered ibuprofen 600 mg oral tablet Start: 05/04/23 9:41:00 EST, 1 tab, PO, q8h, Disp# 30 tab, Refills: 1, PRN: headache, Pharmacy: [facility] #[id number] Start Date: 05/04/23 Stop Date: 05/24/23 Status: Ordered levothyroxine Start: 03/23/19 16:46:00 EDT, 50 Unknown, By Mouth Start Date: 03/23/19 Status: Ordered omeprazole 20 mg oral delayed release capsule Start: 05/01/23 13:13:00 EST, 1 cap, PO, Daily, Disp# 30 cap, Refills: 3, Pharmacy: [facility]#[id number] Start Date: 05/01/23 Stop Date: 08/29/23 Status: Ordered pramipexole 0.125 mg oral tablet Start: 03/27/23 8:57:00 EST, 1 tab, PO, Daily Start Date: 03/27/23 Status: Ordered rizatriptan 10 mg oral tablet, disintegrating Start: 04/12/23 13:37:00 EST, 1 tab, PO, ONCE, Disp# 9 tab, may repeat dose once in 2 hours, PRN: as needed for migraine headache, Pharmacy: [facility] #[id number] Start Date: 04/12/23 Status: Ordered Mental Status 05/09/23 Barriers to Learning one year None evide nt Mandatory Health Literacy Documentation Yes Health Literacy Communication Barriers N ever Primary Language Bangladeshi Problem List Condition Confirmation Course Effective Dates Status H ealth Status Informant B12 deficiency Confirmed Active Epilepsy Confirmed Active HLD (hyperlipidemia) Confirmed Active Hypothyroidism Confirmed Active Lupus Confirmed Active Migraine Confirmed Active Diagnosis Diagnosis Type Effective Dates Health Status Clinical Service Informant Lupus Discharge Diagnosis 05/10/23 B12 deficiency Discharge Diagnosis 05/10/23 Migraine Discharge Diagnosis 05/10/23 History of fusion of cervical spine Discharge Diagnosis 05/10/23 Social History Social History Type Response Smoking Status Never smoked cigaret nirav Sex Female Patient Care team information Care Team Personnel Name: DO Corrales Claire S Position: Resident Member Role: Primary Care Provider Address: Address: [address] [facility] [address] [place] [id number] Care Team Related Persons Name: TRISHA BEACH
[2023-06-16 04:57] LABS: Basophils # (auto) 0.02 K/uL (0.00-0.20); Basophils % (auto) 0.3 %; Eosinophils # (auto) 0.04 K/uL (0.00-0.50); Eosinophils % (auto) 0.6 %; Hematocrit (blood only) 31.2 % (37.0-47.0); Hemoglobin 9.9 g/dl (12.0-16.0); Immature Granulocytes # (auto) 0.02 K/uL (0.01-0.20); Immature Granulocytes % (auto) 0.3 %; Lymphocytes # (auto) 1.06 K/uL (1.20-3.40); Lymphocytes % (auto) 17.1 %; Mean Corpuscular Hemoglobin 28.9 pg (25.0-34.0); Mean Corpuscular Hgb Conc 31.7 g/dL (32.0-36.0); Mean Platelet Volume 9.8 fL (9.4-12.4); Monocytes # (auto) 0.71 K/uL (0.11-0.59); Monocytes % (auto) 11.5 %; Neutrophils # (auto) 4.34 K/uL (1.40-6.50); Neutrophils % (auto) 70.2 %; Platelet Count 220 K/uL (130-400); RDW Coefficient of Variation 12.7 % (11.5-14.5); RDW Standard Deviation 41.7 fL (36.4-46.3); Red Blood Count 3.43 M/uL (4.20-5.40); White Blood Count 6.19 K/ul (4.8-10.8)
[2023-06-16 05:31] LABS: Partial Thromboplastin Ratio 1.1; Partial Thromboplastin Time 31 Seconds (21-31)
[2023-06-16 05:38] LABS: Albumin Globulin Ratio 1.5 (0.9-2); Albumin Level 3.6 gm/dl (3.4-5.0); BUN Creatinine Ratio 26.7 (10-20); Calcium 7.9 mg/dl (8.6-10.3); Creatinine Clr Calc Pharmacy 89.8 ml/min; Est GFR (African American) 121.5 ml/min; Est GFR (Non-African American) 104.8 ml/min; Globulin 2.4 gm/dl (2.5-4.0); Magnesium 1.8 mg/dl (1.7-2.4); Potassium 3.5 mmol/L (3.5-5.1)
[2023-06-16] MEDS ORDERED: LORazepam 0.5 MG in SYRINGE 0.25 ML IV PRN (06:00)
[2023-06-16] MEDS ORDERED: CARBOHYDRATES FOR HYPOGLYCEMIA PO PRN (06:49)
[2023-06-16] MEDS ORDERED: DEXTROSE 50% 50 ML SYRINGE IV PRN (06:49)
[2023-06-16] MEDS ORDERED: GLUCOSE 10 TAB/TUBE PO PRN (06:49)
[2023-06-16] MEDS ORDERED: GLUCAGON FOR INJ 1 MG VIAL SQ PRN (06:49)
[2023-06-16] MEDS ORDERED: GLUCOSE 40% GEL 15 GM TUBE PO PRN (06:49)
--- NOTE | 2023-06-16 06:51 | Billing Data ---
Date of Service June 16, 2023 Coding Level of Care Code 81926 INT INP/OBS CARE
[2023-06-16] MEDS ORDERED: D5W AND 1/2NSS + 20MEQ KCL 20 MEQ/1,000 ML BAG IV SCH (07:00)
[2023-06-16] MEDS: DOXYCYCLINE HYCLATE 100 MG in DEXTROSE 5% MINI-B 100 ML IV SCH ×2 (07:46→18:31)
[2023-06-16] MEDS: INSULIN ASPART PER UNIT CHARGE SC SCH ×2 (08:24→12:15)
[2023-06-16] MEDS ORDERED: diphenhydrAMINE Capsule 25 MG CAP PO ONE ×2 (11:11→23:37)
[2023-06-16] MEDS: MoRPHine SULFATE 2 MG/ML CARP IV PRN ×3 (11:32→21:21)
[2023-06-16] MEDS: PANTOprazole 40 MG in SYRINGE 0 ML IV SCH (11:32)
--- NOTE | 2023-06-16 11:44 | Hospitalist Progress Note ---
Date of Service June 16, 2023 Assessment & Plan (1) Nausea & vomiting: Plan: 53 yo female with PMHx of lupus, GERD, breast cancer s/p mastectomy, migraine, anxiety, depression, insomnia, fibromyalgia, HLD, and hypothyroidism presents with abdominal pain. Gastroenteritis with nonspecific illness -Ongoing constitutional symptoms with significant nausea/vomiting over past 6 days -CTAP negative -RVP negative, Monospot negative, UDS negative. EBV serologies pending -Hepatitis serologies pending -Anaplasmosis and babesiosis smears negative, serologies pending -Lyme IgM positive, western blot pending -Continue supportive care with IVF repletion, anti-emetics PRN, Protonix -Doxycycline initiated on admission due to concern for tickborne illness -We will continue doxycycline 100 mg IV BID for now empirically for Lyme/anaplasmosis Transaminitis -Likely reactive to suspected infectious process -Downtrending from admission -RUQ US on admission- hepatic steatosis noted -Currently no signs of jaundice/icterus on exam -MRCP pending -Monitor CMP Anemia -Hgb drop from 12.9 to 9.9 today -Likely dilutional from 3L NSS fluid repletion -Monitor CBC Constipation -CT A/P: mild to moderate fecal retention -Initiate bowel regimen GERD -Continue Protonix IV DVT ppx: SCDs, ambulation FEN/GI: NPO, IVF Code Status: full Dispo: med tele (2) Lupus: (3) GERD (gastroesophageal reflux disease): (4) Fibromyalgia: (5) Breast cancer: (6) Migraines: (7) Hypothyroidism: (8) Depression with anxiety: (9) Insomnia: Admission and Anticipated Discharge Date Admission Date: June 15, 2023 Supervising Physician Co-Signing Physician Notes ATTESTATION I also saw the patient and confirmed baird portions of the history and exam. I agree with the impression and plan in the resident documentation, and as summarized below. Upon our midmorning exam, she is still in the emergency department. She feels little bit better at present though does have a mild headache. She is hungry, though currently n.p.o. pending MRCP. No known tick bites; she does recall seeing a tick on her shirt a month or so ago. No significant outdoor exposures; does not live in an overly wooded area. Does have somewhat chronic musculoskeletal complaints, so somewhat difficult to put exact time when she began to feel worse. EXAM Vital signs stable; she is afebrile Alert and oriented Regular rate and rhythm Lungs clear with nonlabored respirations DATA Labs CBC shows a white blood cell count of 6.19, hemoglobin 9.9. Platelet count is 220. Serum sodium potassium within normal limits. BUN 16, creatinine 0.60 Transaminitis, other though numbers are downtrending compared to yesterday; AST 174, ALT 382, alkaline phosphatase 400 Smear for babesiosis and Anaplasma negative Preliminary Lyme IgM positive, IgG negative; Western blot is pending IMPRESSION & PLAN Nausea and vomiting Transaminitis (+) Lyme IgM screen Clinical history is not entirely consistent with Lyme, although agree with empiric treatment for Lyme pending Western Blot MRCP pending for later today; advance diet thereafter Repeat LFTs, CBC in a.m. Additional per resident documentation Subjective Acute events overnight- none. Pt examined at bedside. Reports continued abdominal pain in LUQ and RUQ along with headache. Denies any other symptoms presently. Feels similar to when she came in but reports pain medication has helped so far. Review of Systems Review of Systems: Per HPI/Subjective Physical Exam Physical Exam: Constitutional: in no acute distress, pleasant and normal affect. Vitals as above. HEENT: No scleral injection or discharge.Moist mucous membranes. Clear oropharynx without exudate. Neck: Supple without lymphadenopathy. Trachea midline. Lungs: Clear to auscultation bilaterally with good effort. No wheeze/rales/rhonchi. Cardiac: Regular rate and rhythm.No murmurs.No lower extremity edema. 2+ distal peripheral pulses. Abdomen: Soft and nondistended.Mild discomfort to RUQ and LUQ. No guarding. No hepatosplenomegaly. Skin: No rashes, warm, dry, no jaundice Results & Data Results & Data Vital Signs (Past 12 Hours) Vital Signs Temp Pulse Resp BP Pulse Ox O2 Del Method 06/16/23 07:57 36.7 C 89 20 119/75 98 Room Air 06/16/23 07:57 20 98 Room Air 06/16/23 07:56 92 H 06/16/23 05:40 132/69 06/16/23 05:40 86 16 100 06/16/23 05:00 86 14 06/16/23 05:00 95/63 L 06/16/23 04:30 81 18 01/26/24 04:30 95/63 L 06/16/23 04:04 86 06/16/23 04:00 90 15 06/16/23 04:00 100/74 06/16/23 03:30 95/63 L 06/16/23 03:30 93 H 13 96 06/16/23 03:00 90 18 95 06/16/23 03:00 95/62 L 06/16/23 02:30 112/65 06/16/23 02:30 91 H 15 96 06/16/23 02:00 92 H 15 97 06/16/23 02:00 120/71 06/16/23 01:30 98 H 9 L 97 06/16/23 01:30 120/76 06/16/23 01:30 120/76 06/16/23 01:00 99 06/16/23 00:30 99 06/16/23 00:00 100
--- NOTE | 2023-06-16 14:33 | Magnetic Resonance Report ---
MR MRCP HISTORY: 53 years-old Female elevated LFTs Acutely elevated LFTs. COMPARISON: CT abdomen and pelvis 06/15/2023. TECHNIQUE: MRCP without IV contrast was obtained according to institutional protocol. FINDINGS: Moderate colonic fecal retention. No acute lower thoracic abnormality. The spleen, adrenal glands, li barb and pancreas appear unremarkable. No pancreatic ductal dilation. Cholecystectomy. Motion degraded exam. The common bile duct measures 6 mm. No biliary stricture or choledocholithiasis. No pancreatic divisum. Unremarkable kidneys without hydronephrosis. Aorta and IVC are within normal limits. There is no lymphadenopathy. Unremarkable soft tissues and imaged osseous structures. There is mild cystic dilation of the central thoracic spinal cord measuring up to 2 mm. IMPRESSION: 1. Unremarkable MRCP status post cholecystectomy. 2. No biliary ductal dilation or choledocholithiasis. ACT 112: Negative or not required by law. The above report was generated using voice recognition software. It may contain grammatical, syntax o r spelling errors. Dictated: 06/16/2023 1:47 PM Transcribed: 06/16/2023 2:15 PM Marc [id number] Jacqueline [phone] Electronically signed by: Eron Zuleta M.D. 06/16/2023 2:32 PM
[2023-06-16] MEDS: POLYETHYLENE (MIRALAX) 17 GM PACK PO SCH ×2 (15:24→21:22)
[2023-06-16] MEDS ORDERED: Nursing to Pharmacy Communication SCH (15:30)
[2023-06-16] MEDS ORDERED: INSULIN ASPART PER UNIT CHARGE SC SCH (16:30)
--- NOTE | 2023-06-16 17:28 | Electrocardiogram Report ---
Test Reason : Blood Pressure : / mmHG Vent. Rate : 093 BPM Atrial Rate : 093 BPM P-R Int : 130 ms QRS Dur : 080 ms QT Int : 374 ms P-R-T Axes : 071 058 044 degrees QTc Int : 465 ms Normal sinus rhythm Abnormal anterior T wave inversions When compared with ECG of 15-SEP-2022 08:32, Vent. rate has increased BY 31 BPM QT has lengthened Confirmed by Murali Castro ([id number]) on 06/16/2023 5:28:10 PM Referred By: REFERRED SELF Confirmed By:Jacob Castro
[2023-06-16] MEDS ORDERED: CYCLOBENZAPRINE HCL 5 MG TAB PO PRN (18:40)
[2023-06-16] MEDS ORDERED: NON-FORMULARY MEDICATION (Omeprazole 20 mg capsule,delayed release(DR/EC)) PO SCH (21:00)
[2023-06-16] MEDS: ZOLPIDEM TARTRATE 10 MG TAB PO SCH (21:21)
[2023-06-16] MEDS: LORATADINE 10 MG TAB PO SCH (21:21)
[2023-06-16] MEDS: ATORVASTATIN 20 MG TAB PO SCH (21:22)
[2023-06-16] MEDS: clonazePAM 0.5 MG TAB PO PRN (22:38)
[2023-06-17] MEDS: MoRPHine SULFATE 2 MG/ML CARP IV PRN ×4 (01:25→21:11)
[2023-06-17] MEDS: LEVOTHYROXINE SODIUM 50 MCG TABLET PO SCH (05:51)
[2023-06-17] MEDS: DOXYCYCLINE HYCLATE 100 MG in DEXTROSE 5% MINI-B 100 ML IV SCH ×2 (05:51→18:38)
[2023-06-17] MEDS: clonazePAM 0.5 MG TAB PO PRN ×3 (05:53→22:57)
[2023-06-17 06:35] LABS: Basophils # (auto) 0.02 K/uL (0.00-0.20); Basophils % (auto) 0.4 %; Eosinophils # (auto) 0.18 K/uL (0.00-0.50); Eosinophils % (auto) 3.6 %; Hemoglobin 9.7 g/dl (12.0-16.0); Immature Granulocytes # (auto) 0.02 K/uL (0.01-0.20); Immature Granulocytes % (auto) 0.4 %; Lymphocytes # (auto) 1.26 K/uL (1.20-3.40); Lymphocytes % (auto) 25.2 %; Mean Corpuscular Hemoglobin 28.9 pg (25.0-34.0); Mean Corpuscular Hgb Conc 32.3 g/dL (32.0-36.0); Mean Corpuscular Volume 89.3 fL (80.0-100.0); Mean Platelet Volume 10.2 fL (9.4-12.4); Monocytes # (auto) 0.52 K/uL (0.11-0.59); Monocytes % (auto) 10.4 %; Platelet Count 227 K/uL (130-400); RDW Coefficient of Variation 12.7 % (11.5-14.5); RDW Standard Deviation 41.2 fL (36.4-46.3); Red Blood Count 3.36 M/uL (4.20-5.40)
[2023-06-17 06:45] LABS: Albumin Globulin Ratio 1.5 (0.9-2); Albumin Level 3.7 gm/dl (3.4-5.0); BUN Creatinine Ratio 12.7 (10-20); Bilirubin,Total 0.9 mg/dl (0.2-1.0); Calcium 8.5 mg/dl (8.6-10.3); Creatinine Clr Calc Pharmacy 98.4 ml/min; Est GFR (Non-African American) 107.8 ml/min; Globulin 2.5 gm/dl (2.5-4.0); Potassium 3.6 mmol/L (3.5-5.1); Total Protein 6.2 gm/dl (6.0-8.3)
[2023-06-17] MEDS ORDERED: diphenhydrAMINE 50 MG/ML VIAL IV STA ×2 (08:46→18:54)
[2023-06-17] MEDS ORDERED: SODIUM CHLORIDE 0.9% 500 ML IV ONE (10:45)
--- NOTE | 2023-06-17 10:52 | Hospitalist Progress Note ---
Date of Service June 17, 2023 Assessment & Plan (1) Nausea & vomiting: Plan: 53 yo female with PMHx of lupus, GERD, breast cancer s/p mastectomy, migraine, anxiety, depression, insomnia, fibromyalgia, HLD, and hypothyroidism presents with abdominal pain. #Gastroenteritis with nonspecific illness -Ongoing constitutional symptoms with significant nausea/vomiting over the past week -CTAP negative -RVP negative, Monospot negative, UDS negative. EBV serologies pending -Hepatitis serologies pending -Anaplasmosis and babesiosis smears negative, serologies pending -Lyme IgM positive, western blot pending -Continue supportive care with IVF repletion, anti-emetics PRN, Protonix -Doxycycline initiated on admission due to concern for tickborne illness -We will continue doxycycline 100 mg IV BID for now empirically for presumptive lyme #Transaminitis -Likely reactive to suspected infectious process -Downtrending from admission -RUQ US on admission- hepatic steatosis noted -Currently no signs of jaundice/icterus on exam -MRCP unremarkable #Anemia -Hgb 9.7. Continue to decrease. Monitor. -Likely dilutional fluid repletion #Constipation -CT A/P: mild to moderate fecal retention -bowel regimen - miralax bid #GERD -Continue Protonix IV DVT ppx: SCDs, ambulation FEN/GI: regular Code Status: full Dispo: med tele (2) Lupus: (3) GERD (gastroesophageal reflux disease): (4) Fibromyalgia: (5) Breast cancer: (6) Migraines: (7) Hypothyroidism: (8) Depression with anxiety: (9) Insomnia: Admission and Anticipated Discharge Date Admission Date: June 15, 2023 Supervising Physician Co-Signing Physician Notes ATTESTATION I also saw the patient and confirmed baird portions of the history and exam. I agree with the impression and plan in the resident documentation, and as summarized below. Patient looks and feels much better this morning. She notes increased appetite, minimal nausea and vomiting EXAM 98/64, 76, 16. Afebrile. 97% on room air Alert and oriented Regular rate and rhythm Lungs clear with nonlabored respirations DATA Labs Hemoglobin 9.7, platelet count 227 BMP is unremarkable ALT 133, down from 174 yesterday; ALT 297, down from 382 yesterday Alkaline phosphatase 417, up slightly from 400 yesterday, but down from 533 upon admission Western blot Lyme is pending Viral hepatitis panel is negative Monoscreen is negative; EBV antibodies pending Imaging MRCP completed 06/16/23 was unremarkable status postcholecystectomy; no biliary ductal dilatation or choledocholithiasis IMPRESSION & PLAN Nausea and vomiting, improving Transaminitis, downtrending (+) Lyme IgM screen; Western blot pending Clinical history is not entirely consistent with Lyme, although continue empiric treatment for Lyme pending Western Blot Advance diet Recheck labs in a.m.; if continues to improve, likely discharge tomorrow. Hopefully Western blot is back by then; clinically, does not quite fit with Lyme. Additional per resident documentation Subjective Patient seen at bedside. Doing a little better but still with constant cervicogenic headache, L ear pain, nausea. Wants to advance diet. Denies cp, sob, vomiting. Review of Systems Review of Systems: All systems reviewed & are unremarkable except as noted in HPI & below Physical Exam Physical Exam: Constitutional: in no acute distress, pleasant and normal affect, intact memory. AOx3. Vitals as above. HEENT: No scleral injection or discharge.Moist mucous membranes. Neck: Supple without lymphadenopathy or thyromegaly. Trachea midline. Lungs: Clear to auscultation bilaterally with good effort. No wheeze/rales/rhonchi. Cardiac: Regular rate and rhythm.No murmurs.No lower extremity edema. 2+ distal peripheral pulses. Abdomen: +BS. Soft and nondistended.Mild discomfort LUQ. No guarding. No hepatosplenomegaly. MSK: No cyanosis or clubbing. Extremities motor strength 5/5. Skin: No rashes, warm, dry. Neurologic: no focal deficits Results & Data Results & Data Vital Signs (Past 12 Hours) Vital Signs Temp Pulse Pulse Resp BP Pulse Ox O2 Del Method 06/17/23 08:03 90 06/17/23 07:54 36.8 C 71 16 93/61 L 99 Room Air 06/17/23 04:19 76 18 101/68 96 Room Air Laboratory Results 06/17/23 06/17/23 Range/Units 05:47 05:41 WBC 5.00 (4.8-10.8) K/ul RBC 3.36 L (4.20-5.40) M/uL Hgb 9.7 L (12.0-16.0) g/dl Hct 30.0 L (37.0-47.0) % MCV 89.3 (80.0-100.0) fL MCH 28.9 (25.0-34.0) pg MCHC 32.3 (32.0-36.0) g/dL RDW Std Deviation 41.2 (36.4-46.3) fL RDW Coeff of Jovi 12.7 (11.5-14.5) % Plt Count 227 (130-400) K/uL MPV 10.2 (9.4-12.4) fL Immature Gran % (Auto) 0.4 % Neut % (Auto) 60.0 % Lymph % (Auto) 25.2 % [place] % (Auto) 10.4 % Eos % (Auto) 3.6 % Baso % (Auto) 0.4 % Neut # (Auto) 3.00 (1.40-6.50) K/uL Lymph # (Auto) 1.26 (1.20-3.40) K/uL [place] # (Auto) 0.52 (0.11-0.59) K/uL Eos # (Auto) 0.18 (0.00-0.50) K/uL Baso # (Auto) 0.02 (0.00-0.20) K/uL Immature Gran # (Auto) 0.02 (0.01-0.20) K/uL Sodium 137 (136-145) mmol/L Potassium 3.6 (3.5-5.1) mmol/L Chloride 104 (98-107) mmol/L Carbon Dioxide 26 (21-32) mmol/L Anion Gap 7 (3-11) BUN 7 (6-23) mg/dl Creatinine 0.55 L (0.6-1.2) mg/dl Est Cr Clr Drug Dosing 98.4 ml/min Est GFR ( Amer) 125.0 ml/min Est GFR (Non-Af Amer) 107.8 ml/min BUN/Creatinine Ratio 12.7 (10-20) Glucose 117 H (70-99(Fasting)) mg/dl POC Glucose 110 H (70-99) mg/dl Calcium 8.5 L (8.6-10.3) mg/dl Total Bilirubin 0.9 (0.2-1.0) mg/dl AST 133 H (13-39) U/L ALT 297 H (7-52) U/L Alkaline Phosphatase 417 H (34-104) U/L Total Protein 6.2 (6.0-8.3) gm/dl Albumin 3.7 (3.4-5.0) gm/dl Globulin 2.5 (2.5-4.0) gm/dl Albumin/Globulin Ratio 1.5 (0.9-2) Resident Activity Tracking Resident Involvement: Resident Care Provided Care Provided: Adult [facility] Medicine
[2023-06-17 11:22] LABS: HBSAG NON-REACTIVE (NON-REACTIVE); Hepatitis A Antibody IgM NON-REACTIVE (NON-REACTIVE); Hepatitis B Core Antibody IgM NON-REACTIVE (NON-REACTIVE)
[2023-06-17] MEDS: PANTOprazole 40 MG in SYRINGE 0 ML IV SCH (11:32)
[2023-06-17] MEDS: POLYETHYLENE (MIRALAX) 17 GM PACK PO SCH ×2 (13:45→21:20)
[2023-06-17] MEDS: ZOLPIDEM TARTRATE 10 MG TAB PO SCH (21:08)
[2023-06-17] MEDS: ATORVASTATIN 20 MG TAB PO SCH (21:08)
[2023-06-17] MEDS: LORATADINE 10 MG TAB PO SCH (21:08)
[2023-06-18] MEDS: MoRPHine SULFATE 2 MG/ML CARP IV PRN ×5 (01:31→23:35)
[2023-06-18] MEDS: LEVOTHYROXINE SODIUM 50 MCG TABLET PO SCH (06:01)
[2023-06-18 07:19] LABS: Basophils # (auto) 0.02 K/uL (0.00-0.20); Basophils % (auto) 0.4 %; Eosinophils # (auto) 0.19 K/uL (0.00-0.50); Eosinophils % (auto) 3.9 %; Hemoglobin 9.9 g/dl (12.0-16.0); Immature Granulocytes # (auto) 0.01 K/uL (0.01-0.20); Immature Granulocytes % (auto) 0.2 %; Lymphocytes # (auto) 1.69 K/uL (1.20-3.40); Lymphocytes % (auto) 34.3 %; Mean Corpuscular Hemoglobin 28.7 pg (25.0-34.0); Mean Corpuscular Hgb Conc 31.9 g/dL (32.0-36.0); Mean Corpuscular Volume 89.9 fL (80.0-100.0); Mean Platelet Volume 9.7 fL (9.4-12.4); Monocytes # (auto) 0.49 K/uL (0.11-0.59); Monocytes % (auto) 9.9 %; Neutrophils # (auto) 2.53 K/uL (1.40-6.50); Neutrophils % (auto) 51.3 %; Platelet Count 244 K/uL (130-400); RDW Standard Deviation 42.5 fL (36.4-46.3); Red Blood Count 3.45 M/uL (4.20-5.40); White Blood Count 4.93 K/ul (4.8-10.8)
[2023-06-18] MEDS: clonazePAM 0.5 MG TAB PO PRN (07:30)
[2023-06-18] MEDS: DOXYCYCLINE HYCLATE 100 MG in DEXTROSE 5% MINI-B 100 ML IV SCH ×2 (07:30→18:28)
[2023-06-18 07:52] LABS: Albumin Globulin Ratio 1.5 (0.9-2); Albumin Level 3.7 gm/dl (3.4-5.0); BUN Creatinine Ratio 16.7 (10-20); Bilirubin,Total 0.4 mg/dl (0.2-1.0); Creatinine Clr Calc Pharmacy 101.7 ml/min; Est GFR (African American) 125.7 ml/min; Est GFR (Non-African American) 108.5 ml/min; Globulin 2.5 gm/dl (2.5-4.0); Magnesium 1.5 mg/dl (1.7-2.4); Potassium 3.5 mmol/L (3.5-5.1); Total Protein 6.2 gm/dl (6.0-8.3)
[2023-06-18] MEDS ORDERED: MAGNESIUM SULFATE / D5W 1 GM/100 ML BAG IV ONE (08:02)
[2023-06-18] MEDS ORDERED: bisacodyL 5 MG TABEC PO ONE (08:28)
--- NOTE | 2023-06-18 09:25 | Hospitalist Progress Note ---
Date of Service June 18, 2023 Assessment & Plan (1) Nausea & vomiting: Plan: 53 yo female with PMHx of lupus, GERD, breast cancer s/p mastectomy, migraine, anxiety, depression, insomnia, fibromyalgia, HLD, and hypothyroidism presents with abdominal pain. #Gastroenteritis with nonspecific illness -Ongoing constitutional symptoms with significant nausea/vomiting over the past week -CTAP negative -RVP negative, Monospot negative, UDS negative. EBV serologies pending -Hepatitis serologies negative -Anaplasmosis and babesiosis smears negative, serologies pending -Lyme IgM positive, western blot pending -Continue supportive care with IVF repletion, anti-emetics PRN, Protonix -Doxycycline initiated on admission due to concern for tickborne illness -We will continue doxycycline 100 mg IV BID for now empirically for presumptive lyme #Transaminitis -Likely reactive to suspected infectious process. Downtrending from admission. -RUQ US on admission- hepatic steatosis noted -Currently no signs of jaundice/icterus on exam -MRCP unremarkable #Anemia -Hgb 9.9, appears to be stabilizing -Likely dilutional from fluid repletion #Constipation -likely contributing to abdominal discomfort -CT A/P: mild to moderate fecal retention -bowel regimen increased - miralax tid, dulcolax x1 #GERD -Continue Protonix IV DVT ppx: SCDs, ambulation FEN/GI: regular Code Status: full Dispo: med tele (2) Lupus: (3) GERD (gastroesophageal reflux disease): (4) Fibromyalgia: (5) Breast cancer: (6) Migraines: (7) Hypothyroidism: (8) Depression with anxiety: (9) Insomnia: Admission and Anticipated Discharge Date Admission Date: June 15, 2023 Supervising Physician Co-Signing Physician Notes ATTESTATION I also saw the patient and confirmed baird portions of the history and exam. I agree with the impression and plan in the resident documentation, and as summarized below. Still feeling better, though she does not feel ready to go home. Complains of left-sided neck pain and left ear pain. Also has some left-sided abdominal pain which seems to be a little better than yesterday. EXAM 105/69, 71, 16. Afebrile. Normal pulse ox on room air Alert and oriented The left ear is examined; the external auditory canal is patent without erythema. Tympanic membrane is normal-appearing with preserved anatomical landmarks and no erythema. Neck is supple. Questionable fullness left anterior cervical, question lymph nodes are prominent musculature. Regular rate and rhythm Lungs clear with nonlabored respirations DATA Labs Hemoglobin 9.9, platelet count 244 BMP is unremarkable Liver enzymes continue to trend down; AST 86, ALT 233, alkaline phosphatase 363 Western blot Lyme is pending Viral hepatitis panel is negative Monoscreen is negative; EBV antibodies pending Imaging MRCP completed 06/16/23 was unremarkable status postcholecystectomy; no biliary ductal dilatation or choledocholithiasis IMPRESSION & PLAN Nausea and vomiting, improving Transaminitis, downtrending (+) Lyme IgM screen; Western blot pending Clinical history is not entirely consistent with Lyme, although continue empiric treatment for Lyme pending Western Blot Will check soft tissue ultrasound to assess left-sided neck pain, possible lymphadenopathy Continue to advance diet Stool regimen for constipation Hopefully home in a.m. Additional per resident documentation Subjective Patient seen at bedside. Still with constant cervicogenic headache, L ear pain, nausea, L abd pain. Tolerating regular diet. No BM since 06/14/23. Denies cp, sob, vomiting. Review of Systems Review of Systems: All systems reviewed & are unremarkable except as noted in HPI & below Physical Exam Physical Exam: Constitutional: in no acute distress, pleasant and normal affect, intact memory. AOx3. Vitals as above. HEENT: No scleral injection or discharge.Moist mucous membranes. Neck: Supple without lymphadenopathy or thyromegaly. Trachea midline. Lungs: Clear to auscultation bilaterally with good effort. No wheeze/rales/rhonchi. Cardiac: Regular rate and rhythm.No murmurs.No lower extremity edema. 2+ distal peripheral pulses. Abdomen: +BS. Soft and nondistended.Mild discomfort LLQ. No guarding. No hepatosplenomegaly. MSK: No cyanosis or clubbing. Extremities motor strength 5/5. Skin: No rashes, warm, dry. Neurologic: no focal deficits Results & Data Results & Data Vital Signs (Past 12 Hours) Vital Signs Temp Pulse Pulse Resp BP Pulse Ox O2 Del Method 06/18/23 07:59 36.6 C 76 16 108/73 98 Room Air 06/18/23 07:48 68 06/18/23 02:38 36.5 C 77 18 123/56 L 97 Room Air 06/18/23 00:40 Room Air 06/17/23 22:30 36.8 C 74 18 106/69 97 Room Air 06/17/23 21:56 72 Laboratory Results 06/18/23 06/15/23 Range/Units 06:40 21:16 WBC 4.93 (4.8-10.8) K/ul RBC 3.45 L (4.20-5.40) M/uL Hgb 9.9 L (12.0-16.0) g/dl Hct 31.0 L (37.0-47.0) % MCV 89.9 (80.0-100.0) fL MCH 28.7 (25.0-34.0) pg MCHC 31.9 L (32.0-36.0) g/dL RDW Std Deviation 42.5 (36.4-46.3) fL RDW Coeff of Jovi 13.0 (11.5-14.5) % Plt Count 244 (130-400) K/uL MPV 9.7 (9.4-12.4) fL Immature Gran % (Auto) 0.2 % Neut % (Auto) 51.3 % Lymph % (Auto) 34.3 % [place] % (Auto) 9.9 % Eos % (Auto) 3.9 % Baso % (Auto) 0.4 % Neut # (Auto) 2.53 (1.40-6.50) K/uL Lymph # (Auto) 1.69 (1.20-3.40) K/uL [place] # (Auto) 0.49 (0.11-0.59) K/uL Eos # (Auto) 0.19 (0.00-0.50) K/uL Baso # (Auto) 0.02 (0.00-0.20) K/uL Immature Gran # (Auto) 0.01 (0.01-0.20) K/uL Sodium 136 (136-145) mmol/L Potassium 3.5 (3.5-5.1) mmol/L Chloride 103 (98-107) mmol/L Carbon Dioxide 28 (21-32) mmol/L Anion Gap 5 (3-11) BUN 9 (6-23) mg/dl Creatinine 0.54 L (0.6-1.2) mg/dl Est Cr Clr Drug Dosing 101.7 ml/min Est GFR ( Amer) 125.7 ml/min Est GFR (Non-Af Amer) 108.5 ml/min BUN/Creatinine Ratio 16.7 (10-20) Glucose 144 H (70-99(Fasting)) mg/dl Calcium 9.0 (8.6-10.3) mg/dl Magnesium 1.5 L (1.7-2.4) mg/dl Total Bilirubin 0.4 D (0.2-1.0) mg/dl AST 86 H (13-39) U/L ALT 233 H (7-52) U/L Alkaline Phosphatase 363 H (34-104) U/L Total Protein 6.2 (6.0-8.3) gm/dl Albumin 3.7 (3.4-5.0) gm/dl Globulin 2.5 (2.5-4.0) gm/dl Albumin/Globulin Ratio 1.5 (0.9-2) Hepatitis A IgM Ab NON-REACTIVE (NON-REACTIVE) Hep Bs Antigen NON-REACTIVE (NON-REACTIVE) Hep Bs Ag Confirmation TNP Hep B Core IgM Ab NON-REACTIVE (NON-REACTIVE) Hepatitis C Ab (EIA) NON-REACTIVE (NON-REACTIVE) Resident Activity Tracking Resident Involvement: Resident Care Provided Care Provided: Adult Hospital Medicine
[2023-06-18] MEDS: diphenhydrAMINE 50 MG/ML VIAL IV PRN ×2 (09:30→20:29)
[2023-06-18] MEDS: POLYETHYLENE (MIRALAX) 17 GM PACK PO SCH ×3 (09:39→20:29)
[2023-06-18] MEDS: PANTOprazole 40 MG in SYRINGE 0 ML IV SCH (11:54)
[2023-06-18] MEDS: ATORVASTATIN 20 MG TAB PO SCH (20:35)
[2023-06-18] MEDS: LORATADINE 10 MG TAB PO SCH (20:36)
[2023-06-18] MEDS: ZOLPIDEM TARTRATE 10 MG TAB PO SCH (22:19)
[2023-06-19] MEDS: clonazePAM 0.5 MG TAB PO PRN ×3 (00:15→23:13)
[2023-06-19] MEDS: diphenhydrAMINE 50 MG/ML VIAL IV PRN ×4 (02:58→20:57)
[2023-06-19] MEDS: MoRPHine SULFATE 2 MG/ML CARP IV PRN ×4 (04:21→18:01)
[2023-06-19] MEDS: LEVOTHYROXINE SODIUM 50 MCG TABLET PO SCH (05:50)
[2023-06-19] MEDS: DOXYCYCLINE HYCLATE 100 MG in DEXTROSE 5% MINI-B 100 ML IV SCH ×2 (06:11→18:01)
--- NOTE | 2023-06-19 06:41 | Ultrasound Report ---
US soft tissue head and neck HISTORY: 53 years-old Female L neck pain, lymphadenopathy patient presents with left neck pain/palpa ble abnormality COMPARISON: CT cervical spine 09/15/2022 TECHNIQUE: Multiple real-time sonographic images of the neck were obtained assessing grayscale appear ance and color flow FINDINGS: No suspicious mass lesions or fluid collections. There is a 7 mm hypoechoic focus noted within the iraheta perficial lobe of the left parotid gland which demonstrates no color flow. The parotid and submandibu lar glands are otherwise within normal limits. IMPRESSION: Indeterminate subcentimeter hypoechoic focus of the left parotid gland, possibly an intra glandular lymph node. No pathologically enlarged lymph nodes or other abnormality identified. ACT 112: Negative or not required by law. The above report was generated using voice recognition software. It may contain grammatical, syntax o r spelling errors. Electronically signed by: Eron Zuleta M.D. 06/19/2023 6:40 AM
[2023-06-19 06:55] LABS: Albumin Globulin Ratio 1.5 (0.9-2); Albumin Level 3.6 gm/dl (3.4-5.0); Bilirubin,Total 0.4 mg/dl (0.2-1.0); Calcium 8.7 mg/dl (8.6-10.3); Creatinine Clr Calc Pharmacy 109.9 ml/min; Est GFR (Non-African American) 111.3 ml/min; Globulin 2.4 gm/dl (2.5-4.0); Magnesium 1.6 mg/dl (1.7-2.4); Potassium 3.7 mmol/L (3.5-5.1)
--- NOTE | 2023-06-19 07:20 | Hospitalist Progress Note ---
Date of Service June 19, 2023 Assessment & Plan (1) Nausea & vomiting: Plan: 53 yo female with PMHx of lupus, GERD, breast cancer s/p mastectomy, migraine, anxiety, depression, insomnia, fibromyalgia, HLD, and hypothyroidism presents with abdominal pain. #Gastroenteritis with nonspecific illness -Ongoing constitutional symptoms with significant nausea/vomiting over the past week -CTAP negative -RVP negative, Monospot negative, UDS negative. EBV serologies pending -Hepatitis serologies negative -Anaplasmosis and babesiosis smears negative, serologies pending -Lyme IgM positive, western blot pending -Continue supportive care with IVF repletion, anti-emetics PRN, Protonix -Doxycycline initiated on admission due to concern for tickborne illness -We will continue doxycycline 100 mg IV BID for now empirically for presumptive lyme #Transaminitis -Likely reactive to suspected infectious process. Downtrending from admission. -RUQ US on admission- hepatic steatosis noted -Currently no signs of jaundice/icterus on exam -MRCP unremarkable #Anemia -Hgb 10.2, appears to be stabilizing -Likely dilutional from fluid repletion #Constipation -likely contributing to abdominal discomfort -CT A/P: mild to moderate fecal retention -bowel regimen increased - 34g miralax tid - opioids likely also contributing to constipation #GERD -Continue Protonix IV #Abnormal US neck - indeterminate subcentimeter hypoechoic focus of the left parotid gland, possibly an intraglandular lymph node - will need f/u imaging as an outpatient DVT ppx: SCDs, ambulation FEN/GI: regular Code Status: full (2) Lupus: (3) GERD (gastroesophageal reflux disease): (4) Fibromyalgia: (5) Breast cancer: (6) Migraines: (7) Hypothyroidism: (8) Depression with anxiety: (9) Insomnia: Admission and Anticipated Discharge Date Admission Date: June 18, 2023 Supervising Physician Co-Signing Physician Notes I personally examined the patient and verified all baird points of history and exam, discussed case, and agree with decision making with Dr Corrales feeling somewhat better - able to eat a little. still no BM. able to tolerate miralax vitals noted nad heent nc at mmm breathing unlabored no accessory muscles good effort skin no rashes no pallor or icterus neuro no focal deficits IMPRESSION & PLAN Nausea and vomiting, improving Transaminitis, downtrending (+) Lyme IgM screen; Western blot pending outpt f/u of US finding in parotid suspect viral illness, suspect lyme is false positive - but in such an endemic area hard to not follow through with treatment while western blot pending Additional per resident documentation Subjective Pt was seen at bedside this morning. Still having nausea, no vomiting. Diffuse abdominal pain. Has not had a BM since prior to admission (~5 days). Review of Systems Review of Systems: As per above Physical Exam Physical Exam: Constitutional: well-appearing, no acute distress HEENT: NCAT, no conjunctival injection CV: regular rhythm, no murmur appreciated, extremities well-perfused, no LE edema Resp: CTABL, no wheezes/rales/rhonchi appreciated, no increased work of breathing GI: soft, nondistended, nontender, BS normoactive MSK: no gross deformities appreciated Skin: warm, dry, no rash appreciated Neuro: alert, oriented, no focal neurologic deficit appreciated Results & Data Results & Data Vital Signs (Past 12 Hours) Vital Signs Temp Pulse Pulse Resp BP Pulse Ox O2 Del Method 06/19/23 03:29 36.6 C 81 18 128/70 97 Room Air 06/18/23 22:35 36.7 C 81 17 99/71 L 98 Room Air 06/18/23 22:01 74 06/18/23 19:25 36.6 C 79 17 110/75 97 Room Air
[2023-06-19] MEDS ORDERED: MAGNESIUM SULFATE / D5W 1 GM/100 ML BAG IV ONE (07:21)
[2023-06-19] MEDS: POLYETHYLENE (MIRALAX) 17 GM PACK PO SCH ×3 (07:22→20:59)
[2023-06-19 08:21] LABS: Basophils # (auto) 0.02 K/uL (0.00-0.20); Basophils % (auto) 0.4 %; Eosinophils # (auto) 0.21 K/uL (0.00-0.50); Eosinophils % (auto) 4.1 %; Hematocrit (blood only) 31.7 % (37.0-47.0); Hemoglobin 10.2 g/dl (12.0-16.0); Immature Granulocytes # (auto) 0.01 K/uL (0.01-0.20); Immature Granulocytes % (auto) 0.2 %; Lymphocytes # (auto) 1.82 K/uL (1.20-3.40); Lymphocytes % (auto) 35.3 %; Mean Corpuscular Hemoglobin 29.1 pg (25.0-34.0); Mean Corpuscular Hgb Conc 32.2 g/dL (32.0-36.0); Mean Corpuscular Volume 90.3 fL (80.0-100.0); Mean Platelet Volume 9.9 fL (9.4-12.4); Monocytes # (auto) 0.52 K/uL (0.11-0.59); Monocytes % (auto) 10.1 %; Neutrophils # (auto) 2.58 K/uL (1.40-6.50); Neutrophils % (auto) 49.9 %; Platelet Count 277 K/uL (130-400); RDW Coefficient of Variation 13.1 % (11.5-14.5); RDW Standard Deviation 42.6 fL (36.4-46.3); Red Blood Count 3.51 M/uL (4.20-5.40); White Blood Count 5.16 K/ul (4.8-10.8)
[2023-06-19] MEDS: PANTOprazole 40 MG in SYRINGE 0 ML IV SCH (10:19)
[2023-06-19 15:17] LABS: EBV Nuclear Ag Antibody <18.00 U/mL
--- NOTE | 2023-06-19 16:11 | Billing Data ---
Date of Service June 19, 2023 Coding Level of Care Code 82133 SUB INP/OBS CARE
[2023-06-19] MEDS: ZOLPIDEM TARTRATE 10 MG TAB PO SCH (20:57)
[2023-06-19] MEDS: ATORVASTATIN 20 MG TAB PO SCH (20:58)
[2023-06-19] MEDS: LORATADINE 10 MG TAB PO SCH (22:11)
[2023-06-20 00:12] LABS: Babesia microti DNA Not Detected (Not Detected)
[2023-06-20] MEDS: MoRPHine SULFATE 2 MG/ML CARP IV PRN ×2 (00:14→05:18)
[2023-06-20] MEDS: diphenhydrAMINE 50 MG/ML VIAL IV PRN ×3 (02:04→14:00)
[2023-06-20] MEDS: LEVOTHYROXINE SODIUM 50 MCG TABLET PO SCH (06:24)
[2023-06-20] MEDS: DOXYCYCLINE HYCLATE 100 MG in DEXTROSE 5% MINI-B 100 ML IV SCH (06:24)
[2023-06-20 06:35] LABS: Hematocrit (blood only) 31.6 % (37.0-47.0); Hemoglobin 10.4 g/dl (12.0-16.0); Mean Corpuscular Hemoglobin 29.6 pg (25.0-34.0); Mean Corpuscular Hgb Conc 32.9 g/dL (32.0-36.0); Mean Platelet Volume 9.8 fL (9.4-12.4); Platelet Count 295 K/uL (130-400); RDW Coefficient of Variation 12.9 % (11.5-14.5); RDW Standard Deviation 41.8 fL (36.4-46.3); Red Blood Count 3.51 M/uL (4.20-5.40); White Blood Count 6.79 K/ul (4.8-10.8)
[2023-06-20 07:05] LABS: Albumin Globulin Ratio 1.5 (0.9-2); Albumin Level 3.8 gm/dl (3.4-5.0); BUN Creatinine Ratio 21.2 (10-20); Bilirubin,Total 0.3 mg/dl (0.2-1.0); Calcium 9.2 mg/dl (8.6-10.3); Creatinine Clr Calc Pharmacy 84.1 ml/min; Est GFR (African American) 117.7 ml/min; Est GFR (Non-African American) 101.6 ml/min; Globulin 2.6 gm/dl (2.5-4.0); Magnesium 1.7 mg/dl (1.7-2.4); Potassium 4.3 mmol/L (3.5-5.1); Total Protein 6.4 gm/dl (6.0-8.3)
[2023-06-20] MEDS: clonazePAM 0.5 MG TAB PO PRN (07:59)
[2023-06-20] MEDS: POLYETHYLENE (MIRALAX) 17 GM PACK PO SCH ×2 (08:50→16:52)
[2023-06-20] MEDS: HEPARIN 100 UNIT/ML 5ML FLUSH FLUSH PRN ×4 (08:57→17:00)
[2023-06-20] MEDS ORDERED: POLYETHYLENE (MIRALAX) 17 GM PACK PO ONE (09:45)
[2023-06-20] MEDS: PANTOprazole 40 MG in SYRINGE 0 ML IV SCH (11:45)
--- NOTE | 2023-06-20 13:06 | Hospitalist Progress Note ---
Date of Service June 20, 2023 Assessment & Plan (1) Nausea & vomiting: Plan: 53 yo female with PMHx of lupus, GERD, breast cancer s/p mastectomy, migraine, anxiety, depression, insomnia, fibromyalgia, HLD, and hypothyroidism presents with abdominal pain. #Gastroenteritis with nonspecific illness -Ongoing constitutional symptoms with significant nausea/vomiting over the past week -CTAP negative -RVP negative, Monospot negative, UDS negative. EBV serologies pending -Hepatitis serologies negative -Anaplasmosis and babesiosis smears negative, serologies pending -Lyme IgM positive, western blot pending -Continue supportive care with IVF repletion, anti-emetics PRN, Protonix -Doxycycline initiated on admission due to concern for tickborne illness -We will continue doxycycline 100 mg IV BID for now empirically for presumptive lyme #Transaminitis -Likely reactive to suspected infectious process. Downtrending from admission. -RUQ US on admission- hepatic steatosis noted -Currently no signs of jaundice/icterus on exam -MRCP unremarkable #Anemia -Hgb 10.2, appears to be stabilizing -Likely dilutional from fluid repletion #Constipation -likely contributing to abdominal discomfort -CT A/P: mild to moderate fecal retention -bowel regimen increased - 34g miralax tid - opioids likely also contributing to constipation #GERD -Continue Protonix IV #Abnormal US neck - indeterminate subcentimeter hypoechoic focus of the left parotid gland, possibly an intraglandular lymph node - will need f/u imaging as an outpatient DVT ppx: SCDs, ambulation FEN/GI: regular Code Status: full (2) Lupus: (3) GERD (gastroesophageal reflux disease): (4) Fibromyalgia: (5) Breast cancer: (6) Migraines: (7) Hypothyroidism: (8) Depression with anxiety: (9) Insomnia: Admission and Anticipated Discharge Date Admission Date: June 18, 2023 Subjective Pt seen at bedside this morning. Still having abdominal cramping, also complaining of neck pain which is chronic. Discussed stopping morphine due to constipation. Review of Systems Review of Systems: As per above Physical Exam Physical Exam: Constitutional: well-appearing, no acute distress HEENT: NCAT, no conjunctival injection CV: regular rhythm, no murmur appreciated, extremities well-perfused, no LE edema Resp: CTABL, no wheezes/rales/rhonchi appreciated, no increased work of breathing GI: soft, nondistended, nontender, BS normoactive MSK: no gross deformities appreciated Skin: warm, dry, no rash appreciated Neuro: alert, oriented, no focal neurologic deficit appreciated Results & Data Results & Data Vital Signs (Past 12 Hours) Vital Signs Temp Pulse Pulse Resp BP Pulse Ox O2 Del Method 06/20/23 11:09 36.5 C 80 16 96/66 L 97 Room Air 06/20/23 07:38 72 06/20/23 07:28 36.8 C 78 16 91/53 L 95 Room Air 06/20/23 02:03 36.7 C 83 16 99/64 L 95 Room Air
[2023-06-20] MEDS ORDERED: KETOROLAC TROMETHAMINE 15 MG/ML VIAL IV ONE (13:20)
--- NOTE | 2023-06-20 17:01 | Discharge Summary ---
Date of Service June 20, 2023 Admission HPI Per Admitting Provider 53 yo female with PMHx of lupus, GERD, breast cancer s/p mastectomy, migraine, anxiety, depression, insomnia, fibromyalgia, HLD, and hypothyroidism presents with abdominal pain. 5 days ago patient started developing left upper quadrant pain, feeling warm (no recorded fever), chills, fatigue, fast heart rate, mild shortness of breath, nausea, yellow vomiting, muscle aches. She has been trying to stay hydrated but unable to keep much food down. Denies alcohol use. Denies tobacco or recreational substance abuse. Denies recent travel. Denies tick bites. Last tattoo was 5 years ago. She has had multiple abdominal surgeries including cholecystectomy, appendectomy, abdominal hysterectomy. Principal Diagnosis Viral Gastroenteriris Discharge Exam Constitutional: well-appearing, no acute distress HEENT: NCAT, no conjunctival injection CV: regular rhythm, no murmur appreciated, extremities well-perfused Resp: CTABL, no wheezes/rales/rhonchi appreciated, no increased work of breathing GI: soft, nondistended, nontender, BS normoactive MSK: no gross deformities appreciated Skin: warm, dry, no rash appreciated Neuro: alert, oriented, no focal neurologic deficit appreciated Discharge Data Allergies Allergy/AdvReac Type Severity Reaction Status Date / Time cephalexin Allergy Severe Hives, Verified 04/22/23 18:43 throat swelling Iodinated Contrast Media Allergy Severe Throat Verified 04/22/23 18:43 swells - IV contrast Penicillins Allergy Severe HIVES, Verified 04/22/23 18:43 THROAT SWELLING adhesive Allergy Intermediate TAPE- HIVES Verified 04/22/23 18:43 codeine Allergy Intermediate Hives Verified 04/22/23 18:43 gentamicin Allergy Intermediate Hives Verified 04/22/23 18:43 latex Allergy Intermediate SWELLS AND Verified 04/22/23 18:43 HIVES loratadine Allergy Intermediate Hives Verified 04/22/23 18:43 morphine Allergy Intermediate Hives Verified 04/22/23 18:43 strawberry Allergy Intermediate HIVES Verified 04/22/23 18:43 Sulfa (Sulfonamide Allergy Intermediate Hives Verified 04/22/23 18:43 Antibiotics) tramadol Allergy Intermediate Hives Verified 04/22/23 18:43 vancomycin Allergy Intermediate HIVES Verified 04/22/23 18:43 Consultations 01/25/24 20:32 ED Decision to Admit Stat Ordered Studies 06/15/23 18:14 US liver Stat 06/15/23 21:07 CT Abd and Pelvis [CT abd pelvis wo con] Stat 06/16/23 22:25 MR MRCP Routine 06/19/23 US soft tissue head and neck Routine Hospital Course (1) Nausea & vomitin yo female with PMHx of lupus, GERD, breast cancer s/p mastectomy, migraine, anxiety, depression, insomnia, fibromyalgia, HLD, and hypothyroidism presents with abdominal pain. #Gastroenteritis with nonspecific illness -Ongoing constitutional symptoms with significant nausea/vomiting over the past week, overall improved prior to d/c -CTAP negative -RVP negative, Monospot negative, UDS negative. -Hepatitis serologies negative -Anaplasmosis and babesiosis smears negative, serologies pending -Lyme IgM positive, western blot pending -Doxycycline initiated on admission due to concern for tickborne illness -We will continue doxycycline for an additional 5 days afetr dc #Transaminitis -Likely reactive to suspected infectious process. Downtrending from admission. -RUQ US on admission- hepatic steatosis noted -Currently no signs of jaundice/icterus on exam -MRCP unremarkable - Repeat CMP at OP f/u #Anemia -Stable at 10.4 prior to d/c #Constipation -likely contributing to abdominal discomfort -CT A/P: mild to moderate fecal retention -discussed continued bowel regimen as an outpatient; will continue with miralax #GERD -Continue PPI #Abnormal US neck - indeterminate subcentimeter hypoechoic focus of the left parotid gland, possibly an intraglandular lymph node - will need f/u imaging as an outpatient (2) Lupus: (3) GERD (gastroesophageal reflux disease): (4) Fibromyalgia: (5) Breast cancer: (6) Migraines: (7) Hypothyroidism: (8) Depression with anxiety: (9) Insomnia: Total Time Total Time Spent Total Time Spent (In Minutes): Greater than 30 Discharge Plan Discharge Items Patient Disposition: Home - Self-Care Reason For Visit: ABD PAIN, N/V Discharge Diagnosis: abdominal pain - see below Activity: Resume your previous activity Non-emergency contact: Primary Care Provider Call non-emergency contact if: you have any medication questions and your symptoms worsen Follow-up/Referrals: Louann Corrales DO [Primary Care Provider] - Diet: Regular Addtl Attending Provider Instructions: constipation -As we discussed, while the viral illness was probably what in the end got you sick enough to need to be admitted, a lot of your chronic gastrointestinal problems appear to relate back to constipation. - Typically constipation is not "an episode" that happens, causes symptoms, and gets bettermuch more often it is because people run chronically constipated and then once they are "too backed up" they start to become symptomatic. - Looking at it this way, we will need to continue to clear your bowels to improve the current situation, but then also look at it as a maintenance problem to stay ahead of. - While I do not think we need to truly put you through a bowel prep like he would need for a colonoscopy, we definitely should still use a fairly aggressive measure over the next few days to keep things movingessentially what we will want to do is use enough MiraLAX to keep your bowels moving until we essentially induce a watery diarrhea to know that we have moved everything out. To that end, over the next few days I would recommend you take 56 capfuls of MiraLAX every day to keep clearing out your bowels. - Once it is clear that things are cleaned out (once you have had several episodes of watery diarrhea to suggest that we have cleared out all of the constipation), then I would move towards more of a "maintenance dosing" - the goal with this would be to have 1 medium sized bowel movement daily. - It is an inexact science, but generally with what it took to start to get your bowels moving, I would start with 3 capfuls a day as your maintenance dose. From there, you "dose today based on yesterday's bowel movement"i.e. if you took 3 capfuls yesterday and had no bowel movement, then today you would take 45. On the opposite, if you took 3 capfuls today and had fairly profuse watery diarrhea, tomorrow your dose might be 0 capfuls, but then the next day you would get back on with 12 to ensure that you do not get this kind of constipation again. - If you have taken more than 5 capfuls and your bowels are not moving, or if things just seem confusing and you need some help sorting it outthat is where Dr. Corrales can help guide you. viral illness and elevated liver enzymes - It does appear that a viral illness was the main acute reason you ended up in the hospital. Fortunately that is getting better, and no specific treatment is needed. The elevation of your liver enzymes is completely in line with what we see with viral illnesses, and it is trending down. Whenever Dr. Corrales sees you in the office next week, she will order follow-up labs to ensure that things have totally trended back to normal. positive lyme test - As we discussed, I really have to look at your Lyme test to completely opposite ways. Your illness that landed on the hospital really looked much more of a viral illness superimposed on chronic constipation, and not at all anything that we see consistent with Lyme disease. At the same time, we do live in an area where Lyme is extremely common, and a lot of your preceding symptoms that were almost certainly due to your lupus (and not Lyme) could be hard to sort out from symptoms that Lyme can cause. - Because of that, and because of how easy doxycycline is to tolerate, the best course of action is to treat for Lyme disease with a course of doxycycline to "take it off the board" so that you and Dr. Corrales do not have to worry about that as a possibility with symptoms that are probably attributable to lupusthat we will give you both the ability to focus and more on treating things than trying to figure out what is causing it. - We will treat with doxycycline 100 mg twice a day for 6 more days (next dose at home would be at bedtime tonight). It is generally a very well-tolerated pill. However, it is 1 that if it gets stuck on the way down, it can cause a painful ulcer. Fortunately I have only ever seen this onceso it is not like it is common, and also is fairly easy to prevent. What we recommend is having you take it with a full glass of water, and make sure that you stay upright for half an hour after you have taken it (this is especially important in timing when you take the bedtime dose so that you do not take it and then immediately lay down). If it feels like the pill got stuck, take a second glass of water, and eat something to help "push" it down. lupus - Continue to follow-up with Dr. Corrales and the team she assembles to look after her lupus. As we discussed, one of the most effective things I have seen as far as pain control/quality of life, and even anxiety management with illnesses like lupus is light regular cardiovascular exercise. This is definitely something that can be tough to do, because unfortunately you also can have the "pay for it later" problem where overdoing exercise might cost you weeks to bounce back. To that end, ideally would want to do 20-30 minutes of light cardio (anything that gets your heart rate up and gets you somewhat sweaty) a day. In a perfect world try to do that every single day, and give yourself the Sonia to know that you will not be perfect. Things like pedaling a bike, or exercising in a pool have a lot less impact than things like walking/runningand so there is a lot less of a "pay for it later" with those types of exercise. neck pain - Continue to work with Dr. Corrales on the neck pain, and either she or one of her other osteopathic colleagues will hopefully start to work on your neck (OMT) working to loosen the muscles and fascia. Obviously with a baseline illness like lupus, it is not likely they will be able to "totally fix" your neck, but it is quite likely that be able to make a dent in the symptoms and make things less painful overall. - I definitely also would recommend that you use Voltaren gel (topical diclofenac)as I have found it to be really helpful for most people with musculoskeletal pain like this. Think of it essentially as 800 mg of ibuprofen, but instead of taking it 3 your body rubbed into the skin. Unlike the ibuprofen, however, it does take 2-3 days to really start to kick in (you will really feel any individual dose take effectrather it is more of a cumulative effect)and unfortunately after you use it 34 times a day for it to be effective. With those kind of annoying limitations (needing to use it 34 times a day, and needing to use it 2-3 days before you can see it start to take effect) I found a huge majority of people do get a decent benefit from using it. parotid gland - The ultrasound they did the other day showed a small area in your left parotid gland that appeared to be a lymph node. This was pretty nonspecific, and more than likely goes "[id number]" with being sick with a viral illness. Dr. Corrales will keep an eye on the situation. Pending Studies at Discharge: Yes (lyme IgG/IgM western blot (confirmatory)) Stand-Alone Forms: [facility], Smoking Cessation Medications and DC Order Prescriptions: New doxycycline hyclate 100 mg capsule 100 mg PO BID Qty: 12 0RF polyethylene glycol 3350 [Laxative PEG 3350] 17 gram/dose powder 51 g PO UD 30 Days Qty: 1530 0RF diclofenac sodium 1 % gel 4 g topical QID Qty: 100 0RF Rx Instructions: apply to neck Continued levothyroxine 50 mcg tablet 50 mcg PO DAILYBB atorvastatin 20 mg tablet 20 mg PO HS promethazine 25 mg tablet 25 mg PO BID PRN (Reason: NAUSEA/VOMITING) zolpidem 10 mg tablet 10 mg PO HS Ubrelvy 50 mg tablet 50 mg PO DAILY PRN (Reason: migraines) omeprazole 20 mg capsule,delayed release(DR/EC) 20 mg PO HS clonazepam 0.5 mg tablet 0.5 mg PO TID PRN (Reason: Anxiety) ondansetron 4 mg tablet,disintegrating 4 mg PO Q6H PRN (Reason: nausea and vomiting) Qty: 14 0RF cyclobenzaprine 5 mg tablet 5 mg PO TID PRN (Reason: Muscle Spasm) loratadine 10 mg tablet 10 mg PO HS ondansetron HCl 8 mg tablet 8 mg PO Q8 PRN (Reason: Nausea And Vomiting) ibuprofen 600 mg tablet 600 mg PO TID PRN (Reason: Pain) Qty: 90 0RF Discharge Orders: Discharge Order (Routine); Ordered 06/20/23 Ordered By: Robe Riley Admission Data Admit Date/Time: 06/18/23 09:01 Attending Provider: Robe Riley Admit Provider: Lj Mason Primary Care Provider: Louann Corrales Other Providers: Cortes Miguel Other Interventions: Discharge Summary Assessment (RN) Last Done: 06/20/23 16:56 Supervising Physician Co-Signing Physician Notes I personally examined the patient and verified all baird points of history and exam, discussed case, and agree with decision making with Dr Corrales able to eat a little better, had a bowel movement. Extensive discussionssee discharge instructions prepared personally by myself. vitals noted nad heent nc at mmm breathing unlabored no accessory muscles good effort skin no rashes no pallor or icterus neuro no focal deficits IMPRESSION & PLAN Nausea and vomiting, improving Transaminitis, downtrending (+) Lyme IgM screen; Western blot pending outpt f/u of US finding in parotid suspect viral illness, suspect lyme is false positive - but in such an endemic area hard to not follow through with treatment while western blot pending Safe/stable for home. Otherwise as above and as per discharge instructions Additional per resident documentation
--- NOTE | 2023-06-20 17:52 | Billing Data ---
Date of Service June 20, 2023 Coding Level of Care Code 00015 INP/OBS DISCH >30 MIN
[2023-06-21 00:33] LABS: 18KDIGG Band NON-REACTIVE; 23KDIGG Band NON-REACTIVE; 23KDIGM Band REACTIVE; 28KDIGG Band NON-REACTIVE; 30KDIGG Band NON-REACTIVE; 39KDIGG Band NON-REACTIVE; 39KDIGM Band NON-REACTIVE; 41KDIGG Band NON-REACTIVE; 41KDIGM Band NON-REACTIVE; 45KDIGG Band NON-REACTIVE; 58KDIGG Band NON-REACTIVE; 66KDIGG Band NON-REACTIVE; 93KDIGG Band NON-REACTIVE; Lyme Antibodies, WB IgG NEGATIVE (NEGATIVE); Lyme Antibodies, WB IgM NEGATIVE (NEGATIVE)
== END 2023-06-20 17:51 | disposition home or self-care (01) | DRG 392 ==
LOC: ED 14:59 → EDINP 14:59 → SUATTDRO 21:14 → 2N 22:50 → SUATTDRO 06-18 09:01

== ENCOUNTER 2023-08-24 19:27 | Inpatient (IN) ==
[2023-08-24 20:15] LABS: Hematocrit (blood only) 31.3 % (37.0-47.0); Hemoglobin 10.3 g/dl (12.0-16.0); Mean Corpuscular Hemoglobin 28.6 pg (25.0-34.0); Mean Corpuscular Hgb Conc 32.9 g/dL (32.0-36.0); Mean Corpuscular Volume 86.9 fL (80.0-100.0); Mean Platelet Volume 9.9 fL (9.4-12.4); Platelet Count 195 K/uL (130-400); RDW Coefficient of Variation 12.4 % (11.5-14.5); RDW Standard Deviation 39.7 fL (36.4-46.3); White Blood Count 10.41 K/ul (4.8-10.8)
[2023-08-24 20:36] LABS: Basophils # (auto) 0.02 K/uL (0.00-0.20); Basophils % (auto) 0.2 %; Immature Granulocytes # (auto) 0.03 K/uL (0.01-0.20); Immature Granulocytes % (auto) 0.3 %; Lymphocytes % (auto) 3.8 %; Monocytes % (auto) 4.8 %; Neutrophils # (auto) 9.46 K/uL (1.40-6.50); Neutrophils % (auto) 90.9 %; Toxic Vacuolation 1+
[2023-08-24 20:43] LABS: Troponin I High Sensitivity 4.4 pg/ml (0-14)
[2023-08-24 20:47] LABS: iSTAT Creatinine 0.8 mg/dl (0.6-1.3); iSTAT Hemoglobin 10.2 g/dl (12.0-16.0); iSTAT Ionized Calcium 1.16 mmol/l (1.12-1.32); iSTAT Potassium 2.9 mmol/L (3.3-5.0)
[2023-08-24 22:49] LABS: Partial Thromboplastin Time 29 Seconds (21-31); Prothrombin Time 11.2 Seconds (9.0-12.0)
--- NOTE | 2023-08-24 23:06 | Emergency Department Note ---
Impression & Plan Cellulitis of face, Fracture of tooth ED Provider Note CHIEF COMPLAINT: Left-sided facial swelling x 1 day HISTORY OF PRESENT ILLNESS: This 53-year-old female patient presents to the emergency department via private vehicle for evaluation of left-sided facial swelling x 1 day. The patient states she broke her tooth eating crunchy candy about 2 weeks ago. She states yesterday, she awoke and noticed a small area of swelling in the left gum. Today when she woke up, she noticed worsening redness and swelling on the left side of the face. The patient reports significant pain. She does report a fever of 100.4 F. She took 1 dose of ibuprofen prior to arrival with no improvement in her symptoms. The patient does report a generalized headache. She has been able to tolerate p.o. food and fluids without difficulty. She states she did contact a dentist but is not scheduled to be seen until next Monday. She denies any numbness or tingling. No discharge from the mouth. No swelling to the floor of the mouth or of the tongue. REVIEW OF SYSTEMS: A 10 system review of systems was performed with positives and pertinent negatives listed in the history of present illness. All other systems were reviewed and are negative. ALLERGIES: Keflex, contrast dye, penicillin, adhesive, codeine, gentamicin, latex, loratadine, morphine, strawberry, sulfa, tramadol, vancomycin PHYSICAL EXAM: VITALS: Vitals are noted on the nurse's note and reviewed by myself. Vital signs stable. GENERAL: This is a 53 year old female, in no acute distress, nondiaphoretic, well-developed well-nourished. SKIN: Edema and erythema of the left side of the face overlying the mandible and extending into the upper portion of the left side of the neck. The skin was without rashes, erythema, edema, or bruising. There is no tenting of the skin. Capillary refill less than 2 seconds. HEAD: Normocephalic atraumatic. EARS: External auditory canals clear, tympanic membranes pearly aceves without erythema or effusion bilaterally. No hemotympanum. Negative jack sign EYES: Pupils equal round and reactive to light and accommodation. Conjunctivae without injection, sclerae without icterus. Extraocular movements intact. NOSE: Patent, turbinates without inflammation or discharge. No sinus tenderness. MOUTH: Mucous membranes moist. Tonsils are not enlarged. Pharynx without erythema or exudate. Uvula midline. Airway patent. Tongue does not deviate. There is edema of the gingival mucosa on the left lower jaw. There is no pointing or drainage. NECK: Supple without nuchal rigidity. No lymphadenopathy. Cervical spine is nontender. No JVD. HEART: Regular rate and rhythm without murmurs gallops or rubs. LUNGS: Clear to auscultation bilaterally without wheezes, rales or rhonchi. No retractions or accessory muscle use. ABDOMEN: Positive bowel sounds x 4. Soft, nontender, without masses or organomegaly. Jaimes sign negative. No guarding or rebound tenderness. MUSCULOSKELETAL: No muscle atrophy, erythema, or edema noted. Full range of motion without joint tenderness in all extremities. No tenderness to palpation. Normal gait. Strength 5/5 throughout. NEURO: Patient was alert and oriented to person place and time. Normal sensation to light and sharp touch. Deep tendon reflexes 2+ throughout. No focal neurological deficits. 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 The monitor showed a normal sinus rhythm at a ventricular rate of 98 bpm, per my interpretation. Imaging as interpreted by myself and the radiologist revealed left facial cellulitis, no evidence of abscess, with radiologist interpretation as above. I agree with the radiologist's findings as based upon my independent interpretation. EMERGENCY DEPARTMENT COURSE: The patient was seen and evaluated as above. The patient presents for left-sided facial swelling in the setting of a broken tooth. Patient is concerned for possible abscess. She was febrile earlier today IV access was obtained, labs are drawn. Labs were reviewed. There was no leukocytosis. There is an anemia with hemoglobin of 10.3. No thrombocytopenia. Coags normal. Renal, hepatic function without significant abnormality. Patient was hypokalemic with potassium 2.9. Procalcitonin was elevated at 4.93. Blood cultures are pending Patient was hydrated with IV fluids. She was medicated with IV clindamycin and Toradol. CT imaging of the soft tissue of the neck was completed without IV contrast due to patient's allergies. This was concerning for a facial cellulitis. No clear evidence of abscess. Given the facial cellulitis which has been rapidly progressing, I did recommend treatment with IV antibiotics. No clear evidence of abscess at this time, however I do question whether the facial cellulitis may be stemming from a small abscess and believe the patient may benefit from oral surgery consultation if symptoms persist. No evidence of Ruperto's angina or airway compromise. No evidence of parotiditis. I did consult with the hospitalist. I spoke with Dr. Torres. Please see her dictation regarding ongoing management care of this patient. This visit is during a period of high volume and high acuity in the emergency department. I attest that I have personally reviewed the patient medication list. I attest that I have reviewed the patient's blood pressure and it was found to be normotensive. GCS: 15 In the evaluation and treatment of this patient the following differential diagnoses were entertained: Dental caries, dental abscess, Ludwigs angina, Vincent angina, dental fracture, facial cellulitis, parotitis, osteomyelitis, sinus infection, peritonsillar abscess. The chart was completed utilizing [employer] Speech voice recognition software. Grammatical errors, random word insertions, pronoun errors, and incomplete sentences are an occasional consequence of this system due to software limitations, ambient noise, and hardware issues. Any formal questions or concerns about the content, text, or information contained within the body of this dictation should be directly addressed to the provider for clarification. Past Med/Surg History Medical History Family history of bowel obstruction UTI (urinary tract infection) currently on abx Hx of seizure disorder no meds current, going to [facility] in September 2023, last seizure approx July 2022 Lyme disease (~05/2023) recent admit to [facility], treated IV abx x 5 days History of COVID-19 (~2021) x 3 > not hospitalized Poor intravenous access HX: breast cancer "STAGING: Left breast, invasive ductal carcinoma, grade 2, ER/Her2 positive, OH negative, [id number], stage IA TREATMENT: 1. Lumpectom/SLN - 04/03/2015 2. Re-excision to obtain negative margins - 12/11/2015 3. Partial course of chemotherapy - Taxotere/Carboplatin/Herceptin - 5 cycles. Patient has refused further treatment including Herceptin. " Nausea and vomiting after administration of anesthetic agent Lupus Depression Anxiety GERD (gastroesophageal reflux disease) Fibromyalgia Breast cancer "STAGING: Left breast, invasive ductal carcinoma, grade 2, ER/Her2 positive, OH negative, [id number], stage IA TREATMENT: 1. Lumpectom/SLN - 04/03/2015 2. Re-excision to obtain negative margins - 12/11/2015 3. Partial course of chemotherapy - Taxotere/Carboplatin/Herceptin - 5 cycles. Patient has refused further treatment including Herceptin. 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 Beliefs That Will Affect Care: None Current Living Situation: Alone Feels Safe at Home: Yes Assistive Devices: Contacts Allergies Allergies Allergy/AdvReac Type Severity Reaction Status Date / Time cephalexin Allergy Severe Hives, Verified 08/17/23 11:25 throat swelling Iodinated Contrast Media Allergy Severe Throat Verified 08/17/23 11:25 swells - IV contrast Penicillins Allergy Severe HIVES, Verified 08/17/23 11:25 THROAT SWELLING adhesive Allergy Intermediate TAPE- HIVES Verified 08/17/23 11:25 codeine Allergy Intermediate Hives Verified 08/17/23 11:25 gentamicin Allergy Intermediate Hives Verified 08/17/23 11:25 latex Allergy Intermediate SWELLS AND Verified 08/17/23 11:25 HIVES loratadine Allergy Intermediate Hives Verified 08/17/23 11:25 morphine Allergy Intermediate Hives Verified 08/17/23 11:25 strawberry Allergy Intermediate HIVES Verified 08/17/23 11:25 Sulfa (Sulfonamide Allergy Intermediate Hives Verified 08/17/23 11:25 Antibiotics) tramadol Allergy Intermediate Hives Verified 08/17/23 11:25 vancomycin Allergy Intermediate HIVES Verified 08/17/23 11:25 Home Meds Home Medications Medication Instructions Recorded Confirmed levothyroxine 50 mcg tablet 50 mcg PO QAM 04/12/20 04/05/24 atorvastatin 20 mg tablet 20 mg PO HS 12/10/21 08/25/23 promethazine 25 mg tablet 25 mg PO BID PRN NAUSEA/VOMITING 12/10/21 08/25/23 omeprazole 20 mg capsule,delayed 20 mg PO HS 01/02/22 08/25/23 release zolpidem 10 mg tablet 10 mg PO HS 02/26/22 08/25/23 clonazepam 0.5 mg tablet 0.5 mg PO TID PRN Anxiety 01/30/23 08/25/23 ubrogepant 50 mg tablet (Ubrelvy) 50 mg PO DAILY PRN migraines 04/22/23 08/25/23 cyclobenzaprine 5 mg tablet 5 mg PO TID PRN Muscle Spasm 06/15/23 08/25/23 loratadine 10 mg tablet 10 mg PO HS 06/15/23 08/25/23 diclofenac sodium 1 % topical gel 4 g topical QID PRN Pain 07/19/23 08/25/23 lactulose 10 gram/15 mL oral 15 ml PO DAILY PRN Constipation 07/19/23 08/25/23 solution (Enulose) linaclotide 290 mcg capsule 290 mcg PO QAM 08/08/23 08/25/23 Previous Rx's Medication Instructions Recorded ibuprofen 600 mg tablet 600 mg PO TID PRN Pain #90 tabs 06/20/23 ondansetron 4 mg disintegrating 4 mg PO Q6H PRN nausea and 06/24/23 tablet vomiting #15 tabs sodium,potassium,mag sulfates 17.5 See Rx Instructions PO .COMPLEX 08/18/23 gram-3.13 gram-1.6 gram oral soln #354 mL (Suprep Bowel Prep Kit) Results & Data (ED) Vital Signs Vital Signs - 24 hr 08/24/23 19:30 Temperature 37.2 C Temperature Source Oral Pulse Rate 98 H Pulse Rhythm Regular Pulse Strength Normal Respiratory Rate 18 Respiratory Effort / Characteristics Non-Labored Spontaneous Respiratory Depth Normal Respiratory Pattern Regular Blood Pressure 103/73 Blood Pressure Mean 83 Blood Pressure Position Sitting Pulse Oximetry 96 Oxygen Delivery Method Room Air Sepsis Recent Fever Within 48 Hours Yes Sepsis New/Unexplained Change in Mental Status N/A Sepsis Action Taken by Nursing No Action Required Laboratory Data 08/24/23 19:45 08/24/23 19:45 Lab Results 08/24/23 08/24/23 08/24/23 Range/Units 19:45 19:57 21:49 WBC 10.41 (4.8-10.8) K/ul RBC 3.60 L (4.20-5.40) M/uL Hgb 10.3 L (12.0-16.0) g/dl POC Hgb 10.2 L (12.0-16.0) g/dl Hct 31.3 L (37.0-47.0) % POC Hct 30 L (37-47) % MCV 86.9 (80.0-100.0) fL MCH 28.6 (25.0-34.0) pg MCHC 32.9 (32.0-36.0) g/dL RDW Std Deviation 39.7 (36.4-46.3) fL RDW Coeff of Jovi 12.4 (11.5-14.5) % Plt Count 195 (130-400) K/uL MPV 9.9 (9.4-12.4) fL Immature Gran % (Auto) 0.3 % Neut % (Auto) 90.9 % Lymph % (Auto) 3.8 % [place] % (Auto) 4.8 % Eos % (Auto) 0.0 % Baso % (Auto) 0.2 % Neut # (Auto) 9.46 H (1.40-6.50) K/uL Lymph # (Auto) 0.40 L (1.20-3.40) K/uL [place] # (Auto) 0.50 (0.11-0.59) K/uL Eos # (Auto) 0.00 (0.00-0.50) K/uL Baso # (Auto) 0.02 (0.00-0.20) K/uL Immature Gran # (Auto) 0.03 (0.01-0.20) K/uL Toxic Vacuolation 1+ PT 11.2 (9.0-12.0) Seconds INR 1.0 (0.9-1.1) APTT 29 (21-31) Seconds PTT Ratio 1.0 POC Sodium 135 (135-144) mmol/L Sodium 134 L (136-145) mmol/L POC Potassium 2.9 L (3.3-5.0) mmol/L Potassium 2.9 L (3.5-5.1) mmol/L POC Chloride 96 L (101-112) mmol/L Chloride 99 (98-107) mmol/L Carbon Dioxide 25 (21-32) mmol/L POC Total CO2 27 (24-31) mmol/L Anion Gap 10 (3-11) POC Anion Gap 15.0 L (16-25) mmol/L POC BUN 12 (7-18) mg/dl BUN 14 (6-23) mg/dl Creatinine 0.74 (0.6-1.2) mg/dl POC Creatinine 0.8 (0.6-1.3) mg/dl Est Cr Clr Drug Dosing 72.5 ml/min Est GFR ( Amer) 108.0 ml/min Est GFR (Non-Af Amer) 93.1 ml/min BUN/Creatinine Ratio 18.9 (10-20) Glucose 122 H (70-99(Fasting)) mg/dl POC Glucose (other) 126 H (70-99) mg/dl Calcium 8.8 (8.6-10.3) mg/dl POC Ioniz Calcium Martin 1.16 (1.12-1.32) mmol/l Magnesium 1.4 L (1.7-2.4) mg/dl Total Bilirubin 0.3 (0.2-1.0) mg/dl AST 16 (13-39) U/L ALT 9 (7-52) U/L Alkaline Phosphatase 84 (34-104) U/L Troponin I High Sens 4.4 (0-14) pg/ml Total Protein 6.9 (6.0-8.3) gm/dl Albumin 3.8 (3.4-5.0) gm/dl Globulin 3.1 (2.5-4.0) gm/dl Albumin/Globulin Ratio 1.2 (0.9-2) Procalcitonin 4.93 H (0-0.5) ng/ml Administered Medications Discontinued Medications Clindamycin Phosphate (Cleocin/D5w) 600 mg in 50 mls @ 100 mls/hr IV NOW ONE Stop: 08/24/23 23:24 Last Infusion: 08/25/23 00:15 Dose: Infused Documented By: Admin: 08/24/23 23:39 Dose: 100 mls/hr Documented By: HB Sodium Chloride (Nss) 1,000 mls @ 999 mls/hr IV .Q1H1M ONE Stop: 08/25/23 01:06 Last Admin: 08/25/23 00:24 Dose: 999 mls/hr Documented By: MOLLY Ketorolac Tromethamine (Ketorolac 30 Mg/Ml Vial) 30 mg IV NOW STA Stop: 08/24/23 22:56 Last Admin: 08/24/23 23:10 Dose: 30 mg Documented By: MOLLY Imaging Data Radiologist's Impression: Soft Tissue Neck CT 08/24/23 22:55 Exam(s): CT NECK Without Contrast EXAM: CT Neck Without Intravenous Contrast CLINICAL HISTORY: Reason for exam: left facial swelling, dental infection. TECHNIQUE: Axial computed tomography images of the neck without intravenous contrast. CTDI is 13.13 mGy and DLP is 414.61 mGy-cm. Automated exposure control was utilized for the study. A dose lowering technique was utilized adhering to the principles of ALARA. Severe Limited evaluation due to patient motion, numerous bilateral metal earrings, and lack of IV contrast. COMPARISON: Ultrasound of the neck 06/19/23 FINDINGS: Oropharynx: Unremarkable. No significant tonsillar enlargement. Hypopharynx: Unremarkable. Larynx: Unremarkable. Normal epiglottis. Trachea: Unremarkable. Retropharyngeal space: Unremarkable. Submandibular/parotid glands: Nondiagnostic evaluation bilateral parotid glands due to earrings. Thyroid: Unremarkable. No enlarged or calcified nodules. Bones/joints: No acute fracture. There is periapical lucency involving left mandibular premolar teeth, probably 18 and 19. Soft tissues: Moderate superficial cellulitis overlying the left mandible. Typically, cellulitis in this region relates to dental infection. No definite abscess. No soft tissue air or sublingual involvement to suggest a Ruperto angina. Vasculature: No acute findings. Lymph nodes: Unremarkable. No lymphadenopathy. Lung apices: Unremarkable as visualized. IMPRESSION: 1. Moderate superficial cellulitis in the left face. 2. May relate to dental caries involving left mandibular premolar teeth. 3. No abscess or soft tissue air. 4. Significant limited evaluation as patient has multiple earrings resulting in metal artifact, and the exam was performed without contrast. Electronically signed by: Karin Nam M.D. 08/25/23 01:04 AM Discharge Plan Visit Data Chief Complaint: Dental/Oral Stated Complaint: ABSESS, LT SIDE MOUTH/EDEMA, FEVER/100.4 ED Provider: Blas Robertson ED Midlevel Provider: Zohreh Teixeira Discharge Problem: Cellulitis of face, Fracture of tooth Patient Disposition: Admitted As Inpatient Forms Stand Alone Forms: My [facility] Prescriptions Prescriptions: No Action sodium,potassium,mag sulfates [Suprep Bowel Prep Kit] 17.5-3.13-1.6 gram recon soln See Rx Instructions PO .COMPLEX Qty: 354 0RF Rx Instructions: TAKE DIRECTED PER SPLIT DOSE INSTRUCTIONS levothyroxine 50 mcg tablet 50 mcg PO QAM atorvastatin 20 mg tablet 20 mg PO HS promethazine 25 mg tablet 25 mg PO BID PRN (Reason: NAUSEA/VOMITING) zolpidem 10 mg tablet 10 mg PO HS Ubrelvy 50 mg tablet 50 mg PO DAILY PRN (Reason: migraines) omeprazole 20 mg capsule,delayed release(DR/EC) 20 mg PO HS clonazepam 0.5 mg tablet 0.5 mg PO TID PRN (Reason: Anxiety) cyclobenzaprine 5 mg tablet 5 mg PO TID PRN (Reason: Muscle Spasm) loratadine 10 mg tablet 10 mg PO HS ibuprofen 600 mg tablet 600 mg PO TID PRN (Reason: Pain) Qty: 90 0RF linaclotide 290 mcg capsule 290 mcg PO QAM ondansetron 4 mg tablet,disintegrating 4 mg PO Q6H PRN (Reason: nausea and vomiting) Qty: 15 0RF lactulose [Enulose] 10 gram/15 mL solution 15 ml PO DAILY PRN (Reason: Constipation) diclofenac sodium 1 % gel 4 g topical QID PRN (Reason: Pain) Rx Instructions: apply to neck Referrals Referrals: Louann Corrales DO [Primary Care Provider] -
[2023-08-24] MEDS: KETOROLAC 30 MG/ML VIAL IV STA (23:10)
[2023-08-24] MEDS: CLINDAMYCIN/D5W 600 MG/50 ML BAG IV ONE (23:39)
[2023-08-24 23:57] LABS: Albumin Level 3.8 gm/dl (3.4-5.0); Bilirubin,Total 0.3 mg/dl (0.2-1.0); Calcium 8.8 mg/dl (8.6-10.3); Magnesium 1.4 mg/dl (1.7-2.4); Potassium 2.9 mmol/L (3.5-5.1)
[2023-08-25 00:03] LABS: Albumin Globulin Ratio 1.2 (0.9-2); BUN Creatinine Ratio 18.9 (10-20); Creatinine Clr Calc Pharmacy 72.5 ml/min; Est GFR (Non-African American) 93.1 ml/min; Globulin 3.1 gm/dl (2.5-4.0); Total Protein 6.9 gm/dl (6.0-8.3)
[2023-08-25] MEDS: SODIUM CHLORIDE 0.9% 1,000 ML IV ONE ×2 (00:24→18:33)
--- NOTE | 2023-08-25 01:06 | CT Scan Report ---
Exam(s): CT NECK Without Contrast EXAM: CT Neck Without Intravenous Contrast CLINICAL HISTORY: Reason for exam: left facial swelling, dental infection. TECHNIQUE: Axial computed tomography images of the neck without intravenous contrast. CTDI is 13.13 mGy and DLP is 414.61 mGy-cm. Automated exposure control was utilized for the study. A dose lowering technique was utilized adhering to the principles of ALARA. Severe Limited evaluation due to patient motion, numerous bilateral metal earrings, and lack of IV contrast. COMPARISON: Ultrasound of the neck 06/19/23 FINDINGS: Oropharynx: Unremarkable. No significant tonsillar enlargement. Hypopharynx: Unremarkable. Larynx: Unremarkable. Normal epiglottis. Trachea: Unremarkable. Retropharyngeal space: Unremarkable. Submandibular/parotid glands: Nondiagnostic evaluation bilateral parotid glands due to earrings. Thyroid: Unremarkable. No enlarged or calcified nodules. Bones/joints: No acute fracture. There is periapical lucency involving left mandibular premolar teeth, probably 18 and 19. Soft tissues: Moderate superficial cellulitis overlying the left mandible. Typically, cellulitis in this region relates to dental infection. No definite abscess. No soft tissue air or sublingual involvement to suggest a Ruperto angina. Vasculature: No acute findings. Lymph nodes: Unremarkable. No lymphadenopathy. Lung apices: Unremarkable as visualized. IMPRESSION: 1. Moderate superficial cellulitis in the left face. 2. May relate to dental caries involving left mandibular premolar teeth. 3. No abscess or soft tissue air. 4. Significant limited evaluation as patient has multiple earrings resulting in metal artifact, and the exam was performed without contrast. Electronically signed by: Karin Nam M.D. 08/25/23 01:04 AM
--- NOTE | 2023-08-25 01:22 | History & Physical Report ---
Date of Service August 25, 2023 Assessment & Plan (1) Cellulitis of face: (2) Fracture of tooth: (3) Hypokalemia: (4) Hypomagnesemia: (5) Migraine: (6) Insomnia: (7) Depression with anxiety: (8) GERD (gastroesophageal reflux disease): (9) Breast cancer: (10) Hypothyroidism: Plan Summary: Yvonne is a 53F w/ PMH of seizures, migraines, depression, anxiety, lupus, GERD, fibromyalgia, hypothyroidism, and breast cancer (s/p excision & chemotherapy) who presents to the ED for facial swelling. ED Course: Toradol, 1L NSS, Clindamycin Facial Cellulitis | Poor Oral Dentition * 1 day of left facial swelling, pain, and erythema along mandible * No difficulty swallowing/breathing, afebrile * No leukocytosis, chronic anemia * CT Indicating left facial cellulitis w/ possible a/w dental carries, no abscess * Blood cultures pending (caution given patient's port) * Continue Clindamycin 900 mg q8h * Pain management with scheduled Ibuprofen and Toradol PRN (patient allergic to opiates) * S/p 1 L IVF * Consider OMFS consultation if not improving w/ Abx Hypokalemia | Hypomagnesemia * Repletion ordered Chronic Conditions: * Seizures: Last episode in 2022, Neurology appointment upcoming, no active medications * Migraines: Continue home medication * Anxiety/Depression: Continue home medication * GERD: Continue PPI * Hypothyroidism: Continue Levothyroxine * Breast Cancer: S/p excision and chemo, not actively receiving chemotherapy, but has port in right upper chest Code Status:Full Diet: Soft Foods IVF:S/p 1L NSS DVT PPx:Lovenox CM: None Dispo: Med Surg History of Present Illness Chief Complaint: Facial Swelling Primary Care Provider: Louann Corrales DO Yvonne is a 53F w/ PMH of seizures, migraines, depression, anxiety, lupus, GERD, fibromyalgia, hypothyroidism, and breast cancer (s/p excision & chemotherapy) who presented to the ED for facial swelling. Patient notes that 2 weeks ago she was eating a [place] [employer] and broke a molar on the right side. Last night she started to notice swelling on the right side of her face. Today it progressed in to redness and pain. She now has discomfort opening and closing her mouth. She denies tongue pain or swelling. No dysphagia or difficulty breathing. She denies chest pain or dyspnea. She endorses left sided ear pain w/o difficulty hearing. She denies vision changes or eye pain. She endorses headaches, but these are chronic for her. She notes a fever of 100.4 at home and occasional chills. She has not had a similar episode before and tried nothing to treat her symptoms at home. She does have a right chest port, but notes that she is not actively receiving chemotherapy. She states that she had it placed this summer because of difficulty with lab draws after receiving chemotherapy. She has had no swelling or erythema at the site. Allergies Allergy/AdvReac Type Severity Reaction Status Date / Time cephalexin Allergy Severe Hives, Verified 08/17/23 11:25 throat swelling Iodinated Contrast Media Allergy Severe Throat Verified 08/17/23 11:25 swells - IV contrast Penicillins Allergy Severe HIVES, Verified 08/17/23 11:25 THROAT SWELLING adhesive Allergy Intermediate TAPE- HIVES Verified 08/17/23 11:25 codeine Allergy Intermediate Hives Verified 08/17/23 11:25 gentamicin Allergy Intermediate Hives Verified 08/17/23 11:25 latex Allergy Intermediate SWELLS AND Verified 08/17/23 11:25 HIVES loratadine Allergy Intermediate Hives Verified 08/17/23 11:25 strawberry Allergy Intermediate HIVES Verified 08/17/23 11:25 Sulfa (Sulfonamide Allergy Intermediate Hives Verified 08/17/23 11:25 Antibiotics) tramadol Allergy Intermediate Hives Verified 08/17/23 11:25 vancomycin Allergy Intermediate HIVES Verified 08/17/23 11:25 Home Medications Medication Instructions Recorded Confirmed Type levothyroxine 50 mcg tablet 50 mcg PO QAM 09/01/19 08/25/23 History atorvastatin 20 mg tablet 20 mg PO HS 12/10/21 08/25/23 History promethazine 25 mg tablet 25 mg PO BID PRN NAUSEA/VOMITING 12/10/21 08/25/23 History omeprazole 20 mg capsule,delayed 20 mg PO HS 01/02/22 08/25/23 History release zolpidem 10 mg tablet 10 mg PO HS 02/26/22 08/25/23 History clonazepam 0.5 mg tablet 0.5 mg PO TID PRN Anxiety 01/30/23 08/25/23 History ubrogepant 50 mg tablet (Ubrelvy) 50 mg PO DAILY PRN migraines 04/22/23 08/25/23 History cyclobenzaprine 5 mg tablet 5 mg PO TID PRN Muscle Spasm 06/15/23 08/25/23 History loratadine 10 mg tablet 10 mg PO HS 06/15/23 08/25/23 History ibuprofen 600 mg tablet 600 mg PO TID PRN Pain #90 tabs 06/20/23 08/25/23 Rx ondansetron 4 mg disintegrating 4 mg PO Q6H PRN nausea and 06/24/23 08/25/23 Rx tablet vomiting #15 tabs diclofenac sodium 1 % topical gel 4 g topical QID PRN Pain 07/19/23 08/25/23 History lactulose 10 gram/15 mL oral 15 ml PO DAILY PRN Constipation 07/19/23 08/25/23 History solution (Enulose) linaclotide 290 mcg capsule 290 mcg PO QAM 08/08/23 08/25/23 History sodium,potassium,mag sulfates 17.5 See Rx Instructions PO .COMPLEX 08/18/23 08/25/23 Rx gram-3.13 gram-1.6 gram oral soln #354 mL (Suprep Bowel Prep Kit) clindamycin HCl 150 mg capsule 450 mg (3 x 150 mg) PO Q8H 6 days 08/30/23 Rx #54 caps oxycodone 5 mg tablet 5 mg PO TID PRN pain #10 tabs 08/30/23 Rx peg 3350-electrolytes 236 240 ml PO Q10M #4,000 mL 08/30/23 Rx gram-22.74 gram-6.74 gram-5.86 gram solution (Golytely) Past Med/Surg History Medical History Hypomagnesemia Hypokalemia Family history of bowel obstruction UTI (urinary tract infection) currently on abx Hx of seizure disorder no meds current, going to [facility] in September 2023, last seizure approx July 2022 Lyme disease (~05/2023) recent admit to [facility], treated IV abx x 5 days History of COVID-19 (~2021) x 3 > not hospitalized Poor intravenous access HX: breast cancer "STAGING: Left breast, invasive ductal carcinoma, grade 2, ER/Her2 positive, WA negative, [id number], stage IA TREATMENT: 1. Lumpectom/SLN - 04/03/2015 2. Re-excision to obtain negative margins - 12/11/2015 3. Partial course of chemotherapy - Taxotere/Carboplatin/Herceptin - 5 cycles. Patient has refused further treatment including Herceptin. " Nausea and vomiting after administration of anesthetic agent Lupus Depression Anxiety GERD (gastroesophageal reflux disease) Fibromyalgia Breast cancer "STAGING: Left breast, invasive ductal carcinoma, grade 2, ER/Her2 positive, WA negative, [id number], stage IA TREATMENT: 1. Lumpectom/SLN - 04/03/2015 2. Re-excision to obtain negative margins - 12/11/2015 3. Partial course of chemotherapy - Taxotere/Carboplatin/Herceptin - 5 cycles. Patient has refused further treatment including Herceptin. " Migraines Hypothyroidism Surgical History (Updated 08/30/23 @ 15:19 by Luiza Gunn RN) Hx of oral surgery (08/29/23) p Incision and Drainage of Left Submandibular and Mucobuccal Abscess(Left) - Peyman Jamil DMD s Tooth Extraction #19(Left) - Peyman Jamil DMD s Excision mass Right oral cheek(Right) - Peyman Jamil DMD History of infusaport central venous catheter insertion (~2022) Powerport, placed at [facility], flushed q 6 weeks Hx of bilateral mastectomy S/P CARRIE (total abdominal hysterectomy) Hx of neck surgery History of cholecystectomy S/P appy Family History Other Breast cancer Heart disease Social History Smoking Status: Never smoker Second Hand Exposure: No; Do You Dip or Chew Tobacco: No; Hx Alcohol Use: No Hx Substance Use: No Preferred Language: Greenlandic Communication Ability: Effective Dewer Required: No Beliefs That Will Affect Care: None Current Living Situation: Alone Feels Safe at Home: Yes Assistive Devices: None Physical Exam Physical Exam: Gen: NAD, alert, interactive HEENT: Supple, no LAD, no thyromegaly, no JVD, TM normal bilaterally Resp:Non-labored, no wheezing/rhonchi/rales, CTAB CV:RRR, normal S1/S2, no M/R/G Abd: Soft, mildly distended, no TTP, normoactive bowels, no masses Extr: 2+ dp bilaterally, no edema Skin: Left facial erythema/edema along the mandible, extending from the pre- auricular to perioral area - Right chest port intact w/o erythema Oral: Evidence of poor dentition and a cracked molar on the left, no intraoral masses, ulcers, or lesions, MMM Results & Data Results & Data Vital Signs (Past 12 Hours) Vital Signs Temp Pulse Resp BP Pulse Ox O2 Del Method 08/24/23 19:30 37.2 C 98 H 18 103/73 96 Room Air Supervising Physician Co-Signing Physician Notes Patient seen and examined, chart reviewed, case discussed with Dr. Lacey and I agree with the assessment and plan as above. In brief, patient is a 53yo female presenting with left facial swelling. Patient broke a left mandibular tooth appx 1.5 weeks ago while chewing on a piece of hard candy. She has had some pain at the site. Today had facial swelling, warmth and increased pain. Symptoms have been progressive. No fever, throat pain, difficulty swallowing, SOB On exam patient is afebrile, HD stable Swelling, warmth and tenderness noted to the left face. Mandibular tooth on left broken to gumline. Gingiva swollen. +S1/S2, regular, no m/r/g Port present in left chest wall CTA anteriorly with no rales/rhonchi/wheezes Abd - soft, NT/ND Labs and images reviewed. No absess or drainable collection on CT Assessment/Plan -Facial cellulitis - progressive symptoms. Tx with Clindamycin, NSAIDS for pain control. If worsening may need OMFS consultation -Follow blood cultures sent from ER - patinet with indwelling port -Dental caries/broken tooth - patient has appointment next week -Remainder of plan as above Resident Activity Tracking Resident Involvement: Resident Care Provided Care Provided: Adult [facility] Medicine (night) (5) Migraine Intractability: not intractable Migraine type: unspecified Status migrainosus presence: without status migrainosus Qualified Code(s): G43.909 - Migraine, unspecified, not intractable, without status migrainosus
--- NOTE | 2023-08-25 01:52 | Billing Data ---
Date of Service August 25, 2023 Coding Level of Care Code 41020 INT INP/OBS CARE
[2023-08-25] MEDS: KETOROLAC TROMETHAMINE 15 MG/ML VIAL IV PRN (04:07)
[2023-08-25] MEDS: MAGNESIUM SULFATE / D5W 1 GM/100 ML BAG IV SCH (04:09)
[2023-08-25] MEDS: POTASSIUM CHLORIDE CRTAB 20 MEQ TABCR PO STA ×2 (04:13→13:37)
[2023-08-25] MEDS: ZOLPIDEM TARTRATE 10 MG TAB PO SCH (04:13)
[2023-08-25] MEDS: clonazePAM 0.5 MG TAB PO PRN (04:26)
[2023-08-25 04:43] LABS: Appearance Urine Clear (Clear); Bacteria Urine Automated Negative (Negative); Bilirubin Urine Negative (Negative); Blood Urine Negative (Negative); Cast Urine Automated 0 /lpf (0-5); Color Urine Yellow; Glucose Urine UA Negative (Negative); Ketones Urine Negative (Negative); Leukocyte Esterase Urine Trace (Negative); Nitrite Urine Negative (Negative); Protein Urine Negative (Negative); RBC Urine Automated 0-4 /hpf (0-4); Specific Gravity Urine 1.007 (1.000-1.030); Urobilinogen Urine Negative (Negative)
[2023-08-25] MEDS: LEVOTHYROXINE SODIUM 50 MCG TABLET PO SCH (04:45)
[2023-08-25] MEDS: POLYETHYLENE (MIRALAX) 17 GM PACK PO PRN (08:00)
[2023-08-25] MEDS: diphenhydrAMINE Capsule 25 MG CAP PO ONE (08:00)
[2023-08-25] MEDS: ACETAMINOPHEN 325 MG TAB PO PRN (08:00)
[2023-08-25] MEDS: ONDANSETRON 4 MG OD TAB PO PRN (08:00)
[2023-08-25] MEDS: LINACLOTIDE 145 MCG CAPSULE PO SCH (08:01)
[2023-08-25] MEDS: IBUPROFEN 600 MG TAB PO SCH (08:01)
[2023-08-25] MEDS: CLINDAMYCIN/D5W 900 MG/50 ML BAG IV SCH (08:01)
[2023-08-25] MEDS: ENOXAPARIN INJ 40 MG/0.4 ML SYR SQ SCH (08:03)
[2023-08-25 09:33] LABS: Hematocrit (blood only) 28.7 % (37.0-47.0); Hemoglobin 9.7 g/dl (12.0-16.0); Mean Corpuscular Hemoglobin 28.9 pg (25.0-34.0); Mean Corpuscular Hgb Conc 33.8 g/dL (32.0-36.0); Mean Corpuscular Volume 85.4 fL (80.0-100.0); Mean Platelet Volume 10.2 fL (9.4-12.4); Platelet Count 197 K/uL (130-400); RDW Coefficient of Variation 12.4 % (11.5-14.5); RDW Standard Deviation 38.6 fL (36.4-46.3); Red Blood Count 3.36 M/uL (4.20-5.40); White Blood Count 9.73 K/ul (4.8-10.8)
[2023-08-25 09:45] LABS: BUN Creatinine Ratio 18.2 (10-20); C Reactive Protein 18.4 mg/dl (0-0.5); Calcium 8.6 mg/dl (8.6-10.3); Creatinine Clr Calc Pharmacy 81.4 ml/min; Est GFR (African American) 117.7 ml/min; Est GFR (Non-African American) 101.6 ml/min; Magnesium 2.3 mg/dl (1.7-2.4); Potassium 3.2 mmol/L (3.5-5.1)
--- NOTE | 2023-08-25 09:59 | Hospitalist Progress Note ---
"Date of Service August 25, 2023 Assessment & Plan (1) Cellulitis of face: (2) Fracture of tooth: (3) Hypokalemia: (4) Hypomagnesemia: (5) Migraine: (6) Insomnia: (7) Depression with anxiety: (8) GERD (gastroesophageal reflux disease): (9) Breast cancer: (10) Hypothyroidism: Plan Yvonne is a 53F w/ PMH of seizures, migraines, depression, anxiety, lupus, GERD, fibromyalgia, hypothyroidism, and breast cancer (s/p excision & chemotherapy) who presents to the ED for facial swelling. Facial Cellulitis | Poor Oral Dentition -1 day of left facial swelling, pain, and erythema along mandible -No difficulty swallowing/breathing, afebrile -No leukocytosis, chronic anemia -CT Indicating left facial cellulitis w/ possible a/w dental carries, no abscess -Blood cultures pending (caution given patient's port) -Continue Clindamycin 900 mg q8h -Watch for improvement, if worsening or develops fever will broaden coverage. -Pain management with scheduled Ibuprofen and Toradol PRN (patient allergic to opiates) -If needing increased pain medication, patient can tolerate morphine. -S/p 1 L IVF -Consider OMFS consultation if not improving w/ Abx - OMFS out of office until 08/27. Hypokalemia | Hypomagnesemia -Replete as needed. Chronic Conditions: * Seizures: Last episode in 2022, Neurology appointment upcoming, no active medications * Migraines: Continue home medication * Anxiety/Depression: Continue home medication * GERD: Continue PPI * Hypothyroidism: Continue Levothyroxine * Breast Cancer: S/p excision and chemo, not actively receiving chemotherapy, but has port in right upper chest Code Status:Full Diet: Soft Foods DVT PPx:Lovenox Dispo: Med Surg Admission and Anticipated Discharge Date Admission Date: August 25, 2023 Supervising Physician Co-Signing Physician Notes Attending Physician Supervision Note: I independently interviewed and examined the patient and verified the baird history and physical, reviewed labs and image studies and agree with findings and care plan noted above. left face swelling no worsening. pain not controlled with nsaid. no fever comfortable in bed. Left face swelling present with no overlying erythema. -Left Facial cellulitis - continue clinda. toradol IV prn. No OMFS available. monitor closely for need for transfer. -Follow blood cultures sent from ER - patient with indwelling port -Dental caries/broken tooth - patient has appointment next week Subjective Patient seen at the bedside still with the same amount of pain as when she came in earlier in the day. She states the ibuprofen and tylenol have not helped as much with the pain. Review of Systems Review of Systems: As per HPI. Physical Exam Constitutional: WD/WN, vitals as above Eyes: PERRL, conjunctivae normal, anicteric sclerae Respiratory: normal respiratory effort, lungs clear to auscultation Cardiovascular: RRR, no murmur, no edema Gastrointestinal (Abdomen): normal bowel sounds, soft, nontender, no hepatosplenomegaly Skin: moderate amount of swelling and erythema noted at the left mandible with tenderness to palpation of the submandibular lymph node area. Psychiatric: A+Ox3, euthymic affect Results & Data Results & Data Vital Signs (Past 12 Hours) Vital Signs Temp Pulse Resp BP Pulse Ox O2 Del Method 08/25/23 07:39 37.1 C 85 16 126/81 96 Room Air 08/25/23 03:53 37.3 C 86 16 132/84 100 Room Air 08/25/23 03:27 Room Air 08/25/23 03:00 81 18 133/85 97 Room Air Resident Activity Tracking Resident Involvement: Resident Care Provided Care Provided: Adult Hospital Medicine (5) Migraine Intractability: not intractable Migraine type: unspecified Status migrainosus presence: without status migrainosus Qualified Code(s): G43.909 - Migraine, unspecified, not intractable, without status migrainosus"
[2023-08-25] MEDS: MoRPHine SULFATE 2 MG/ML CARP IV STA ×2 (13:28→20:26)
[2023-08-25] MEDS: diphenhydrAMINE 50 MG/ML VIAL IV STA (13:28)
[2023-08-25] MEDS: HEPARIN 100 UNIT/ML 5ML FLUSH FLUSH PRN (16:24)
[2023-08-25] MEDS: diphenhydrAMINE 50 MG/ML VIAL IV PRN (19:06)
[2023-08-25] MEDS: PANTOprazole 40 MG TAB PO SCH (20:26)
[2023-08-25] MEDS: ATORVASTATIN 20 MG TAB PO SCH (20:26)
[2023-08-25] MEDS: LORATADINE 10 MG TAB PO SCH (20:26)
[2023-08-25] MEDS ORDERED: DOCUSATE SODIUM 100 MG CAP PO PRN (20:49)
[2023-08-26] MEDS: MoRPHine SULFATE 2 MG/ML CARP IV STA (00:42)
[2023-08-26 07:51] LABS: Hematocrit (blood only) 25.4 % (37.0-47.0); Hemoglobin 8.2 g/dl (12.0-16.0); Mean Corpuscular Hemoglobin 28.6 pg (25.0-34.0); Mean Corpuscular Hgb Conc 32.3 g/dL (32.0-36.0); Mean Corpuscular Volume 88.5 fL (80.0-100.0); Mean Platelet Volume 10.1 fL (9.4-12.4); Platelet Count 167 K/uL (130-400); RDW Coefficient of Variation 12.3 % (11.5-14.5); RDW Standard Deviation 39.8 fL (36.4-46.3); Red Blood Count 2.87 M/uL (4.20-5.40); White Blood Count 6.34 K/ul (4.8-10.8)
--- NOTE | 2023-08-26 08:02 | Hospitalist Progress Note ---
"Date of Service August 26, 2023 Assessment & Plan (1) Cellulitis of face: Plan: Yvonne is a 53F w/ PMH of seizures, migraines, depression, anxiety, lupus, GERD, fibromyalgia, hypothyroidism, and breast cancer (s/p excision & chemotherapy) who presents to the ED for facial swelling. Facial Cellulitis | Poor Oral Dentition -1 day of left facial swelling, pain, and erythema along mandible -No difficulty swallowing/breathing, afebrile -No leukocytosis, chronic anemia -CT Indicating left facial cellulitis w/ possible a/w dental carries, no abscess -Blood cultures no growth to date after 24 hours -Continue Clindamycin 900 mg q8h day 07/01 -Trend clinical improvement. Expand empiric coverage should patient become febrile. -Adjusted pain regimen: Ibuprofen (800 mg every 8 hours), and acetaminophen (1000 every 8 hours) both scheduled. -IV. morphine as needed for breakthrough pain. -S/p 1 L IVF -Consider OMFS consultation if not improving w/ Abx - OMFS out of office until 08/27. Hypokalemia | Hypomagnesemia -Replete as needed. Chronic Conditions: * Seizures: Last episode in 2022, Neurology appointment upcoming, no active medications * Migraines: Continue home medication * Anxiety/Depression: Continue home medication * GERD: Continue PPI * Hypothyroidism: Continue Levothyroxine * Breast Cancer: S/p excision and chemo, not actively receiving chemotherapy, but has port in right upper chest Code Status:Full Diet: Soft Foods DVT PPx:Lovenox Dispo: Med Surg (2) Fracture of tooth: (3) Hypokalemia: (4) Hypomagnesemia: (5) Migraine: (6) Insomnia: (7) Depression with anxiety: (8) GERD (gastroesophageal reflux disease): (9) Breast cancer: (10) Hypothyroidism: Admission and Anticipated Discharge Date Admission Date: August 25, 2023 Supervising Physician Co-Signing Physician Notes Attending Physician Supervision Note: I independently interviewed and examined the patient and verified the baird history and physical, reviewed labs and image studies and agree with findings and care plan noted above. Subjective Patient examined at bedside. She continues to report pain unchanged despite Tylenol and ibuprofen. Received IV Toradol already for pain. Review of Systems Review of Systems: All systems reviewed & are unremarkable except as noted in HPI & below Physical Exam Physical Exam: General: No acute distress HEENT: PERRLA. Normal conjunctiva, anicteric sclera. Oropharynx normal. Respiratory: Normal respiratory effort, CTABL. Cardiovascular: RRR without murmurs, gallops, or rubs. No pedal edema. GI: Soft abdomen with normal bowel sounds heard on auscultation. Nontender x4 quadrants Neuro: Alert and oriented x3. Results & Data Results & Data Vital Signs (Past 12 Hours) Vital Signs Temp Pulse Resp BP Pulse Ox O2 Del Method 08/26/23 07:30 36.8 C 69 18 106/70 96 Room Air 08/26/23 00:34 88 105/69 Resident Activity Tracking Resident Involvement: Resident Care Provided Care Provided: Adult Hospital Medicine (5) Migraine Intractability: not intractable Migraine type: unspecified Status migrainosus presence: without status migrainosus Qualified Code(s): G43.909 - Migraine, unspecified, not intractable, without status migrainosus"
[2023-08-26 08:39] LABS: BUN Creatinine Ratio 12.7 (10-20); C Reactive Protein 16.11 mg/dl (0-0.5); Calcium 8.3 mg/dl (8.6-10.3); Creatinine Clr Calc Pharmacy 85.3 ml/min; Est GFR (African American) 119.5 ml/min; Est GFR (Non-African American) 103.1 ml/min; Potassium 4.1 mmol/L (3.5-5.1)
[2023-08-26] MEDS: ACETAMINOPHEN 500 MG TAB PO SCH (10:39)
[2023-08-26] MEDS: IBUPROFEN 800 MG TAB PO SCH (12:36)
[2023-08-26] MEDS: FAMOTIDINE 20MG IV PUSH 20 MG/5 ML SYR IV SCH (12:36)
[2023-08-26] MEDS ORDERED: IBUPROFEN 800 MG TAB PO SCH (14:00)
[2023-08-26] MEDS: MAGNESIUM HYDROXIDE SUSP 30 ML UDC PO ONE (15:23)
[2023-08-26] MEDS: ACETAMINOPHEN 1,000 MG/100 ML VIAL IV SCH (17:12)
[2023-08-26] MEDS: PROMETHAZINE HCL 25 MG TAB PO PRN (17:34)
[2023-08-26] MEDS: MoRPHine SULFATE 2 MG/ML CARP IV ONE (20:07)
[2023-08-26] MEDS: KETOROLAC 30 MG/ML VIAL IV SCH (20:07)
[2023-08-26] MEDS: LACTULOSE SYRUP 20 GM/30 ML UDC PO PRN (22:10)
[2023-08-27] MEDS: MoRPHine SULFATE 2 MG/ML CARP IV ONE (00:57)
[2023-08-27] MEDS: MELATONIN 3 MG TAB PO PRN (02:08)
--- NOTE | 2023-08-27 08:27 | Hospitalist Progress Note ---
"Date of Service August 27, 2023 Assessment & Plan (1) Cellulitis of face: Plan: Yvonne is a 53F w/ PMH of seizures, migraines, depression, anxiety, lupus, GERD, fibromyalgia, hypothyroidism, and breast cancer (s/p excision & chemotherapy) who presents to the ED for facial swelling. Facial Cellulitis | Poor Oral Dentition -1 day of left facial swelling, pain, and erythema along mandible -No difficulty swallowing/breathing, afebrile -No leukocytosis, chronic anemia -CT Indicating left facial cellulitis w/ possible a/w dental carries, no abscess -Blood cultures no growth to date after 24 hours -Continue Clindamycin 900 mg q8h x 10 days last dose 09/02 -Trend clinical improvement. Expand empiric coverage should patient become febrile. -Adjusted pain regimen: IV Toradol 30 mg every 6 hours, and acetaminophen 1000 mg every 8 hours both scheduled. -IV. morphine as needed for breakthrough pain. -Consider OMFS consultation if not improving w/ Abx - OMFS out of office until 08/27. Hypokalemia | Hypomagnesemia -Replete as needed. Constipation -Patient's reported last bowel movement over a week ago. -Most recent attempted colonoscopy on 08/16 abandoned due to moderate stool burden without obstruction. -S/p spot dose of milk of magnesia on 08/25. -Increased MiraLAX to 34 g twice daily scheduled. -Lactulose 30 g daily scheduled -Senokot 17.2 mg daily Chronic Conditions: * Seizures: Last episode in 2022, Neurology appointment upcoming, no active medications * Migraines: Continue home medication * Anxiety/Depression: Continue home medication * GERD: Converted home PPI to IV. Added IV famotidine. * Hypothyroidism: Continue Levothyroxine * Breast Cancer: S/p excision and chemo, not actively receiving chemotherapy, but has port in right upper chest Code Status:Full Diet: Soft Foods DVT PPx:Lovenox Dispo: Med Surg (2) Fracture of tooth: (3) Hypokalemia: (4) Hypomagnesemia: (5) Migraine: (6) Insomnia: (7) Depression with anxiety: (8) GERD (gastroesophageal reflux disease): (9) Breast cancer: (10) Hypothyroidism: Admission and Anticipated Discharge Date Admission Date: August 25, 2023 Supervising Physician Co-Signing Physician Notes Attending Physician Supervision Note: I independently interviewed and examined the patient and verified the baird history and physical, reviewed labs and image studies and agree with findings and care plan noted above. Left facial cellulitis - improving. continue iv abx. pain control chronic constipation - aggressive bowel regimen Subjective Reported pain overnight, receiving IV morphine 1 mg x 2 doses. This morning, she continues to endorse headache and ear pain. Vitals were stable and at goal overnight and this morning. Patient has yet to have a bowel movement. ROS + slight left lower quadrant abdominal discomfort. She has no other acute complaints. Review of Systems Review of Systems: All systems reviewed & are unremarkable except as noted in HPI & below Physical Exam Physical Exam: General: no acute distress, speaking in full sentences Resp: good inspiratory effort, no labored breathing HEENT: conjunctivae appear clear, no audible congestion, no swelling noted face or lips Skin: skin appears dry, normal coloration, no rash visible on exposed skin areas Neuro: alert and oriented x3, no focal deficits appreciated Psych: euthymic affect, pleasant and interactive, logical thought process Results & Data Results & Data Vital Signs (Past 12 Hours) Vital Signs Temp Pulse Resp BP BP Pulse Ox O2 Del Method 08/27/23 07:02 36.7 C 66 16 135/83 96 Room Air 08/26/23 21:43 37 C 78 18 120/80 120/80 97 Room Air Resident Activity Tracking Resident Involvement: Resident Care Provided Care Provided: Adult Hospital Medicine (5) Migraine Intractability: not intractable Migraine type: unspecified Status migrainosus presence: without status migrainosus Qualified Code(s): G43.909 - Migraine, unspecified, not intractable, without status migrainosus"
[2023-08-27] MEDS: POLYETHYLENE (MIRALAX) 17 GM PACK PO SCH (08:46)
[2023-08-27] MEDS: SENNA 8.6 MG TAB PO SCH (10:55)
[2023-08-27] MEDS: LACTULOSE SYRUP 20 GM/30 ML UDC PO SCH (10:55)
[2023-08-27] MEDS: PANTOprazole 40 MG in SYRINGE 0 ML IV SCH (11:01)
[2023-08-27] MEDS: diphenhydrAMINE 50 MG/ML VIAL IV PRN (12:48)
[2023-08-27] MEDS: NYSTATIN SUSP 500,000 U/5 ML UDC PO SCH (20:37)
[2023-08-27] MEDS: CYCLOBENZAPRINE HCL 5 MG TAB PO PRN (23:57)
[2023-08-28 07:38] LABS: Basophils # (auto) 0.04 K/uL (0.00-0.20); Basophils % (auto) 0.7 %; Eosinophils % (auto) 3.6 %; Hemoglobin 9.6 g/dl (12.0-16.0); Immature Granulocytes # (auto) 0.08 K/uL (0.01-0.20); Immature Granulocytes % (auto) 1.4 %; Lymphocytes # (auto) 1.63 K/uL (1.20-3.40); Lymphocytes % (auto) 29.5 %; Mean Corpuscular Hemoglobin 28.2 pg (25.0-34.0); Mean Platelet Volume 9.3 fL (9.4-12.4); Monocytes % (auto) 10.9 %; Neutrophils # (auto) 2.97 K/uL (1.40-6.50); Neutrophils % (auto) 53.9 %; Platelet Count 267 K/uL (130-400); RDW Coefficient of Variation 12.3 % (11.5-14.5); RDW Standard Deviation 39.9 fL (36.4-46.3); Red Blood Count 3.41 M/uL (4.20-5.40); White Blood Count 5.52 K/ul (4.8-10.8)
--- NOTE | 2023-08-28 07:49 | Hospitalist Progress Note ---
"Date of Service August 28, 2023 Assessment & Plan (1) Cellulitis of face: Plan: Yvonne is a 53F w/ PMH of seizures, migraines, depression, anxiety, lupus, GERD, fibromyalgia, hypothyroidism, and breast cancer (s/p excision & chemotherapy) who presents to the ED for facial swelling. Facial Cellulitis | Poor Oral Dentition -1 day of left facial swelling, pain, and erythema along mandible -No difficulty swallowing/breathing, afebrile -No leukocytosis, chronic anemia -CT Indicating left facial cellulitis w/ possible a/w dental carries, no abscess -Blood cultures negative -Continue Clindamycin 900 mg q8h x 10 days switch to PO 450mg Q8H on 08/27 last dose 09/02 -Trend clinical improvement. Expand empiric coverage should patient become febrile. -Adjusted pain regimen: IV Toradol 30 mg every 6 hours, and acetaminophen 1000 mg every 8 hours both scheduled. -IV. morphine as needed for breakthrough pain. -OMFS consultation, awaiting recommendations on inpatient sx vs outpatient sx. Hypokalemia | Hypomagnesemia -Replete as needed. Constipation -Patient's reported last bowel movement over a week ago. -Most recent attempted colonoscopy on 08/16 abandoned due to moderate stool burden without obstruction. -S/p spot dose of milk of magnesia on 08/25. -Increased MiraLAX to 34 g twice daily scheduled. -Lactulose 30 g daily scheduled -Senokot 17.2 mg daily Chronic Conditions: * Seizures: Last episode in 2022, Neurology appointment upcoming, no active medications * Migraines: Continue home medication * Anxiety/Depression: Continue home medication * GERD: Converted home PPI to IV. Added IV famotidine. * Hypothyroidism: Continue Levothyroxine * Breast Cancer: S/p excision and chemo, not actively receiving chemotherapy, but has port in right upper chest Code Status:Full Diet: Soft Foods DVT PPx:Lovenox Dispo: Med Surg (2) Fracture of tooth: (3) Hypokalemia: (4) Hypomagnesemia: (5) Migraine: (6) Insomnia: (7) Depression with anxiety: (8) GERD (gastroesophageal reflux disease): (9) Breast cancer: (10) Hypothyroidism: Admission and Anticipated Discharge Date Admission Date: August 25, 2023 Supervising Physician Co-Signing Physician Notes I personally examined the patient and verified all baird points of history and exam, discussed case, and agree with decision making with Dr Pierre ongoing face pain gonzález maxilofacial who will assess in house vitals noted nad face L sided swelling and tenderness no crepitis Left facial cellulitis - improving. continue clinda, continue pain control. surgical assessment chronic constipation - continue aggressive bowel regimen DVT proph - lovenox Subjective Patient seen bedside this morning. She states that she is still having pain in her left jaw. Denies any fevers or chills. Denies any chest pain pain, nausea or vomiting. No other issues or concerns at this time. Review of Systems Review of Systems: All systems reviewed & are unremarkable except as noted in Subjective Physical Exam Physical Exam: General: no acute distress, speaking in full sentences Resp: good inspiratory effort, no labored breathing HEENT: conjunctivae appear clear, no audible congestion, no swelling noted face or lips Skin: skin appears dry, normal coloration, no rash visible on exposed skin areas Neuro: alert and oriented x3, no focal deficits appreciated Psych: euthymic affect, pleasant and interactive, logical thought process Results & Data Results & Data Vital Signs (Past 12 Hours) Vital Signs Temp Pulse Resp BP Pulse Ox O2 Del Method 08/28/23 07:07 37.1 C 64 16 119/76 98 Room Air 08/27/23 23:25 37.0 C 77 109/70 98 Room Air (5) Migraine Intractability: not intractable Migraine type: unspecified Status migrainosus presence: without status migrainosus Qualified Code(s): G43.909 - Migraine, unspecified, not intractable, without status migrainosus"
[2023-08-28 07:58] LABS: BUN Creatinine Ratio 15.7 (10-20); Creatinine Clr Calc Pharmacy 76.8 ml/min; Est GFR (African American) 115.5 ml/min; Est GFR (Non-African American) 99.6 ml/min; Potassium 4.2 mmol/L (3.5-5.1)
[2023-08-28] MEDS: MoRPHine SULFATE 2 MG/ML CARP IV STA (08:37)
[2023-08-28] MEDS: CLINDAMYCIN HCL 150 MG CAP PO SCH (15:15)
--- NOTE | 2023-08-28 17:18 | Billing Data ---
Date of Service August 28, 2023 Coding Level of Care Code 41538 SUB INP/OBS CARE
--- NOTE | 2023-08-28 17:30 | Oral/Maxillofacial Consult ---
Date of Consultation August 28, 2023 Assessment & Plan (1) Fracture of tooth: (2) Cellulitis of face: (3) Hypomagnesemia: (4) Hypokalemia: History of Present Illness Attending Physician: Robe Riley DO History of Present Illness Oral Maxillofacial Surgery Exam Present Complaint: I have pain/swelling/drainage from my infected lower left # 19 tooth. Symptoms have been ongoing for a while. Swelling got worse and the pain was very bad--came to ER HISTORY OF PRESENT ILLNESS: This 53-year-old female patient presents to the emergency department via private vehicle for evaluation of left-sided facial swelling x 1 day. The patient states she broke her tooth eating crunchy candy about 2 weeks ago. She states yesterday, she awoke and noticed a small area of swelling in the left gum. Today when she woke up, she noticed worsening redness and swelling on the left side of the face. The patient reports significant pain. She does report a fever of 100.4 F. She took 1 dose of ibuprofen prior to arrival with no improvement in her symptoms. The patient does report a generalized headache. She has been able to tolerate p.o. food and fluids without difficulty. She states she did contact a dentist but is not scheduled to be seen until next Monday. She denies any numbness or tingling. No discharge from the mouth. No swelling to the floor of the mouth or of the tongue. Oral Exam: Finding- Lower left face is swollen and painful,tender gingival tissue with deep pocket formation. Tooth # 19 is fractured an abnormal position and removal is clinical indicated. Mucobuccal fold is acutely swollen. Despite 4 days of IV antibiotics the pain and swelling persists--I&D and extraction # 14 needed Imaging: I personally reviewed the CT , there were no abnormal findings other then the carious teeth. The sinus, supporting bone all WNL Evaluated the nerve/sinus relationship to the roots of the teeth. The following teeth were grossly infected # 19 Exam(s): CT NECK Without Contrast EXAM: CT Neck Without Intravenous Contrast CLINICAL HISTORY: Reason for exam: left facial swelling, dental infection. COMPARISON: Ultrasound of the neck 06/19/23 FINDINGS: Oropharynx: Unremarkable. No significant tonsillar enlargement. Hypopharynx: Unremarkable. Larynx: Unremarkable. Normal epiglottis. Trachea: Unremarkable. Retropharyngeal space: Unremarkable. Submandibular/parotid glands: Nondiagnostic evaluation bilateral parotid glands due to earrings. Thyroid: Unremarkable. No enlarged or calcified nodules. Bones/joints: No acute fracture. There is periapical lucency involving left mandibular premolar teeth, probably 18 and 19. Soft tissues: Moderate superficial cellulitis overlying the left mandible. Typically, cellulitis in this region relates to dental infection. No definite abscess. No soft tissue air or sublingual involvement to suggest a Ruperto angina. Vasculature: No acute findings. Lymph nodes: Unremarkable. No lymphadenopathy. Lung apices: Unremarkable as visualized. IMPRESSION: 1. Moderate superficial cellulitis in the left face. 2. May relate to dental caries involving left mandibular premolar teeth. 3. No abscess or soft tissue air. 4. Significant limited evaluation as patient has multiple earrings resulting in metal artifact, and the exam was performed without contrast. Soft tissue: Left mucobuccal fold and left cheek= swollen and tender. The floor of the mouth, tongue, hard/soft palate, posterior pharyngeal area all with in normal limits, no pathology or abnormal findings noted. No lesions noted that require follow up or Bx. Oral Care: Overall oral care is good Occlusion: Class I TMJ exam: No pop, clicking, pain, good ROM, No history of TMJ injury or dysfunction Periodontal exam: Overall gingival tissue shows no evidence of periodontal pathology. Head/Neck exam: Neck is supple, FROM, Able to extend and flex neck w/o difficulty, no masses, no abnormalities, no airway issues, no evidence of sleep apnea. Treatment Plan: Will need I&D and extraction of # 19 Set up with general anesthesia in hospital due to complexity of the procedure I reviewed the treatment plan and consent with the patient. Understanding was expressed. Time was given for questions regarding the surgery, risks and post op care. Discussed alternative to treatment--procedure as planned, Do not do surgery The following teeth are decayed and fractured and removal is indicated extraction of the abscessed # 19 Risks discussed: Bleeding,Pain,swelling,infection, dry socket, delayed healing, nerve injury to face,lips,tongue,chin area which could be permanent (rare). TMJ, jaw stiffness, change in bite (rare), ear pain (referred). Sinus problems like fistula or infection. Need to leave a small root fragment in place to avoid injury to nerve or sinus. Relationship of wisdom teeth to nerve/sinus and risk of jaw fracture. Need for general dental care and additional treatemnt as needed Home care reviewed: tooth brushing, rinsing, follow up care with Dr Jamil. diet=[id number]. Discussed activity level, driving/work while on Rx pain Meds. Surgery to be set up tomorrow as per OR schedule We will keep NPO tonight I will have her sign the consent tomorrow before the procedure--I&D left masseter and submandibular space with extraction of # 19 Allergies Allergy/AdvReac Type Severity Reaction Status Date / Time cephalexin Allergy Severe Hives, Verified 08/17/23 11:25 throat swelling Iodinated Contrast Media Allergy Severe Throat Verified 08/17/23 11:25 swells - IV contrast Penicillins Allergy Severe HIVES, Verified 08/17/23 11:25 THROAT SWELLING adhesive Allergy Intermediate TAPE- HIVES Verified 08/17/23 11:25 codeine Allergy Intermediate Hives Verified 08/17/23 11:25 gentamicin Allergy Intermediate Hives Verified 08/17/23 11:25 latex Allergy Intermediate SWELLS AND Verified 08/17/23 11:25 HIVES loratadine Allergy Intermediate Hives Verified 08/17/23 11:25 strawberry Allergy Intermediate HIVES Verified 08/17/23 11:25 Sulfa (Sulfonamide Allergy Intermediate Hives Verified 08/17/23 11:25 Antibiotics) tramadol Allergy Intermediate Hives Verified 08/17/23 11:25 vancomycin Allergy Intermediate HIVES Verified 08/17/23 11:25 Home Medications Medication Instructions Recorded Confirmed Type levothyroxine 50 mcg tablet 50 mcg PO QAM 09/01/19 08/25/23 History atorvastatin 20 mg tablet 20 mg PO HS 12/10/21 08/25/23 History promethazine 25 mg tablet 25 mg PO BID PRN NAUSEA/VOMITING 12/10/21 08/25/23 History omeprazole 20 mg capsule,delayed 20 mg PO HS 01/02/22 08/25/23 History release zolpidem 10 mg tablet 10 mg PO HS 02/26/22 08/25/23 History clonazepam 0.5 mg tablet 0.5 mg PO TID PRN Anxiety 01/30/23 08/25/23 History ubrogepant 50 mg tablet (Ubrelvy) 50 mg PO DAILY PRN migraines 04/22/23 08/25/23 History cyclobenzaprine 5 mg tablet 5 mg PO TID PRN Muscle Spasm 06/15/23 08/25/23 History loratadine 10 mg tablet 10 mg PO HS 06/15/23 08/25/23 History ibuprofen 600 mg tablet 600 mg PO TID PRN Pain #90 tabs 06/20/23 08/25/23 Rx ondansetron 4 mg disintegrating 4 mg PO Q6H PRN nausea and 06/24/23 08/25/23 Rx tablet vomiting #15 tabs diclofenac sodium 1 % topical gel 4 g topical QID PRN Pain 07/19/23 08/25/23 History lactulose 10 gram/15 mL oral 15 ml PO DAILY PRN Constipation 07/19/23 08/25/23 History solution (Enulose) linaclotide 290 mcg capsule 290 mcg PO QAM 08/08/23 08/25/23 History sodium,potassium,mag sulfates 17.5 See Rx Instructions PO .COMPLEX 08/18/23 08/25/23 Rx gram-3.13 gram-1.6 gram oral soln #354 mL (Suprep Bowel Prep Kit) Patient History Medical History (Updated 08/28/23 @ 18:51 by Peyman Jamil, DOMI) Hypomagnesemia Hypokalemia Family history of bowel obstruction UTI (urinary tract infection) currently on abx Hx of seizure disorder no meds current, going to [facility] in September 2023, last seizure approx July 2022 Lyme disease (~05/2023) recent admit to [facility], treated IV abx x 5 days History of COVID-19 (~2021) x 3 > not hospitalized Poor intravenous access HX: breast cancer "STAGING: Left breast, invasive ductal carcinoma, grade 2, ER/Her2 positive, GA negative, [id number], stage IA TREATMENT: 1. Lumpectom/SLN - 04/03/2015 2. Re-excision to obtain negative margins - 12/11/2015 3. Partial course of chemotherapy - Taxotere/Carboplatin/Herceptin - 5 cycles. Patient has refused further treatment including Herceptin. " Nausea and vomiting after administration of anesthetic agent Lupus Depression Anxiety GERD (gastroesophageal reflux disease) Fibromyalgia Breast cancer "STAGING: Left breast, invasive ductal carcinoma, grade 2, ER/Her2 positive, GA negative, [id number], stage IA TREATMENT: 1. Lumpectom/SLN - 04/03/2015 2. Re-excision to obtain negative margins - 12/11/2015 3. Partial course of chemotherapy - Taxotere/Carboplatin/Herceptin - 5 cycles. Patient has refused further treatment including Herceptin. " Migraines Hypothyroidism Surgical History History of infusaport central venous catheter insertion (~2022) Powerport, placed at [facility], flushed q 6 weeks Hx of bilateral mastectomy S/P CARRIE (total abdominal hysterectomy) Hx of neck surgery History of cholecystectomy S/P appy Family History Other Breast cancer Heart disease Social History Smoking Status: Never smoker Second Hand Exposure: No; Do You Dip or Chew Tobacco: No; Hx Alcohol Use: No Hx Substance Use: No Preferred Language: Welsh Communication Ability: Effective Product Development Manager Required: No Beliefs That Will Affect Care: None Current Living Situation: Alone Feels Safe at Home: Yes Safety Concerns: Feels Safe At This Time Assistive Devices: None Results & Data Vital Signs (Past 12 Hours) Vital Signs Temp Pulse Resp BP Pulse Ox O2 Del Method 08/28/23 14:07 37.1 C 78 16 124/80 100 Room Air 08/28/23 07:07 37.1 C 64 16 119/76 98 Room Air PG Care Time/CCT Total # of Minutes Spent Total Time Spent with Patient: Total time spent is greater than 50% in coordination of care (as documented) at patient's floor/unit and/or counseling patient: Coding Level of Care Code 91100 IN/OBS CONSULT LVL 2,35M Diagnoses Open fracture of tooth, initial encounter S02.5XXB Encounter type: initial encounter Fracture type: open Cellulitis of face L03.211 Hypomagnesemia E83.42 Hypokalemia E87.6 (1) Fracture of tooth Encounter type: initial encounter Fracture type: open Qualified Code(s): S02.5XXB - Fracture of tooth (traumatic), initial encounter for open fracture
--- NOTE | 2023-08-29 07:26 | Hospitalist Progress Note ---
"Date of Service August 29, 2023 Assessment & Plan (1) Cellulitis of face: Plan: Yvonne is a 53F w/ PMH of seizures, migraines, depression, anxiety, lupus, GERD, fibromyalgia, hypothyroidism, and breast cancer (s/p excision & chemotherapy) who presents to the ED for facial swelling. Facial Cellulitis | Poor Oral Dentition -1 day of left facial swelling, pain, and erythema along mandible -No difficulty swallowing/breathing, afebrile -No leukocytosis, chronic anemia -CT Indicating left facial cellulitis w/ possible a/w dental carries, no abscess -Blood cultures negative -Continue Clindamycin 900 mg q8h x 10 days switch to PO 450mg Q8H on 08/27 last dose 09/02 -Trend clinical improvement. Expand empiric coverage should patient become febrile. -Adjusted pain regimen: IV Toradol 30 mg every 6 hours, and acetaminophen 1000 mg every 8 hours both scheduled. -IV. morphine as needed for breakthrough pain. -OMFS consultation, inpatient surgery scheduled for 08/28. Will assess pain after surgery. Hypokalemia | Hypomagnesemia -Replete as needed. Constipation -Patient's reported last bowel movement over a week ago. -Most recent attempted colonoscopy on 08/16 abandoned due to moderate stool burden without obstruction. -S/p spot dose of milk of magnesia on 08/25. -Increased MiraLAX to 34 g twice daily scheduled. -Lactulose 30 g daily scheduled -Senokot 17.2 mg daily UTI symptoms -Will get UA after surgery. Chronic Conditions: * Seizures: Last episode in 2022, Neurology appointment upcoming, no active medications * Migraines: Continue home medication * Anxiety/Depression: Continue home medication * GERD: Converted home PPI to IV. Added IV famotidine. * Hypothyroidism: Continue Levothyroxine * Breast Cancer: S/p excision and chemo, not actively receiving chemotherapy, but has port in right upper chest Code Status:Full Diet: Soft Foods DVT PPx:Lovenox Dispo: Med Surg (2) Fracture of tooth: (3) Hypokalemia: (4) Hypomagnesemia: (5) Migraine: (6) Insomnia: (7) Depression with anxiety: (8) GERD (gastroesophageal reflux disease): (9) Breast cancer: (10) Hypothyroidism: Admission and Anticipated Discharge Date Admission Date: August 25, 2023 Supervising Physician Co-Signing Physician Notes I personally examined the patient and verified all baird points of history and exam, discussed case, and agree with decision making with Dr Pierre ongoing face pain - for surgery later today. ongoing stomach fullness - notes bowel prep for colo recently but still too much stool to scope dw maxilofacial who will assess in house vitals noted nad face L sided swelling and tenderness no crepitis Left facial cellulitis - improving. continue clinda, continue pain control. surgery today. chronic constipation - escalate bowel regimen, will probably need golytely possibly for several days to clear bowels given failure of sutab prep//chronic constipation. once cleared then will probably need aggressive maintenance regimen. colo retry in near future. DVT proph - lovenox Subjective Patient seen bedside this morning. Continues to have pain on the left jaw. She continues to have constipation issues. She also complains of urinary urgency and frequency. Review of Systems Review of Systems: All systems reviewed & are unremarkable except as noted in Subjective Physical Exam Physical Exam: General: no acute distress, speaking in full sentences Resp: good inspiratory effort, no labored breathing HEENT: conjunctivae appear clear, no audible congestion, no swelling noted face or lips Skin: skin appears dry, normal coloration, no rash visible on exposed skin areas Neuro: alert and oriented x3, no focal deficits appreciated Psych: euthymic affect, pleasant and interactive, logical thought process Results & Data Results & Data Vital Signs (Past 12 Hours) Vital Signs Temp Pulse Resp BP Pulse Ox O2 Del Method 08/28/23 22:00 Room Air 08/28/23 20:17 37.0 C 77 14 128/84 97 Room Air Resident Activity Tracking Resident Involvement: Resident Care Provided Care Provided: Adult Hospital Medicine (2) Fracture of tooth Encounter type: initial encounter Fracture type: open Qualified Code(s): S02.5XXB - Fracture of tooth (traumatic), initial encounter for open fracture (5) Migraine Intractability: not intractable Migraine type: unspecified Status migrainosus presence: without status migrainosus Qualified Code(s): G43.909 - Migraine, unspecified, not intractable, without status migrainosus"
[2023-08-29 08:12] LABS: Basophils # (auto) 0.05 K/uL (0.00-0.20); Basophils % (auto) 0.8 %; Eosinophils # (auto) 0.25 K/uL (0.00-0.50); Eosinophils % (auto) 3.9 %; Hematocrit (blood only) 31.8 % (37.0-47.0); Hemoglobin 10.4 g/dl (12.0-16.0); Immature Granulocytes # (auto) 0.17 K/uL (0.01-0.20); Immature Granulocytes % (auto) 2.7 %; Lymphocytes # (auto) 2.27 K/uL (1.20-3.40); Lymphocytes % (auto) 35.5 %; Mean Corpuscular Hemoglobin 28.1 pg (25.0-34.0); Mean Corpuscular Hgb Conc 32.7 g/dL (32.0-36.0); Mean Corpuscular Volume 85.9 fL (80.0-100.0); Mean Platelet Volume 9.5 fL (9.4-12.4); Monocytes # (auto) 0.69 K/uL (0.11-0.59); Monocytes % (auto) 10.8 %; Neutrophils # (auto) 2.97 K/uL (1.40-6.50); Neutrophils % (auto) 46.3 %; Platelet Count 330 K/uL (130-400); RDW Coefficient of Variation 12.4 % (11.5-14.5); RDW Standard Deviation 38.7 fL (36.4-46.3)
[2023-08-29 08:33] LABS: BUN Creatinine Ratio 15.4 (10-20); Calcium 9.4 mg/dl (8.6-10.3); Creatinine Clr Calc Pharmacy 68.9 ml/min; Est GFR (African American) 101.3 ml/min; Est GFR (Non-African American) 87.4 ml/min; Potassium 4.2 mmol/L (3.5-5.1)
--- NOTE | 2023-08-29 08:34 | Anesthesiology Consultation ---
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 Surgery Operation Date: 08/29/23 07:00 Proposed Procedures p Drainage Left Facial Abscess - Peyman Jamil DMD s Tooth Extraction - Peyman Jamil DMD Height/Weight Height: 5 ft Weight: 61.1 kg Allergies Allergy/AdvReac Type Severity Reaction Status Date / Time cephalexin Allergy Severe Hives, Verified 08/17/23 11:25 throat swelling Iodinated Contrast Media Allergy Severe Throat Verified 08/17/23 11:25 swells - IV contrast Penicillins Allergy Severe HIVES, Verified 08/17/23 11:25 THROAT SWELLING adhesive Allergy Intermediate TAPE- HIVES Verified 08/17/23 11:25 codeine Allergy Intermediate Hives Verified 08/17/23 11:25 gentamicin Allergy Intermediate Hives Verified 08/17/23 11:25 latex Allergy Intermediate SWELLS AND Verified 08/17/23 11:25 HIVES loratadine Allergy Intermediate Hives Verified 08/17/23 11:25 strawberry Allergy Intermediate HIVES Verified 08/17/23 11:25 Sulfa (Sulfonamide Allergy Intermediate Hives Verified 08/17/23 11:25 Antibiotics) tramadol Allergy Intermediate Hives Verified 08/17/23 11:25 vancomycin Allergy Intermediate HIVES Verified 08/17/23 11:25 Medications Home Medications Medication Instructions Recorded Confirmed Last Taken levothyroxine 50 mcg tablet 50 mcg PO QAM 09/01/19 08/25/23 08/16/23 atorvastatin 20 mg tablet 20 mg PO HS 12/10/21 08/25/23 08/16/23 promethazine 25 mg tablet 25 mg PO BID PRN NAUSEA/VOMITING 12/10/21 08/25/23 Unknown omeprazole 20 mg capsule,delayed 20 mg PO HS 01/02/22 08/25/23 08/16/23 release zolpidem 10 mg tablet 10 mg PO HS 02/26/22 08/25/23 06/27/23 clonazepam 0.5 mg tablet 0.5 mg PO TID PRN Anxiety 01/30/23 08/25/23 08/16/23 ubrogepant 50 mg tablet (Ubrelvy) 50 mg PO DAILY PRN migraines 04/22/23 08/25/23 Unknown cyclobenzaprine 5 mg tablet 5 mg PO TID PRN Muscle Spasm 06/15/23 08/25/23 06/14/23 loratadine 10 mg tablet 10 mg PO HS 06/15/23 08/25/23 08/16/23 ibuprofen 600 mg tablet 600 mg PO TID PRN Pain #90 tabs 06/20/23 08/25/23 Unknown ondansetron 4 mg disintegrating 4 mg PO Q6H PRN nausea and 06/24/23 08/25/23 08/16/23 tablet vomiting #15 tabs diclofenac sodium 1 % topical gel 4 g topical QID PRN Pain 07/19/23 08/25/23 08/15/23 lactulose 10 gram/15 mL oral 15 ml PO DAILY PRN Constipation 07/19/23 08/25/23 Unknown solution (Enulose) linaclotide 290 mcg capsule 290 mcg PO QAM 08/08/23 08/25/23 08/16/23 sodium,potassium,mag sulfates 17.5 See Rx Instructions PO .COMPLEX 08/18/23 08/25/23 Unknown gram-3.13 gram-1.6 gram oral soln #354 mL (Suprep Bowel Prep Kit) Active Medications Generic Name Dose Route Start Last Admin Trade Name Freq PRN Reason Stop Dose Admin Atorvastatin Calcium 20 mg 08/25/23 21:00 08/28/23 22:09 Atorvastatin 20 Mg Tab PO 09/24/23 20:59 20 mg HS ROLAND Administration Clindamycin HCl 450 mg 08/28/23 15:00 08/29/23 06:35 Clindamycin Hcl 150 Mg Cap PO 09/04/23 14:59 Not Given Q8H ROLAND Clonazepam 0.5 mg 08/25/23 03:46 08/28/23 22:41 Clonazepam 0.5 Mg Tab PO 09/24/23 03:45 0.5 mg TID PRN Administration Anxiety Cyclobenzaprine HCl 5 mg 08/25/23 03:46 08/29/23 00:43 Cyclobenzaprine Hcl 5 Mg Tab PO 09/24/23 03:45 5 mg TID PRN Administration Muscle Spasm Diphenhydramine HCl 25 mg 08/27/23 12:26 08/29/23 00:22 Diphenhydramine 50 Mg/Ml Vial IV 09/24/23 18:26 25 mg Q6H PRN Administration insomnia or pain Enoxaparin Sodium 40 mg 08/25/23 09:00 08/28/23 08:41 Enoxaparin Inj 40 Mg/0.4 Ml Syr SQ 09/24/23 08:59 40 mg Q24H ROLAND Administration Heparin Sodium (Porcine) 5 ml 08/25/23 15:59 08/29/23 07:33 Heparin 100 Unit/Ml 5ml Flush FLUSH 09/24/23 15:58 5 ml PRN PRN Administration Flush Famotidine 20 mg in 5 mls @ 2.5 mls/min 08/26/23 12:00 08/29/23 00:22 Pepcid 20mg Iv Push IV 09/25/23 11:59 2.5 mls/min Q12H ROLAND Administration Acetaminophen 1,000 mg in 100 mls @ 400 mls/hr 08/26/23 17:00 08/29/23 00:44 Ofirmev IV 08/29/23 16:59 Infused Q8H ROLAND Infusion Pantoprazole Sodium 40 mg/ 10 mls @ 5 mls/min 08/27/23 11:00 08/28/23 11:40 Syringe IV 09/26/23 10:59 5 mls/min DAILY@1100 ROLAND Administration Ketorolac Tromethamine 30 mg 08/26/23 21:00 08/29/23 03:22 Ketorolac 30 Mg/Ml Vial IV 08/31/23 20:59 30 mg Q6H ROLAND Administration Lactulose 30 gm 08/27/23 09:45 08/28/23 08:40 Lactulose Syrup 20 Gm/30 Ml Udc PO 09/26/23 09:44 Not Given DAILY ROLAND Levothyroxine Sodium 50 mcg 08/25/23 06:30 08/29/23 05:29 Levothyroxine Sodium 50 Mcg Tablet PO 09/24/23 06:29 Not Given DAILYBB ROLAND Linaclotide 290 mcg 08/25/23 09:00 08/28/23 08:41 Linaclotide 145 Mcg Capsule PO 09/24/23 08:59 290 mcg QAM ROLAND Administration Loratadine 10 mg 08/25/23 21:00 08/28/23 22:09 Loratadine 10 Mg Tab PO 09/24/23 20:59 10 mg HS ROLAND Administration Melatonin 3 mg 08/25/23 03:46 08/27/23 02:08 Melatonin 3 Mg Tab PO 09/24/23 03:45 3 mg HS PRN Administration Insomnia Miscellaneous 1 each 08/25/23 08:00 08/28/23 07:31 Ubrelvy~Order Awaiting Action N/A 09/24/23 07:59 1 each QS ROLAND Administration Nystatin 5 ml 08/27/23 21:00 08/28/23 22:09 Nystatin Susp 500,000 U/5 Ml Udc PO 09/26/23 20:59 Not Given QID ROLAND Ondansetron HCl 4 mg 08/25/23 03:46 08/25/23 08:00 Ondansetron 4 Mg Od Tab PO 09/24/23 03:45 4 mg Q6H PRN Administration nausea and vomiting Polyethylene Glycol 34 gm 08/27/23 09:00 08/28/23 08:40 Polyethylene (Miralax) 17 Gm Pack PO 09/26/23 08:59 Not Given DAILY ROLAND Promethazine HCl 25 mg 08/25/23 03:46 08/26/23 17:34 Promethazine Hcl 25 Mg Tab PO 09/24/23 03:45 25 mg BID PRN Administration NAUSEA/VOMITING Sennosides 17.2 mg 08/27/23 09:45 08/28/23 08:42 Senna 8.6 Mg Tab PO 09/26/23 09:44 Not Given QAM ROLAND Zolpidem Tartrate 10 mg 08/25/23 03:46 08/28/23 22:09 Zolpidem Tartrate 10 Mg Tab PO 09/24/23 03:45 10 mg HS ROLAND Administration NPO Date Last Intake of Fluids: 08/28/23 Time Last Intake of Fluids: 23:59 Date Last Intake of Solids: 08/28/23 Time Last Intake of Solids: 18:00 Past Medical History Medical History Hypomagnesemia Hypokalemia Family history of bowel obstruction UTI (urinary tract infection) currently on abx Hx of seizure disorder no meds current, going to [facility] in September 2023, last seizure approx July 2022 Lyme disease (~05/2023) recent admit to [facility], treated IV abx x 5 days History of COVID-19 (~2021) x 3 > not hospitalized Poor intravenous access HX: breast cancer "STAGING: Left breast, invasive ductal carcinoma, grade 2, ER/Her2 positive, FL negative, [id number], stage IA TREATMENT: 1. Lumpectom/SLN - 04/03/2015 2. Re-excision to obtain negative margins - 12/11/2015 3. Partial course of chemotherapy - Taxotere/Carboplatin/Herceptin - 5 cycles. Patient has refused further treatment including Herceptin. " Nausea and vomiting after administration of anesthetic agent Lupus Depression Anxiety GERD (gastroesophageal reflux disease) Fibromyalgia Breast cancer "STAGING: Left breast, invasive ductal carcinoma, grade 2, ER/Her2 positive, FL negative, [id number], stage IA TREATMENT: 1. Lumpectom/SLN - 04/03/2015 2. Re-excision to obtain negative margins - 12/11/2015 3. Partial course of chemotherapy - Taxotere/Carboplatin/Herceptin - 5 cycles. Patient has refused further treatment including Herceptin. " Migraines Hypothyroidism Past Family History Family History Other Breast cancer Heart disease Past Surgical History Surgical History History of infusaport central venous catheter insertion (~2022) [place], placed at [facility], flushed q 6 weeks Hx of bilateral mastectomy S/P CARRIE (total abdominal hysterectomy) Hx of neck surgery History of cholecystectomy S/P appy Social History Smoking Status: Never smoker Do You Dip or Chew Tobacco: No Hx Alcohol Use: No Hx Substance Use: No substance use type: does not use Physical Exam Vital Signs Last Vital Signs Temp 98.1 F 08/29/23 07:55 Pulse 64 08/29/23 07:55 Resp 16 08/29/23 07:55 BP 128/85 08/29/23 07:55 Pulse Ox 98 08/29/23 07:55 O2 Del Method Room Air 08/29/23 07:55 Testing Laboratory Results 08/29/23 07:29 PT 11.2 Seconds (9.0-12.0) 08/24/23 21:49 INR 1.0 (0.9-1.1) 08/24/23 21:49 APTT 29 Seconds (21-31) 08/24/23 21:49 Urine Color Yellow 08/25/23 Unknown Urine Appearance Clear (Clear) 08/25/23 Unknown Urine pH 6.0 (4.5-7.5) 08/25/23 Unknown Ur Specific [place] 1.007 (1.000-1.030) 08/25/23 Unknown Urine Protein Negative (Negative) 08/25/23 Unknown Urine Glucose (UA) Negative (Negative) 08/25/23 Unknown Urine Ketones Negative (Negative) 08/25/23 Unknown Urine Nitrite Negative (Negative) 08/25/23 Unknown Ur Leukocyte Esterase Trace (Negative) H 08/25/23 Unknown Urine WBC (Auto) 1-5 /hpf (0-5) 08/25/23 Unknown Urine RBC (Auto) 0-4 /hpf (0-4) 08/25/23 Unknown U Hyaline Cast (Auto) 0 /lpf (0-5) 08/25/23 Unknown U Epithel Cells (Auto) 10-20 /lpf (0-5) H 08/25/23 Unknown Urine Bacteria (Auto) Negative (Negative) 08/25/23 Unknown 08/24/23 21:54 Aerobic Blood Culture - Preliminary Blood No growth in Aerobic bottle after 48 hours. Anaerobic Blood Culture - Preliminary No growth in Anaerobic bottle after 48 hours. 08/24/23 21:49 Aerobic Blood Culture - Preliminary Blood No growth in Aerobic bottle after 48 hours. Anaerobic Blood Culture - Preliminary No growth in Anaerobic bottle after 48 hours. Electrocardiogram Date: 06/15/23 Normal sinus rhythm, rate 93 bpm Abnormal anterior T wave inversions When compared with ECG of 15-SEP-2022 08:32, Vent. rate has increased BY 31 BPM QT has lengthened Confirmed by Murali Castro ([id number]) on 06/16/2023 5:28:10 PM
[2023-08-29] MEDS: CLINDAMYCIN/D5W 900 MG/50 ML BAG IV ONE (14:53)
[2023-08-29] MEDS ORDERED: PROPOFOL IV EMULSION 10 MG/ML 20 ML VIAL IV ONE ×2 (16:25→16:51)
[2023-08-29] MEDS ORDERED: ONDANSETRON INJ 2 MG/ML 2 ML VIAL ONE (16:25)
[2023-08-29] MEDS ORDERED: fentaNYL citrate PF 100 MCG/2 ML VIAL ONE (16:25)
[2023-08-29] MEDS ORDERED: LIDOCAINE 2% 2 ML VIAL/AMP(20MG/ML) INFIL ONE (16:25)
[2023-08-29] MEDS ORDERED: MIDAZOLAM HCL 1 MG/ML 2ML VIAL ONE (16:25)
[2023-08-29] MEDS ORDERED: DEXAMETHASONE SOD INJ 4 MG/ML VIAL ONE (16:25)
[2023-08-29] MEDS ORDERED: SUCCINYLCHOLINE 100MG/5ML SYR IV ONE (16:26)
[2023-08-29] MEDS ORDERED: ROCURONIUM BROMIDE 10 MG/ML 5 ML VIAL IV ONE (16:26)
[2023-08-29] MEDS ORDERED: ONDANSETRON INJ 2 MG/ML 2 ML VIAL IV PRN (16:27)
[2023-08-29] MEDS ORDERED: ePHEDrine sulfate 50 MG/ML AMP IV PRN (16:27)
[2023-08-29] MEDS ORDERED: ATROPINE SULFATE 0.1 MG/ML 10ML SYR IV PRN (16:27)
--- NOTE | 2023-08-29 16:31 | History & Physical Bridge Note ---
Date of Service August 29, 2023 History & Physical Bridge Note I have examined the patient, reviewed the History & Physical and in the interval since the performance of the History & Physical I have noted the following changes of clinical significance: no changes noted Plan extraction of # 19, I&D left masseter space and periosteal space. Excision mass right oral cheek
[2023-08-29] MEDS: CLINDAMYCIN/D5W 900 MG/50 ML BAG IV SCH (16:35)
[2023-08-29] MEDS: BUPIVACAINE/EPINEPHRINE 0.5% 1:200,000 1.8 ML CARP ONE (16:51)
[2023-08-29] MEDS: CHLORHEXIDINE GLUCONATE 0.12% 480 ML MT ONE (16:51)
[2023-08-29] MEDS ORDERED: SUGAMMADEX SODIUM 200 MG/2 ML VIAL IV ONE (17:25)
[2023-08-29] MEDS: fentaNYL citrate PF 100 MCG/2 ML VIAL IV PRN (17:45)
--- NOTE | 2023-08-29 17:47 | Post Operative Brief Note ---
PG Immediate Post Op with CF Date of Surgery August 29, 2023 Pre & Post Diagnosis Operation Date: 08/29/23 07:00 Pre-Op Diagnosis: 1. Fracture of tooth #19 2. Cellulitis of Face 3. traumatic fibroma right oral mucosa Post-Op Diagnosis: 1. Fracture of tooth #19 2. Cellulitis of Face 3. traumatic fibroma right oral mucosa I identified the patient and participated in the time-out.: Yes Procedure Operation Date: 08/29/23 07:00 Actual Procedures p Incision and Drainage of Left Submandibular and Mucobuccal Abscess(Left) - Peyman Jamil DMD s Tooth Extraction #19(Left) - Peyman Jamil DMD s Excision mass Right oral cheek(Right) - Peyman Jamil DMD Surgeon Peyman Jamil DMD Control Tower Radio Operator none Estimated Blood Loss 2 Findings Consistent with Post-Op Diagnosis Acute facial swelling left lower abscessed # 19, traumatic fibroma right oral mucosa Specimens Specimen Description: Culture: 1. Left Submandibular Space Abscess-aerobic, anaerobic, gram stain Perminent: A. Fibroma Right Cheek Anesthesia Type General Complications none Disposition Accompanied Patient To Recovery: Yes
[2023-08-29] MEDS: CLINDAMYCIN 900 MG/D5W 50 ML BAG IV ONE (17:52)
--- NOTE | 2023-08-29 18:00 | Operative Report ---
PG Post Operative Report Pre & Post Diagnosis Operation Date: 08/29/23 07:00 Pre-Op Diagnosis: 1. Fracture of tooth #19 2. Cellulitis of Face 3. traumatic fibroma right oral mucosa Post-Op Diagnosis: 1. Fracture of tooth #19 2. Cellulitis of Face 3. traumatic fibroma right oral mucosa I identified the patient and participated in the time-out.: Yes Procedure Operation Date: 08/29/23 07:00 Actual Procedures p Incision and Drainage of Left Submandibular and Mucobuccal Abscess(Left) - Peyman Jamil DMD s Tooth Extraction #19(Left) - Peyman Jamil DMD s Excision mass Right oral cheek(Right) - Peyman Jamil DMD Surgeon Peyman Jamil DMD Personnel Associate none Estimated Blood Loss 2 Findings Consistent with Post-Op Diagnosis Specimens traumatic fibroma right oral mucosa C and S left facial abscess Drains none Anesthesia Type General Complications none Disposition Accompanied Patient To Recovery: Yes Indications Acute facial infection, traumatic fibroma right oral mucosa Description of Procedure Actual Procedures p Incision and Drainage masseter space, subperiosteal and submandibular space abscess; Removal of Tooth #19, excision of traumatic fibroma right oral mucosa (Not Applicable) - Peyman Jamil DMD Once cleared for surgery general anesthesia was achieved, the eyes were protected by the anesthesia dept criteria. A time out was take for patient ID, antibiotics, equipment and position verification once all agreed the procedure began. Local anesthesia using Marcaine with a vasoconstrictor (1.8 ml per site) given into left inferior alveolar nerve and right cheek mucosa A throat pack was placed after the oral cavity was irrigated with saline. Once a surgical level of anesthesia was obtained and the local anesthesia was given time for the blocks the surgery was started. I turned my attention to the infection which was located in the left subper iosteal space and submandibular and masseter space area. There was swelling associated with tooth # 19 ( see CT scan report) Incision and Drainage CPT 30278 inner layer scrubber tender space abscess Using a 15 blade an incision was made lateral to the alveolar ridge and medial to the vestibular fold in the area of greatest fluctuance. Once the incision was made a lot of pus extruded from the site. This drainage was cultured for anaerobic and aerobic bacteria. A curved hemostat was carefully placed into the infected space along the lateral side of the lower jaw and into the submandibular / masseter space. Some further drainage was now allowed to escape. I palpated the cheek and submandibular area and no further drainage was expressed. The area was irrigated with at least 100 ml of NS solution. I now turned my attention to remove the # 19 tooth. Lower tooth # 19 [id number] The full thick Muco-periosteal flap was made on the facial aspect from the retr omolar area to area # 22. The flap was reflected to expose the the subperiosteal space the bone adjacent to # 19. The rogues was used to remove bone, the tooth was removed with a 301 elevator and cowhorn dental forceps, the mental nerve was intact, there was a large amount of granulation tissue on the apex and some more pus that was expressed. The socket was curetted and then sutured to allow further drainage with a 2-0 chromic. Right side traumatic fibroma CPT 38538 1 cm exophytic fibrotic mass with a papilloma like appearance was located at the right corner of the mouth (mucosa) An Incision was made around the mass. The full thickness tissue biopsy was of the lesion was taken. The deep structures were not involved. The tissue margins were treated with a low dose electrosurg setting to coagulate and bleeding. The lesion was delivered for pathology evaluation. The 1 cm excision site was primarily closed with 4-0 chromic sutures. I inspected the sites to insure all bleeding was controlled. I removed the throat pack and suctioned the throat. A gauze pressure dressings was placed. All instrument and sponge count was correct. The patient was allowed to awake from the anesthesia. Once full awake the anesthesia tube was removed and the patient was taken to the recovery room with all vital sign stable. The patient tolerated the surgery very well. I will follow the patient in my office, Rx and instructions will be given upon discharge. I attest to the content of the Intraoperative Record and any orders documented therein. Any exceptions are noted below.
[2023-08-29] MEDS: HEPARIN 100 UNIT/ML 5ML FLUSH FLUSH PRN (18:31)
--- NOTE | 2023-08-29 19:11 | Anesthesiology Progress Note ---
Date of Service August 29, 2023 Anesthesia Post Procedure Vital Signs Vital Signs: Temp Pulse Resp BP BP Pulse Ox O2 Del Method 08/29/23 19:00 98.1 F 73 14 129/77 96 Room Air 08/29/23 18:25 98.4 F 79 14 132/82 96 Room Air 08/29/23 18:15 98.8 F 72 21 136/95 94 Room Air 08/29/23 18:05 98.8 F 71 18 136/96 99 Room Air 08/29/23 17:55 64 18 138/90 99 Oxymask 08/29/23 17:45 78 20 136/88 100 Oxymask 08/29/23 17:35 80 21 148/72 H 100 Oxymask 08/29/23 17:29 97.5 F L 97 H 14 126/93 100 Oxymask 08/29/23 16:07 99.9 F H 87 15 139/86 96 Room Air 08/29/23 15:20 98.8 F 80 14 125/82 97 Room Air 08/29/23 07:55 98.1 F 64 16 128/85 98 Room Air 08/28/23 22:00 Room Air 08/28/23 20:17 98.6 F 77 14 128/84 97 Room Air O2 Flow Rate 08/29/23 19:00 08/29/23 18:25 08/29/23 18:15 08/29/23 18:05 08/29/23 17:55 3 08/29/23 17:45 3 08/29/23 17:35 3 08/29/23 17:29 5 08/29/23 16:07 08/29/23 15:20 08/29/23 07:55 08/28/23 22:00 08/28/23 20:17 Pain Intensity Left Face: Pain Intensity: 7 Transfer of Care Handoff Completed per policy Notes Mental Status: alert / awake / arousable and participated in evaluation Patient Amnestic to Procedure: Yes Nausea / Vomiting: adequately controlled Pain: adequately controlled Airway Patency, RR, SpO2: stable & adequate BP & HR: stable & adequate Hydration State: stable & adequate Anesthetic Complications: no major complications apparent and Pt Satisfied with anesthetic care
--- NOTE | 2023-08-29 19:31 | Billing Data ---
Date of Service August 29, 2023 Coding Level of Care Code 67429 SUB INP/OBS CARE
[2023-08-29] MEDS: POLYETHYLENE (MIRALAX) 17 GM PACK PO SCH (21:35)
[2023-08-29 22:01] LABS: Appearance Urine Clear (Clear); Bilirubin Urine Negative (Negative); Blood Urine Negative (Negative); Color Urine Yellow; Glucose Urine UA Negative (Negative); Ketones Urine Negative (Negative); Leukocyte Esterase Urine Negative (Negative); Nitrite Urine Negative (Negative); Protein Urine Negative (Negative); Specific Gravity Urine 1.011 (1.000-1.030); Urobilinogen Urine Negative (Negative); pH Urine 7.5 (4.5-7.5)
[2023-08-30] MEDS: MoRPHine SULFATE 2 MG/ML CARP IV ONE (02:04)
--- NOTE | 2023-08-30 07:33 | Discharge Summary ---
Date of Service August 30, 2023 Admission HPI Per Admitting Provider Yvonne is a 53F w/ PMH of seizures, migraines, depression, anxiety, lupus, GERD, fibromyalgia, hypothyroidism, and breast cancer (s/p excision & chemotherapy) who presented to the ED for facial swelling. Patient notes that 2 weeks ago she was eating a [employer] and broke a molar on the right side. Last night she started to notice swelling on the right side of her face. Today it progressed in to redness and pain. She now has discomfort opening and closing her mouth. She denies tongue pain or swelling. No dysphagia or difficulty breathing. She denies chest pain or dyspnea. She endorses left sided ear pain w/o difficulty hearing. She denies vision changes or eye pain. She endorses headaches, but these are chronic for her. She notes a fever of 100.4 at home and occasional chills. She has not had a similar episode before and tried nothing to treat her symptoms at home. She does have a right chest port, but notes that she is not actively receiving chemotherapy. She states that she had it placed this summer because of difficulty with lab draws after receiving chemotherapy. She has had no swelling or erythema at the site. Admission Exam Per Admitting Provider Gen: NAD, alert, interactive HEENT: Supple, no LAD, no thyromegaly, no JVD, TM normal bilaterally Resp:Non-labored, no wheezing/rhonchi/rales, CTAB CV:RRR, normal S1/S2, no M/R/G Abd: Soft, mildly distended, no TTP, normoactive bowels, no masses Extr: 2+ dp bilaterally, no edema Skin: Left facial erythema/edema along the mandible, extending from the pre- auricular to perioral area - Right chest port intact w/o erythema Oral: Evidence of poor dentition and a cracked molar on the left, no intraoral masses, ulcers, or lesions, MMM Principal Diagnosis Facial cellulitis Discharge Exam Constitutional: well-appearing, no acute distress HEENT: NCAT, no conjunctival injection CV: regular rhythm, no murmur appreciated, extremities well-perfused, no LE edema Resp: CTABL, no wheezes/rales/rhonchi appreciated, no increased work of breathing GI: soft, nondistended, nontender, BS normoactive MSK: no gross deformities appreciated Skin: warm, dry, no rash appreciated Neuro: alert, oriented, no focal neurologic deficit appreciated Discharge Data Allergies Allergy/AdvReac Type Severity Reaction Status Date / Time cephalexin Allergy Severe Hives, Verified 08/17/23 11:25 throat swelling Iodinated Contrast Media Allergy Severe Throat Verified 08/17/23 11:25 swells - IV contrast Penicillins Allergy Severe HIVES, Verified 08/17/23 11:25 THROAT SWELLING adhesive Allergy Intermediate TAPE- HIVES Verified 08/17/23 11:25 codeine Allergy Intermediate Hives Verified 08/17/23 11:25 gentamicin Allergy Intermediate Hives Verified 08/17/23 11:25 latex Allergy Intermediate SWELLS AND Verified 08/17/23 11:25 HIVES loratadine Allergy Intermediate Hives Verified 08/17/23 11:25 strawberry Allergy Intermediate HIVES Verified 08/17/23 11:25 Sulfa (Sulfonamide Allergy Intermediate Hives Verified 08/17/23 11:25 Antibiotics) tramadol Allergy Intermediate Hives Verified 08/17/23 11:25 vancomycin Allergy Intermediate HIVES Verified 08/17/23 11:25 Consultations 08/25/23 01:13 ED Decision to Admit Stat 08/28/23 12:44 Consult Oromaxillofacial Surgery Routine Procedures Performed Operation Date: 08/29/23 07:00 Actual Procedures p Incision and Drainage of Left Submandibular and Mucobuccal Abscess(Left) - Peyman Jamil DMD s Tooth Extraction #19(Left) - Peyman Jamil DMD s Excision mass Right oral cheek(Right) - Peyman Jamil DMD Ordered Studies 08/24/23 22:55 CT soft tissue neck wo con Stat Soft Tissue Neck CT 08/24/23 22:55 Exam(s): CT NECK Without Contrast EXAM: CT Neck Without Intravenous Contrast CLINICAL HISTORY: Reason for exam: left facial swelling, dental infection. TECHNIQUE: Axial computed tomography images of the neck without intravenous contrast. CTDI is 13.13 mGy and DLP is 414.61 mGy-cm. Automated exposure control was utilized for the study. A dose lowering technique was utilized adhering to the principles of ALARA. Severe Limited evaluation due to patient motion, numerous bilateral metal earrings, and lack of IV contrast. COMPARISON: Ultrasound of the neck 06/19/23 FINDINGS: Oropharynx: Unremarkable. No significant tonsillar enlargement. Hypopharynx: Unremarkable. Larynx: Unremarkable. Normal epiglottis. Trachea: Unremarkable. Retropharyngeal space: Unremarkable. Submandibular/parotid glands: Nondiagnostic evaluation bilateral parotid glands due to earrings. Thyroid: Unremarkable. No enlarged or calcified nodules. Bones/joints: No acute fracture. There is periapical lucency involving left mandibular premolar teeth, probably 18 and 19. Soft tissues: Moderate superficial cellulitis overlying the left mandible. Typically, cellulitis in this region relates to dental infection. No definite abscess. No soft tissue air or sublingual involvement to suggest a Ruperto angina. Vasculature: No acute findings. Lymph nodes: Unremarkable. No lymphadenopathy. Lung apices: Unremarkable as visualized. IMPRESSION: 1. Moderate superficial cellulitis in the left face. 2. May relate to dental caries involving left mandibular premolar teeth. 3. No abscess or soft tissue air. 4. Significant limited evaluation as patient has multiple earrings resulting in metal artifact, and the exam was performed without contrast. Electronically signed by: Karin Nam M.D. 08/25/23 01:04 AM Hospital Course (1) Cellulitis of face: Yvonne is a 53F w/ PMH of seizures, migraines, depression, anxiety, lupus, GERD, fibromyalgia, hypothyroidism, and breast cancer (s/p excision & chemotherapy) who presents to the ED for facial swelling. Facial Cellulitis | Poor Oral Dentition -1 day of left facial swelling, pain, and erythema along mandible -No difficulty swallowing/breathing, afebrile -No leukocytosis, chronic anemia -CT Indicating left facial cellulitis w/ possible a/w dental carries, no abscess -Blood cultures negative -Continue Clindamycin 900 mg q8h x 10 days switch to PO 450mg Q8H on 08/27 last dose 09/02 -OMFS consultation, inpatient surgery scheduled for 08/28. -08/28, incision and drainage at the left submandibular and mucobuccal abscess, tooth extraction on the left, and excisional mass right oral cheek. -Pain control with Tylenol, ibuprofen, and oxycodone for breakthrough pain Hypokalemia | Hypomagnesemia -Replete as needed. Constipation -Patient's reported last bowel movement over a week ago. -Most recent attempted colonoscopy on 08/16 abandoned due to moderate stool burden without obstruction. -S/p spot dose of milk of magnesia on 08/25. -Increased MiraLAX to 34 g twice daily scheduled. -Lactulose 30 g daily scheduled -Senokot 17.2 mg daily -Will send home on GoLytely, 240 mL every 10 minutes until completion of 1 gallon. -Follow-up with PCP. Chronic Conditions: * Seizures: Last episode in 2022, Neurology appointment upcoming, no active medications * Migraines: Continue home medication * Anxiety/Depression: Continue home medication * GERD: Converted home PPI to IV. Added IV famotidine. * Hypothyroidism: Continue Levothyroxine * Breast Cancer: S/p excision and chemo, not actively receiving chemotherapy, but has port in right upper chest (2) Fracture of tooth: (3) Hypokalemia: (4) Hypomagnesemia: (5) Migraine: (6) Insomnia: (7) Depression with anxiety: (8) GERD (gastroesophageal reflux disease): (9) Breast cancer: (10) Hypothyroidism: Total Time Total Time Spent Total Time Spent (In Minutes): <30 mins Discharge Plan Discharge Items Patient Disposition: Home - Self-Care Reason For Visit: FACIAL SWELLING Discharge Diagnosis: Facial Cellulitis Condition on Discharge: Good Activity: Resume your previous activity Lifting: Gradually increase as tolerated Bathing: No limitations Exercise/Sports: Gradually increase as tolerated Driving/Machine Use: Resume 1 day after discharge Weightbearing: Full weightbearing Non-emergency contact: Primary Care Provider and Surgeon Call non-emergency contact if: you have any medication questions, your pain is concerning for you and your temperature is above 101.5 Follow-up/Referrals: Peyman Jamil DMD [Physician] - 09/12/23 3:15 pm Louann Corrales DO [Primary Care Provider] - 09/04/23 9:45 am Diet: Vegetarian (Lacto-Ovo) Diet Texture: Easy to Chew Addtl Attending Provider Instructions: You were admitted to the hospital for Facial cellulitis. You were treated with incision and drainage, tooth extraction, excision mass right oral cheek, and antibiotics. A discharge summary will be sent to your primary care physician to ensure continuity of care. Please bring this discharge summary with you to your next office appointment so that your provider can review it at that time. Follow-up appointments: * Make a follow-up appointment with your PCP within the next week. It is very important that you follow up with them shortly after discharge from the hospital. * We have requested a follow-up appointment with Dr. Jamil for follow up on * Keep all your follow-up appointments as already scheduled. If you cannot make an appointment, notify your provider. Medications: Your medication list has been reviewed and reconciled upon discharge to ensure accuracy and continuity of care. An updated list of all your medications is included with your hospital discharge paperwork. Please review this list closely, and make note of any changes. * We sent a new medication called Clindamycin to your pharmacy. Take Clindamycin 450mg every 8 hours for 6 days. * We sent a new medication called oxycodone to your pharmacy. Take oxycodone 5mg as needed for pain every 8 hours. * Take Tylenol 500 mg (2 tabs) every 6 hours. In between scheduled Tylenol please alternate with ibuprofen 200 mg (2 tabs) every 6 hours. * We sent a new medication called Golyetely to your pharmacy. Take Golyetely 240mL every 10 minutes until gone. * If you have any issues filling these prescriptions, please call [phone] and ask to leave a message for Dr. Pierre. * Take your medications as instructed; do not skip a dose of your medicines. Make sure all of your doctors know every medicine you are taking (including yhkl-bhq-devrhaw medicines, vitamins, and supplements). Call your primary care provider before taking any new medicines (including over- the-counter medicines, vitamins, and supplements), because some of these may interact with your current medications, or may make your symptoms worse. Tell your primary care provider if you cannot afford your medications. CONTACT YOUR PRIMARY CARE PROVIDER if you experience any of the following: * Worsening of symptoms * Fever, chills, or fatigue * Difficulty following your treatment plan, or difficulty taking medications CALL 911 OR GO TO THE EMERGENCY DEPARTMENT if you experience any of the following: * Sudden, severe abdominal pain or nausea/vomiting * Severe chest pain, or chest pain that radiates (moves) to your jaw or arm * Sudden, severe shortness of breath or difficulty breathing Thank you for allowing us to participate in your care. ADDITIONAL ACTIVITY RECOMMENDATIONS: * [place] teeth after every meal. It is very important to keep your mouth clean to prevent infection. * Starting tonight rinse with the Peridex as directed then 2 x a day * it is very important to keep well hydrated, this prevents fever and possible dry socket pain SPECIAL CARE INSTRUCTIONS: *It is not uncommon that between day 2-4 that your swelling will be at its worst this is very normal, do not be alarmed. * Keep ice on the side of your face for the next 24 to 36 hours. This will help keep the swelling down. * After 36 hours, apply heat (hot water bottle or heating pad) for the next two days, as often as possible. * Tomorrow start rinsing your mouth with 1/2 teaspoon salt in 8 ounces warm water. This rinse should be used every 4-6 hours. * You may experience slight nausea. To prevent this, never take your medication on an empty stomach. If nauseated, take small sips of amaya rohith until you feel better; then you may start on applesauce and toast. * Some swelling is common. It should gradually decrease within 4-5 days. * A certain amount of bleeding is to be expected. It is often possible to control mild oozing by placing folded gauze over the area and biting down for 30 minutes. If you are unable to control excessive bleeding, call Dr Jamil at [phone] * You may experience some discomfort for a few days. If pain or swelling increases, Call Dr Jamil * Return to the office for a follow up check up on: Please call office to set up your follow up with Dr Jamil for 10-14 days from today * office address--[address] phone # [phone] Pending Studies at Discharge: No Stand-Alone Forms: [facility] [employer], Smoking Cessation Medications and DC Order Prescriptions: New clindamycin HCl 150 mg Capsule 450 mg PO Q8H 6 Days Qty: 54 0RF peg 3350-electrolytes [Golytely] 236-22.74-6.74 -5.86 gram recon soln 240 ml PO Q10M Qty: 4000 1RF oxycodone 5 mg tablet 5 mg PO TID PRN (Reason: pain) Qty: 10 0RF Continued sodium,potassium,mag sulfates [Suprep Bowel Prep Kit] 17.5-3.13-1.6 gram recon soln See Rx Instructions PO .COMPLEX Qty: 354 0RF Rx Instructions: TAKE DIRECTED PER SPLIT DOSE INSTRUCTIONS levothyroxine 50 mcg tablet 50 mcg PO QAM atorvastatin 20 mg tablet 20 mg PO HS promethazine 25 mg tablet 25 mg PO BID PRN (Reason: NAUSEA/VOMITING) zolpidem 10 mg tablet 10 mg PO HS Ubrelvy 50 mg tablet 50 mg PO DAILY PRN (Reason: migraines) omeprazole 20 mg capsule,delayed release(DR/EC) 20 mg PO HS clonazepam 0.5 mg tablet 0.5 mg PO TID PRN (Reason: Anxiety) cyclobenzaprine 5 mg tablet 5 mg PO TID PRN (Reason: Muscle Spasm) loratadine 10 mg tablet 10 mg PO HS ibuprofen 600 mg tablet 600 mg PO TID PRN (Reason: Pain) Qty: 90 0RF linaclotide 290 mcg capsule 290 mcg PO QAM ondansetron 4 mg tablet,disintegrating 4 mg PO Q6H PRN (Reason: nausea and vomiting) Qty: 15 0RF lactulose [Enulose] 10 gram/15 mL solution 15 ml PO DAILY PRN (Reason: Constipation) diclofenac sodium 1 % gel 4 g topical QID PRN (Reason: Pain) Rx Instructions: apply to neck Discharge Orders: Discharge Order (Routine); Ordered 08/30/23 Ordered By: Remy Parish/Other Patient Handouts: ED Abscess Dental Cellulitis Admission Data Admit Date/Time: 08/25/23 02:00 Attending Provider: Robe Riley Admit Provider: Segun Lacey Primary Care Provider: Louann Corrales Other Providers: Toya Torres; Peyman Jamil Other Interventions: Discharge Summary Assessment (RN) Last Done: 08/30/23 14:41 Supervising Physician Co-Signing Physician Notes I personally examined the patient and verified all baird points of history and exam, discussed case, and agree with decision making with Dr Gabby Silva pain feeling better. Feeling better overall postop. Feels up to going home. Extensive discussion on constipation. Vitals noted, in general she is awake and alert pleasant no distress. HEENT normocephalic atraumatic mucous membranes moist. Breathing unlabored no accessory muscle use good effort. Skin shows no rashes no pallor or icterus. Facial swelling has visually resolved. Skin without rashes pallor icterus Left facial cellulitis - improving. Finish course of clindamycin. Outpatient pain controldiscussed that postop dental pain certainly reasonable to utilize a short course of narcotics, but that also this will impact constipation adversely. Outpatient PCP and maxillofacial follow-up. chronic constipation -she is fairly stubborn constipationto the point that she even failed a Sutab prep for colonoscopy recently. Discussed that while rare, we have actually seen fairly similar cases of constipation recentlyand probably just need to be fairly aggressive at clearing the constipation so that a maintenance regimen is more feasible. Given that she failed Sutabwill go with a gallon of GoLytely, with the presumption she may need a 2-day bowel prep given her lack of response to other aggressive measures. Discussed taking some time to heal from the dental surgery firstwe both agreed that this weekend would be a reasonable starting time. To try to make it "less unpleasant" we discussed utilizing MiraLAX 5 times a day leading up to it, as well as probably doing a fleets enema for several days leading up to itand then utilizing a gallon of GoLytelywith the anticipation that she will probably have rather copious stools, but that in the last she has moved large amounts of brown stool followed by clear liquid stools, she should proceed to the second gallon of GoLytely on day 2with the same strategy. After that follow-up with her PCP for ongoing titration of MiraLAX and/or Linzess as maintenance dosing. We discussed colonoscopy is quite reasonableand that once we have her bowels moving better, hopefully the bowel prep for the colonoscopy would allow for an actual visualization during scope. DVT proph - lovenox Resident Activity Tracking Resident Involvement: Resident Care Provided Care Provided: Adult Hospital Medicine
[2023-08-30 08:20] LABS: Basophils # (auto) 0.05 K/uL (0.00-0.20); Basophils % (auto) 0.4 %; Eosinophils # (auto) 0.01 K/uL (0.00-0.50); Eosinophils % (auto) 0.1 %; Hematocrit (blood only) 30.4 % (37.0-47.0); Hemoglobin 9.9 g/dl (12.0-16.0); Immature Granulocytes # (auto) 0.22 K/uL (0.01-0.20); Immature Granulocytes % (auto) 1.9 %; Lymphocytes # (auto) 1.91 K/uL (1.20-3.40); Lymphocytes % (auto) 16.5 %; Mean Corpuscular Hemoglobin 28.4 pg (25.0-34.0); Mean Corpuscular Hgb Conc 32.6 g/dL (32.0-36.0); Mean Corpuscular Volume 87.4 fL (80.0-100.0); Mean Platelet Volume 9.5 fL (9.4-12.4); Monocytes # (auto) 1.03 K/uL (0.11-0.59); Monocytes % (auto) 8.9 %; Neutrophils # (auto) 8.38 K/uL (1.40-6.50); Neutrophils % (auto) 72.2 %; Platelet Count 417 K/uL (130-400); RDW Coefficient of Variation 12.2 % (11.5-14.5); RDW Standard Deviation 38.9 fL (36.4-46.3); Red Blood Count 3.48 M/uL (4.20-5.40)
[2023-08-30 08:52] LABS: BUN Creatinine Ratio 21.8 (10-20); Calcium 9.4 mg/dl (8.6-10.3); Creatinine Clr Calc Pharmacy 68.9 ml/min; Est GFR (African American) 101.3 ml/min; Est GFR (Non-African American) 87.4 ml/min; Potassium 4.2 mmol/L (3.5-5.1)
--- NOTE | 2023-08-30 19:12 | Billing Data ---
Date of Service August 30, 2023 Coding Level of Care Code 14620 IN/OBS DISCH 30 MIN/LESS
== END 2023-08-30 15:46 | disposition home or self-care (01) | DRG 581 ==
LOC: ED 19:27 → EDINP 08-25 02:00 → SUATTDRO 08-25 02:00 → 3N 08-25 03:27

== ENCOUNTER 2024-06-15 19:33 | Observation (INO) ==
--- NOTE | 2024-06-15 20:07 | Emergency Department Note ---
Impression & Plan Syncope, Headache, Cough, Anemia ED Provider Note NAME: JERSON JOHNSON AGE: 54 SEX: F : 1970 ARRIVES VIA: Walk-In INFORMANT: Patient, ED PROVIDER(S): Rogelio Apodaca MD CHIEF COMPLAINT: Syncope, headache, sore throat MEDICAL DECISION MAKING: Patient does present with multiple complaints concerning of the patient's reports of 3 episodes of syncope today as well as 1 today. IV was established and blood work is obtained. Patient's headache was treated with IV Toradol Zofran and fluids. Patient also had requested IV Benadryl which was ordered. CT head obtained in light of patient's prior history of breast cancer although the patient reports that she is in remission. BioFire and strep tests also obtained. Blood work shows a normal white count hemoglobin of 10.9 which is chronic and stable. Platelet count is unremarkable. Kidney function with prerenal azotemia noted. Patient does have an elevated BUN/creatinine ratio but no reports of GI bleeding related symptoms dark stools or bloody stools. Troponin negative. BioFire negative. Strep negative. The patient's CT head and chest x-ray are unremarkable. Patient was still complaining of headache so was ordered additional IV medications to help with headache. I did inform the patient the findings. Given the patient has had 4 episodes syncope in last 24 hours to believe she would benefit from telemetry monitoring as well as further testing. Patient is comfortable plan of care. I did speak the on-call hospital service Dr. Torres and the patient was admitted to the medicine service. Discussion w/ other healthcare providers: Dr. Torres inpatient medicine service Prior /Outside records reviewed: None Differential diagnosis: Vasovagal event, dehydration, infection, hypoglycemia, electrolyte abnormalities, arrhythmia, pulmonary embolism, seizure among others were considered. Diagnostics, as interpreted by me: ECG: Normal sinus rhythm, rate of 90, normal intervals, normal axis no ST elevations incomplete right bundle branch block, T wave version in V2. Cardiac monitoring: An order was placed for continuous cardiac monitoring. The monitor shows a rate of 88 with sinus rhythm. Patient was placed on pulse oximetry Medical decision rules: none Imaging studies: I informally interpreted the patient's chest x-ray does not show evidence of obvious pneumonia shows with formal report to follow. HPI: Patient presents due to concern for syncope. The patient reports that she had 3 episodes of syncope yesterday as well as 1 today. The patient denies any change in position that would have exacerbated this her coughing fits. The patient states that she has had some associated cough with productive sputum. Patient is a non-smoker. History of breast cancer but in remission. Patient denies any chest pains or shortness of breath but did have nausea and vomiting yesterday. Known history of seizures and reports that one of her passing out episode yesterday was witnessed no seizure-like activity no tongue biting or incontinence. Patient states that she did have some syncope several months ago. Patient states that she is taking Keppra for her known history of seizures and is compliant. No alcohol tobacco or drug use. Patient states he does have headaches which is 5 out of 10. Patient does not think she struck it when she had her passing out episodes but is unsure. Patient denies any strokelike symptoms i.e. numbness tingling focal weakness and no slurred speech or facial droop. Patient does not take any blood thinning medications. Patient denies any current vaginal bleeding. PAST MEDICAL HISTORY: See Below PAST SURGICAL HISTORY: See Below SOCIAL HISTORY: See Below HOME MEDICATIONS: See Below ALLERGIES: See Below VITALS: See Below PHYSICAL EXAMINATION: GENERAL: NAD, non-toxic. EYE EXAM: Normal conjunctiva. PERRL, no anisocoria and EOM's grossly intact w/o pain. Head: Normocephalic atraumatic. OROPHARYNX: Moist mucus membranes, grossly normal dentition. NECK: Trachea midline, no stridor. Supple, no nuchal rigidity, no adenopathy, non-tender. No signs of meningismus. FROM of the neck with good chin to chest and neck extension. LUNGS: Clear to auscultation. Normal chest wall mechanics. HEART: NSR, no MRG. ABDOMEN: Abdomen soft, non-tender, no masses, no rebound or guarding. BACK: No CVA TTP. SKIN: No rashes and no bruising. UPPER EXTREMITIES: Upper extremities are grossly normal. LOWER EXTREMITIES: Grossly normal, no edema. NEURO EXAM: A&O x3, cranial nerves II-XII grossly intact, normal speech, moves all 4 extremities. Good [id number], no drift and no sensory deficits. Past Med/Surg History Problem List (Updated 06/16/24 @ 00:56 by Rogelio Apodaca MD) Anemia (Acute) Cough (Acute) Headache (Acute) Syncope (Acute) COVID-19 (Acute) Cellulitis of face (Acute) Fracture of tooth (Acute) Encounter for pre-operative examination Change in bowel habits Transaminitis (Acute) Seizure (Acute) Failure of outpatient treatment (Acute) Syncope (Acute) Dehydration (Acute) UTI (urinary tract infection) (Acute) Right thigh pain (Acute) Migraine (Acute) Headache (Acute) Allergic rhinitis (Chronic) Insomnia (Chronic) Depression with anxiety (Chronic) Lupus GERD (gastroesophageal reflux disease) (Chronic) Fibromyalgia (Chronic) Breast cancer (Chronic) "STAGING: Left breast, invasive ductal carcinoma, grade 2, ER/Her2 positive, MN negative, [id number], stage IA TREATMENT: 1. Lumpectom/SLN - 04/03/2015 2. Re-excision to obtain negative margins - 12/11/2015 3. Partial course of chemotherapy - Taxotere/Carboplatin/Herceptin - 5 cycles. Patient has refused further treatment including Herceptin. " Migraines (Chronic) Hypothyroidism (Chronic) Medical History Hypomagnesemia Hypokalemia Family history of bowel obstruction UTI (urinary tract infection) currently on abx Hx of seizure disorder no meds current, going to [facility] in September 2023, last seizure approx July 2022 Lyme disease (~05/2023) recent admit to [facility], treated IV abx x 5 days History of COVID-19 (~2021) x 3 > not hospitalized Poor intravenous access HX: breast cancer "STAGING: Left breast, invasive ductal carcinoma, grade 2, ER/Her2 positive, MN negative, [id number], stage IA TREATMENT: 1. Lumpectom/SLN - 04/03/2015 2. Re-excision to obtain negative margins - 12/11/2015 3. Partial course of chemotherapy - Taxotere/Carboplatin/Herceptin - 5 cycles. Patient has refused further treatment including Herceptin. " Nausea and vomiting after administration of anesthetic agent Depression Anxiety Surgical History Hx of oral surgery (08/29/23) p Incision and Drainage of Left Submandibular and Mucobuccal Abscess(Left) - Peyman Jamil DMD s Tooth Extraction #19(Left) - Peyman Jamil DMD s Excision mass Right oral cheek(Right) - Peyman Jaiml DMD History of infusaport central venous catheter insertion (~2022) Powerport, placed at [facility], flushed q 6 weeks Hx of bilateral mastectomy S/P CARRIE (total abdominal hysterectomy) Hx of neck surgery History of cholecystectomy S/P appy Family History Other Breast cancer Heart disease Social History Smoking Status: Never smoker Second Hand Exposure: No; Do You Dip or Chew Tobacco: No; Hx Alcohol Use: No Hx Substance Use: No Preferred Language: Kinyarwanda Communication Ability: Effective Microbiology Laboratory Manager Required: No Beliefs That Will Affect Care: None Current Living Situation: Alone Feels Safe at Home: Yes Assistive Devices: None Allergies Allergies Allergy/AdvReac Type Severity Reaction Status Date / Time cephalexin Allergy Severe Hives, Verified 08/17/23 11:25 throat swelling Iodinated Contrast Media Allergy Severe Throat Verified 08/17/23 11:25 swells - IV contrast Penicillins Allergy Severe HIVES, Verified 08/17/23 11:25 THROAT SWELLING adhesive Allergy Intermediate TAPE- HIVES Verified 08/17/23 11:25 codeine Allergy Intermediate Hives Verified 08/17/23 11:25 gentamicin Allergy Intermediate Hives Verified 08/17/23 11:25 latex Allergy Intermediate SWELLS AND Verified 08/17/23 11:25 HIVES loratadine Allergy Intermediate Hives Verified 08/17/23 11:25 strawberry Allergy Intermediate HIVES Verified 08/17/23 11:25 Sulfa (Sulfonamide Allergy Intermediate Hives Verified 08/17/23 11:25 Antibiotics) tramadol Allergy Intermediate Hives Verified 08/17/23 11:25 vancomycin Allergy Intermediate HIVES Verified 08/17/23 11:25 Home Meds Home Medications Medication Instructions Recorded Confirmed levothyroxine 50 mcg tablet 50 mcg PO QAM 09/01/19 08/25/23 atorvastatin 20 mg tablet 20 mg PO HS 12/10/21 08/25/23 omeprazole 20 mg capsule,delayed 20 mg PO HS 01/02/22 08/25/23 release zolpidem 10 mg tablet 10 mg PO HS 02/26/22 08/25/23 clonazepam 0.5 mg tablet 0.5 mg PO TID PRN Anxiety 01/30/23 08/25/23 ubrogepant 50 mg tablet (Ubrelvy) 50 mg PO DAILY PRN migraines 04/22/23 08/25/23 cyclobenzaprine 5 mg tablet 5 mg PO TID PRN Muscle Spasm 06/15/23 08/25/23 linaclotide 290 mcg capsule 290 mcg PO QAM 08/08/23 08/25/23 epinephrine 0.3 mg/0.3 mL 0.3 mg IM Q4H PRN 10/31/23 injection, auto-injector fluticasone propionate 50 2 spray intranasal DAILY 10/31/23 mcg/actuation nasal spray,suspension levocetirizine 5 mg tablet (Xyzal) 5 mg PO DAILY PRN 10/31/23 pramipexole 0.125 mg tablet 0.125 mg PO DAILY 10/31/23 Previous Rx's Medication Instructions Recorded ibuprofen 600 mg tablet 600 mg PO TID PRN Pain #90 tabs 06/20/23 ondansetron 4 mg disintegrating 4 mg PO Q6H PRN nausea and 06/24/23 tablet vomiting #15 tabs ondansetron HCl 4 mg tablet 4 mg PO Q6H PRN nausea and 11/09/23 vomiting #10 tabs clotrimazole 10 mg jasiel 10 mg PO 5XD 14 days #70 tabs 05/23/24 magnesium oxide 400 mg (241.3 mg 400 mg PO DAILY #7 tabs 05/23/24 magnesium) tablet (MagOx) ondansetron 4 mg disintegrating 4 - 8 mg (1 - 2 x 4 mg) PO Q6H PRN 05/23/24 tablet nausea and vomiting #20 tabs Results & Data (ED) Vital Signs Vital Signs - 24 hr 06/15/24 19:37 06/15/24 19:56 06/15/24 19:57 Temperature 36.8 C Temperature Source Temporal Artery Scan Pulse Rate 91 H 83 Pulse Rate [Apical] Pulse Rhythm Regular Respiratory Rate 18 Respiratory Effort / Characteristics Non-Labored Spontaneous Respiratory Depth Normal Respiratory Pattern Regular Blood Pressure 121/78 Blood Pressure [Right Arm] Blood Pressure Mean 92 Blood Pressure Mean [Right Arm] Blood Pressure Position [Right Arm] Pulse Oximetry 99 99 Oxygen Delivery Method Room Air Room Air Sepsis Recent Fever Within 48 Hours No Sepsis New/Unexplained Change in Mental Status No Sepsis Action Taken by Nursing No Action Required 06/15/24 22:00 06/15/24 23:06 06/16/24 00:03 Temperature Temperature Source Pulse Rate 89 75 Pulse Rate [Apical] 85 Pulse Rhythm Respiratory Rate 20 21 18 Respiratory Effort / Characteristics Respiratory Depth Respiratory Pattern Blood Pressure 101/55 L 113/70 Blood Pressure [Right Arm] 111/78 Blood Pressure Mean 70 84 Blood Pressure Mean [Right Arm] 89 Blood Pressure Position [Right Arm] Sitting Pulse Oximetry 99 95 95 Oxygen Delivery Method Room Air Room Air Room Air Sepsis Recent Fever Within 48 Hours Sepsis New/Unexplained Change in Mental Status Sepsis Action Taken by Nursing 06/16/24 00:24 Temperature Temperature Source Pulse Rate 70 Pulse Rate [Apical] Pulse Rhythm Respiratory Rate Respiratory Effort / Characteristics Respiratory Depth Respiratory Pattern Blood Pressure Blood Pressure [Right Arm] Blood Pressure Mean Blood Pressure Mean [Right Arm] Blood Pressure Position [Right Arm] Pulse Oximetry Oxygen Delivery Method Sepsis Recent Fever Within 48 Hours Sepsis New/Unexplained Change in Mental Status Sepsis Action Taken by Long Term Medications Current Medication List: was personally reviewed by me Laboratory Data Attestation: I reviewed the patient's lab results. 06/15/24 19:59 06/15/24 19:59 Lab Results 06/15/24 06/15/24 Range/Units 19:59 20:36 WBC 7.13 (4.8-10.8) K/ul RBC 3.71 L (4.20-5.40) M/uL Hgb 10.9 L (12.0-16.0) g/dl Hct 32.9 L (37.0-47.0) % MCV 88.7 (80.0-100.0) fL MCH 29.4 (25.0-34.0) pg MCHC 33.1 (32.0-36.0) g/dL RDW Std Deviation 41.7 (36.4-46.3) fL RDW Coeff of Jovi 12.8 (11.5-14.5) % Plt Count 225 (130-400) K/uL MPV 9.9 (9.4-12.4) fL Immature Gran % (Auto) 0.3 % Neut % (Auto) 60.9 % Lymph % (Auto) 25.9 % [place] % (Auto) 9.8 % Eos % (Auto) 2.7 % Baso % (Auto) 0.4 % Neut # (Auto) 4.34 (1.40-6.50) K/uL Lymph # (Auto) 1.85 (1.20-3.40) K/uL [place] # (Auto) 0.70 H (0.11-0.59) K/uL Eos # (Auto) 0.19 (0.00-0.50) K/uL Baso # (Auto) 0.03 (0.00-0.20) K/uL Immature Gran # (Auto) 0.02 (0.01-0.20) K/uL Sodium 139 (136-145) mmol/L Potassium 4.2 (3.5-5.1) mmol/L Chloride 105 (98-107) mmol/L Carbon Dioxide 29 (21-32) mmol/L Anion Gap 5 (3-11) BUN 28 H (6-23) mg/dl Creatinine 0.74 (0.6-1.2) mg/dl Est Cr Clr Drug Dosing 76.7 ml/min eGFR 96.68 BUN/Creatinine Ratio 37.8 H (10-20) Glucose 110 H (70-99(Fasting)) mg/dl Calcium 8.8 (8.6-10.3) mg/dl Magnesium 1.9 (1.7-2.4) mg/dl Total Bilirubin 0.2 (0.2-1.0) mg/dl AST 26 (13-39) U/L ALT 25 (7-52) U/L Alkaline Phosphatase 100 (34-104) U/L Troponin I High Sens < 2.3 (0-14) pg/ml Total Protein 6.6 (6.0-8.3) gm/dl Albumin 4.1 (3.4-5.0) gm/dl Globulin 2.5 (2.5-4.0) gm/dl Albumin/Globulin Ratio 1.6 (0.9-2) TSH 2.082 (0.300-4.500) uIu/ml Adenovirus (PCR) Not Detected (NotDetected) B. pertussis DNA (PCR) Not Detected (NotDetected) B.parapertussis DNA PCR Not Detected (NotDetected) C. pneumoniae DNA (PCR) Not Detected (NotDetected) Coronavirus OC43 (PCR) Not Detected (NotDetected) Coronavirus HKU1 (PCR) Not Detected (NotDetected) Coronavirus 229E (PCR) Not Detected (NotDetected) SARS-CoV-2 (PCR) Not Detected (NotDetected) Coronavirus NL63 (PCR) Not Detected (NotDetected) Human Metapneumovir PCR Not Detected (NotDetected) Influenza Type A (PCR) Not Detected (NotDetected) Influenza Type B (PCR) Not Detected (NotDetected) M. pneumoniae (PCR) Not Detected (NotDetected) Parainfluenza 1 (PCR) Not Detected (NotDetected) Parainfluenza 2 (PCR) Not Detected (NotDetected) Parainfluenza 3 (PCR) Not Detected (NotDetected) Parainfluenza 4 (PCR) Not Detected (NotDetected) RSV (PCR) Not Detected (NotDetected) Entero/Rhino (PCR) Not Detected (NotDetected) Group A Strep (PCR) NOT DETECTED (NotDetected) Administered Medications Discontinued Medications Acetaminophen (Acetaminophen 500 Mg Tab) 1,000 mg PO NOW STA Stop: 06/15/24 20:20 Last Admin: 06/15/24 20:27 Dose: 1,000 mg Documented By: QGV Dexamethasone Sodium Phosphate (DexamethasonePf 10 Mg/Ml Vial) 10 mg IV NOW ONE Stop: 06/15/24 22:12 Last Admin: 06/15/24 22:51 Dose: 10 mg Documented By: QGV Diphenhydramine HCl (Diphenhydramine 50 Mg/Ml Vial) 25 mg IV NOW STA Stop: 06/15/24 20:20 Last Admin: 06/15/24 20:28 Dose: 25 mg Documented By: QGV Sodium Chloride (Nss) 1,000 mls @ 999 mls/hr IV .Q1H1M ONE Stop: 06/15/24 21:19 Last Infusion: 06/15/24 22:24 Dose: Infused Documented By: Admin: 06/15/24 20:39 Dose: 999 mls/hr Documented By: QGV Ketorolac Tromethamine (Ketorolac Tromethamine 15 Mg/Ml Vial) 10 mg IV NOW STA Stop: 06/15/24 20:20 Last Admin: 06/15/24 20:27 Dose: 10 mg Documented By: QGV Ondansetron HCl (Ondansetron Inj 2 Mg/Ml 2 Ml Vial) 4 mg IV NOW STA Stop: 06/15/24 20:20 Last Admin: 06/15/24 20:27 Dose: 4 mg Documented By: QGV Imaging Data Radiologist's Impression: Head CT 06/15/24 20:19 Exam(s): CT HEAD Without Contrast EXAM: CT Head Without Intravenous Contrast CLINICAL HISTORY: Reason for exam: Headache. TECHNIQUE: Axial computed tomography images of the head/brain without intravenous contrast. CTDI is 53 mGy and DLP is 764 mGy-cm. Automated exposure control was utilized for the study. A dose lowering technique was utilized adhering to the principles of ALARA. COMPARISON: Prior head CT from September 15, 2022. FINDINGS: Brain: Unremarkable. No hemorrhage. No significant white matter disease. No edema. Ventricles: Unremarkable. No ventriculomegaly. Bones/joints: Unremarkable. No acute fracture. Soft tissues: Unremarkable. Sinuses: Unremarkable as visualized. No acute sinusitis. Mastoid air cells: Unremarkable as visualized. No mastoid effusion. IMPRESSION: No evidence of acute intracranial pathology. 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 TECHNIQUE: Frontal view of the chest. COMPARISON: No relevant prior studies available. FINDINGS: There is a right IJ approach Port-A-Cath in the right chest wall. Lungs: Unremarkable. No consolidation. Pleural space: Unremarkable. No pneumothorax. Heart: Unremarkable. No cardiomegaly. Mediastinum: Unremarkable. Normal mediastinal contour. Bones/joints: Unremarkable. No acute fracture. IMPRESSION: No evidence of acute cardiopulmonary process. Electronically signed by: Belkys Simon MD 06/16/24 00:23 AM Discharge Plan Visit Data Chief Complaint: Syncope Stated Complaint: SYNCOPE, NECK ED Provider: Rogelio Apodaca Discharge Problem: Syncope, Headache, Cough, Anemia Forms Stand Alone Forms: [employer] [facility] Prescriptions Prescriptions: No Action fluticasone propionate 50 mcg/actuation spray,suspension 2 spray intranasal DAILY Rx Instructions: administer into each nostril levocetirizine [Xyzal] 5 mg tablet 5 mg PO DAILY PRN epinephrine 0.3 mg/0.3 mL auto-injector 0.3 mg IM Q4H PRN pramipexole 0.125 mg tablet 0.125 mg PO DAILY levothyroxine 50 mcg tablet 50 mcg PO QAM atorvastatin 20 mg tablet 20 mg PO HS zolpidem 10 mg tablet 10 mg PO HS Ubrelvy 50 mg tablet 50 mg PO DAILY PRN (Reason: migraines) omeprazole 20 mg capsule,delayed release(DR/EC) 20 mg PO HS clonazepam 0.5 mg tablet 0.5 mg PO TID PRN (Reason: Anxiety) cyclobenzaprine 5 mg tablet 5 mg PO TID PRN (Reason: Muscle Spasm) ibuprofen 600 mg tablet 600 mg PO TID PRN (Reason: Pain) Qty: 90 0RF linaclotide 290 mcg capsule 290 mcg PO QAM ondansetron HCl 4 mg tablet 4 mg PO Q6H PRN (Reason: nausea and vomiting) Qty: 10 0RF ondansetron 4 mg tablet,disintegrating 4 mg PO Q6H PRN (Reason: nausea and vomiting) Qty: 15 0RF ondansetron 4 mg tablet,disintegrating 4 - 8 mg PO Q6H PRN (Reason: nausea and vomiting) Qty: 20 0RF magnesium oxide [MagOx] 400 mg (241.3 mg magnesium) tablet 400 mg PO DAILY Qty: 7 0RF clotrimazole 10 mg jasiel 10 mg PO 5XD 14 Days Qty: 70 1RF Referrals Referrals: Louann Corrales DO [Primary Care Provider] - Discharge Problem: Syncope Qualifiers: Syncope type: unspecified Qualified Code(s): R55 - Syncope and collapse Headache Qualifiers: Headache type: unspecified Headache chronicity pattern: acute headache I ntractability: not intractable Qualified Code(s): R51.9 - Headache, unspecified Cough Qualifiers: Cough type: acute Qualified Code(s): R05.1 - Acute cough Anemia Qualifiers: Anemia type: unspecified type Qualified Code(s): D64.9 - Anemia, unspecified
[2024-06-15 20:15] LABS: Basophils # (auto) 0.03 K/uL (0.00-0.20); Basophils % (auto) 0.4 %; Eosinophils # (auto) 0.19 K/uL (0.00-0.50); Eosinophils % (auto) 2.7 %; Hematocrit (blood only) 32.9 % (37.0-47.0); Hemoglobin 10.9 g/dl (12.0-16.0); Immature Granulocytes # (auto) 0.02 K/uL (0.01-0.20); Immature Granulocytes % (auto) 0.3 %; Lymphocytes # (auto) 1.85 K/uL (1.20-3.40); Lymphocytes % (auto) 25.9 %; Mean Corpuscular Hemoglobin 29.4 pg (25.0-34.0); Mean Corpuscular Hgb Conc 33.1 g/dL (32.0-36.0); Mean Corpuscular Volume 88.7 fL (80.0-100.0); Mean Platelet Volume 9.9 fL (9.4-12.4); Monocytes % (auto) 9.8 %; Neutrophils # (auto) 4.34 K/uL (1.40-6.50); Neutrophils % (auto) 60.9 %; Platelet Count 225 K/uL (130-400); RDW Coefficient of Variation 12.8 % (11.5-14.5); RDW Standard Deviation 41.7 fL (36.4-46.3); Red Blood Count 3.71 M/uL (4.20-5.40); White Blood Count 7.13 K/ul (4.8-10.8)
[2024-06-15] MEDS: ACETAMINOPHEN 500 MG TAB PO STA (20:27)
[2024-06-15] MEDS: ONDANSETRON INJ 2 MG/ML 2 ML VIAL IV STA (20:27)
[2024-06-15] MEDS: KETOROLAC TROMETHAMINE 15 MG/ML VIAL IV STA (20:27)
[2024-06-15] MEDS: diphenhydrAMINE 50 MG/ML VIAL IV STA (20:28)
[2024-06-15 20:35] LABS: Alanine Aminotransferase 25 U/L (7-52); Albumin Globulin Ratio 1.6 (0.9-2); Albumin Level 4.1 gm/dl (3.4-5.0); Alkaline Phosphatase 100 U/L (34-104); Anion Gap 5 (3-11); Aspartate Aminotransferase 26 U/L (13-39); BUN Creatinine Ratio 37.8 (10-20); Bilirubin,Total 0.2 mg/dl (0.2-1.0); Blood Urea Nitrogen 28 mg/dl (6-23); Calcium 8.8 mg/dl (8.6-10.3); Carbon Dioxide 29 mmol/L (21-32); Chloride 105 mmol/L (98-107); Creatinine Clr Calc Pharmacy 76.7 ml/min; Globulin 2.5 gm/dl (2.5-4.0); Glucose 110 mg/dl (70-99(Fasting)); Magnesium 1.9 mg/dl (1.7-2.4); Potassium 4.2 mmol/L (3.5-5.1); Sodium 139 mmol/L (136-145); Total Protein 6.6 gm/dl (6.0-8.3)
[2024-06-15] MEDS: SODIUM CHLORIDE 0.9% 1,000 ML IV ONE (20:39)
[2024-06-15 20:41] LABS: Troponin I High Sensitivity < 2.3 pg/ml (0-14)
[2024-06-15 20:50] LABS: Thyroid Stimulating Hormone 2.082 uIu/ml (0.300-4.500)
[2024-06-15 21:56] LABS: Adenovirus PCR Not Detected (NotDetected); Bordetella parapertussis PCR Not Detected (NotDetected); Bordetella pertussis PCR Not Detected (NotDetected); Chlamydia pneumoniae PCR Not Detected (NotDetected); Coronavirus 229E PCR Not Detected (NotDetected); Coronavirus CoV-2 (COVID19)PCR Not Detected (NotDetected); Coronavirus HKU1 PCR Not Detected (NotDetected); Coronavirus NL63 PCR Not Detected (NotDetected); Coronavirus OC43PCR Not Detected (NotDetected); Human Metapneumovirus PCR Not Detected (NotDetected); Influenza A PCR Not Detected (NotDetected); Influenza B PCR Not Detected (NotDetected); Mycoplasma pneumoniae PCR Not Detected (NotDetected); Parainfluenza Virus 1 PCR Not Detected (NotDetected); Parainfluenza Virus 2 PCR Not Detected (NotDetected); Parainfluenza Virus 3 PCR Not Detected (NotDetected); Parainfluenza Virus 4 PCR Not Detected (NotDetected); Respiratory Syncytial VirusPCR Not Detected (NotDetected); Rhinovirus/Enterovirus PCR Not Detected (NotDetected)
[2024-06-15] MEDS: dexAMETHasone**PF** 10 MG/ML VIAL IV ONE (22:51)
--- NOTE | 2024-06-15 23:08 | CT Scan Report ---
Exam(s): CT HEAD Without Contrast EXAM: CT Head Without Intravenous Contrast CLINICAL HISTORY: Reason for exam: Headache. TECHNIQUE: Axial computed tomography images of the head/brain without intravenous contrast. CTDI is 53 mGy and DLP is 764 mGy-cm. Automated exposure control was utilized for the study. A dose lowering technique was utilized adhering to the principles of ALARA. COMPARISON: Prior head CT from September 15, 2022. FINDINGS: Brain: Unremarkable. No hemorrhage. No significant white matter disease. No edema. Ventricles: Unremarkable. No ventriculomegaly. Bones/joints: Unremarkable. No acute fracture. Soft tissues: Unremarkable. Sinuses: Unremarkable as visualized. No acute sinusitis. Mastoid air cells: Unremarkable as visualized. No mastoid effusion. IMPRESSION: No evidence of acute intracranial pathology. Electronically signed by: Belkys Simon MD 06/15/24 23:07 PM
--- NOTE | 2024-06-15 23:19 | History & Physical Report ---
Date of Service June 15, 2024 Assessment & Plan (1) Syncope: Plan 54-year-old female PMHx seizures, migraines, depression, anxiety, lupus, GERD, fibromyalgia, hypothyroidism, and history of breast cancer presenting to ED for syncope x 2 days. Associated headache, neck pain. For the past 2 days, she has had more fatigue and been sleeping more than usual. Normally patient has difficulty with sleeping and has to take multiple sleep aids. Within the past 48 hours, patient has had 3 episodes of what she describes as "going out" and then jerking back awake. Workup in ED without leukocytosis, does have H&H 10.9/32.9, no gross electrolyte abnormalities with exception of BUN 28, BUN/creatinine 37.5. Troponin <2.3, TSH 2.082, BioFire negative. Head CT no evidence of acute pathology, CXR without acute findings per my read, pending official read. EKG at admission NSR with low voltage QRS and rate of 90 bpm. Patient received NSS IVF, Zofran, ketorolac, diphenhydramine, dexamethasone, and acetaminophen in the ED. #Syncope H/o of syncopal events for the past 2 days, described as "going out" and then "jerking" back to consciousness. Normally has difficulties with sleeping, but over the past 48 hours has been sleeping more than normal. Does utilize sleeping aids. No cardiac history, and no symptoms of chest pain or palpitations during these episodes however has not had cardiac workup in the past. H/o seizures but patient has not been taking antiepileptic medications for the past few months, h/o migraines as well. Events have been witnessed by her who describes it as a quick in and out as if she is jerking awake- suspect these episodes could possibly be microsleep's given her varying sleeping patterns. - CBC with H&H 10.9/32.9 and history of iron deficiency, no reports of active bleeding; LFTs WNL; supposedly to have a bone marrow biopsy in the future--> iron panel, TIBC, ferritin, vitamin B12, folate pending - CMP without gross electrolyte abnormalities with exception BUN 28 and ratio 37.8; troponin WNL, and EKG without ischemic changes or blocks; Mg 1.9, TSH 2.082; pending phosphate - CXR without acute findings per my read, pending official read; head CT without acute findings; pending echo - Fall precautions; orthostatic vitals pending - Pending EEG given reported history of seizures and no longer on Keppra #Constipation Ongoing, chronic. Last BM "a few days ago" unsure exactly how many days, but denying abdominal pain, N/V; patient reports history of multiple bowel obstructions 2/2 past abdominal surgeries. States that nothing makes her go but would like to try medications while she is inpatient. - On Linzess as outpatient- continue - Most recent CTAP 06/29/2023 revealing significant constipation without signs of bowel obstruction; no CTAP ordered at time of admission, physical exam WNL of abdomen - Will add on constipation regimen - MOM, MiraLax, and senna added - please document BM; Discussed the importance of proper water intake when utilizing different types of laxatives; encourage fluids #Insomnia- zolpidem 10mg, patient also utilize Benadryl for sleep- Benadryl added #Seizures- last episode 2022, followed with neurology, supposedly on Keppra but has not been taking for the past few months because she feels "sick" on it. #Migraines- Patient reports history of, however not on any prophylactic medications, but her medication list does include Ubrelvy as needed. Headaches for the past 2 days. #Anxiety/depression- Clonazepam 3 times daily prn #GERD- Omeprazole #Hypothyroidism- TSH WNL on admission; Levothyroxine #HLD- Atorvastatin #? RLS- Pramipexole, cyclobenzaprine as needed #BCA- Approaching 10 years cancer free, L breast; s/p excision and chemo, in remission Dispo: Admit, med/tele VTE Prophylaxis: SCDs This document was dictated utilizing [employer]. Please excuse any grammatical errors that may be secondary to use of this software. Admission and Anticipated Discharge Date Admission Date: 06/15/2024 History of Present Illness Chief Complaint: Syncope Primary Care Provider: Louann Corrales DO 54-year-old female PMHx seizures, migraines, depression, anxiety, lupus, GERD, fibromyalgia, hypothyroidism, and history of breast cancer presenting to ED for syncope x 2 days. Associated headache, neck pain. For the past 2 days, she has had more fatigue and been sleeping more than usual. Normally patient has difficulty with sleeping and has to take multiple sleep aids. Within the past 48 hours, patient has had 3 episodes of what she describes as "going out" and then jerking back awake. Patient's is present in room and helps provide history. Patient's states that the episodes appear to be that she is almost falling asleep and then jerking herself back awake, however the patient states that she does not sleep on these episodes occur. She has no symptoms prior to the events, and no symptoms following the episode, but just feels "out of it." Does sometimes get headaches with these episodes, but has a history of migraines and not on prophylactic medication. Patient states that her heart does sometimes start racing with these episodes, and that the symptoms will occur for just seconds. Does not think anything is triggering it. Patient did have recent tick bite in February 2024. History of reported grand mal seizures per the patient, starting 1 year ago with the most recent episode being 6 months ago, described as falling onto the ground but unable to provide more history into this. Has not been taking antiseizure medications for the past few months per patient. Does have history of anemia and was supposed to be on iron, but does not take this anymore. Has issues with constipation, stating that nothing at all works. Her last bowel movement was "a few days ago." Sometimes has an episode of left flank pain that comes and goes, but is unable to provide more history into this. States that it is random, but she denies LUTS. Overall, patient denying chest pain, shortness of breath, abdominal pain, N/V/D, numbness/tingling, weakness, dizziness, fever/chills, LUTS, or additional symptoms. Took her daily medications. Workup in ED without leukocytosis, does have H&H 10.9/32.9, no gross electrolyte abnormalities with exception of BUN 28, BUN/creatinine 37.5. Troponin <2.3, TSH 2.082, BioFire negative. Head CT no evidence of acute pathology, CXR without acute findings per my read, pending official read. EKG at admission NSR with low voltage QRS and rate of 90 bpm. Patient received NSS IVF, Zofran, ketorolac, diphenhydramine, dexamethasone, and acetaminophen in the ED. Please see Dr. Torres's attestation for adjustments/additions to treatment plan. Allergies Allergy/AdvReac Type Severity Reaction Status Date / Time cephalexin Allergy Severe Hives, Verified 08/17/23 11:25 throat swelling Iodinated Contrast Media Allergy Severe Throat Verified 08/17/23 11:25 swells - IV contrast Penicillins Allergy Severe HIVES, Verified 08/17/23 11:25 THROAT SWELLING adhesive Allergy Intermediate TAPE- HIVES Verified 08/17/23 11:25 codeine Allergy Intermediate Hives Verified 08/17/23 11:25 gentamicin Allergy Intermediate Hives Verified 08/17/23 11:25 latex Allergy Intermediate SWELLS AND Verified 08/17/23 11:25 HIVES loratadine Allergy Intermediate Hives Verified 08/17/23 11:25 strawberry Allergy Intermediate HIVES Verified 08/17/23 11:25 Sulfa (Sulfonamide Allergy Intermediate Hives Verified 08/17/23 11:25 Antibiotics) tramadol Allergy Intermediate Hives Verified 08/17/23 11:25 vancomycin Allergy Intermediate HIVES Verified 08/17/23 11:25 Home Medications Medication Instructions Recorded Confirmed Type levothyroxine 50 mcg tablet 50 mcg PO QAM 09/01/19 06/16/24 History atorvastatin 20 mg tablet 20 mg PO HS 12/10/21 06/16/24 History omeprazole 20 mg capsule,delayed 20 mg PO HS 01/02/22 06/16/24 History release zolpidem 10 mg tablet 10 mg PO HS 02/26/22 06/16/24 History clonazepam 0.5 mg tablet 0.5 mg PO TID PRN Anxiety 01/30/23 06/16/24 History ubrogepant 50 mg tablet (Ubrelvy) 50 mg PO DAILY PRN migraines 04/22/23 06/16/24 History cyclobenzaprine 5 mg tablet 10 mg PO TID PRN Muscle Spasm 06/15/23 06/16/24 History ibuprofen 600 mg tablet 600 mg PO TID PRN Pain #90 tabs 06/20/23 06/16/24 Rx linaclotide 290 mcg capsule 290 mcg PO QAM 08/08/23 06/16/24 History epinephrine 0.3 mg/0.3 mL 0.3 mg IM Q4H PRN Allergy/hives 10/31/23 06/16/24 History injection, auto-injector fluticasone propionate 50 2 spray intranasal DAILY 10/31/23 06/16/24 History mcg/actuation nasal spray,suspension levocetirizine 5 mg tablet (Xyzal) 5 mg PO DAILY PRN Allergy/hives 10/31/23 06/16/24 History pramipexole 0.125 mg tablet 0.125 mg PO DAILY 10/31/23 06/16/24 History clotrimazole 10 mg jasiel 10 mg PO 5XD 14 days #70 tabs 05/23/24 06/16/24 Rx ondansetron 4 mg disintegrating 4 - 8 mg (1 - 2 x 4 mg) PO Q6H PRN 05/23/24 06/16/24 Rx tablet nausea and vomiting #20 tabs Past Med/Surg History Problem List (Updated 06/16/24 @ 00:56 by Rogelio Apodaca MD) Anemia (Acute) Cough (Acute) Headache (Acute) Syncope (Acute) COVID-19 (Acute) Cellulitis of face (Acute) Fracture of tooth (Acute) Encounter for pre-operative examination Change in bowel habits Transaminitis (Acute) Seizure (Acute) Failure of outpatient treatment (Acute) Syncope (Acute) Dehydration (Acute) UTI (urinary tract infection) (Acute) Right thigh pain (Acute) Migraine (Acute) Headache (Acute) Allergic rhinitis (Chronic) Insomnia (Chronic) Depression with anxiety (Chronic) Lupus GERD (gastroesophageal reflux disease) (Chronic) Fibromyalgia (Chronic) Breast cancer (Chronic) "STAGING: Left breast, invasive ductal carcinoma, grade 2, ER/Her2 positive, AK negative, [id number], stage IA TREATMENT: 1. Lumpectom/SLN - 04/03/2015 2. Re-excision to obtain negative margins - 12/11/2015 3. Partial course of chemotherapy - Taxotere/Carboplatin/Herceptin - 5 cycles. Patient has refused further treatment including Herceptin. " Migraines (Chronic) Hypothyroidism (Chronic) Medical History Hypomagnesemia Hypokalemia Family history of bowel obstruction UTI (urinary tract infection) currently on abx Hx of seizure disorder no meds current, going to [facility] in September 2023, last seizure approx July 2022 Lyme disease (~05/2023) recent admit to [facility], treated IV abx x 5 days History of COVID-19 (~2021) x 3 > not hospitalized Poor intravenous access HX: breast cancer "STAGING: Left breast, invasive ductal carcinoma, grade 2, ER/Her2 positive, AK negative, [id number], stage IA TREATMENT: 1. Lumpectom/SLN - 04/03/2015 2. Re-excision to obtain negative margins - 12/11/2015 3. Partial course of chemotherapy - Taxotere/Carboplatin/Herceptin - 5 cycles. Patient has refused further treatment including Herceptin. " Nausea and vomiting after administration of anesthetic agent Depression Anxiety Surgical History Hx of oral surgery (08/29/23) p Incision and Drainage of Left Submandibular and Mucobuccal Abscess(Left) - Peyman Jamil DMD s Tooth Extraction #19(Left) - Peyman Jamil DMD s Excision mass Right oral cheek(Right) - Peyman Jamil DMD History of infusaport central venous catheter insertion (~2022) Powerport, placed at 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 Beliefs That Will Affect Care: None Current Living Situation: Alone Feels Safe at Home: Yes Assistive Devices: None Review of Systems Review of Systems: All systems reviewed & are unremarkable except as noted in Subjective Physical Exam Physical Exam: General: No acute distress Skin: Warm and dry, without rashes or lesions Head: Normocephalic, atraumatic Eyes: PERRL, conjunctivae clear, sclera non-icteric; EOM intact ENT: External ear and ear canal without swelling; nose atraumatic; Fair dentition, tongue normal appearance, pharynx normal without tonsillar swelling or exudate Neck: Supple, no LAD; no JVD Cardio: RRR, no M/G/R, S1 and S2 normal Resp: No respiratory distress, Lungs CTA in all lobes bilaterally, no wheezes, rales, or rhonchi; port in place L chest Abdomen: Soft, symmetric, nontender;no distention; No masses or hepatosplenomegaly; Bowel sounds normoactive MSK: No deformities, full ROM throughout; pulses palpable and equal; no edema. Neuro: Awake, alert; Muscle strength 5/5 bilaterally in UE/LE; Sensation intact bilaterally; CN grossly intact Psych: Appropriate mood and affect; good judgement and insight. present in room at time of visit. Results & Data Results & Data Vital Signs (Past 12 Hours) Vital Signs Temp Pulse Pulse Resp BP BP Pulse Ox 06/15/24 22:00 85 20 111/78 99 06/15/24 19:57 83 06/15/24 19:56 99 06/15/24 19:37 36.8 C 91 H 18 121/78 99 O2 Del Method 06/15/24 22:00 Room Air 06/15/24 19:57 06/15/24 19:56 Room Air 06/15/24 19:37 Room Air Laboratory Results 06/15/24 06/15/24 20:36 19:59 WBC 7.13 RBC 3.71 L Hgb 10.9 L Hct 32.9 L MCV 88.7 MCH 29.4 MCHC 33.1 RDW Std Deviation 41.7 RDW Coeff of Jovi 12.8 Plt Count 225 MPV 9.9 Immature Gran % (Auto) 0.3 Neut % (Auto) 60.9 Lymph % (Auto) 25.9 [place] % (Auto) 9.8 Eos % (Auto) 2.7 Baso % (Auto) 0.4 Neut # (Auto) 4.34 Lymph # (Auto) 1.85 [place] # (Auto) 0.70 H Eos # (Auto) 0.19 Baso # (Auto) 0.03 Immature Gran # (Auto) 0.02 Sodium 139 Potassium 4.2 Chloride 105 Carbon Dioxide 29 Anion Gap 5 BUN 28 H Creatinine 0.74 Est Cr Clr Drug Dosing 76.7 eGFR 96.68 BUN/Creatinine Ratio 37.8 H Glucose 110 H Calcium 8.8 Magnesium 1.9 Total Bilirubin 0.2 AST 26 ALT 25 Alkaline Phosphatase 100 Troponin I High Sens < 2.3 Total Protein 6.6 Albumin 4.1 Globulin 2.5 Albumin/Globulin Ratio 1.6 TSH 2.082 Adenovirus (PCR) Not Detected B. pertussis DNA (PCR) Not Detected B.parapertussis DNA PCR Not Detected C. pneumoniae DNA (PCR) Not Detected Coronavirus OC43 (PCR) Not Detected Coronavirus HKU1 (PCR) Not Detected Coronavirus 229E (PCR) Not Detected SARS-CoV-2 (PCR) Not Detected Coronavirus NL63 (PCR) Not Detected Human Metapneumovir PCR Not Detected Influenza Type A (PCR) Not Detected Influenza Type B (PCR) Not Detected M. pneumoniae (PCR) Not Detected Parainfluenza 1 (PCR) Not Detected Parainfluenza 2 (PCR) Not Detected Parainfluenza 3 (PCR) Not Detected Parainfluenza 4 (PCR) Not Detected RSV (PCR) Not Detected Entero/Rhino (PCR) Not Detected Group A Strep (PCR) NOT DETECTED Diagnostic Findings Head CT 06/15/24 20:19 Exam(s): CT HEAD Without Contrast EXAM: CT Head Without Intravenous Contrast CLINICAL HISTORY: Reason for exam: Headache. TECHNIQUE: Axial computed tomography images of the head/brain without intravenous contrast. CTDI is 53 mGy and DLP is 764 mGy-cm. Automated exposure control was utilized for the study. A dose lowering technique was utilized adhering to the principles of ALARA. COMPARISON: Prior head CT from September 15, 2022. FINDINGS: Brain: Unremarkable. No hemorrhage. No significant white matter disease. No edema. Ventricles: Unremarkable. No ventriculomegaly. Bones/joints: Unremarkable. No acute fracture. Soft tissues: Unremarkable. Sinuses: Unremarkable as visualized. No acute sinusitis. Mastoid air cells: Unremarkable as visualized. No mastoid effusion. IMPRESSION: No evidence of acute intracranial pathology. Electronically signed by: Belkys Simon MD 06/15/24 23:07 PM Medications Administered NSS 1L IV Ondanestron 4mg IV Ketorolac 10mg IV Diphenhydramine 25mg IV Dexamethasone 25mg IV Aceetaminophen 1g po ECG Additional Comments: NSR, low voltage QRS 90 bpm, AK 144, QRS 80, QT/QTc 346/423, PRT 66/47/48 Code Status & VTE Plan Code Status Full Supervising Physician Co-Signing Physician Notes Patient seen and examined, chart reviewed, case discussed with STEPHEN Lopez and I agree with the assessment and plan as above presenting with seizure-like episodes. Patient appears to fall asleep with some muscular jerking. No incontinence. Patient has not been on Keppra -Check EEG -Continue to hold Keppra for now -Remainder as above PG Care Time/CCT Total # of Minutes Spent Total Time Spent with Patient: Total time spent is greater than 50% in coordination of care (as documented) at patient's floor/unit and/or counseling patient: Coding Level of Care Code 81098 INT INP/OBS CARE 375MIN Diagnoses Syncope R55 Syncope type: unspecified (1) Syncope Syncope type: unspecified Qualified Code(s): R55 - Syncope and collapse
--- NOTE | 2024-06-16 00:24 | XRay Report ---
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 TECHNIQUE: Frontal view of the chest. COMPARISON: No relevant prior studies available. FINDINGS: There is a right IJ approach Port-A-Cath in the right chest wall. Lungs: Unremarkable. No consolidation. Pleural space: Unremarkable. No pneumothorax. Heart: Unremarkable. No cardiomegaly. Mediastinum: Unremarkable. Normal mediastinal contour. Bones/joints: Unremarkable. No acute fracture. IMPRESSION: No evidence of acute cardiopulmonary process. Electronically signed by: Belkys Simon MD 06/16/24 00:23 AM
[2024-06-16] MEDS: HEPARIN 100 UNIT/ML 5ML FLUSH ONE (01:04)
[2024-06-16] MEDS ORDERED: diphenhydrAMINE 50 MG/ML VIAL IV PRN (01:45)
[2024-06-16] MEDS ORDERED: ONDANSETRON 4 MG OD TAB PO PRN (01:45)
[2024-06-16] MEDS ORDERED: EPINEPHrine INJ 1 MG/ML AMP IM PRN (01:53)
[2024-06-16 02:10] LABS: Iron 55 mcg/dl (35-150); Phosphorus 3.7 mg/dl (2.5-4.9); Total Iron Binding Cap Calc 309 mcg/dl (250-450); Transferrin 221 mg/dl (200-360); Transferrin (FE) Percent Satur 18 % (15-50)
[2024-06-16] MEDS: ZOLPIDEM TARTRATE 5 MG TAB PO ONE (02:21)
[2024-06-16] MEDS: MAGNESIUM HYDROXIDE SUSP 30 ML UDC PO SCH (02:28)
[2024-06-16] MEDS: diphenhydrAMINE 50 MG/ML VIAL IV PRN (02:29)
[2024-06-16] MEDS: clonazePAM 0.5 MG TAB PO PRN (02:29)
[2024-06-16 02:30] LABS: Ferritin 144.9 ng/ml (8-388)
[2024-06-16 02:40] LABS: Appearance Urine Clear (Clear); Bacteria Urine Automated None Seen (None Seen); Bilirubin Urine Negative (Negative); Blood Urine Negative (Negative); Cast Urine Automated 0-2 /lpf (0-2); Color Urine Yellow; Epithelial Cell Urine Auto 0-2 /hpf (0-2); Glucose Urine UA Negative (Negative); Ketones Urine Negative (Negative); Leukocyte Esterase Urine 1+ (Negative); Nitrite Urine Negative (Negative); Protein Urine Negative (Negative); RBC Urine Automated 0-2 /hpf (0-2); Urobilinogen Urine Negative (Negative); pH Urine 6.5 (4.5-7.5)
[2024-06-16] MEDS: ENOXAPARIN INJ 40 MG/0.4 ML SYR SQ SCH (06:27)
[2024-06-16] MEDS: LEVOTHYROXINE SODIUM 50 MCG TABLET PO SCH (06:27)
[2024-06-16] MEDS: diphenhydrAMINE 50 MG/ML VIAL IV STA ×2 (08:43→22:59)
[2024-06-16] MEDS: IBUPROFEN 600 MG TAB PO PRN (08:51)
[2024-06-16] MEDS: CLOTRIMAZOLE 10 MG TROCHE BUCCAL SCH (08:52)
[2024-06-16] MEDS: FLUTICASONE PROPIONATE NA SPR 16 GM BTL SCH (08:56)
[2024-06-16] MEDS: POLYETHYLENE (MIRALAX) 17 GM PACK PO SCH ×2 (08:57→20:53)
[2024-06-16] MEDS: LINACLOTIDE 145 MCG CAPSULE PO SCH (08:57)
[2024-06-16] MEDS: HEPARIN 100 UNIT/ML 5ML FLUSH FLUSH PRN (10:57)
--- NOTE | 2024-06-16 11:21 | Hospitalist Progress Note ---
Date of Service June 16, 2024 Assessment & Plan (1) Syncope: Plan 54-year-old female PMHx seizures, migraines, depression, anxiety, lupus, GERD, fibromyalgia, hypothyroidism, and history of breast cancer presenting to ED for syncope x 2 days. Associated headache, neck pain. For the past 2 days, she has had more fatigue and been sleeping more than usual. Normally patient has difficulty with sleeping and has to take multiple sleep aids. Within the past 48 hours, patient has had 3 episodes of what she describes as "going out" and then jerking back awake. Workup in ED without leukocytosis, does have H&H 10.9/32.9, no gross electrolyte abnormalities with exception of BUN 28, BUN/creatinine 37.5. Troponin <2.3, TSH 2.082, BioFire negative. Head CT no evidence of acute pathology, CXR without acute findings per my read, pending official read. EKG at admission NSR with low voltage QRS and rate of 90 bpm. Patient received NSS IVF, Zofran, ketorolac, diphenhydramine, dexamethasone, and acetaminophen in the ED. #Syncope/seizure-like episodes -Screening labs pending CBC and BMP were unremarkable - CXR negative Head CT negative Echocardiogram pending - Fall precautions; orthostatic vitals pending - Pending EEG given reported history of seizures and no longer on Keppra Patient is requesting Benadryl for her migraine. She takes it regularly. She also takes multiple medications as sleeping aids. Consult neurology #Constipation Ongoing, chronic. Last BM "a few days ago" unsure exactly how many days, but denying abdominal pain, N/V; patient reports history of multiple bowel obstructions 2/2 past abdominal surgeries. States that nothing makes her go but would like to try medications while she is inpatient. - On Linzess as outpatient- continue - Most recent CTAP 06/29/2023 revealing significant constipation without signs of bowel obstruction; no CTAP ordered at time of admission, physical exam WNL of abdomen - Will add on constipation regimen - MOM, MiraLax, and senna added - please document BM; Discussed the importance of proper water intake when utilizing different types of laxatives; encourage fluids #Insomnia- zolpidem 10mg, patient also utilize Benadryl for sleep- Benadryl added #Seizures- last episode 2022, followed with neurology, supposedly on Keppra but has not been taking for the past few months because she feels "sick" on it. #Migraines- Patient reports history of, however not on any prophylactic medications, but her medication list does include Ubrelvy as needed. Headaches for the past 2 days. #Anxiety/depression- Clonazepam 3 times daily prn #GERD- Omeprazole #Hypothyroidism- TSH WNL on admission; Levothyroxine #HLD- Atorvastatin #? RLS- Pramipexole, cyclobenzaprine as needed #BCA- Approaching 10 years cancer free, L breast; s/p excision and chemo, in remission VTE prophylaxis: SCDs Full code Admission and Anticipated Discharge Date Admission Date: June 16, 2024 Subjective Patient was seen and examined at 9:45 AM. I was informed by the nurse that she has migraine and is asking for IV Benadryl. At home she takes Benadryl for her migraine. She is "allergic to Compazine, mag sulfate". Review of Systems Review of Systems: All systems reviewed & are unremarkable except as noted in Subjective Physical Exam Physical Exam: General: Awake, conversant Heart: S1, S2/regular rate and rhythm, no murmur rubs or gallops Lungs: Clear to auscultation bilaterally. Normal effort Abdomen: Soft/nontender/nondistended. No hepatosplenomegaly Extremities: No clubbing/cyanosis. No edema Behavior: Appropriate, cooperative Results & Data Results & Data Vital Signs (Past 12 Hours) Vital Signs Temp Pulse Pulse Resp BP BP Pulse Ox 06/16/24 08:01 70 06/16/24 07:53 36.6 C 69 18 112/74 96 06/16/24 01:37 75 06/16/24 01:35 36.4 C L 75 18 123/68 98 06/16/24 01:11 06/16/24 01:06 77 21 111/73 96 06/16/24 00:24 70 06/16/24 00:03 75 18 113/70 95 O2 Del Method 06/16/24 08:01 06/16/24 07:53 Room Air 06/16/24 01:37 06/16/24 01:35 Room Air 06/16/24 01:11 Room Air 06/16/24 01:06 Room Air 06/16/24 00:24 06/16/24 00:03 Room Air Laboratory Results Abnormal lab results 06/15/24 06/16/24 Range/Units 19:59 Unknown RBC 3.71 L (4.20-5.40) M/uL Hgb 10.9 L (12.0-16.0) g/dl Hct 32.9 L (37.0-47.0) % [place] # (Auto) 0.70 H (0.11-0.59) K/uL BUN 28 H (6-23) mg/dl BUN/Creatinine Ratio 37.8 H (10-20) Glucose 110 H (70-99(Fasting)) mg/dl Ur Leukocyte Esterase 1+ H (Negative) Urine WBC (Auto) 6-10 H (0-5) /hpf Diagnostic Findings Head CT 06/15/24 20:19 Exam(s): CT HEAD Without Contrast EXAM: CT Head Without Intravenous Contrast CLINICAL HISTORY: Reason for exam: Headache. TECHNIQUE: Axial computed tomography images of the head/brain without intravenous contrast. CTDI is 53 mGy and DLP is 764 mGy-cm. Automated exposure control was utilized for the study. A dose lowering technique was utilized adhering to the principles of ALARA. COMPARISON: Prior head CT from September 15, 2022. FINDINGS: Brain: Unremarkable. No hemorrhage. No significant white matter disease. No edema. Ventricles: Unremarkable. No ventriculomegaly. Bones/joints: Unremarkable. No acute fracture. Soft tissues: Unremarkable. Sinuses: Unremarkable as visualized. No acute sinusitis. Mastoid air cells: Unremarkable as visualized. No mastoid effusion. IMPRESSION: No evidence of acute intracranial pathology. 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 TECHNIQUE: Frontal view of the chest. COMPARISON: No relevant prior studies available. FINDINGS: There is a right IJ approach Port-A-Cath in the right chest wall. Lungs: Unremarkable. No consolidation. Pleural space: Unremarkable. No pneumothorax. Heart: Unremarkable. No cardiomegaly. Mediastinum: Unremarkable. Normal mediastinal contour. Bones/joints: Unremarkable. No acute fracture. IMPRESSION: No evidence of acute cardiopulmonary process. Electronically signed by: Belkys Simon MD 06/16/24 00:23 AM PG Care Time/CCT Total # of Minutes Spent Total Time Spent with Patient: Total time spent is greater than 50% in coordination of care (as documented) at patient's floor/unit and/or counseling patient: Coding Level of Care Code 17301 SUB INP/OBS CARE 2/35MIN Diagnoses Syncope R55 Syncope type: unspecified (1) Syncope Syncope type: unspecified Qualified Code(s): R55 - Syncope and collapse
--- NOTE | 2024-06-16 13:43 | Electrocardiogram Report ---
Test Reason : Blood Pressure : */* mmHG Vent. Rate : 90 BPM Atrial Rate : 90 BPM P-R Int : 144 ms QRS Dur : 80 ms QT Int : 346 ms P-R-T Axes : 66 47 48 degrees QTcB Int : 423 ms Normal sinus rhythm Low voltage QRS RSR' or QR pattern in V1 suggests right ventricular conduction delay Borderline ECG When compared with ECG of 23-May-2024 09:04, No significant change was found Confirmed by Sandra Gilliland ([id number]) on 06/16/2024 1:43:24 PM Referred By: REFERRED SELF Confirmed By: Sandra Gilliland
[2024-06-16] MEDS: SODIUM CHLORIDE 0.65% NA SOLN 45 ML (OCEAN) PRN (16:06)
[2024-06-16] MEDS: CYCLOBENZAPRINE HCL 10 MG TAB PO PRN (16:07)
[2024-06-16] MEDS: SODIUM CHLORIDE 0.9% 1,000 ML IV SCH (17:03)
[2024-06-16] MEDS: ONDANSETRON INJ 2 MG/ML 2 ML VIAL IV PRN (17:08)
[2024-06-16] MEDS ORDERED: ACETAMINOPHEN 1,000 MG/100 ML VIAL IV STA (19:46)
[2024-06-16] MEDS ORDERED: ACETAMINOPHEN 500 MG TAB PO STA (20:06)
[2024-06-16] MEDS: SENNA 8.6 MG TAB PO SCH (20:53)
[2024-06-16] MEDS: ZOLPIDEM TARTRATE 5 MG TAB PO SCH (20:53)
[2024-06-16] MEDS: MELATONIN 3 MG TAB PO PRN (20:53)
[2024-06-16] MEDS: ACETAMINOPHEN 1,000 MG/100 ML VIAL IV STA (20:54)
[2024-06-16] MEDS: PRAMIPEXOLE DIHYDROCHLO 0.25 MG TAB PO SCH (20:55)
[2024-06-16] MEDS: PANTOprazole 40 MG TAB PO SCH (20:55)
[2024-06-16] MEDS: ATORVASTATIN 20 MG TAB PO SCH (20:56)
[2024-06-16] MEDS: DOCUSATE SODIUM/SENNA 50/8.6MG TAB PO SCH (20:59)
[2024-06-16] MEDS: hydrOXYzine HCl 25 MG TAB PO STA (23:59)
[2024-06-17] MEDS: diphenhydrAMINE 50 MG/ML VIAL IV STA ×2 (02:23→10:56)
[2024-06-17] MEDS: ACETAMINOPHEN 325 MG TAB PO PRN (02:31)
--- NOTE | 2024-06-17 08:21 | Electroencephalogram ---
EEG Procedure Note Date of Service June 17, 2024 Start / End Times Start Time: 6:11 AM End Time: 6:31 AM Referring Physician John History Syncope, possible seizure Home Medication List Medication Instructions Recorded Confirmed Type levothyroxine 50 mcg tablet 50 mcg PO QAM 09/01/19 06/16/24 History atorvastatin 20 mg tablet 20 mg PO HS 12/10/21 06/16/24 History omeprazole 20 mg capsule,delayed 20 mg PO HS 01/02/22 06/16/24 History release zolpidem 10 mg tablet 10 mg PO HS 02/26/22 06/16/24 History clonazepam 0.5 mg tablet 0.5 mg PO TID PRN Anxiety 01/30/23 06/16/24 History ubrogepant 50 mg tablet (Ubrelvy) 50 mg PO DAILY PRN migraines 04/22/23 06/16/24 History cyclobenzaprine 5 mg tablet 10 mg PO TID PRN Muscle Spasm 06/15/23 06/16/24 History ibuprofen 600 mg tablet 600 mg PO TID PRN Pain #90 tabs 06/20/23 06/16/24 Rx linaclotide 290 mcg capsule 290 mcg PO QAM 08/08/23 06/16/24 History epinephrine 0.3 mg/0.3 mL 0.3 mg IM Q4H PRN Allergy/hives 10/31/23 06/16/24 History injection, auto-injector fluticasone propionate 50 2 spray intranasal DAILY 10/31/23 06/16/24 History mcg/actuation nasal spray,suspension levocetirizine 5 mg tablet (Xyzal) 5 mg PO DAILY PRN Allergy/hives 10/31/23 06/16/24 History pramipexole 0.125 mg tablet 0.125 mg PO DAILY 10/31/23 06/16/24 History clotrimazole 10 mg jasiel 10 mg PO 5XD 14 days #70 tabs 05/23/24 06/16/24 Rx ondansetron 4 mg disintegrating 4 - 8 mg (1 - 2 x 4 mg) PO Q6H PRN 05/23/24 06/16/24 Rx tablet nausea and vomiting #20 tabs Inpatient Medication List Acetaminophen (Acetaminophen 325 Mg Tab) 650 mg PO Q4H PRN PRN Reason: pain/fever Stop: 07/16/24 01:44 Last Admin: 06/17/24 02:31 Dose: 650 mg Documented By: YRN Atorvastatin Calcium (Atorvastatin 20 Mg Tab) 20 mg PO HS [facility] Stop: 07/16/24 20:59 Last Admin: 06/16/24 20:56 Dose: 20 mg Documented By: YRN Clonazepam (Clonazepam 0.5 Mg Tab) 0.5 mg PO TID PRN PRN Reason: Anxiety Stop: 07/16/24 01:44 Last Admin: 06/16/24 20:53 Dose: 0.5 mg Documented By: Admin: 06/16/24 10:57 Dose: 0.5 mg Documented By: Admin: 06/16/24 02:29 Dose: 0.5 mg Documented By: DRE Clotrimazole (Clotrimazole 10 Mg Jasiel) 10 mg BUCCAL [id number] [facility] Stop: 07/16/24 06:59 Last Admin: 06/17/24 05:54 Dose: 10 mg Documented By: Admin: 06/16/24 21:26 Dose: Not Given Documented By: Admin: 06/16/24 18:14 Dose: 10 mg Documented By: Admin: 06/16/24 16:05 Dose: 10 mg Documented By: Admin: 06/16/24 10:57 Dose: 10 mg Documented By: Admin: 06/16/24 08:52 Dose: 10 mg Documented By: GIANCARLO Cyclobenzaprine HCl (Cyclobenzaprine Hcl 10 Mg Tab) 10 mg PO TID PRN PRN Reason: Muscle Spasm Stop: 07/16/24 01:44 Last Admin: 06/16/24 20:53 Dose: 10 mg Documented By: Admin: 06/16/24 16:07 Dose: 10 mg Documented By: GIANCARLO Enoxaparin Sodium (Enoxaparin Inj 40 Mg/0.4 Ml Syr) 40 mg SQ Q24H [facility] Stop: 07/16/24 05:59 Last Admin: 06/17/24 05:54 Dose: 40 mg Documented By: Admin: 06/16/24 06:27 Dose: 40 mg Documented By: DRE Fluticasone Propionate (Fluticasone Propionate Na Spr 16 Gm Btl) 2 sprays NA DAILY [facility] Stop: 07/16/24 08:59 Last Admin: 06/16/24 08:56 Dose: 2 sprays Documented By: CLARISSAR Heparin Sodium (Porcine) (Heparin 100 Unit/Ml 5ml Flush) 5 ml FLUSH PRN PRN PRN Reason: Flush Stop: 07/16/24 08:58 Last Admin: 06/16/24 10:57 Dose: 5 ml Documented By: CLARISSAR Sodium Chloride (Nss) 1,000 mls @ 100 mls/hr IV .Q10H [facility] Stop: 06/17/24 16:14 Last Admin: 06/17/24 02:31 Dose: 100 mls/hr Documented By: Infusion: 06/17/24 02:31 Dose: Infused Documented By: Admin: 06/17/24 01:55 Dose: Not Given Documented By: Admin: 06/16/24 17:03 Dose: 100 mls/hr Documented By: GIANCARLO Ibuprofen (Ibuprofen 600 Mg Tab) 600 mg PO TID PRN PRN Reason: Pain Stop: 07/16/24 01:44 Last Admin: 06/16/24 16:51 Dose: 600 mg Documented By: Admin: 06/16/24 08:51 Dose: 600 mg Documented By: GIANCARLO Levothyroxine Sodium (Levothyroxine Sodium 50 Mcg Tablet) 50 mcg PO DAILYBB [facility] Stop: 07/16/24 06:29 Last Admin: 06/17/24 05:54 Dose: 50 mcg Documented By: Admin: 06/16/24 06:27 Dose: 50 mcg Documented By: DRE Linaclotide (Linaclotide 145 Mcg Capsule) 290 mcg PO QAM [facility] Stop: 07/16/24 08:59 Last Admin: 06/16/24 08:57 Dose: 290 mcg Documented By: CLARISSAR Magnesium Hydroxide (Magnesium Hydroxide Susp 30 Ml Udc) 30 ml PO Q6H [facility] Stop: 07/16/24 01:59 Last Admin: 06/17/24 01:55 Dose: Not Given Documented By: Admin: 06/17/24 01:54 Dose: Not Given Documented By: Admin: 06/16/24 13:49 Dose: 30 ml Documented By: Admin: 06/16/24 10:57 Dose: 30 ml Documented By: Admin: 06/16/24 02:28 Dose: Not Given Documented By: DRE Melatonin (Melatonin 3 Mg Tab) 3 mg PO HS PRN PRN Reason: Insomnia Stop: 07/16/24 01:44 Last Admin: 06/16/24 20:53 Dose: 3 mg Documented By: YRN Miscellaneous (Order Awaiting Action: Ubrogepant [Ubrelvy] 50 Mg Tablet) 1 each N/A QS [facility] Stop: 07/16/24 07:59 Last Admin: 06/17/24 07:44 Dose: Not Given Documented By: Admin: 06/16/24 23:48 Dose: Not Given Documented By: Admin: 06/16/24 16:25 Dose: Not Given Documented By: Admin: 06/16/24 08:54 Dose: Not Given Documented By: GIANCARLO Ondansetron HCl (Ondansetron Inj 2 Mg/Ml 2 Ml Vial) 4 mg IV Q6H PRN PRN Reason: Nausea Stop: 07/16/24 01:44 Last Admin: 06/16/24 17:08 Dose: 4 mg Documented By: GIANCARLO Pantoprazole Sodium (Pantoprazole 40 Mg Tab) 40 mg PO HS [facility] Stop: 07/16/24 20:59 Last Admin: 06/16/24 20:55 Dose: 40 mg Documented By: YRN Polyethylene Glycol (Polyethylene (Miralax) 17 Gm Pack) 17 gm PO BID [facility] Stop: 07/16/24 20:59 Last Admin: 06/16/24 20:53 Dose: 17 gm Documented By: YRN Pramipexole Dihydrochloride (Pramipexole Dihydrochlo 0.25 Mg Tab) 0.125 mg PO HS [facility] Stop: 07/16/24 20:59 Last Admin: 06/16/24 20:55 Dose: 0.125 mg Documented By: YRN Senna/Docusate Sodium (Docusate Sodium/Senna 50/8.6mg Tab) 1 tab PO QAM [facility] Stop: 07/16/24 19:59 Last Admin: 06/16/24 20:59 Dose: 1 tab Documented By: YRN Sennosides (Senna 8.6 Mg Tab) 17.2 mg PO HS [facility] Stop: 07/16/24 20:59 Last Admin: 06/16/24 20:53 Dose: 17.2 mg Documented By: YRN Sodium Chloride (Sodium Chloride 0.65% Na Soln 45 Ml (Dora)) 1 sprays NA PRN PRN PRN Reason: Congestion Stop: 07/16/24 15:04 Last Admin: 06/16/24 16:06 Dose: 1 sprays Documented By: GIANCARLO Zolpidem Tartrate (Zolpidem Tartrate 5 Mg Tab) 10 mg PO HS [facility] Stop: 07/16/24 20:59 Last Admin: 06/16/24 20:53 Dose: 10 mg Documented By: YRN Discontinued Medications Acetaminophen (Acetaminophen 500 Mg Tab) 1,000 mg PO NOW STA Stop: 06/15/24 20:20 Last Admin: 06/15/24 20:27 Dose: 1,000 mg Documented By: QGV Dexamethasone Sodium Phosphate (DexamethasonePf 10 Mg/Ml Vial) 10 mg IV NOW ONE Stop: 06/15/24 22:12 Last Admin: 06/15/24 22:51 Dose: 10 mg Documented By: QGV Diphenhydramine HCl (Diphenhydramine 50 Mg/Ml Vial) 25 mg IV NOW STA Stop: 06/15/24 20:20 Last Admin: 06/15/24 20:28 Dose: 25 mg Documented By: BaileyGV Diphenhydramine HCl (Diphenhydramine 50 Mg/Ml Vial) 50 mg IV ONCE PRN PRN Reason: Insomnia Last Admin: 06/16/24 02:29 Dose: 50 mg Documented By: DRE Diphenhydramine HCl (Diphenhydramine 50 Mg/Ml Vial) 50 mg IV NOW STA Stop: 06/16/24 08:29 Last Admin: 06/16/24 08:43 Dose: 50 mg Documented By: GIANCARLO Diphenhydramine HCl (Diphenhydramine 50 Mg/Ml Vial) 25 mg IV NOW STA Stop: 06/16/24 22:56 Last Admin: 06/16/24 22:59 Dose: 25 mg Documented By: YRN Diphenhydramine HCl (Diphenhydramine 50 Mg/Ml Vial) 50 mg IV NOW STA Stop: 06/17/24 02:18 Last Admin: 06/17/24 02:23 Dose: 50 mg Documented By: YRN Heparin Sodium (Porcine) (Heparin 100 Unit/Ml 5ml Flush) Confirm Administered Dose 5 ml .ROUTE .STK-MED ONE Stop: 06/16/24 01:03 Last Admin: 06/16/24 01:04 Dose: 5 ml Documented By: ESTEVAN Hydroxyzine HCl (Hydroxyzine Hcl 25 Mg Tab) 25 mg PO NOW STA Stop: 06/16/24 23:54 Last Admin: 06/16/24 23:59 Dose: 25 mg Documented By: YRN Sodium Chloride (Nss) 1,000 mls @ 999 mls/hr IV .Q1H1M ONE Stop: 06/15/24 21:19 Last Infusion: 06/15/24 22:24 Dose: Infused Documented By: Admin: 06/15/24 20:39 Dose: 999 mls/hr Documented By: QGV Acetaminophen (Ofirmev) 1,000 mg in 100 mls @ 400 mls/hr IV NOW STA Stop: 06/16/24 20:26 Last Infusion: 06/16/24 21:26 Dose: Infused Documented By: Admin: 06/16/24 20:54 Dose: 400 mls/hr Documented By: YRN Ketorolac Tromethamine (Ketorolac Tromethamine 15 Mg/Ml Vial) 10 mg IV NOW STA Stop: 06/15/24 20:20 Last Admin: 06/15/24 20:27 Dose: 10 mg Documented By: QGV Ondansetron HCl (Ondansetron Inj 2 Mg/Ml 2 Ml Vial) 4 mg IV NOW STA Stop: 06/15/24 20:20 Last Admin: 06/15/24 20:27 Dose: 4 mg Documented By: QGV Polyethylene Glycol (Polyethylene (Miralax) 17 Gm Pack) 17 gm PO DAILY [facility] Stop: 07/16/24 08:59 Last Admin: 06/16/24 08:57 Dose: 17 gm Documented By: CLARISSAR Zolpidem Tartrate (Zolpidem Tartrate 5 Mg Tab) 10 mg PO HS ONE Stop: 06/16/24 02:11 Last Admin: 06/16/24 02:21 Dose: Not Given Documented By: DRE Description This is a 21 electrode EEG with a single channel dedicated to limited EKG. The electrodes were placed in accordance with the International 10-20 system. There is a posterior dominant rhythm of 12 Hz which is symmetrically distributed and attenuates with eye opening. There is a normal anterior to posterior examination. Photic stimulation is unremarkable. There is a symmetric frontal beta rhythm. There is no focal slowing. There are no epileptiform abnormalities. Interpretation Normal awake/drowsy EEG. [facility] EEG Procedure Codes Indication for Procedure (1) Syncope: (2) Hx of seizure disorder: Neurology Neurology: [id number] EEG include record awake & drowsy
[2024-06-17] MEDS: CETIRIZINE HCL 10 MG TABLET PO PRN (08:58)
--- NOTE | 2024-06-17 09:29 | Neurology Consultation ---
Date of Consultation June 17, 2024 Assessment & Plan (1) Seizure-like activity: (2) Migraine: Plan 54-year-old female with standing history of atypical seizure-like episodes, negative evaluations previously including several EEGs, brain MRI, seizure protocol, with and without contrast. She presented to the emergency department with a recurrence of these episodes which in part could be consistent with hypnic jerks which is a type of myoclonus which can be seen in the context of hypersomnolence. 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 She had a normal CT of the head at the time of presentation, and has an intact neurological examination. She does not seem to be acutely ill at this time. This patient also relays a history of frequent headaches, probably migraine that has not responded to traditional treatment with topiramate, Imitrex, and Maxalt. She has a prescription for Ubrelvy although has not found this medication very helpful. Although I am uncertain if this patient has epilepsy, at this point, given the recurrent nature of her episodes which could be consistent with a seizure disorder, I would recommend starting a trial of lamotrigine. Would start with 25 mg twice daily and increase to 50 mg twice daily after 2 weeks. Plan to uptitrate to at least 100 mg twice daily. I would also recommend ambulatory EEG monitoring, we can arrange this in the neurology clinic. I do not think she requires another brain MRI at this time. In terms of her migraines, we may consider a trial of Nurtec ODT, Ajovy, or Emgality. These medications will likely need authorization and prescriptions can be arranged through the neurology clinic. She does not tolerate triptans. Would recommend a trial of tizanidine 4 mg twice daily as needed for headaches and associated neck pain. She does have history of cervical spinal fusion, C4- C5, and probably has an element of cervicogenic headache as well. May follow-up with myself or an ARNULFO in clinic in 2 to 3 weeks. History of Present Illness Reason for Consultation: Seizure-like episode Requesting Physician: Isabella Attending Physician: Toya Torres, DO History of Present Illness The patient is a 54-year-old female with a history of recurrent episodes of loss of consciousness, beginning about 10-15 years ago, there has been associated collapse and tongue bite, no warning signs. She complains of associated fatigue and somnolence. She has had assessments with local neurology previously, including Dr. Dejesus, as well as a consultation with an epilepsy specialist at [facility]. Her EEGs, brain MRI, and head CT's have been normal. She has been treated previously with Keppra which was not tolerated, and Depakote, which resulted in weight gain. Past medical history also notable for migraine, topiramate was not helpful. Imitrex and Maxalt were not helpful, she currently has a prescription for Ubrelvy. She often takes Benadryl to treat her headaches. She endorses headache associated nausea as well as light and sound sensitivity. She reports having a migrainous aura previously. Headache location variable, also complains of associated neck pain. She reports a history of cervical spinal fusion as well as connective tissue disease. Past medical history also notable for breast cancer, mastectomy, required chemotherapy, has a port as she is a difficult IV stick ever since her chemo. 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 Patient also recalls having a sleep medicine evaluation in the past. She complains of longstanding insomnia. She relies on Ambien as well as clonazepam which she states is presc ribed for anxiety. She presented to the emergency department on June 15 after several syncopal episodes. There was no apparent seizure activity with these recent episodes, however. if she is these episodes have been described as if she is falling asleep and suddenly awakens, perhaps with some jerking movements. A CT of the head completed on June 15, 2024 was negative for hemorrhage or acute process. I did independently review the images. There is a mild degree of frontal atrophy which is a bit more prominent compared with a previous CT of the head done in 2016. There is no hydrocephalus. She did have a brain MRI, seizure protocol, with and without contrast completed in February 2018. This study was unremarkable, no evidence of mesial temporal sclerosis, nodular heterotopia, or acute seizure focus at that time. I did independently review these images as well. Patient had an EEG completed this morning. No epileptiform abnormalities observed. Normal study. Allergies Allergy/AdvReac Type Severity Reaction Status Date / Time cephalexin Allergy Severe Hives, Verified 08/17/23 11:25 throat swelling Iodinated Contrast Media Allergy Severe Throat Verified 08/17/23 11:25 swells - IV contrast magnesium sulfate Allergy Severe Difficulty Verified 06/16/24 08:50 Breathing metoclopramide [From Reglan] Allergy Severe Difficulty Verified 06/16/24 08:50 Breathing Penicillins Allergy Severe HIVES, Verified 08/17/23 11:25 THROAT SWELLING prochlorperazine Allergy Severe Difficulty Verified 06/16/24 08:50 [From Compazine] Breathing adhesive Allergy Intermediate TAPE- HIVES Verified 08/17/23 11:25 codeine Allergy Intermediate Hives Verified 08/17/23 11:25 gentamicin Allergy Intermediate Hives Verified 08/17/23 11:25 latex Allergy Intermediate SWELLS AND Verified 08/17/23 11:25 HIVES loratadine Allergy Intermediate Hives Verified 08/17/23 11:25 strawberry Allergy Intermediate HIVES Verified 08/17/23 11:25 Sulfa (Sulfonamide Allergy Intermediate Hives Verified 08/17/23 11:25 Antibiotics) tramadol Allergy Intermediate Hives Verified 08/17/23 11:25 vancomycin Allergy Intermediate HIVES Verified 08/17/23 11:25 Home Medications Medication Instructions Recorded Confirmed Type levothyroxine 50 mcg tablet 50 mcg PO QAM 09/01/19 06/16/24 History atorvastatin 20 mg tablet 20 mg PO HS 12/10/21 06/16/24 History omeprazole 20 mg capsule,delayed 20 mg PO HS 01/02/22 06/16/24 History release zolpidem 10 mg tablet 10 mg PO HS 02/26/22 06/16/24 History clonazepam 0.5 mg tablet 0.5 mg PO TID PRN Anxiety 01/30/23 06/16/24 History ubrogepant 50 mg tablet (Ubrelvy) 50 mg PO DAILY PRN migraines 04/22/23 06/16/24 History cyclobenzaprine 5 mg tablet 10 mg PO TID PRN Muscle Spasm 06/15/23 06/16/24 History ibuprofen 600 mg tablet 600 mg PO TID PRN Pain #90 tabs 06/20/23 06/16/24 Rx linaclotide 290 mcg capsule 290 mcg PO QAM 08/08/23 06/16/24 History epinephrine 0.3 mg/0.3 mL 0.3 mg IM Q4H PRN Allergy/hives 10/31/23 06/16/24 History injection, auto-injector fluticasone propionate 50 2 spray intranasal DAILY 10/31/23 06/16/24 History mcg/actuation nasal spray,suspension levocetirizine 5 mg tablet (Xyzal) 5 mg PO DAILY PRN Allergy/hives 10/31/23 06/16/24 History pramipexole 0.125 mg tablet 0.125 mg PO DAILY 10/31/23 06/16/24 History clotrimazole 10 mg jasiel 10 mg PO 5XD 14 days #70 tabs 05/23/24 06/16/24 Rx ondansetron 4 mg disintegrating 4 - 8 mg (1 - 2 x 4 mg) PO Q6H PRN 05/23/24 06/16/24 Rx tablet nausea and vomiting #20 tabs Patient History Medical History Hypomagnesemia Hypokalemia Family history of bowel obstruction UTI (urinary tract infection) currently on abx Hx of seizure disorder no meds current, going to [facility] 2023, last seizure approx July 2022 Lyme disease (~05/2023) recent admit to [facility], treated IV abx x 5 days History of COVID-19 (~2021) x 3 > not hospitalized Poor intravenous access HX: breast cancer "STAGING: Left breast, invasive ductal carcinoma, grade 2, ER/Her2 positive, OH negative, [id number], stage IA TREATMENT: 1. Lumpectom/SLN - 04/03/2015 2. Re-excision to obtain negative margins - 12/11/2015 3. Partial course of chemotherapy - Taxotere/Carboplatin/Herceptin - 5 cycles. Patient has refused further treatment including Herceptin. " Nausea and vomiting after administration of anesthetic agent Depression Anxiety Surgical History Hx of oral surgery (08/29/23) p Incision and Drainage of Left Submandibular and Mucobuccal Abscess(Left) - Peyman Jamil DMD s Tooth Extraction #19(Left) - Peyman Jamil DMD s Excision mass Right oral cheek(Right) - Peyman Jamil DMD History of infusaport central venous catheter insertion (~2022) Powerport, placed at [facility], flushed q 6 weeks Hx of bilateral mastectomy S/P CARRIE (total abdominal hysterectomy) Hx of neck surgery History of cholecystectomy S/P appy Family History Other Breast cancer Heart disease Social History Smoking Status: Never smoker Second Hand Exposure: No; Do You Dip or Chew Tobacco: No; Hx Alcohol Use: No Hx Substance Use: No Preferred Language: Telugu Communication Ability: Effective Orthodontic Lab Technician Required: No Beliefs That Will Affect Care: None Current Living Situation: Alone Feels Safe at Home: Yes Safety Concerns: Feels Safe At This Time Assistive Devices: None Review of Systems Constitutional: + fatigue Eyes: no blind spots and no diplopia Ear, Nose, Mouth, Throat: no hearing loss Respiratory: no cough and no dyspnea Cardiovascular: no chest pain and no palpitations Gastrointestinal: no nausea and no vomiting Genitourinary: no dysuria and no urinary incontinence Musculoskeletal: + neck pain Integumentary: no rash and no lesions Neurologic: as per Subjective / HPI, + seizure-like activity, + syncope and + headache(s) Psychiatric: no depression and no anxiety Hematologic / Lymphatic: no easy bleeding and no easy bruising Exam (Neuro) Constitutional: well developed and well nourished; no acute distress Eyes: normal visual phan by confrontation, PERRL, normal accommodation and EOM intact bilaterally; no nystagmus Neurologic: Oriented to:: Person, Place and Time Memory: Short Term Intact and Remote Intact Attention: Span Intact and Concentration Intact Language: Naming Objects and Repeating Phrases Speech Fluency: negative Dysarthria Speech Aphasia: negative Aphasia Fund of Knowledge: Current Events, Past History and Vocabulary Cranial Nerves: Normal II (Visual phan full to confrontation, visual acuity normal), III, IV, (Pupils equal round reactive to light and accommodation, eye movements normal), V (Facial sensation intact), VII (There is no facial droop or weakness), VIII (Hearing intact), IX, X (Palate elevates to midline), XI (Shoulder shrug intact) and XII (Tongue protrudes to midline) Motor Strength: Normal Lower Extremities and Normal Upper Extremities; negative Pronator Drift Motor Tone: Normal Lower Extremities and Normal Upper Extremities Muscle Bulk/Involuntary Movements: No Involuntary Movements; negative Muscle Atrophy Sensation: Light Touch Intact, Pain/Temperature Intact, Vibration Intact and Proprioception Intact Coordination: Normal; negative Limited Balance, Dysdiadochokinesia, Finger-Nose Abnormal or Heel-Fernandez Abnormal Deep Tendon Reflexes: Rt Triceps: 2+, Lt Triceps: 2+, Rt Biceps: 2+, Lt Biceps: 2+, Rt Brachioradialis: 2+, Lt Brachioradialis: 2+, Rt Patellar: 2+, Lt Patellar: 2+, Rt Ankle: 2+ and Lt Ankle: 2+ Special Tests: negative Babinski Present Results & Data Vital Signs (Past 12 Hours) Vital Signs Temp Pulse Pulse Resp BP Pulse Ox O2 Del Method 06/17/24 07:56 36.4 C L 71 16 111/73 97 Room Air 06/17/24 07:31 79 06/17/24 02:29 36.4 C L 80 16 94/56 L 97 Room Air 06/16/24 22:48 Room Air 06/16/24 22:24 36.6 C 84 18 102/65 95 Room Air 06/16/24 22:00 85 Laboratory Results WBC 7.13, hemoglobin 10.9, hematocrit 32.9, platelet count 225, ESR 16, sodium 139, potassium 4.2, BUN 28, creatinine 0.74, glucose 110, calcium 8.8, magnesium 1.9, AST 26, ALT 85, CRP less than 0.50, vitamin B12 325, TSH 2.082 Coding Level of Care Code 47709 INT INP/OBS CARE 3/75MIN Diagnoses Seizure-like activity R56.9 Migraine G43.909 Intractability: not intractable Migraine type: unspecified Status migrainosus presence: without status migrainosus Time Spent (min) 90 Comment Total time includes patient contact, chart review, counseling, note preparation (2) Migraine Intractability: not intractable Migraine type: unspecified Status migrainosus presence: without status migrainosus Qualified Code(s): G43.909 - Migraine, unspecified, not intractable, without status migrainosus
[2024-06-17] MEDS: tiZANidine HCL 4 MG TABLET PO SCH (10:57)
[2024-06-17] MEDS: lamoTRIgine 25 MG TAB PO SCH (11:20)
--- NOTE | 2024-06-17 13:32 | Hospitalist Progress Note ---
Date of Service June 17, 2024 Assessment & Plan (1) Syncope: Plan 54-year-old female PMHx seizures, migraines, depression, anxiety, lupus, GERD, fibromyalgia, hypothyroidism, and history of breast cancer presenting to ED for syncope x 2 days. Associated headache, neck pain. For the past 2 days, she has had more fatigue and been sleeping more than usual. Normally patient has difficulty with sleeping and has to take multiple sleep aids. Within the past 48 hours, patient has had 3 episodes of what she describes as "going out" and then jerking back awake. Workup in ED without leukocytosis, does have H&H 10.9/32.9, no gross electrolyte abnormalities with exception of BUN 28, BUN/creatinine 37.5. Troponin <2.3, TSH 2.082, BioFire negative. Head CT no evidence of acute pathology, CXR without acute findings per my read, pending official read. EKG at admission NSR with low voltage QRS and rate of 90 bpm. Patient received NSS IVF, Zofran, ketorolac, diphenhydramine, dexamethasone, and acetaminophen in the ED. #Syncope/seizure-like episodes -Screening labs pending CBC and BMP were unremarkable - CXR negative Head CT negative Echocardiogram pending - Fall precautions; orthostatic vitals were slightly positive. Hydrating gently. -EEG negative Neurology recommended starting lamotrigine 25 mg twice daily and then to increase to 50 mg twice daily after 2 weeks. Plan is to uptitrate to 100 mg Neurology also recommends starting tizanidine 4 mg twice daily for associated neck pain Patient will need to see neurology outpatient in 3 weeks Orders placed per neurology recommendation Plan to discharge tomorrow #Constipation Ongoing, chronic. Last BM "a few days ago" unsure exactly how many days, but denying abdominal pain, N/V; patient reports history of multiple bowel obstructions 2/2 past abdominal surgeries. States that nothing makes her go but would like to try medications while she is inpatient. - On Linzess as outpatient- continue - Most recent CTAP 06/29/2023 revealing significant constipation without signs of bowel obstruction; no CTAP ordered at time of admission, physical exam WNL of abdomen - Will add on constipation regimen - MOM, MiraLax, and senna added - please document BM; Discussed the importance of proper water intake when utilizing different types of laxatives; encourage fluids #Insomnia- zolpidem 10mg, patient also utilize Benadryl for sleep- Benadryl added #Seizures- last episode 2022, followed with neurology, supposedly on Keppra but has not been taking for the past few months because she feels "sick" on it. Neurology added Lamictal #Migraines- Patient reports history of, however not on any prophylactic medications, but her medication list does include Ubrelvy as needed. Headaches for the past 2 days. #Anxiety/depression- Clonazepam 3 times daily prn #GERD- Omeprazole #Hypothyroidism- TSH WNL on admission; Levothyroxine #HLD- Atorvastatin #? RLS- Pramipexole, cyclobenzaprine as needed #BCA- Approaching 10 years cancer free, L breast; s/p excision and chemo, in remission VTE prophylaxis: SCDs Full code Disposition: Likely discharge tomorrow Admission and Anticipated Discharge Date Admission Date: June 16, 2024 Subjective Patient was seen and examined at 10:20 AM. She was seen in consultation by neurology. Review of Systems Review of Systems: All systems reviewed & are unremarkable except as noted in Subjective Physical Exam Physical Exam: General: Awake, conversant Heart: S1, S2/regular rate and rhythm, no murmur rubs or gallops Lungs: Clear to auscultation bilaterally. Normal effort Abdomen: Soft/nontender/nondistended. No hepatosplenomegaly Extremities: No clubbing/cyanosis. No edema Behavior: Appropriate, cooperative Results & Data Results & Data Vital Signs (Past 12 Hours) Vital Signs Temp Pulse Pulse Resp BP BP Pulse Ox 06/17/24 11:20 36.5 C 78 14 111/75 98 06/17/24 07:56 36.4 C L 71 16 111/73 97 06/17/24 07:31 79 06/17/24 02:29 36.4 C L 80 16 94/56 L 97 O2 Del Method 06/17/24 11:20 Room Air 06/17/24 07:56 Room Air 06/17/24 07:31 06/17/24 02:29 Room Air PG Care Time/CCT Total # of Minutes Spent Total Time Spent with Patient: Total time spent is greater than 50% in coordination of care (as documented) at patient's floor/unit and/or counseling patient: Coding Level of Care Code 07695 SUB INP/OBS CARE MIN Diagnoses Syncope R55 Syncope type: unspecified (1) Syncope Syncope type: unspecified Qualified Code(s): R55 - Syncope and collapse
[2024-06-17] MEDS: diphenhydrAMINE 50 MG/ML VIAL IV PRN (17:11)
[2024-06-18 03:07] VITALS: TEMP 97.7
[2024-06-18 07:45] VITALS: BP 111/76; PULSE 68; RESP 20; O2SAT 97
[2024-06-18] MEDS: diphenhydrAMINE 50 MG/ML VIAL IV PRN (09:06)
--- NOTE | 2024-06-18 09:43 | Discharge Summary ---
Date of Service June 18, 2024 Admission HPI Per Admitting Provider 54-year-old female PMHx seizures, migraines, depression, anxiety, lupus, GERD, fibromyalgia, hypothyroidism, and history of breast cancer presenting to ED for syncope x 2 days. Associated headache, neck pain. For the past 2 days, she has had more fatigue and been sleeping more than usual. Normally patient has difficulty with sleeping and has to take multiple sleep aids. Within the past 48 hours, patient has had 3 episodes of what she describes as "going out" and then jerking back awake. Patient's is present in room and helps provide history. Patient's states that the episodes appear to be that she is almost falling asleep and then jerking herself back awake, however the patient states that she does not sleep on these episodes occur. She has no symptoms prior to the events, and no symptoms following the episode, but just feels "out of it." Does sometimes get headaches with these episodes, but has a history of migraines and not on prophylactic medication. Patient states that her heart does sometimes start racing with these episodes, and that the symptoms will occur for just seconds. Does not think anything is triggering it. Patient did have recent tick bite in February 2024. History of reported grand mal seizures per the patient, starting 1 year ago with the most recent episode being 6 months ago, described as falling onto the ground but unable to provide more history in to this. Has not been taking antiseizure medications for the past few months per patient. Does have history of anemia and was supposed to be on iron, but does not take this anymore. Has issues with constipation, stating that nothing at all works. Her last bowel movement was "a few days ago." Sometimes has an episode of left flank pain that comes and goes, but is unable to provide more history into this. States that it is random, but she denies LUTS. Overall, patient denying chest pain, shortness of breath, abdominal pain, N/V/D, numbness/tingling, weakness, dizziness, fever/chills, LUTS, or additional symptoms. Took her daily medications. Workup in ED without leukocytosis, does have H&H 10.9/32.9, no gross electrolyte abnormalities with exception of BUN 28, BUN/creatinine 37.5. Troponin <2.3, TSH 2.082, BioFire negative. Head CT no evidence of acute pathology, CXR without acute findings per my read, pending official read. EKG at admission NSR with low voltage QRS and rate of 90 bpm. Patient received NSS IVF, Zofran, ketorolac, diphenhydramine, dexamethasone, and acetaminophen in the ED. Please see Dr. Torres's attestation for adjustments/additions to treatment plan. Admission Exam Per Admitting Provider General: No acute distress Skin: Warm and dry, without rashes or lesions Head: Normocephalic, atraumatic Eyes: PERRL, conjunctivae clear, sclera non-icteric; EOM intact ENT: External ear and ear canal without swelling; nose atraumatic; Fair dentition, tongue normal appearance, pharynx normal without tonsillar swelling or exudate Neck: Supple, no LAD; no JVD Cardio: RRR, no M/G/R, S1 and S2 normal Resp: No respiratory distress, Lungs CTA in all lobes bilaterally, no wheezes, rales, or rhonchi; port in place L chest Abdomen: Soft, symmetric, nontender;no distention; No masses or hepatosplenomegaly; Bowel sounds normoactive MSK: No deformities, full ROM throughout; pulses palpable and equal; no edema. Neuro: Awake, alert; Muscle strength 5/5 bilaterally in UE/LE; Sensation intact bilaterally; CN grossly intact Psych: Appropriate mood and affect; good judgement and insight. present in room at time of visit. Principal Diagnosis Seizure-like activity versus myoclonus in the setting of hypersomnolence Discharge Exam General: Awake, conversant Heart: S1, S2/regular rate and rhythm, no murmur rubs or gallops Lungs: Clear to auscultation bilaterally. Normal effort Abdomen: Soft/nontender/nondistended. No hepatosplenomegaly Extremities: No clubbing/cyanosis. No edema Behavior: Appropriate, cooperative Discharge Data Allergies Allergy/AdvReac Type Severity Reaction Status Date / Time cephalexin Allergy Severe Hives, Verified 08/17/23 11:25 throat swelling Iodinated Contrast Media Allergy Severe Throat Verified 08/17/23 11:25 swells - IV contrast magnesium sulfate Allergy Severe Difficulty Verified 06/16/24 08:50 Breathing metoclopramide [From Reglan] Allergy Severe Difficulty Verified 06/16/24 08:50 Breathing Penicillins Allergy Severe HIVES, Verified 08/17/23 11:25 THROAT SWELLING prochlorperazine Allergy Severe Difficulty Verified 06/16/24 08:50 [From Compazine] Breathing adhesive Allergy Intermediate TAPE- HIVES Verified 08/17/23 11:25 codeine Allergy Intermediate Hives Verified 08/17/23 11:25 gentamicin Allergy Intermediate Hives Verified 08/17/23 11:25 latex Allergy Intermediate SWELLS AND Verified 08/17/23 11:25 HIVES loratadine Allergy Intermediate Hives Verified 08/17/23 11:25 strawberry Allergy Intermediate HIVES Verified 08/17/23 11:25 Sulfa (Sulfonamide Allergy Intermediate Hives Verified 08/17/23 11:25 Antibiotics) tramadol Allergy Intermediate Hives Verified 08/17/23 11:25 vancomycin Allergy Intermediate HIVES Verified 08/17/23 11:25 Consultations 06/16/24 11:14 Consult Neurology Routine Ordered Studies Head CT 06/15/24 20:19 Exam(s): CT HEAD Without Contrast EXAM: CT Head Without Intravenous Contrast CLINICAL HISTORY: Reason for exam: Headache. TECHNIQUE: Axial computed tomography images of the head/brain without intravenous contrast. CTDI is 53 mGy and DLP is 764 mGy-cm. Automated exposure control was utilized for the study. A dose lowering technique was utilized adhering to the principles of ALARA. COMPARISON: Prior head CT from September 15, 2022. FINDINGS: Brain: Unremarkable. No hemorrhage. No significant white matter disease. No edema. Ventricles: Unremarkable. No ventriculomegaly. Bones/joints: Unremarkable. No acute fracture. Soft tissues: Unremarkable. Sinuses: Unremarkable as visualized. No acute sinusitis. Mastoid air cells: Unremarkable as visualized. No mastoid effusion. IMPRESSION: No evidence of acute intracranial pathology. 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 TECHNIQUE: Frontal view of the chest. COMPARISON: No relevant prior studies available. FINDINGS: There is a right IJ approach Port-A-Cath in the right chest wall. Lungs: Unremarkable. No consolidation. Pleural space: Unremarkable. No pneumothorax. Heart: Unremarkable. No cardiomegaly. Mediastinum: Unremarkable. Normal mediastinal contour. Bones/joints: Unremarkable. No acute fracture. IMPRESSION: No evidence of acute cardiopulmonary process. Electronically signed by: Belkys Simon MD 06/16/24 00:23 AM 06/15/24 20:19 CT head/brain wo con Stat Hospital Course (1) Syncope: Plan 54-year-old female PMHx seizures, migraines, depression, anxiety, lupus, GERD, fibromyalgia, hypothyroidism, and history of breast cancer presenting to ED for syncope x 2 days. Associated headache, neck pain. For the past 2 days, she has had more fatigue and been sleeping more than usual. Normally patient has difficulty with sleeping and has to take multiple sleep aids. Within the past 48 hours, patient has had 3 episodes of what she describes as "going out" and then jerking back awake. Workup in ED without leukocytosis, does have H&H 10.9/32.9, no gross electrolyte abnormalities with exception of BUN 28, BUN/creatinine 37.5. Troponin <2.3, TSH 2.082, BioFire negative. Head CT no evidence of acute pathology, CXR without acute findings per my read, pending official read. EKG at admission NSR with low voltage QRS and rate of 90 bpm. Patient received NSS IVF, Zofran, ketorolac, diphenhydramine, dexamethasone, and acetaminophen in the ED. #Syncope/seizure-like episodes -Screening labs pending CBC and BMP were unremarkable - CXR negative Head CT negative Echocardiogram pending - Fall precautions; orthostatic vitals were slightly positive. Hydrated. -EEG negative Neurology recommended starting lamotrigine 25 mg twice daily and then to increase to 50 mg twice daily after 2 weeks. Plan is to uptitrate to 100 mg twice daily eventually. Neurology also recommends starting tizanidine 4 mg twice daily for headache and associated neck pain Patient will need to see neurology outpatient in 3 weeks Discharge to home today #Constipation Ongoing, chronic. Last BM "a few days ago" unsure exactly how many days, but denying abdominal pain, N/V; patient reports history of multiple bowel obstructions 2/2 past abdominal surgeries. States that nothing makes her go but would like to try medications while she is inpatient. - On Linzess as outpatient- continue - Most recent CTAP 06/29/2023 revealing significant constipation without signs of bowel obstruction; no CTAP ordered at time of admission, physical exam WNL of abdomen -Treated with laxatives; Discussed the importance of proper water intake when utilizing different types of laxatives; encourage fluids #Insomnia- zolpidem 10mg, patient also utilize Benadryl for sleep- Benadryl added. Patient was noted to use IV Benadryl while in the hospital very consistently. Noted that she likes to stay sedated #Seizures- last episode 2022, followed with neurology, supposedly on Keppra but has not been taking for the past few months because she feels "sick" on it. Neurology added Lamictal. Advised patient to not stop medications without consulting with the prescriber. #Migraines- Patient reports history of, however not on any prophylactic medications, but her medication list does include Ubrelvy as needed. Headaches for the past 2 days. #Anxiety/depression- Clonazepam 3 times daily prn #GERD- Omeprazole #Hypothyroidism- TSH WNL on admission; Levothyroxine #HLD- Atorvastatin #? RLS- Pramipexole, cyclobenzaprine as needed #BCA- Approaching 10 years cancer free, L breast; s/p excision and chemo, in remission Discharge to home today Total Time Total Time Spent Total Time Spent (In Minutes): 35 Discharge Plan Discharge Items Patient Disposition: Home - Self-Care Reason For Visit: SYNCOPE Discharge Diagnosis: Seizure-like activity versus myoclonus in the setting of hypersomnolence Activity: Resume your previous activity Non-emergency contact: Primary Care Provider Call non-emergency contact if: you have any medication questions and your symptoms worsen Follow-up/Referrals: Cristian Hall MD [Physician] - (THE OFFICE WILL CALL YOU WITHIN THE NEXT FEW DAYS FOR AN APPOINTMENT. IF YOU DO NOT HEAR FROM THEM, PLEASE CONTACT THEIR OFFICE) Louann Corrales DO [Primary Care Provider] - 06/21/24 2:05 pm Diet: Regular Addtl Attending Provider Instructions: Advised to follow-up with PCP in 1 week Advised to follow-up with neurology clinic in 2 weeks Advised to note that you have been started on Lamictal 25 mg twice daily. Advised to note that you have been started on tizanidine 4 mg twice daily to help with her migraine and associated neck pain Pending Studies at Discharge: No Stand-Alone Forms: My [facility] Medications and DC Order Prescriptions: New tizanidine 4 mg Tablet 4 mg PO BID 30 Days Qty: 60 0RF lamotrigine [Lamictal] 25 mg Tablet 25 mg PO BID 30 Days Qty: 60 0RF Continued fluticasone propionate 50 mcg/actuation spray,suspension 2 spray intranasal DAILY Rx Instructions: administer into each nostril levocetirizine [Xyzal] 5 mg tablet 5 mg PO DAILY PRN (Reason: Allergy/hives) epinephrine 0.3 mg/0.3 mL auto-injector 0.3 mg IM Q4H PRN (Reason: Allergy/hives) pramipexole 0.125 mg tablet 0.125 mg PO DAILY levothyroxine 50 mcg tablet 50 mcg PO QAM atorvastatin 20 mg tablet 20 mg PO HS zolpidem 10 mg tablet 10 mg PO HS Ubrelvy 50 mg tablet 50 mg PO DAILY PRN (Reason: migraines) omeprazole 20 mg capsule,delayed release(DR/EC) 20 mg PO HS clonazepam 0.5 mg tablet 0.5 mg PO TID PRN (Reason: Anxiety) cyclobenzaprine 5 mg tablet 10 mg PO TID PRN (Reason: Muscle Spasm) ibuprofen 600 mg tablet 600 mg PO TID PRN (Reason: Pain) Qty: 90 0RF linaclotide 290 mcg capsule 290 mcg PO QAM ondansetron 4 mg tablet,disintegrating 4 - 8 mg PO Q6H PRN (Reason: nausea and vomiting) Qty: 20 0RF Rx Instructions: 4mg to start then september trial 8mg clotrimazole 10 mg jasiel 10 mg PO 5XD 14 Days Qty: 70 1RF Discharge Orders: Discharge Order (Routine); Ordered 06/18/24 Ordered By: Torres Mason Admission Data Admit Date/Time: 06/16/24 00:09 Attending Provider: Torres Mason Admit Provider: Eros Lopez Primary Care Provider: Louann Corrales Other Providers: Charly Herring
== END 2024-06-18 11:11 | disposition home or self-care (01) ==
LOC: 2N 19:33 → ED 19:33 → SUATTDRO 06-16 00:09 → 2N 06-16 01:11